=== PATIENT | male | born 1950 | race Caucasian/White ===

== ENCOUNTER → 2017-10-10 08:26 | Outpatient (CLI) | payer MEDICARE, OTHER, SELFPAY ==
--- NOTE | 2017-10-10 08:30 | US_ITS ---
STUDY: ABDOMINAL ULTRASOUND - RIGHT UPPER QUADRANT REASON FOR VISIT: Male, 66 years old. Dyspepsia TECHNIQUE: Ultrasound evaluation of the right upper quadrant was performed with real-time and static fink-scale imaging. TECHNICAL QUALITY: Adequate. COMPARISON: None. FINDINGS: Liver: The liver measures 14.4 cm. There is increased echogenicity consistent with fatty infiltration. The bile ducts are within normal limits. There is hepatic color flow. The direction of portal flow is hepatopetal. There is no demonstrated mass lesion. Gallbladder: Normal distended gallbladder. The gallbladder wall measures 2 mm. There is a negative sonographic Diana's sign. There is no pericholecystic fluid. There are no gallstones. Common Bile Duct (C.B.D.): The common bile duct measures 2 mm. Pancreas: Normal size of the head, body and tail of the pancreas. There is normal echogenicity of the pancreas. There is no demonstrated pancreatic mass or cyst. Right Kidney: Normal size of the right kidney. The right kidney measures 10.8 cm. Normal renal cortex. The right cortex measures 1.5 cm. There is no demonstrated renal mass or cyst. There is no right hydronephrosis. US/Abdomen Limited IMPRESSION: No gallstones or biliary dilatation. Fatty infiltration of the liver. Electronically Signed: Son Machado MD at 14:28 EDT , Service support ,
[2017-10-10 09:56] LABS: Absolute Lymphocyte Count 1.47 X10^3/ul (0.83-4.51); Absolute Neutrophil Count 2.9 X10^3/uL (2.0-7.7); Basophil# 0.01 X10^3/uL; Basophil% 0.2 % (0-1); Eosinophil# 0.32 X10^3/uL; Eosinophils% 5.9 % (0-5); Hematocrit 45.4 % (40-54); Hemoglobin 15.8 g/dl (13.0-16.5); Lymphocyte # 1.47 X10^3/ul (4.0); Lymphocyte % 27.1 % (19-41); Mean Corp Hgb Conc 34.8 g/gl (32-36); Mean Corpuscular Hgb 34.3 pg (27.0-32.0); Mean Corpuscular Volume 98.7 fL (80-94); Mean Platelet Vol. 9.8 fl (6.2-12.0); Monocyte# 0.67 X10^3/uL; Monocyte% 12.4 % (0-10); Neutrophil # 2.93 X10^3/uL (2.7-7.7); Platelet Count 207 K/mm3 (150-450); RBC Distribution Width CV 11.9 % (11.6-14.6); White Blood Count 5.4 K/mm3 (4.4-11.0)
[2017-10-10 09:58] LABS: POSITIVE COUNT NO; POSITIVE DIFFERENTIAL NO; POSITIVE MORPHOLOGY NO
[2017-10-10 10:12] LABS: Hemoglobin A1c 6.5 % (4.2-6.3)
[2017-10-10 10:32] LABS: Microalbumin:Creatinine Ratio 4.6 mg/g CRE (<30 mg/g CRE)
[2017-10-10 10:33] LABS: ALB/GLOB Ratio 1.3 RATIO (0.9-2.4); AST(SGOT) 22 U/L (15-37); Alanine Aminotransfer ALT/SGPT 28 U/L (16-61); Albumin, Serum 3.9 g/dL (3.2-5.0); Alkaline Phosphatase 64 U/L (45-117); Anion Gap 7 (5-15); BUN 19 mg/dL (7-18); BUN/Creat Ratio 16.7 RATIO (10-20); Calcium,Total 9.3 mg/dL (8.5-10.1); Chloride 106 mmol/L (98-107); Cholesterol 120 mg/dL (200); Creatinine, Serum 1.14 mg/dL (0.70-1.30); EST Glomerular Filtration Rate 68 mL/min (>60); Est Glom Filt Rate - Afr Amer 82 mL/min (>60); Globulin 3.1 g/dL (2.2-4.2); Glucose 116 mg/dL (74-106); High Density Lipoprotein 57 mg/dL; PSA,Total - Annual Screen 0.45 ng/mL (0.00-4.00); Potassium 4.1 mmol/L (3.5-5.1); Sodium Level 140 mmol/L (136-145); Triglycerides 118 mg/dL; Very Low Density Lipoprotein 24 mg/dL (5-40)
[2017-10-10 10:43] LABS: Vitamin D,25 Hydroxy 27.9 ng/mL (29.95-100.01)
== END ==
PROVIDERS: Family Provider Family Medicine; PCP Family Medicine; Visit Provider Family Medicine
DX: R10.13 Epigastric pain (principal); I10 Essential (primary) hypertension; E78.00 Pure hypercholesterolemia, unspecified; M51.36 Other intervertebral disc degeneration, lumbar region; Z12.5 Encounter for screening for malignant neoplasm of prostate
CPT/HCPCS: 76705; 80053; 80061; 82043; 82306; 82570; 83036; 84153; 85025; G0103

== ENCOUNTER → 2018-02-19 09:40 | Outpatient (CLI) | payer MEDICARE, OTHER, SELFPAY ==
--- NOTE | 2018-02-19 09:43 | RAD_ITS ---
STUDY: X-RAY - LEFT SHOULDER REASON FOR EXAM: Chronic pain. TECHNIQUE: 3 view(s) of the shoulder. COMPARISON: None. FINDINGS: Normal glenohumeral articulation. Normal acromioclavicular joint. Normal acromion. Normal humeral head and visualized proximal humerus. The soft tissue structures are unremarkable. Normal visualized pulmonary apex. RAD/Shoulder min 2 Views IMPRESSION: Normal x-ray examination of the left shoulder. Electronically Signed: Goyo Slainas MD at 15:41 EDT Tel , Service support ,
== END ==
PROVIDERS: Family Provider Family Medicine; PCP Family Medicine; Visit Provider Orthopaedic Surgery
DX: M25.512 Pain in left shoulder (principal)
CPT/HCPCS: 73030

== ENCOUNTER 2018-03-17 09:00 | Outpatient (RCR) | payer MEDICARE, OTHER, SELFPAY ==
--- NOTE | 2018-03-03 08:35 | HP.PTEVAL_ITS ---
Patient's Visit Information BRANT BASILIO is a 67 year old M referred to Physical Therapy by Carrol Keller DO with a diagnosis of L shoulder RC strain/SLAP. Date of Evaluation: 02/27/18 Physical Therapist: Gonzalo Garcia - Visit Plan Frequency: 1-2x /Week Duration: 4-6 Weeks Plan: strengthen L RC muscles as tolerated- progress to HEP. Pt. to trial on own for 2 weeks then follow up with PT at that point in time. - Subjective Subjective: Pt reports to physical therapy following possible L shoulder RC strain/SLAP. ~3 weeks ago pt suffered a fall on an outstretched arm and landed on shoulder. pt noticed discomfort following fall but wasnt until pt lifted a bag of garbange with an outstretched arm that the pt felt there was an actual injury. pt reports pain with over head movements and shoulder height reaches (opening/closing car door, opening mailbox, reaching for something on top shelf). pt received x-ray which ruled out fracture or AC separation. pt reports pain is enough to wake them up at night. pt is unable to lay on left side. no pain on this date, however. Pt hopes to be able to golf and return to normal activity without pain. - Pain L shoulder Pain Intensity (Out of 10): 0 Pain Intensity Range: 0, 6 - Objective POSTURE: significant forwar head posture with rounded shoulders. PALPATION: no noticable pain with palpation, no pain through subacromial space or scapular region. NEURO: normal UE reflexes and sensation. no numbness or tingling. ROM: L UE: WFL, R with in normal limits. No increase in symptoms with AROM. MMT: L UE: shoulder- flexion- 4/5, abduction- 4/5, extension- 5/5, IR- 5/5, ER- 5/5; elbow- 5/5. Increase in pain with flexion and abduction. - Special Tests L Shoulder Drop Sign - IS Test: Negative L Shoulder Empty Can - SS: Positive L Shoulder Belly Press - SupScap: Negative L Shoulder Neer - Impingement: Negative L Shoulder [place] - Impingement: Negative L Shoulder Biceps Load Test - Labrum: Negative L Shoulder [place] - SLAP: Positive L Shoulder [place] - SLAP/A-C: Positive - Goals Goal 1:: Pt reports 0/10 pain with over head movment allowing for full ability to perform household tasks. Goal Time Frame: 4-6 Weeks Goal 2:: Pt reports no pain with sleeping allowing for increased quality of life. Goal Time Frame: 4-6 Weeks Goal 3:: Pt to have increased L shoulder flexion and abduction strength by 1 grade allowing for full participation in daily and social activities. Goal Time Frame: 4-6 Weeks Goal 4:: Pt. to resume playing golf without increase in symptoms. Goal Time Frame: 4-6 Weeks Goal 5:: Pt. to resume all ADLs and house hold work without increase in symptoms Goal Time Frame: 4-6 Weeks - Rehabilitation Potential Physical Therapy Diagnosis: pt presents with symptoms assocaited with L shoulder RC strain/SLAP. symptoms include pain with over head movment limiting pt ability to perform household and recreational tasks. pt would benefit form physical therapy to promot decrease in pain and improve overhead ability. Rehabilitation Potential: Excellent - Anticipated Interventions Patient/Client Instruction: Educate patient on: Plan of Care, Risk Factors, Benefits of Fitness Program For the Purpose of:: To decrease pain, To increase ROM, To improve muscle performance and motor function, To improve ability to perform ADL's, To increase tolerance to activity/condition/position, To foster healthy habits, To improve decision making, To facilitate caregiver knowledge, To improve self management, To prevent re-injury, To improve ability to perform tasks related to life management, To improve tolerance to ADL's Therapeutic Exercise to Include: Strength training, Power training, Postural tr aining For the Purpose of:: To decrease pain, To increase oxygenation perfusion, To improve muscle performance and motor function, To improve ability to perform ADL's, To increase tolerance to activity/condition/position, To improve performance and independence with ADL's Cryotherapy (ice pack, ice massage): Yes Ultrasound (thermal/non thermal): Yes For the Purpose of:: To decrease pain, To decrease swelling/inflammation, To increase ROM, To improve health of tissue, To decrease soft tissue restriction Thank you for the opportunity to evaluate your patient. For Medicare and Medicare HMO plans, please review the plan of care and approve it. It will need to be FAXED BACK to us at [phone] for Medicare purposes. Please let me know if there are questions or concerns regarding this plan of care. Physician Signature: Date:
--- NOTE | 2018-08-19 09:16 | HP.PT.NRP ---
HP - Discharge Summary (1) - Patient Information BRANT BASILIO was seen in my office for initial evaluation on 02/27/18. The following Plan of Care was established for this patient: Initial Frequency: 1-2x /Week Initial Duration: 4-6 Weeks - Anticipated Interventions Patient/Client Instruction: Educate patient on: Plan of Care, Risk Factors, Benefits of Fitness Program For the Purpose of:: To decrease pain, To increase ROM, To improve muscle performance and motor function, To improve ability to perform ADL's, To increase tolerance to activity/condition/position, To foster healthy habits, To improve decision making, To facilitate caregiver knowledge, To improve self management, To prevent re-injury, To improve ability to perform tasks related to life management, To improve tolerance to ADL's Therapeutic Exercise to Include: Strength training, Power training, Postural training For the Purpose of:: To decrease pain, To increase oxygenation perfusion, To improve muscle performance and motor function, To improve ability to perform ADL's, To increase tolerance to activity/condition/position, To improve performance and independence with ADL's Cryotherapy (ice pack, ice massage): Yes Ultrasound (thermal/non thermal): Yes For the Purpose of:: To decrease pain, To decrease swelling/inflammation, To increase ROM, To improve health of tissue, To decrease soft tissue restriction This patient was last seen in our office 02/27/18. Pertinent comments regarding their Physical therapy will appear below: Pt. was seen for his shoulder pain. Pt. was given RTC strengthening exercises and desired to continue with his exercises on his own. Pt. has not been seen in several months and will be DC from PT at this point intime. At this point I will be discontinuing this patient from physical therapy. I would be happy to see this patient again in the future if found appropriate by the physician. Thank you! Gonzalo Garcia, YONI
== END 2018-03-17 19:00 | disposition home or self-care (01) ==
LOC: PT 09:00
PROVIDERS: Family Provider Family Medicine; PCP Family Medicine; Visit Provider Orthopaedic Surgery
DX: S46.012D Strain of muscle(s) and tendon(s) of the rotator cuff of left shoulder, subsequent encounter (principal); S43.432D Superior glenoid labrum lesion of left shoulder, subsequent encounter
CPT/HCPCS: 97110; 97161

== ENCOUNTER → 2018-03-25 07:57 | Outpatient (CLI) | payer MEDICARE, OTHER, SELFPAY ==
[2018-03-25 11:01] LABS: ALB/GLOB Ratio 1.4 RATIO (0.9-2.4); AST(SGOT) 26 U/L (15-37); Alanine Aminotransfer ALT/SGPT 32 U/L (16-61); Alkaline Phosphatase 61 U/L (45-117); Anion Gap 7 (5-15); BUN 18 mg/dL (7-18); BUN/Creat Ratio 16.8 RATIO (10-20); Chloride 103 mmol/L (98-107); Creatinine, Serum 1.07 mg/dL (0.70-1.30); EST Glomerular Filtration Rate 73 mL/min (>60); Est Glom Filt Rate - Afr Amer 89 mL/min (>60); Globulin 2.9 g/dL (2.2-4.2); Glucose 112 mg/dL (74-106); Potassium 3.9 mmol/L (3.5-5.1); Protein, Total 6.9 g/dL (6.4-8.2); Sodium Level 137 mmol/L (136-145)
[2018-03-25 14:28] LABS: Microalbumin,Random Urine 9.9 mg/L (NO RANGE EST.); Microalbumin:Creatinine Ratio 5.5 mg/g CRE (<30 mg/g CRE)
== END ==
PROVIDERS: Family Provider Family Medicine; PCP Family Medicine; Referring Provider Family Medicine; Visit Provider Family Medicine
DX: E11.9 Type 2 diabetes mellitus without complications (principal)
CPT/HCPCS: 36415; 80053; 82043; 82570

== ENCOUNTER → 2018-09-23 15:56 | Outpatient (CLI) | payer MEDICARE, OTHER, SELFPAY ==
[2018-04-24 10:12] VITALS: BMI 30.1
[2018-09-23 17:42] LABS: Absolute Lymphocyte Count 1.66 X10^3/ul (0.83-4.51); Absolute Neutrophil Count 3.6 X10^3/uL (2.0-7.7); Basophil# 0.01 X10^3/uL; Basophil% 0.2 % (0-1); Eosinophil# 0.36 X10^3/uL; Eosinophils% 5.6 % (0-5); Hematocrit 44.5 % (40-54); Hemoglobin 15.2 g/dl (13.0-16.5); Lymphocyte # 1.66 X10^3/ul (4.0); Lymphocyte % 25.9 % (19-41); Mean Corp Hgb Conc 34.2 g/gl (32-36); Mean Corpuscular Hgb 32.8 pg (27.0-32.0); Mean Corpuscular Volume 96.1 fL (80-94); Mean Platelet Vol. 9.7 fl (6.2-12.0); Monocyte# 0.75 X10^3/uL; Monocyte% 11.7 % (0-10); Platelet Count 220 K/mm3 (150-450); RBC Distribution Width SD 41.2 fl (35.1-43.9); Red Blood Count 4.63 M/mm3 (4.6-6.2); White Blood Count 6.4 K/mm3 (4.4-11.0)
[2018-09-23 18:04] LABS: POSITIVE COUNT NO; POSITIVE DIFFERENTIAL NO; POSITIVE MORPHOLOGY NO
== END ==
PROVIDERS: Family Provider Family Medicine; PCP Family Medicine; Referring Provider Family Medicine; Visit Provider Nurse Practitioner Family
DX: R35.0 Frequency of micturition (principal)
CPT/HCPCS: 36415; 85025; 87086

== ENCOUNTER → 2018-12-03 | Outpatient (CLI) | payer MEDICARE, OTHER, SELFPAY ==
[2018-04-24 10:12] VITALS: BMI 30.1
--- NOTE | 2018-12-03 12:56 | CT_ITS ---
STUDY: CT MAXILLOFACIAL SINUSES REASON FOR EXAM: Male, 68 years old. Sinusitis RADIATION DOSAGE (If Supplied By Facility): CTDIvol = ( 33.45 ) mGy, DLP = ( 637.51 ) mGycm TECHNIQUE: The patient was scanned in a multi detector CT scanner. High resolution axial imaging was performed without the administration of intravenous contrast material. Sagittal and coronal images were reconstructed. Individualized dose optimization techniques were used for this CT. COMPARISON: None. FINDINGS: FRONTAL SINUSES: Normal aeration, without mucosal inflammatory disease. ETHMOIDAL SINUSES: Normal aeration, without mucosal inflammatory disease. MAXILLARY SINUSES: Normal aeration, without mucosal inflammatory disease. SPHENOIDAL SINUSES: Normal aeration, without mucosal inflammatory disease. There is patency of the bilateral maxillary infundibuli with normal uncinate processes, ethmoid bullae, and hiatus semilunaris. Normal bilateral middle turbinates. Normal bilateral inferior turbinates. Normal midline nasal septum. There is patency of the bilateral nasal airways. The visualized osseous structures are normal. The visualized bilateral orbital contents are normal. CT/Sinus/Facial Bone IMPRESSION: Normal CT examination of the maxillofacial sinuses. Electronically Signed: Cristofer Faustin MD at 16:58 EDT Tel , Service support ,
== END | disposition home or self-care (01) ==
LOC: CT 12:54
PROVIDERS: Family Provider Family Medicine; PCP Family Medicine; Referring Provider Family Medicine; Visit Provider Family Medicine
DX: J32.9 Chronic sinusitis, unspecified (principal)
CPT/HCPCS: 70486

== ENCOUNTER → 2018-12-08 | Outpatient (CLI) | payer MEDICARE, OTHER, SELFPAY ==
[2018-04-24 10:12] VITALS: BMI 30.1
== END | disposition home or self-care (01) ==
LOC: LABSPEC 10:27
PROVIDERS: Family Provider Family Medicine; PCP Family Medicine; Referring Provider Otolaryngology Otolaryngology/Facial Plastic Surgery; Visit Provider Otolaryngology Otolaryngology/Facial Plastic Surgery
DX: J32.9 Chronic sinusitis, unspecified (principal)
CPT/HCPCS: 87070; 87077; 87205

== ENCOUNTER → 2019-04-26 08:25 | Outpatient (CLI) | payer MEDICARE, OTHER, SELFPAY ==
[2018-04-24 10:12] VITALS: BMI 30.1
[2019-04-26 10:24] LABS: Absolute Lymphocyte Count 1.69 X10^3/uL (0.83-4.51); Absolute Neutrophil Count 3.8 X10^3/uL (2.0-7.7); Basophil# 0.02 X10^3/uL; Basophil% 0.3 % (0-1); Eosinophil# 0.29 X10^3/uL; Eosinophils% 4.5 % (0-5); Hematocrit 45.2 % (40-54); Hemoglobin 15.6 g/dL (13.0-16.5); Lymphocyte # 1.69 X10^3/ul (4.0); Lymphocyte % 26.4 % (19-41); Mean Corp Hgb Conc 34.5 g/dL (32-36); Mean Corpuscular Hgb 33.5 pg (27.0-32.0); Mean Corpuscular Volume 97.2 fL (80-94); Mean Platelet Vol. 9.5 fl (6.2-12.0); Monocyte# 0.62 X10^3/uL; Monocyte% 9.7 % (0-10); NRBC Flagged by Analyzer 0 % (0-5); Neutrophil # 3.76 X10^3/uL (2.7-7.7); Neutrophil % 58.8 % (47-70); Platelet Count 212 K/mm3 (150-450); Red Blood Count 4.65 M/mm3 (4.6-6.2); White Blood Count 6.4 K/mm3 (4.4-11.0)
[2019-04-26 10:39] LABS: Hemoglobin A1c 6.1 % (4.2-6.3)
[2019-04-26 10:42] LABS: ALB/GLOB Ratio 1.2 RATIO (0.9-2.4); AST(SGOT) 20 U/L (15-37); Alanine Aminotransfer ALT/SGPT 33 U/L (16-61); Alkaline Phosphatase 60 U/L (45-117); Anion Gap 9 (5-15); BUN 18 mg/dL (7-18); BUN/Creat Ratio 15.7 RATIO (10-20); Calcium,Total 9.8 mg/dL (8.5-10.1); Chloride 103 mmol/L (98-107); Creatinine, Serum 1.15 mg/dL (0.70-1.30); EST Glomerular Filtration Rate 67 mL/min (>60); Est Glom Filt Rate - Afr Amer 81 mL/min (>60); Globulin 3.3 g/dL (2.2-4.2); Glucose 121 mg/dL (74-106); Potassium 3.9 mmol/L (3.5-5.1); Protein, Total 7.3 g/dL (6.4-8.2); Sodium Level 138 mmol/L (136-145)
[2019-04-26 14:32] LABS: Microalbumin,Random Urine 15.3 mg/L (NO RANGE EST.); Microalbumin:Creatinine Ratio 6.5 mg/g CRE (<30 mg/g CRE)
== END ==
PROVIDERS: Family Provider Family Medicine; PCP Family Medicine; Referring Provider Family Medicine; Visit Provider Family Medicine
DX: E11.9 Type 2 diabetes mellitus without complications (principal)
CPT/HCPCS: 36415; 80053; 82043; 82570; 83036; 85025

== ENCOUNTER → 2019-07-28 10:23 | Outpatient (CLI) | payer MEDICARE, OTHER, SELFPAY ==
[2019-05-19 13:04] VITALS: BMI 30.2
--- NOTE | 2019-07-28 10:30 | US_ITS ---
HISTORY: RUQ PAIN COMPARISON: 10/10/2017 TECHNIQUE: Sonographic images of the right upper quadrant of the abdomen using grayscale and color Doppler imaging. Number of images including paperwork: 82 FINDINGS: Evaluation limited by habitus and bowel gas, right upper quadrant organs predominately visible via intercostal approach. LIVER: Grossly unremarkable echogenicity. Right lobe measures 17.5 cm. GALLBLADDER: No gallstones. No significant gallbladder wall thickening. Sonographic Diana's sign not elicited per the property claims adjuster. BILE DUCTS: No significant biliary dilatation. CBD 4.5 mm. PANCREAS: Obscured by bowel gas. RIGHT KIDNEY: Unremarkable, 10.9 cm. AORTA: Unremarkable visualized portions of the aorta. INFERIOR VENA CAVA: Unremarkable visualized portions of the inferior vena cava. FREE FLUID: None detected. US/Gallbladder IMPRESSION: No acute abdominal abnormality is sonographically apparent. at 0430 Reported and signed by: Candelaria Yee MD Electronically Signed: Candelaria Yee MD at 4:30 EST Tel , Service support ,
== END ==
PROVIDERS: PCP Family Medicine; Referring Provider Family Medicine; Visit Provider Family Medicine
DX: R10.11 Right upper quadrant pain (principal)
CPT/HCPCS: 76705

== ENCOUNTER → 2019-10-28 07:13 | Outpatient (CLI) | payer MEDICARE, OTHER, SELFPAY ==
[2019-05-19 13:04] VITALS: BMI 30.2
[2019-10-28 10:16] LABS: Absolute Lymphocyte Count 1.78 X10^3/uL (0.83-4.51); Basophil# 0.03 X10^3/uL; Basophil% 0.4 % (0-1); Eosinophil# 0.33 X10^3/uL; Eosinophils% 4.8 % (0-5); Hematocrit 44.8 % (40-54); Hemoglobin 15.2 g/dL (13.0-16.5); Lymphocyte # 1.78 X10^3/ul (4.0); Lymphocyte % 25.8 % (19-41); Mean Corp Hgb Conc 33.9 g/dL (32-36); Mean Corpuscular Hgb 33.6 pg (27.0-32.0); Mean Corpuscular Volume 99.1 fL (80-94); Mean Platelet Vol. 9.7 fl (6.2-12.0); Monocyte# 0.72 X10^3/uL; Monocyte% 10.4 % (0-10); NRBC Flagged by Analyzer 0 % (0-5); Neutrophil # 4.01 X10^3/uL (2.7-7.7); Neutrophil % 58.3 % (47-70); Platelet Count 221 K/mm3 (150-450); RBC Distribution Width CV 11.6 % (11.6-14.6); RBC Distribution Width SD 42.5 fl (35.1-43.9); Red Blood Count 4.52 M/mm3 (4.6-6.2); White Blood Count 6.9 K/mm3 (4.4-11.0)
[2019-10-28 10:33] LABS: Hemoglobin A1c 6.1 % (3.8-5.6)
[2019-10-28 10:49] LABS: ALB/GLOB Ratio 1.3 RATIO (0.9-2.4); AST(SGOT) 22 U/L (15-37); Alanine Aminotransfer ALT/SGPT 35 U/L (16-61); Alkaline Phosphatase 67 U/L (45-117); Anion Gap 6 (5-15); BUN 25 mg/dL (7-18); BUN/Creat Ratio 22.9 RATIO (10-20); Calcium,Total 9.4 mg/dL (8.5-10.1); Chloride 101 mmol/L (98-107); Cholesterol 136 mg/dL (200); Creatinine, Serum 1.09 mg/dL (0.70-1.30); EST Glomerular Filtration Rate 71 mL/min (>60); Est Glom Filt Rate - Afr Amer 86 mL/min (>60); Globulin 3.1 g/dL (2.2-4.2); Glucose 126 mg/dL (74-106); High Density Lipoprotein 56 mg/dL; Potassium 3.8 mmol/L (3.5-5.1); Protein, Total 7.1 g/dL (6.4-8.2); Sodium Level 136 mmol/L (136-145); Thyroid Stim Hormone (TSH) 1.24 uIU/mL (0.358-3.74); Triglycerides 97 mg/dL; Very Low Density Lipoprotein 19 mg/dL (5-40)
== END ==
PROVIDERS: PCP Family Medicine; Referring Provider Family Medicine; Visit Provider Family Medicine
DX: M15.9 Polyosteoarthritis, unspecified (principal); E11.9 Type 2 diabetes mellitus without complications
CPT/HCPCS: 36415; 80053; 80061; 83036; 84443; 85025

== ENCOUNTER → 2020-05-02 10:52 | Outpatient (CLI) | payer MEDICARE, OTHER, SELFPAY ==
[2019-05-19 13:04] VITALS: BMI 30.2
[2020-05-02 12:09] LABS: Absolute Lymphocyte Count 1.95 X10^3/uL (0.83-4.51); Basophil# 0.02 X10^3/uL; Basophil% 0.3 % (0-1); Eosinophil# 0.25 X10^3/uL; Eosinophils% 3.5 % (0-5); Hematocrit 46.9 % (40-54); Hemoglobin 15.6 g/dL (13.0-16.5); Lymphocyte # 1.95 X10^3/ul (4.0); Lymphocyte % 27.4 % (19-41); Mean Corp Hgb Conc 33.3 g/dL (32-36); Mean Corpuscular Hgb 32.8 pg (27.0-32.0); Mean Corpuscular Volume 98.7 fL (80-94); Mean Platelet Vol. 9.5 fl (6.2-12.0); Monocyte# 0.88 X10^3/uL; Monocyte% 12.4 % (0-10); NRBC Flagged by Analyzer 0 % (0-5); Neutrophil # 3.98 X10^3/uL (2.7-7.7); Platelet Count 207 K/mm3 (150-450); RBC Distribution Width CV 11.9 % (11.6-14.6); RBC Distribution Width SD 43.6 fl (35.1-43.9); Red Blood Count 4.75 M/mm3 (4.6-6.2); White Blood Count 7.1 K/mm3 (4.4-11.0)
[2020-05-02 12:28] LABS: ALB/GLOB Ratio 1.3 RATIO (0.9-2.4); AST(SGOT) 19 U/L (15-37); Alanine Aminotransfer ALT/SGPT 34 U/L (16-61); Albumin, Serum 4.1 g/dL (3.2-5.0); Alkaline Phosphatase 70 U/L (45-117); Anion Gap 6 (5-15); BUN 24 mg/dL (7-18); Calcium,Total 9.5 mg/dL (8.5-10.1); Chloride 104 mmol/L (98-107); EST Glomerular Filtration Rate 64 mL/min (>60); Est Glom Filt Rate - Afr Amer 77 mL/min (>60); Globulin 3.1 g/dL (2.2-4.2); Glucose 108 mg/dL (74-106); Potassium 4.2 mmol/L (3.5-5.1); Protein, Total 7.2 g/dL (6.4-8.2); Sodium Level 135 mmol/L (136-145)
[2020-05-02 12:46] LABS: Microalbumin,Random Urine 6.8 mg/L (NO RANGE EST.); Microalbumin:Creatinine Ratio 5.4 mg/g CRE (<30 mg/g CRE)
== END ==
PROVIDERS: PCP Family Medicine; Referring Provider Family Medicine; Visit Provider Family Medicine
DX: I10 Essential (primary) hypertension (principal); E11.9 Type 2 diabetes mellitus without complications
CPT/HCPCS: 36415; 80053; 82043; 82570; 85025

== ENCOUNTER → 2020-10-23 07:06 | Outpatient (CLI) | payer MEDICARE, SELFPAY ==
[2020-05-22 10:02] VITALS: BMI 30.3
[2020-10-23 10:08] LABS: Hematocrit 47.6 % (40-54); Mean Corp Hgb Conc 33.6 g/dL (32-36); Mean Corpuscular Hgb 33.3 pg (27.0-32.0); Mean Corpuscular Volume 99.2 fL (80-94); Mean Platelet Vol. 9.8 fl (6.2-12.0); Platelet Count 216 K/mm3 (150-450); RBC Distribution Width CV 11.9 % (11.6-14.6); RBC Distribution Width SD 43.5 fl (35.1-43.9); White Blood Count 6.9 K/mm3 (4.4-11.0)
[2020-10-23 10:42] LABS: Hemoglobin A1c 6.1 % (3.8-5.6)
[2020-10-23 10:45] LABS: Microalbumin,Random Urine 10.2 mg/L (NO RANGE EST.); Microalbumin:Creatinine Ratio 5.2 mg/g CRE (<30 mg/g CRE)
[2020-10-23 10:53] LABS: ALB/GLOB Ratio 1.2 RATIO (0.9-2.4); AST(SGOT) 22 U/L (15-37); Alanine Aminotransfer ALT/SGPT 31 U/L (16-61); Albumin, Serum 3.9 g/dL (3.2-5.0); Alkaline Phosphatase 74 U/L (45-117); Anion Gap 5 (5-15); BUN 22 mg/dL (7-18); BUN/Creat Ratio 19.6 RATIO (10-20); Calcium,Total 9.3 mg/dL (8.5-10.1); Chloride 103 mmol/L (98-107); Cholesterol 158 mg/dL (200); Creatinine, Serum 1.12 mg/dL (0.70-1.30); EST Glomerular Filtration Rate 69 mL/min (>60); Est Glom Filt Rate - Afr Amer 83 mL/min (>60); Globulin 3.2 g/dL (2.2-4.2); Glucose 119 mg/dL (74-106); High Density Lipoprotein 56 mg/dL; Potassium 3.9 mmol/L (3.5-5.1); Protein, Total 7.1 g/dL (6.4-8.2); Sodium Level 138 mmol/L (136-145); Thyroid Stim Hormone (TSH) 1.55 uIU/mL (0.358-3.74); Triglycerides 140 mg/dL; Very Low Density Lipoprotein 28 mg/dL (5-40)
== END ==
PROVIDERS: PCP Family Medicine; Referring Provider Family Medicine; Visit Provider Family Medicine
DX: E11.9 Type 2 diabetes mellitus without complications (principal); M54.2 Cervicalgia
CPT/HCPCS: 36415; 80053; 80061; 82043; 82570; 83036; 84443; 85027

== ENCOUNTER 2020-11-01 13:00 | Outpatient (RCR) | payer MEDICARE, SELFPAY ==
[2020-05-22 10:02] VITALS: BMI 30.3
--- NOTE | 2020-10-04 14:50 | HP.PTEVAL ---
Patient's Visit Information BRANT BASILIO is a 69 year old M referred to Physical Therapy by Dr. Kerri Brower MD with a diagnosis of Cervicalgia. Date of Evaluation: 10/04/20 Physical Therapist: SKYLER Coleman - Visit Plan Frequency: 2x /Week Duration: 4 Weeks Plan: ++Ultrasound, E-stim, and MASS are NOT covered. 2X/ week for 4 weeks for MT to the R side occiput, and upper c-spine paraspinals, mid trap and levator, postural exercises, suboccip release. c-spine distraction with HEP. - Subjective Pt has a pain on the R side of his head to the back of his neck and feels like an ear ache is coming on but it never comes on. He went to see the Dr and said to do PT and gave her a topical antibiotic. The topical antibiotic has helped some. Today the pain is not as bad but he feels that he has more pressure in his ear and at time up into his head. When he rotates his head he can hear the cracking and feel the sharp pain along the neck. He is sleeping ok and sleeps with 1 pillow under his head. He has some pain in his shoulder and in his R bicep but not sure that that is related. He can lift his arm and will have some anterior shoulder pain. He has no N&T. He has had a few headaches but occ. He is retired. He does not sit at a computer a lot. He read a lot... and does look down some. He does not recall if it starts up when reading. He feels the pain the most when he gets up in the AM. He feels it periodically throughout the day. He has had B knee replaced and his shoulder and back is bothering him so he feels that he has arthritis. Pt is R handed. - Pain neck pain Pain Intensity (Out of 10): 0 Pain Intensity Range: 5 - Objective C-spine AROM: Rot B 75%, Ext 25%, Flex 100%, SB B 50%. Shoulder AROM: Full shoulder AROM... slightly decreased R shoulder flexion. UE MMT: WFL. Posture: fw head... rounded shoulders. R handed: R 85# L 63#. Palpation: tender along the R side upper paraspinals (occiput-c4), occiput on the R, mid trap, levator - Goals Goal 1:: I HEP Goal Time Frame: 4-6 Weeks Goal 2:: Increase c-spine AROM: (at time of eval: C-spine AROM: Rot B 75%, Ext 25%, Flex 100%, SB B 50%)/ Goal Time Frame: 4-6 Weeks Goal 3:: Decrease feq of neck and ear pain by 50% Goal Time Frame: 4-6 Weeks Goal 4:: Sit with upright posture during treatment sessions Goal Time Frame: 4-6 Weeks - Rehabilitation Potential Rehabilitation Potential: Good - Anticipated Interventions Patient/Client Instruction: Educate patient on: Condition, Plan of Care For the Purpose of:: To decrease pain, To increase ROM, To improve nutrient delivery to tissue, To improve muscle performance and motor function, To increase tolerance to activity/condition/position, To improve health of tissue, To decrease soft tissue restriction, To increase flexibility/ROM Therapeutic Exercise to Include: Strength training, Postural training, Flexibilty training, Neuromotor development, Passive ROM, Active ROM, Scapular Strength/Stabilization For the Purpose of:: To decrease pain, To improve nutrient delivery to tissue, To improve muscle performance and motor function, To improve ability to perform ADL's, To increase tolerance to activity/condition/position, To improve performance and independence with ADL's, To decrease level of supervision to perform tasks, To improve health of tissue, To decrease soft tissue restriction, To increase flexibility/ROM Manual Therapy Techniques to Include: Mobilization, Passive ROM, Soft tissue mobilization For the Purpose of:: To decrease pain, To increase ROM, To improve nutrient delivery to tissue, To improve muscle performance and motor function, To improve ability to perform ADL's, To increase tolerance to activity/condition/position, To improve health of tissue, To decrease soft tissue restriction, To increase flexibility/ROM Thank you for the opportunity to evaluate your patient. For Medicare and Medicare HMO plans, please review the plan of care and approve it. It will need to be FAXED BACK to us at [phone] for Medicare purposes. For Medicare only, by signing this I certify the plan of care. Please let me know if there are questions or concerns regarding this plan of care. Physician Signature: Date:
--- NOTE | 2020-11-01 13:29 | HP.PTDCSUM_ITS ---
It has been my pleasure to treat BRANT BASILIO referred by Dr. Kerri Brower MD, with the diagnosis of Cervicalgia for a total of 9 visit(s). Discharge Date: 11/01/20 Please see the following information for a summary of their discharge status. Subjective: Only has pain when turns the head to the right and then it is a 3- 4/10. neck pain Pain Intensity (Out of 10): 0 % Improvement: 60 Objective/Function: c-spine AROM: flex 100%, EXT 25%, SB B 50%, ROT B 75% Goal 1:: I HEP Goal Progress: Goal Met Goal 2:: Increase c-spine AROM: (at time of eval: C-spine AROM: Rot B 75%, Ext 25%, Flex 100%, SB B 50%)/ Goal Progress: Progressing Goal 3:: Decrease feq of neck and ear pain by 50% Goal Progress: Not Progressing Goal 4:: Sit with upright posture during treatment sessions Goal Progress: Goal Met Plan: DC PT back to physician for neck x-ray and continue with ENT Discharge Comments: DC PT to physician for x-ray If there are questions or concerns regarding this patient's physical therapy, please feel free to call me at [phone]. Thank you for the referral of this patient. Sincerely, SKYLER Coleman
== END 2020-11-01 19:00 | disposition home or self-care (01) ==
LOC: PT 13:00
PROVIDERS: PCP Family Medicine; Referring Provider Family Medicine; Visit Provider Family Medicine
DX: M54.2 Cervicalgia (principal)
CPT/HCPCS: 97140; 97161

== ENCOUNTER → 2020-11-10 07:58 | Outpatient (CLI) | payer MEDICARE, SELFPAY ==
[2020-05-22 10:02] VITALS: BMI 30.3
--- NOTE | 2020-11-10 08:01 | CT_ITS ---
STUDY: CT FACIAL BONES WITHOUT CONTRAST REASON FOR EXAM: Male, 69 years old. R HEARING LOSS,SINUSITIS RADIATION DOSAGE (If Supplied By Facility): CTDIvol = ( 28.14 ) mGy, DLP = ( 746.19 ) mGycm TECHNIQUE: The patient was scanned in a multi detector CT scanner. Sagittal and coronal images were reconstructed. Individualized dose optimization techniques were used for this CT. COMPARISON: None. FINDINGS: Normal soft tissue structures. Normal orbital manning and orbital contents. Normal nasal bones and anterior nasal spine. Normal facial bones. There is no demonstrated fracture. Minimal degree of mucosal thickening of the right maxillary sinus medially. CT/Sinus/Facial Bone IMPRESSION: Minimal degree of mucosal thickening along the medial wall of the right maxillary sinus. Electronically Signed: Jace Carrillo MD at 11:07 EDT , Service support ,
== END ==
PROVIDERS: PCP Family Medicine; Referring Provider Otolaryngology Otolaryngology/Facial Plastic Surgery; Visit Provider Otolaryngology Otolaryngology/Facial Plastic Surgery
DX: H91.91 Unspecified hearing loss, right ear (principal); H93.11 Tinnitus, right ear; J32.9 Chronic sinusitis, unspecified
CPT/HCPCS: 70486

== ENCOUNTER 2021-01-21 22:51 | Emergency (ER) | payer MEDICARE, SELFPAY ==
[2020-05-22 10:02] VITALS: BMI 30.3
[2021-01-21 22:51] VITALS: BP 186/81; PULSE 63; RESP 18; TEMP 36.3; O2SAT 96; BMI 29.8
--- NOTE | 2021-01-21 23:05 | RAD_ITS ---
STUDY: X-RAY - RIGHT FOOT CLINICAL: Male, 70 years old. Pain. TECHNIQUE: 3 view(s) of the foot. COMPARISON: None. FINDINGS: Normal talus, calcaneus, and tarsal bones. Plantar calcaneal bone spur. Normal visualized subtalar, talonavicular, calcaneocuboid, tarsal and tarsometatarsal articulations. Normal metatarsi. Normal metatarsophalangeal joint of the great toe. Normal tibial and fibular sesamoid bones. Normal interphalangeal joint of the great toe. Normal phalanges of the great toe. Normal second through fifth metatarsophalangeal joints. Normal interphalangeal joints and phalanges of the lesser toes. The soft tissue structures are unremarkable. RAD/Foot min 3 Views IMPRESSION: Normal x-ray examination of the foot. Electronically Signed: Christiano Rivera MD at 23:44 EDT , Service support ,
[2021-01-21 23:17] VITALS: BP 163/85; PULSE 93; RESP 17; O2SAT 99
--- NOTE | 2021-01-22 00:18 | ED.VIS.LOWEX ---
HPI History of Present Illness Chief Complaint: Lower Extremity Injury Narrative Narrative: Patient presenting with pain over the right foot on the dorsum. He denies any trauma. He does state that he was wearing one of his pairs of shoes that is a little bit tighter and this may have been the cause of it. Patient denies numbness or tingling. He denies history of DVT/PE. Denies chest pain, palpitation, shortness of breath. He has no calf or thigh pain. [facility] Medical History Atherosclerotic heart disease of [place] coronary artery without angina pectoris Coronary heart disease Essential hypertension Herniated lumbar intervertebral disc Hyperlipemia Hypertension Type 2 diabetes mellitus Home Medications acetaminophen 650 mg PO DAILY 02/17/17 [History Last Taken Unknown] acyclovir 400 mg PO DAILY 02/17/17 [History Last Taken Unknown] celecoxib 200 mg PO DAILY 02/17/17 [History Last Taken Unknown] hydrochlorothiazide 25 mg PO DAILY 02/17/17 [History Last Taken Unknown] lisinopril 20 mg PO DAILY 02/17/17 [History Last Taken 02/25/17 05:00] multivitamin with folic acid 1 tab PO DAILY 02/17/17 [History Last Taken Unknown] simvastatin 10 mg PO QHS 02/17/17 [History Last Taken Unknown] cholecalciferol (vitamin D3) 25 mcg (1,000 unit) capsule 1,000 unit PO DAILY 04/24/18 [History Last Taken Unknown] metformin 500 mg tablet 250 mg PO DAILY tab 04/24/18 [History Last Taken Unknown] omeprazole 40 mg capsule,delayed release 40 mg PO DAILY 05/22/20 [History Last Taken Unknown] Allergy/AdvReac Type Severity Reaction Status Date / Time Penicillins Allergy Rash Verified 01/21/21 22:54 Tetracyclines Allergy Rash Verified 01/21/21 22:54 Family History Mother Hypertension Surgical History History of left knee replacement History of right knee joint replacement History of tonsillectomy History of total left knee replacement History of total right knee replacement S/P nasal septoplasty S/P right rotator cuff repair S/P tonsillectomy Social History Smoking Status: Former smoker how long ago did patient quit smokin years ROS ROS ED Constitutional Constitutional ED: Denies chills or fever(s) Eyes Eyes: Denies blurry vision or diplopia ENT ENT ED: Denies rhinorrhea or sore throat Cardiovascular Cardiovascular: Denies chest pain or palpitations Respiratory/Chest Respiratory/Chest: Denies cough, dyspnea or sputum Gastrointestinal Gastrointestinal: Denies abdominal pain, nausea or vomiting Genitourinary Genitourinary ED: Denies dysuria or hematuria Musculoskeletal Musculoskeletal: Reports other Details: Right foot pain Integumentary Reports other Details: Mild erythema and swelling over the dorsum of the right foot Neurologic Neurologic: Denies headache(s) or paresthesias EXAM Physical Exam Const Vital Signs: 01/21/21 22:51 01/21/21 23:17 Temperature 97.4 F L Temperature Source Temporal Pulse Rate 63 93 Respiratory Rate 18 17 Blood Pressure 186/81 H 163/85 H Blood Pressure Mean 116 111 Pulse Ox 96 99 Oxygen Delivery Method Room Air Room Air Positive well nourished General Appearance ED: NAD HEENT normocephalic and atraumatic Resp normal respiratory effort Cardio regular rate and regular rhythm Extremity Extremity Narrative: Small area of erythema on the dorsum of the right foot. There is no fluctuant mass. He does not warm or indurated. Minimally tender to palpation. Right foot is neurovascular intact with prescription for all 5 toes. Neuro oriented x3 Sensorium / Orientation: alert Psych mental status grossly normal Skin Skin Narrative: As described above MDM MDM MDM Narrative Medical decision making narrative: Patient presented with nontraumatic foot pain on the dorsum of the right foot. There are some mild erythema and swelling here although there is no abscess or cellulitis noted. Patient states he may have been wearing shoes that are too tight on the right foot. I did obtain an x-ray of the right foot which on my interpretation shows no acute fracture subluxation. The patient is expressing concern for possible DVT although they think this is unlikely I will order him an outpatient DVT study for tomorrow being in his 12:30 AM. He is amenable to this plan. I do not believe he needs to be anticoagulated overnight. Impression: 1. Right foot pain Radiography Diagnostic Testing: Radiology Impression Foot X-Ray 01/21/21 23:05 IMPRESSION: Normal x-ray examination of the foot. Electronically Signed: Christiano Rivera MD at 23:44 EDT , Service support , Discharge Plan Triage Chief Complaint: Lower Extremity Injury ED Provider: Yeyo Mariee Dx/Rx/DC Orders Instructions: ED Peripheral Edema, Unilateral, ED Tendonitis Prescriptions: No Action metformin 500 mg tablet 250 mg PO DAILY RF: 0 cholecalciferol (vitamin D3) 1,000 unit capsule 1,000 unit PO DAILY RF: 0 omeprazole 40 mg capsule,delayed release(DR/EC) 40 mg PO DAILY RF: 0 celecoxib 200 MG capsule 200 mg PO DAILY RF: 0 lisinopril 20 MG tablet 20 mg PO DAILY RF: 0 simvastatin 10 MG tablet 10 mg PO QHS RF: 0 acyclovir 400 MG tablet 400 mg PO DAILY RF: 0 acetaminophen 650 MG tablet extended release 650 mg PO DAILY RF: 0 hydrochlorothiazide 25 MG tablet 25 mg PO DAILY RF: 0 multivitamin with folic acid 1 TABLET tablet 1 tab PO DAILY RF: 0 Primary Care Provider: Delfino Montgomery Referrals: Delfino Montgomery MD [Primary Care Provider] - Disposition Disposition: Home, Self Care
== END 2021-01-22 00:42 | disposition home or self-care (01) ==
PROVIDERS: Emergency Provider Student in an Organized Health Care Education/Training Program; PCP Family Medicine
DX: M79.671 Pain in right foot (principal); M79.89 Other specified soft tissue disorders; I10 Essential (primary) hypertension; E11.9 Type 2 diabetes mellitus without complications; E78.5 Hyperlipidemia, unspecified; I25.10 Atherosclerotic heart disease of native coronary artery without angina pectoris; Z79.84 Long term (current) use of oral hypoglycemic drugs; Z79.899 Other long term (current) drug therapy; Z87.891 Personal history of nicotine dependence
CPT/HCPCS: 73630; 99282

== ENCOUNTER → 2021-01-22 10:49 | Outpatient (CLI) | payer MEDICARE, SELFPAY ==
[2021-01-21 22:51] VITALS: BMI 29.8
--- NOTE | 2021-01-22 10:51 | VDLE_ITS ---
Reason For Study: Pain RIGHT LEFT GSV is normal. CFV is compressible, spontaneous, phasic, CFV is compressible, spontaneous, phasic, competent, and demonstrates normal competent and demonstrates normal augmentation. augmentation. FV is compressible, spontaneous, phasic, competent and demonstrates normal augmentation. POP V is compressible, spontaneous, phasic, competent and demonstrates normal augmentation. T/P Trunk is compressible. PTV is compressible. RT PerV is compressible. Procedure This is a venous duplex using B-mode, color flow and spectral Doppler. Exam performed in department. A preliminary report was called and/or faxed to Dr. Montgomery. VL/Venous Duplex US, Unilateral Interpretation Summary There is no evidence of right lower extremity deep vein thrombosis. Right great saphenous vein appears patent and compressible segmentally. Normal flow patterns left common f emoral vein Ordering Physician: Yeyo Mariee Referring Physician: Delfino Montgomery Performed By: Radha Patel, MAU, RVT
== END ==
PROVIDERS: PCP Family Medicine; Referring Provider Student in an Organized Health Care Education/Training Program; Visit Provider Student in an Organized Health Care Education/Training Program
DX: M79.604 Pain in right leg (principal)
CPT/HCPCS: 93971

== ENCOUNTER → 2021-05-08 07:53 | Outpatient (CLI) | payer MEDICARE, SELFPAY ==
[2021-05-08 09:53] LABS: Absolute Lymphocyte Count 2.01 X10^3/uL (0.83-4.51); Absolute Neutrophil Count 4.1 X10^3/uL (2.0-7.7); Basophil# 0.03 X10^3/uL; Basophil% 0.4 % (0-1); Eosinophil# 0.41 X10^3/uL; Eosinophils% 5.6 % (0-5); Hematocrit 46.3 % (40-54); Hemoglobin 15.6 g/dL (13.0-16.5); Lymphocyte # 2.01 X10^3/ul (0.83-4.51); Lymphocyte % 27.3 % (19-41); Mean Corp Hgb Conc 33.7 g/dL (32-36); Mean Corpuscular Hgb 32.8 pg (27.0-32.0); Mean Corpuscular Volume 97.5 fL (80-94); Mean Platelet Vol. 9.5 fl (6.2-12.0); Monocyte# 0.78 X10^3/uL; Monocyte% 10.6 % (0-10); NRBC Flagged by Analyzer 0 % (0-5); Neutrophil # 4.08 X10^3/uL (2.7-7.7); Neutrophil % 55.3 % (47-70); Platelet Count 234 K/mm3 (150-450); RBC Distribution Width CV 11.8 % (11.6-14.6); RBC Distribution Width SD 42.8 fl (35.1-43.9); Red Blood Count 4.75 M/mm3 (4.6-6.2); White Blood Count 7.4 K/mm3 (4.4-11.0)
[2021-05-08 10:08] LABS: ALB/GLOB Ratio 1.1 RATIO (0.9-2.4); AST(SGOT) 20 U/L (15-37); Alanine Aminotransfer ALT/SGPT 27 U/L (16-61); Albumin, Serum 3.7 g/dL (3.2-5.0); Alkaline Phosphatase 69 U/L (45-117); Anion Gap 9 (5-15); BUN 20 mg/dL (7-18); BUN/Creat Ratio 18.9 RATIO (10-20); Calcium,Total 9.5 mg/dL (8.5-10.1); Chloride 103 mmol/L (98-107); Cholesterol 155 mg/dL (200); Creatinine, Serum 1.06 mg/dL (0.70-1.30); EST Glomerular Filtration Rate 73 mL/min (>60); Est Glom Filt Rate - Afr Amer 89 mL/min (>60); Globulin 3.4 g/dL (2.2-4.2); Glucose 129 mg/dL (74-106); High Density Lipoprotein 56 mg/dL; Potassium 3.8 mmol/L (3.5-5.1); Protein, Total 7.1 g/dL (6.4-8.2); Sodium Level 138 mmol/L (136-145); Triglycerides 149 mg/dL; Very Low Density Lipoprotein 30 mg/dL (5-40)
[2021-05-08 10:13] LABS: Hemoglobin A1c 6.2 % (3.8-5.6)
[2021-05-08 15:25] LABS: Microalbumin,Random Urine 9.2 mg/L (NO RANGE EST.); Microalbumin:Creatinine Ratio 5.6 mg/g CRE (<30 mg/g CRE)
== END ==
PROVIDERS: PCP Family Medicine; Referring Provider Nurse Practitioner Family; Visit Provider Nurse Practitioner Family
DX: E11.9 Type 2 diabetes mellitus without complications (principal); E78.00 Pure hypercholesterolemia, unspecified; I10 Essential (primary) hypertension
CPT/HCPCS: 36415; 80053; 80061; 82043; 82570; 83036; 85025

== ENCOUNTER → 2021-10-16 | Outpatient (CLI) | payer MEDICARE, SELFPAY ==
[2021-10-16 10:11] LABS: Absolute Lymphocyte Count 1.59 X10^3/uL (0.83-4.51); Absolute Neutrophil Count 3.5 X10^3/uL (2.0-7.7); Basophil# 0.03 X10^3/uL; Basophil% 0.5 % (0-1); Eosinophil# 0.41 X10^3/uL; Eosinophils% 6.5 % (0-5); Hematocrit 44.7 % (40-54); Hemoglobin 15.7 g/dL (13.0-16.5); Lymphocyte # 1.59 X10^3/ul (0.83-4.51); Lymphocyte % 25.2 % (19-41); Mean Corp Hgb Conc 35.1 g/dL (32-36); Mean Corpuscular Hgb 34.2 pg (27.0-32.0); Mean Corpuscular Volume 97.4 fL (80-94); Mean Platelet Vol. 9.6 fl (6.2-12.0); Monocyte% 12.7 % (0-10); NRBC Flagged by Analyzer 0 % (0-5); Neutrophil # 3.46 X10^3/uL (2.7-7.7); Neutrophil % 54.6 % (47-70); Platelet Count 238 K/mm3 (150-450); RBC Distribution Width CV 11.8 % (11.6-14.6); RBC Distribution Width SD 42.5 fl (35.1-43.9); Red Blood Count 4.59 M/mm3 (4.6-6.2); White Blood Count 6.3 K/mm3 (4.4-11.0)
[2021-10-16 10:51] LABS: Vitamin B12 867 pg/mL (211-911)
[2021-10-16 11:15] LABS: ALB/GLOB Ratio 1.3 RATIO (0.9-2.4); AST(SGOT) 22 U/L (15-37); Alanine Aminotransfer ALT/SGPT 28 U/L (16-61); Alkaline Phosphatase 63 U/L (45-117); Anion Gap 10 (5-15); BUN 25 mg/dL (7-18); BUN/Creat Ratio 23.8 RATIO (10-20); Calcium,Total 9.9 mg/dL (8.5-10.1); Chloride 102 mmol/L (98-107); Creatinine, Serum 1.05 mg/dL (0.70-1.30); EST Glomerular Filtration Rate 74 mL/min (>60); Est Glom Filt Rate - Afr Amer 90 mL/min (>60); Globulin 3.1 g/dL (2.2-4.2); Glucose 130 mg/dL (74-106); Magnesium 1.9 mg/dL (1.6-2.6); Potassium 3.9 mmol/L (3.5-5.1); Protein, Total 7.1 g/dL (6.4-8.2); Sodium Level 136 mmol/L (136-145)
[2021-10-16 14:13] LABS: Microalbumin:Creatinine Ratio 7.2 mg/g CRE (<30 mg/g CRE)
== END | disposition home or self-care (01) ==
LOC: MTLAB 07:17
PROVIDERS: PCP Family Medicine; Referring Provider Family Medicine; Visit Provider Family Medicine
DX: E11.9 Type 2 diabetes mellitus without complications (principal); R53.83 Other fatigue; R25.2 Cramp and spasm; I10 Essential (primary) hypertension
CPT/HCPCS: 36415; 80053; 82043; 82570; 82607; 83735; 84443; 85025

== ENCOUNTER 2022-05-08 07:35 | Outpatient (CLI) | payer MEDICARE, SELFPAY ==
[2022-05-08 10:13] LABS: Absolute Lymphocyte Count 2.07 X10^3/uL (0.83-4.51); Absolute Neutrophil Count 4.2 X10^3/uL (2.0-7.7); Basophil# 0.02 X10^3/uL; Basophil% 0.3 % (0-1); Eosinophil# 0.43 X10^3/uL; Eosinophils% 5.7 % (0-5); Hematocrit 46.7 % (40-54); Hemoglobin 16.2 g/dL (13.0-16.5); Lymphocyte # 2.07 X10^3/ul (0.83-4.51); Lymphocyte % 27.5 % (19-41); Mean Corp Hgb Conc 34.7 g/dL (32-36); Mean Corpuscular Hgb 34.2 pg (27.0-32.0); Mean Corpuscular Volume 98.7 fL (80-94); Mean Platelet Vol. 9.9 fl (6.2-12.0); Monocyte# 0.82 X10^3/uL; Monocyte% 10.9 % (0-10); NRBC Flagged by Analyzer 0 % (0-5); Neutrophil # 4.17 X10^3/uL (2.7-7.7); Neutrophil % 55.2 % (47-70); Platelet Count 245 K/mm3 (150-450); RBC Distribution Width CV 11.9 % (11.6-14.6); RBC Distribution Width SD 43.4 fl (35.1-43.9); Red Blood Count 4.73 M/mm3 (4.6-6.2); White Blood Count 7.5 K/mm3 (4.4-11.0)
[2022-05-08 10:39] LABS: Hemoglobin A1c 6.2 % (3.8-5.6)
[2022-05-08 10:50] LABS: ALB/GLOB Ratio 1.5 RATIO (0.9-2.4); AST(SGOT) 17 U/L (15-37); Alanine Aminotransfer ALT/SGPT 28 U/L (16-61); Albumin, Serum 4.1 g/dL (3.2-5.0); Alkaline Phosphatase 67 U/L (45-117); Anion Gap 7 (5-15); BUN 19 mg/dL (7-18); BUN/Creat Ratio 16.8 RATIO (10-20); Calcium,Total 9.4 mg/dL (8.5-10.1); Chloride 104 mmol/L (98-107); Cholesterol 151 mg/dL (200); Creatinine, Serum 1.13 mg/dL (0.70-1.30); EST Glomerular Filtration Rate 68 mL/min (>60); Est Glom Filt Rate - Afr Amer 82 mL/min (>60); Globulin 2.7 g/dL (2.2-4.2); Glucose 126 mg/dL (74-106); High Density Lipoprotein 59 mg/dL; Potassium 4.2 mmol/L (3.5-5.1); Protein, Total 6.8 g/dL (6.4-8.2); Sodium Level 137 mmol/L (136-145); Thyroid Stim Hormone (TSH) 1.28 uIU/mL (0.358-3.74); Triglycerides 117 mg/dL; Very Low Density Lipoprotein 23 mg/dL (5-40)
== END 2022-05-08 23:59 | disposition home or self-care (01) ==
LOC: MTLAB 07:36
PROVIDERS: PCP Family Medicine; Referring Provider Family Medicine; Visit Provider Family Medicine
DX: I10 Essential (primary) hypertension (principal); E11.69 Type 2 diabetes mellitus with other specified complication
CPT/HCPCS: 36415; 80053; 80061; 83036; 84443; 85025

== ENCOUNTER → 2022-11-11 | Outpatient (CLI) | payer MEDICARE, SELFPAY ==
[2022-11-11 12:08] LABS: Hematocrit 46.3 % (40-54); Hemoglobin 15.4 g/dL (13.0-16.5); Mean Corp Hgb Conc 33.3 g/dL (32-36); Mean Corpuscular Hgb 33.4 pg (27.0-32.0); Mean Corpuscular Volume 100.4 fL (80-94); Mean Platelet Vol. 9.7 fl (6.2-12.0); Platelet Count 243 K/mm3 (150-450); RBC Distribution Width CV 11.6 % (11.6-14.6); RBC Distribution Width SD 42.5 fl (35.1-43.9); Red Blood Count 4.61 M/mm3 (4.6-6.2); White Blood Count 6.3 K/mm3 (4.4-11.0)
[2022-11-11 12:34] LABS: PTHIN 35.3 pg/mL (18.4-80.1)
[2022-11-11 12:43] LABS: Microalbumin,Random Urine < 5.0 mg/L (NO RANGE EST.)
[2022-11-11 12:49] LABS: ALB/GLOB Ratio 1.3 RATIO (0.9-2.4); AST(SGOT) 23 U/L (15-37); Alanine Aminotransfer ALT/SGPT 30 U/L (16-61); Albumin, Serum 3.9 g/dL (3.2-5.0); Alkaline Phosphatase 64 U/L (45-117); Anion Gap 3 (5-15); BUN 21 mg/dL (7-18); BUN/Creat Ratio 19.8 RATIO (10-20); Calcium,Total 9.5 mg/dL (8.5-10.1); Chloride 106 mmol/L (98-107); Creatinine, Serum 1.06 mg/dL (0.70-1.30); EST Glomerular Filtration Rate 73 mL/min (>60); Est Glom Filt Rate - Afr Amer 88 mL/min (>60); Globulin 3.1 g/dL (2.2-4.2); Glucose 113 mg/dL (74-106); Potassium 4.2 mmol/L (3.5-5.1); Sodium Level 135 mmol/L (136-145)
[2022-11-11 13:12] LABS: Hepatitis C Antibody Non-Reactive (Nonreactive)
[2022-11-12 16:10] LABS: ANTINUCLEAR ANTIBODIES DIRECT Negative (Negative)
[2022-11-15 11:08] LABS: PROEL- A/G Ratio 1.5 (0.7-1.7); PROEL- Albumin 3.8 g/dL (2.9-4.4); PROEL- Alpha-1 Globulin 0.2 g/dL (0.0-0.4); PROEL- Alpha-2 Globulin 0.9 g/dL (0.4-1.0); PROEL- Beta Globulin 0.8 g/dL (0.7-1.3); PROEL- Gamma Globulin 0.6 g/dL (0.4-1.8); PROEL- Globulin, Total 2.6 g/dL (2.2-3.9); PROEL- TOTAL PROTEIN 6.4 g/dL (6.0-8.5); Testosterone, % Free 1.32 % (1.50-4.20); Testosterone, Free 5.44 ng/dL (5.00-21.00); Testosterone, Total 412 ng/dL (264-916)
== END | disposition home or self-care (01) ==
LOC: MFPLAB 09:47
PROVIDERS: PCP Family Medicine; Visit Provider Family Medicine
DX: E11.22 Type 2 diabetes mellitus with diabetic chronic kidney disease (principal); N18.2 Chronic kidney disease, stage 2 (mild); Z11.59 Encounter for screening for other viral diseases; E55.9 Vitamin D deficiency, unspecified; R53.83 Other fatigue
CPT/HCPCS: 36415; 80053; 82043; 82306; 82570; 83970; 84165; 84402; 84403; 84443; 85027; 86038; 86431; 86803

== ENCOUNTER 2022-12-26 10:00 | Outpatient (RCR) | payer MEDICARE, SELFPAY ==
--- NOTE | 2022-11-21 10:59 | HP.PTEVAL_ITS ---
Patient's Visit Information BARNT BASILIO is a 71 year old M referred to Physical Therapy by Dr. Delfino Montgomery MD with a diagnosis of B shoulder and back pain. Date of Evaluation: 11/20/22 Physical Therapist: Hadier Cardona, PT, ATC - Visit Plan Frequency: 2-3x /Week Duration: 4-6 Weeks Plan: Shoulders: B rot cuff strengthening, scap stab ex's, UBE, and HEP. L/S: REIL, L/S stab ex's - Subjective Pt reports he has had B shoulder pain for greater than 6 months. Pt reports he has been treated for that with injections in the past. Pt notes he has had x- rays which revealed OA. Pt notes even though his shoulders are sore, what berny thers him the most is his LB. Pt notes he is very limited with activity secondary to pain. Pt notes he has been treated by PT in the past for this issue which made a big difference. Pt notes he is very limited with walking and standing activity at this time secondary to pain. Pt notes occasional tingling and numbness into his L LE which radiates to hid calf region. No sleep difficulty at this time secondary to pain. Pt reports he doesnt lift heavy objects at this time secondary to B shoulder and LBP. - Pain LBP Pain Intensity (Out of 10): 0 Pain Intensity Range: 5 L shoulder Pain Intensity (Out of 10): 0 Pain Intensity Range: 5 R shoulder Pain Intensity (Out of 10): 0 Pain Intensity Range: 4 - Objective Neuro: B UE and LE sensation are WNL to light touch. Shoulder ROM: L shoulder flex= 140,abd= 145, IR= WNL, ER= 45; R Shoulder flex= 170, abd= 170, IR= WNL, ER= 70. Shoulder MMT: L shoulder flex= 3,abd= 14, IR= 16, ER= 8; R Shoulder flex= 3, abd= 18, IR= 16, ER= 12. Special test: Pos empty can. L/S ROM: Pt is limited with L/S ext. all other motions are WNL. Repeated movements: GUTIERREZ centralizes sx's - Balance/Special Test Scores Oswestry Neck Score: 5 - Goals Goal 1:: Increase B shoulder strength x 3-5 #F to aid with IADL's Goal Time Frame: 4-6 Weeks Goal 2:: Decrease F and I of L LE radiculopathy x 25 % to aid with ambulation Goal Time Frame: 4-6 Weeks Goal 3:: Decrease LBP and Shoulder pain x 50% to aid with IADL's Goal Time Frame: 4-6 Weeks Goal 4:: I with HEP Goal Time Frame: 4-6 Weeks - Rehabilitation Potential Physical Therapy Diagnosis: Pt has B shoulder and neck pain secondary to degenerative changes Rehabilitation Potential: Good - Anticipated Interventions Patient/Client Instruction: Educate patient on: Condition, Plan of Care For the Purpose of:: To improve self management Therapeutic Exercise to Include: Strength training, Endurance training, Balance training, Postural training, Flexibilty training, Gait and locomotor training, Dynamic Lumbar Stabilization, Scapular Strength/Stabilization For the Purpose of:: To decrease pain, To increase ROM, To improve muscle performance and motor function Cryotherapy (ice pack, ice massage): Yes For the Purpose of:: To decrease pain Thank you for the opportunity to evaluate your patient. For Medicare and Medicare HMO plans, please review the plan of care and approve it. It will need to be FAXED BACK to us at [phone] for Medicare purposes. For Medicare only, by signing this I certify the plan of care. Please let me know if there are questions or concerns regarding this plan of care. Physician Signature: Date:
--- NOTE | 2022-12-26 10:52 | HP.PTDCSUM ---
Discharge Summary D/C summary: It has been my pleasure to treat BRANT AMBROSIO WALKERLY referred by Dr. Delfino Montgomery MD, with the diagnosis of B shoulder and back pain for a total of 8 visit(s). Discharge Date: Please see the following information for a summary of their discharge status. Subjective Subjective: No pain today. It comes and goes Pain LBP: Pain Intensity (Out of 10): 0 L shoulder: Pain Intensity (Out of 10): 0 R shoulder: Pain Intensity (Out of 10): 0 Overall Improvement % Improvement: 50 Objective Objective/Function: MMT: R shoulder flex= 7, abd= 20, ER= 18, IR= 11 #F; L shoulder flex= 8, abd= 13, ER= 8, IR= 16#F Pt has no L LE tingling or numbness Pt has no pain today. Reports he did have 4/10 LBP after last session Pt is now I with HEP and gym routine Rx goals achieved Goals Goal 1:: Increase B shoulder strength x 3-5 #F to aid with IADL's Goal Progress: Goal Met Goal 2:: Decrease F and I of L LE radiculopathy x 25 % to aid with ambulation Goal Progress: Goal Met Goal 3:: Decrease LBP and Shoulder pain x 50% to aid with IADL's Goal Progress: Goal Met Goal 4:: I with HEP Goal Progress: Goal Met Plan Plan: Discharge to HEP D/C Information d/c sentence: If there are questions or concerns regarding this patient's physical therapy, please feel free to call me at [phone]. Thank you for the referral of this patient. Sincerely, Haider Cardona, PT, ATC Balance/Gait/Functional tests Balance/Special Test Scores Oswestry Neck Score: 4
== END 2022-12-26 19:00 | disposition home or self-care (01) ==
LOC: PT 10:00
PROVIDERS: PCP Family Medicine; Referring Provider Family Medicine; Visit Provider Family Medicine
DX: M54.9 Dorsalgia, unspecified (principal); M54.2 Cervicalgia; M25.519 Pain in unspecified shoulder
CPT/HCPCS: 97110; 97161; 97164

== ENCOUNTER → 2023-05-07 | Outpatient (CLI) | payer MEDICARE, SELFPAY ==
--- NOTE | 2023-05-07 08:58 | ART_ITS ---
Reason For Study: DECREASED PULSES Procedure A bilateral lower extremity continuous wave Doppler with analog waveform analysis,segmental pressures,and ankle brachial indexes with exercise. PT exercised for 5 minutes @ 2.0 MPH @ 5% incline with NO symptomology. Left Segmental Pressures Left brachial= 153mmHg. Left posterior tibial artery = 183mmHg. Left dorsalis pedis artery = 160mmHg. Left digit = 137 mmHg. The left posterior tibial artery waveforms are triphasic. The left dorsalis pedis waveforms are triphasic. Right Segmental Pressures Right brachial= 150mmHg. Right posterior tibial artery = 186mmHg. Right dorsalis pedis artery = 187mmHg. Right digit = 136 mmHg. The right posterior tibial artery waveforms are triphasic. The right dorsalis pedis waveforms are triphasic. Indices The right resting ankle brachial index is 1.22. The right ankle brachial index by the posterior tibial artery is 1.22. The right ankle brachial index by the dorsalis pedis is 1.22. The right digital-brachial index is 0.89. The right post exercise ankle brachial index is 1.14. The left resting ankle brachial index is 1.20. The left ankle brachial index by the posterior tibial artery is 1.20. The left ankle brachial index by the dorsalis pedis is 1.05. The left digital-brachial index is 0.90. The left post exercise ankle brachial index is 1.11. VL/Lower Ext Art Exam w/ Exercise Interpretation Summary Normal right lower extremity posterior tibialis and dorsalis pedis ankle-brachi al indices of 1.22 and 1.22 respectively with normal triphasic Doppler waveforms. Normal right digital brachial index of 0.89 With exercise the right MERISSA goes from 1.2-2 immediate after exercise at 1.14 an d at 3 minutes it recovers to 1.17. Although this demonstrates a decline likely mild disease. Left lower extremity posterior tibialis and dorsalis pedis ankle-brachial indic es are normal at 1.2 and 1.05 respectively. Left digital brachial index is normal at 0.9 The left ankle-brachial index declines from 1.2 to immediately after exercise a t 1.11 with recovery to 1.12 at 3 minutes. Although this demonstrates a decline likely represents mi ld disease. Ordering Physician: Lencho Montgomery Referring Physician: LENCHO MONTGOMERY MD Performed By: Kacie Aguirre RVT, [facility]
== END | disposition home or self-care (01) ==
LOC: CVS 08:57
PROVIDERS: PCP Family Medicine; Referring Provider Family Medicine; Visit Provider Family Medicine
DX: I70.90 Unspecified atherosclerosis (principal); I73.9 Peripheral vascular disease, unspecified
CPT/HCPCS: 93924

== ENCOUNTER → 2023-05-28 | Outpatient (CLI) | payer MEDICARE, SELFPAY ==
[2023-05-28 12:32] LABS: Absolute Lymphocyte Count 1.59 X10^3/uL (0.83-4.51); Absolute Neutrophil Count 4.2 X10^3/uL (2.0-7.7); Basophil# 0.02 X10^3/uL; Basophil% 0.3 % (0-1); Eosinophil# 0.28 X10^3/uL; Eosinophils% 4.1 % (0-5); Hematocrit 44.8 % (40-54); Hemoglobin 14.9 g/dL (13.0-16.5); Lymphocyte # 1.59 X10^3/ul (0.83-4.51); Mean Corp Hgb Conc 33.3 g/dL (32-36); Mean Corpuscular Hgb 33.3 pg (27.0-32.0); Mean Corpuscular Volume 100.2 fL (80-94); Mean Platelet Vol. 9.9 fl (6.2-12.0); Monocyte# 0.79 X10^3/uL; Monocyte% 11.4 % (0-10); NRBC Flagged by Analyzer 0 % (0-5); Neutrophil # 4.19 X10^3/uL (2.7-7.7); Neutrophil % 60.6 % (47-70); Platelet Count 239 K/mm3 (150-450); RBC Distribution Width CV 12.1 % (11.6-14.6); RBC Distribution Width SD 45.1 fl (35.1-43.9); Red Blood Count 4.47 M/mm3 (4.6-6.2); White Blood Count 6.9 K/mm3 (4.4-11.0)
[2023-05-28 13:10] LABS: ALB/GLOB Ratio 1.3 RATIO (0.9-2.4); AST(SGOT) 20 U/L (15-37); Alanine Aminotransfer ALT/SGPT 27 U/L (16-61); Albumin, Serum 3.9 g/dL (3.2-5.0); Alkaline Phosphatase 58 U/L (45-117); Anion Gap 12 (5-15); BUN 24 mg/dL (7-18); BUN/Creat Ratio 20.9 RATIO (10-20); Calcium,Total 9.2 mg/dL (8.5-10.1); Chloride 106 mmol/L (98-107); Cholesterol 146 mg/dL (200); Creatinine, Serum 1.15 mg/dL (0.70-1.30); EST Glomerular Filtration Rate 66 mL/min (>60); Est Glom Filt Rate - Afr Amer 80 mL/min (>60); Glucose 139 mg/dL (74-106); High Density Lipoprotein 63 mg/dL; PSA,Total - Annual Screen 0.72 ng/mL (0.00-4.00); Potassium 4.3 mmol/L (3.5-5.1); Protein, Total 6.9 g/dL (6.4-8.2); Sodium Level 139 mmol/L (136-145); Triglycerides 140 mg/dL; Very Low Density Lipoprotein 28 mg/dL (5-40)
[2023-05-28 13:28] LABS: Hemoglobin A1c 6.2 % (3.8-5.6)
[2023-05-28 18:13] LABS: Microalbumin,Random Urine < 5.0 mg/L (NO RANGE EST.)
== END | disposition home or self-care (01) ==
LOC: MFPLAB 10:08
PROVIDERS: PCP Family Medicine; Visit Provider Family Medicine
DX: R10.31 Right lower quadrant pain (principal); E11.22 Type 2 diabetes mellitus with diabetic chronic kidney disease; R79.89 Other specified abnormal findings of blood chemistry; N18.2 Chronic kidney disease, stage 2 (mild); Z12.5 Encounter for screening for malignant neoplasm of prostate
CPT/HCPCS: 36415; 80053; 80061; 82043; 82570; 83036; 84153; 84403; 85025; G0103

== ENCOUNTER → 2023-10-11 | Outpatient (CLI) | payer MEDICARE, SELFPAY ==
[2023-10-11 08:49] LABS: ALB/GLOB Ratio 1.3 RATIO (0.9-2.4); AST(SGOT) 25 U/L (15-37); Alanine Aminotransfer ALT/SGPT 28 U/L (16-61); Albumin, Serum 3.8 g/dL (3.2-5.0); Alkaline Phosphatase 59 U/L (45-117); Anion Gap 5 (5-15); BUN 23 mg/dL (7-18); BUN/Creat Ratio 21.9 RATIO (10-20); Calcium,Total 9.4 mg/dL (8.5-10.1); Chloride 105 mmol/L (98-107); Creatinine, Serum 1.05 mg/dL (0.70-1.30); EST Glomerular Filtration Rate 74 mL/min (>60); Est Glom Filt Rate - Afr Amer 89 mL/min (>60); Glucose 139 mg/dL (74-106); Potassium 4.1 mmol/L (3.5-5.1); Protein, Total 6.8 g/dL (6.4-8.2); Sodium Level 138 mmol/L (136-145)
[2023-10-11 08:54] LABS: Hemoglobin A1c 6.1 % (3.8-5.6)
== END | disposition home or self-care (01) ==
PROVIDERS: PCP Family Medicine; Referring Provider Family Medicine; Visit Provider Family Medicine
DX: E11.22 Type 2 diabetes mellitus with diabetic chronic kidney disease (principal)
CPT/HCPCS: 36415; 80053; 83036

== ENCOUNTER → 2024-05-03 | Outpatient (CLI) | payer MEDICARE, SELFPAY ==
[2024-05-03 10:30] LABS: Hematocrit 46.3 % (40-54); Hemoglobin 15.6 g/dL (13.0-16.5); Mean Corp Hgb Conc 33.7 g/dL (32-36); Mean Corpuscular Hgb 33.5 pg (27.0-32.0); Mean Corpuscular Volume 99.6 fL (80-94); Platelet Count 241 K/mm3 (150-450); RBC Distribution Width SD 43.8 fl (35.1-43.9); Red Blood Count 4.65 M/mm3 (4.6-6.2); White Blood Count 7.5 K/mm3 (4.4-11.0)
[2024-05-03 11:02] LABS: ALB/GLOB Ratio 1.3 RATIO (0.9-2.4); AST(SGOT) 23 U/L (15-37); Alanine Aminotransfer ALT/SGPT 28 U/L (16-61); Albumin, Serum 4.1 g/dL (3.2-5.0); Alkaline Phosphatase 74 U/L (45-117); Anion Gap 7 (5-15); BUN 22 mg/dL (7-18); BUN/Creat Ratio 18.8 RATIO (10-20); CRP < 2.90 mg/L (0.0-3.0); Calcium,Total 9.4 mg/dL (8.5-10.1); Chloride 104 mmol/L (98-107); Creatinine, Serum 1.17 mg/dL (0.70-1.30); EST Glomerular Filtration Rate 65 mL/min (>60); Est Glom Filt Rate - Afr Amer 79 mL/min (>60); Globulin 3.1 g/dL (2.2-4.2); Glucose 139 mg/dL (74-106); Lipase 43 U/L (13-75); Protein, Total 7.2 g/dL (6.4-8.2); Sodium Level 137 mmol/L (136-145)
[2024-05-04 04:07] LABS: GGTP 33 IU/L (0-65)
== END | disposition home or self-care (01) ==
PROVIDERS: PCP Family Medicine; Referring Provider Family Medicine; Visit Provider Family Medicine
DX: R10.11 Right upper quadrant pain (principal)
CPT/HCPCS: 36415; 80053; 82977; 83690; 85027; 86140

== ENCOUNTER → 2024-05-12 | Outpatient (CLI) | payer MEDICARE, SELFPAY | END | disposition home or self-care (01) | PROVIDERS: PCP Family Medicine; Referring Provider Family Medicine; Visit Provider Family Medicine | DX: R10.11 Right upper quadrant pain (principal) ==

== ENCOUNTER → 2024-06-01 | Outpatient (CLI) | payer MEDICARE, SELFPAY ==
--- NOTE | 2024-06-01 07:25 | CT_ITS ---
STUDY: CT ABDOMEN WITH CONTRAST REASON FOR EXAM: Male, 73 years old. R/O gallbaldder inflammation RADIATION DOSAGE (If Supplied By Facility): CTDIvol = ( 16.44 ) mGy, DLP = ( 722.32 ) mGycm TECHNIQUE: Transaxial images were obtained post I.V. administration of IV 100mL Isovue-370, and without oral contrast. Sagittal and coronal images were reconstructed. Individualized dose optimization techniques were used for this CT. COMPARISON: None. FINDINGS: The visualized lung bases are unremarkable. The visualized portions of the heart are within normal limits. Elevated right hemidiaphragm. Normal liver. Normal gallbladder and extrahepatic biliary system. Normal spleen. Normal pancreas. Normal bilateral adrenal glands. Normal right kidney. Normal left kidney. There is a large hiatal hernia composed mostly of the fundus of the stomach. Normal small intestine. Normal colon. There are surgical clips in the region of the appendix consistent with a prior appendectomy. There is diffuse atherosclerotic calcification of the abdominal aorta, without a demonstrated aneurysm. Normal inferior vena cava. Normal retroperitoneum. Normal abdominal wall. Mild dextroscoliosis of lumbar spine with degenerative disc disease. CT/Abdomen WITH IV Contrast IMPRESSION: Large hiatal hernia. Electronically Signed: Cristofer Faustin MD at 13:32 EST ,
== END | disposition home or self-care (01) ==
LOC: CT 07:24
PROVIDERS: PCP Family Medicine; Referring Provider Family Medicine; Visit Provider Family Medicine
DX: K80.00 Calculus of gallbladder with acute cholecystitis without obstruction (principal)
CPT/HCPCS: 74160; Q9967

== ENCOUNTER → 2024-10-20 | Outpatient (CLI) | payer MEDICARE, SELFPAY ==
[2024-10-20 10:22] LABS: Absolute Lymphocyte Count 1.74 X10^3/uL (0.83-4.51); Absolute Neutrophil Count 2.7 X10^3/uL (2.0-7.7); Basophil# 0.02 X10^3/uL; Basophil% 0.4 % (0-1); Eosinophil# 0.36 X10^3/uL; Eosinophils% 6.6 % (0-5); Hematocrit 46.2 % (40-54); Hemoglobin 15.8 g/dL (13.0-16.5); Lymphocyte # 1.74 X10^3/ul (0.83-4.51); Lymphocyte % 31.8 % (19-41); Mean Corp Hgb Conc 34.2 g/dL (32-36); Mean Corpuscular Hgb 34.4 pg (27.0-32.0); Mean Corpuscular Volume 100.7 fL (80-94); Mean Platelet Vol. 9.8 fl (6.2-12.0); Monocyte# 0.68 X10^3/uL; Monocyte% 12.4 % (0-10); NRBC Flagged by Analyzer 0 % (0-5); Neutrophil # 2.66 X10^3/uL (2.7-7.7); Neutrophil % 48.4 % (47-70); Platelet Count 215 K/mm3 (150-450); RBC Distribution Width CV 11.9 % (11.6-14.6); Red Blood Count 4.59 M/mm3 (4.6-6.2); White Blood Count 5.5 K/mm3 (4.4-11.0)
[2024-10-20 11:02] LABS: Hemoglobin A1c 6.3 % (<=5.6)
[2024-10-20 11:05] LABS: Microalbumin,Random Urine < 12.0 mg/L (NO RANGE EST.); Microalbumin:Creatinine Ratio UNABLE TO CALCULATE mg/g CRE
[2024-10-20 11:07] LABS: ALB/GLOB Ratio 1.8 RATIO (0.9-2.4); AST(SGOT) 25 U/L (<=37); Alanine Aminotransfer ALT/SGPT 20 U/L (<=46); Albumin, Serum 4.3 g/dL (3.4-4.8); Alkaline Phosphatase 81 U/L (40-129); Anion Gap 10 (5-15); BUN 16 mg/dL (4-19); BUN/Creat Ratio 16.4 RATIO (10-20); Calcium,Total 9.8 mg/dL (7.6-11.0); Carbon Dioxide 24.5 mmol/L (21.0-32.0); Chloride 102 mmol/L (98-108); Creatinine, Serum 0.95 mg/dL (0.70-1.20); EST Glomerular Filtration Rate 84 (>60); Globulin 2.4 g/dL (2.2-4.2); Glucose 136 mg/dL (70-99); Potassium 3.7 mmol/L (3.3-5.1); Protein, Total 6.7 g/dL (5.9-8.4); Sodium Level 137 mmol/L (133-145); Total Bilirubin 0.49 mg/dL (0.00-1.30)
== END | disposition home or self-care (01) ==
LOC: MTLAB 07:15
PROVIDERS: PCP Family Medicine; Referring Provider Family Medicine; Visit Provider Family Medicine
DX: E11.22 Type 2 diabetes mellitus with diabetic chronic kidney disease (principal); N18.9 Chronic kidney disease, unspecified
CPT/HCPCS: 36415; 80053; 82043; 82570; 83036; 85025

== ENCOUNTER → 2025-04-26 | Outpatient (CLI) | payer MEDICARE, SELFPAY ==
--- OUTSIDE RECORDS SUMMARY | 2025-04-26 07:30 | XMS RPT_ITS | CCD ---
Author Organization [facility] Care Team Providers Care Nuclear Medicine Physician Name Role Phone Dr. Delfino Montgomery Primary Care Provider [phone] Dr. Delfino Montgomery Referring Provider Dr. Valentino Hernández Attending Provider Dr. Delfino Montgomery Primary Care Provider Dr. Delfino Montgomery Referring Provider [phone] Guilherme Pablo Attending Provider Dr. Say Carranza Attending Provider Dr. Delfino Montgomery MD Primary Care Provider Dr. Delfino Montgomery MD Attending Provider Dr. Delfino Montgomery MD Referring Provider Dr. Lane Fregoso MD Attending Provider Ulises, Delfino Primary Care Unavailable Ulises, Delfino Referring Unavailable Eugenio Padilla Attending Unavailable Ulises, Delfino Primary Care Unavailable Delfino Montgomery Referring Unavailable Lane Fregoso Attending Unavailable Ulises, Delfino Primary Care Unavailable Montgomery, Delfino Referring Unavailable Montgomery, Delfino Attending Unavailable Montgomery, Delfino Primary Care Unavailable Montgomery, Delfino Referring Unavailable Montgomery, Delfino Attending Unavailable Montgomery, Delfino Primary Care Unavailable Montgomery, Delfino Referring Unavailable Montgomery, Delfino Attending Unavailable Montgomery, Delfino Referring Unavailable Ulises, Delfino Attending Unavailable Ulises, Delfino Primary Care Unavailable Ulises PIEDRA, Dr. Saleh Primary Care Physician Dr. Delfino Montgomery MD Referring Provider Dr. Lane Fregoso MD Attending Physician [phone] Eugenio Padilla MD Attending Physician Allergies Allergy Classification Reported Allergen(s) Allergy Type Date of Onset Reaction(s) Facility (10 sources) Penicillins; Translations: [Penicillins] Allergy to substance 05-16-2021 [facility] (10 sources) Tetracyclines; Translations: [Tetracyclines] Allergy to substance 05-16-2021 [facility] Medications Current Medications Medication Drug Class(es) Dates Sig (Normalized) Sig (Original) 8 hr acetaminophen 650 mg extended release oral tablet (9 sources) Start: 7 take 1 tablet by mouth once daily Acetaminophen 650 MG tablet extended release Active 650 mg PO DAILY February 17, 2017 12:00am Complies with drug therapy acyclovir 400 mg oral tablet (9 sources) Herpesvirus Nucleoside Analog DNA Polymerase Inhibitor, Herpes Simplex Virus Nucleoside Analog DNA Polymerase Inhibitor, Herpes Zoster Virus Nucleoside Analog DNA Polymerase Inhibitor Start: 7 take 1 tablet by mouth once daily Acyclovir 400 MG tablet Active 400 mg PO DAILY February 17, 2017 12:00am Complies with drug therapy cholecalciferol 0.025 mg oral capsule (9 sources) Vitamin D Start: 8 take 1 capsule by mouth once daily Cholecalciferol (Vitamin D3) 1,000 unit capsule Active 1000 U PO DAILY April 24, 2018 1:00am Complies with drug therapy hydroCHLOROthiazide 25 mg oral tablet (17 sources) Thiazide Diuretic Start: Hydrochlorothiazide 25 mg tablet Active 12.5 mg PO DAILY April 22, 2022 2:52pm Complies with drug therapy Start: 04-22-2022 take 12.5 mg by mout h once daily Hydrochlorothiazide Active 12.5 MG PO DAILY April 22, 2022 2:52pm Start: 02-17-2017 End: 04-22-2022 take 1 tablet by mouth once daily Hydrochlorothiazide 25 MG tablet Discontinued 25 mg PO DAILY February 17, 2017 12:00am April 22, 2022 2:52pm lisinopril 20 mg oral tablet (17 sources) Angiotensin Converting Enzyme Inhibitor Start: 04-22-2022 take 2 tablets by mouth once daily Lisinopril 20 mg tablet Active 40 mg PO DAILY April 22, 2022 2:52pm Complies with drug therapy Start: 04-22-2022 take 40 mg by mouth once daily Lisinopril Active 40 MG PO DAILY April 22, 2022 2:52pm Start: 02-17-2017 End: 04-22-2022 take 1 tablet by mouth once daily Lisinopril 20 MG tablet Discontinued 20 mg PO DAILY February 17, 2017 12:00am April 22, 2022 2:52pm metFORMIN hydrochloride 500 mg oral tablet (12 sources) Biguanide Start: 10-30-2023 take 1 tablet by mouth once daily Metformin 500 mg tablet Active 500 mg PO DAILY October 30, 2023 9:59am Complies with drug therapy Start: 04-24-2018 End: 10-30-2023 Metformin 500 mg tablet Disc ontinued 250 mg PO DAILY April 24, 2018 1:00am October 30, 2023 10:00am Start: 04-24-2018 take 250 mg by mouth once daily Metformin Active 250 MG PO DAILY April 24, 2018 1:00am pantoprazole 40 mg delayed release oral tablet (2 sources) Proton Pump Inhibitor Start: 12-15-2024 take 1 tablet by mouth once daily Pantoprazole 40 mg tablet,delayed release (DR/EC) Active 40 mg PO daily December 15, 2024 12:00am Complies with drug therapy simvastatin 10 mg oral tablet (9 sources) HMG-CoA Reductase Inhibitor Start: 02-17-2017 take 1 tablet by mouth at bedtime Simvastatin 10 MG tablet Active 10 mg PO AT BEDTIME February 17, 2017 12:00am Complies with drug therapy vitamin b12 1 mg oral tablet (9 sources) Vitamin B12 Start: 05-16-2021 take 1 tablet by mouth once daily Cyanocobalamin (Vitamin B-12) 1,000 mcg tablet Active 1000 ug PO DAILY May 16, 2021 1:00am Complies with drug therapy Completed/Discontinued Medications Medication Drug Class(es) Dates Sig (Normalized) Sig (Original) acetaminophen 325 mg / oxyCODONE hydrochloride 5 mg oral tablet (9 sources) Opioid Agonist Start: 02-25-2017 End: 05-19-2017 Oxycodone-Acetamino phen 1 TABLET tablet Discontinued 1 - 2 {tbl} PO EVERY 4 HOURS NEEDED as needed for Pain 60 February 25, 2017 12:00am May 19, 2017 9:47am Start: 02-25-2017 End: 05-19-2017 take 1 tablet by mouth every four hours as needed Oxycodone-Acetaminophen Discontinued 1 - 2 TABLET PO EVERY 4 HOURS NEEDED 60 February 25, 2017 12:00am May 19, 2017 9:47am celecoxib 200 mg oral capsule (9 sources) Nonsteroidal Anti-inflammatory Drug Start: 02-17-2017 End: 12-15-2024 take 1 capsule by mouth once daily Celecoxib 200 MG capsule Discontinued 200 mg PO DAILY February 17, 2017 12:00am December 15, 2024 9:01am docusate sodium 100 mg oral capsule (9 sources) Start: 02-25-2017 End: 05-19-2017 take 1 capsule by mouth twice daily as needed for constipation Docusate Sodium 100 MG capsule Discontinued 100 mg PO TWICE DAILY NEEDED as needed for Constipation 20 0 February 25, 2017 12:00am May 19, 2017 9:47am famotidine 20 mg oral tablet (9 sources) Histamine-2 Receptor Antagonist Start: 05-19-2019 End: 05-22-2020 take 1 tablet by mouth once daily as needed Famotidine 20 mg tablet Discontinued 20 mg PO DAILY as needed May 19, 2019 1:00am May 22, 2020 11:03am Multivitamin With Folic Acid (6 sources) Start: 02-17-2017 End: 05-16-2021 take 1 tablet by mouth once daily Multivitamin With Folic Acid Discontinued 1 TABLET PO DAILY February 17, 2017 10:14am May 16, 2021 2:31pm Start: 02-17-2017 End: 05-16-2021 take 1 tablet by mouth once daily Multivitamin With Folic Acid Discontinued 1 TABLET PO DAILY February 17, 2017 12:00am May 16, 2021 2:31pm Start: 02-17-2017 End: 05-16-2021 take 1 tablet by mouth once daily Multivitamin With Folic Acid Discontinued 1 TABLET PO DAILY February 16, 2017 11:00pm May 16, 2021 1:31pm Multivitamin With Folic Acid 1 TABLET tablet (3 sources) Start: 02-17-2017 End: 05-16-2021 take 1 tablet by mouth once daily Multivitamin With Folic Acid 1 TABLET tablet Discontinued 1 {tbl} PO DAILY February 17, 2017 12:00am May 16, 2021 2:31pm omeprazole 40 mg delayed release oral capsule (9 sources) Proton Pump Inhibitor Start: 05-22-2020 End: 12-15-2024 take 1 capsule by mouth once daily Omeprazole 40 mg capsule,delayed release(DR/EC) Discontinued 40 mg PO DAILY May 22, 2020 1:00am December 15, 2024 9:01am promethazine hydrochloride 25 mg oral tablet (9 sources) Phenothiazine Start: 02-25-2017 End: 05-19-2017 take 1 tablet by mouth every four hours as needed for nausea Promethazine 25 MG tablet Discontinued 25 mg PO EVERY 4 HOURS NEEDED as needed for Nausea 20 0 February 25, 2017 12:00am May 19, 2017 9:47am raNITIdine 150 mg oral tablet (9 sources) Histamine-2 Receptor Antagonist Start: 02-17-2017 End: 05-19-2019 take 1 tablet by mouth once daily Ranitidine Hcl 150 MG tablet Discontinued 150 mg PO DAILY February 17, 2017 12:00am May 19, 2019 2:05pm Problems Active Problems Problem Classification Problem Date Documented Da te Episodic/Chronic Abdominal hernia (8 sources) Umbilical hernia; Translations: [Umbilical hernia without obstruction or gangrene] 02-26-2023 Episodic Coronary atherosclerosis and other heart disease (11 sources) Coronary atherosclerosis; Translations: [Atherosclerotic heart disease of [place] coronary artery without angina pectoris] Chronic Comment on above: Minimal, non obstruc tive per [facility] 07/27/00 Diabetes mellitus with complications (1 source) Type 2 diabetes mellitus with diabetic chronic kidney disease; Translations: [Type 2 diabetes mellitus with diabetic chronic kidney disease] Onset: 10-23-2024 Chronic Diabetes mellitus without complication (10 sources) Type 2 diabetes mellitus; Translations: [Type 2 diabetes mellitus without complications] 05-19-2019 Chronic Disorders of lipid metabolism (11 sources) Hyperlipidemia; Translations: [Hyperlipidemia, unspecified] Chronic Essential hypertension (11 sources) Essential hypertension; Translations: [Essential (primary) hypertension] Chronic Other connective tissue disease (1 source) Unspecified rotator cuff tear or rupture of right shoulder, not specified as traumatic; Translations: [Tear of right rotator cuff] 05-23-2022 Episodic Other connective tissue disease (6 sources) Tear of right rotator cuff; Translations: [Unspecified rotator cuff tear or rupture of right shoulder, not specified as traumatic] 05-23-2022 Episodic Other non-traumatic joint disorders (8 sources) Pain in left shoulder; Translations: [Left shoulder pain] 05-23-2022 Episodic Other non-traumatic joint disorders (7 sources) Pain in right shoulder; Translations: [Right shoulder pain] 05-23-2022 Episodic Past or Other Problems Problem Classification Problem Date Documented Date Episodic/Chronic Abdominal pain (1 source) Right upper quadrant pain; Translations: [Right upper quadrant pain] Onset: 06-15-2024 Episodic Biliary tract disease (1 source) Calculus of gallbladder with acute cholecystitis without obstruction; Translations: [Calculus of gallbladder with acute cholecystitis without obstruction] Onset: 06-30-2024 Episodic Results Test Name Value Interpretation Reference Range Facility Orthopedic Visit Reporton Orthopedic Visit Report [facility] [address] [place] [address] [address] [place] [address] OFFICE VISIT Date of Service: 03/18/25 MR#: [id number] Acct: [id number] Name: BRANT BASILIO Rep #: [id number] : 1950 Provider: Dr. Eugenio galvez MD Age/Sex: 74/M [place] [facility] [place] Status: Signed with Addenda ADDENDUM by Alma Rios on 03/18/25 at 0955 Office Procedure Documentation entered by Alma Rios 03/18/25 09:55: Ortho Injections Injections Yes Subacromial Injection Left Is this a patient provided medication?: No Details: Obtained consent for injection. Under sterile conditions, injected the patients left subacromial with 2cc kenalog 4cc bupivacaine. The patient tolerated the injection well without any noted complication. Patient should call our office if redness develops, pain worsens or if they have any concerns. Office Meds Kenalog 40 mg/mL suspension for injection Performing Provider: Eugenio Padilla MD Performing Location: [facility] Administered by: Eugenio Padilla MD on 03/18/25 09:54 Dose Route Admin Location Dispensed Lot Number Expiration Date Package NDC NDC Superintendent Measurement 80 mg intra-articular left subacromial 2 mL [id number] 06/09/26 14603-042-56 [id number] [facility] Date cc: * Signed Intake Vital Signs 12/15/24 08:59 03/18/25 09:26 Height 5 ft 9 in 5 ft 9 in Weight: 181 lb 180 lb BMI 26.7 26.6 BP 146/82 H Blood Pressure Location Lt brachial Position Sitting Respiration 18 Pulse 62 Pulse Source Monitor Pulse Oximetry (%) 93 Oxygen Delivery Method room air Intake Visit Reasons: LEFT SHOULDER Chief Complaint: Left shoulder pain Accompanied by: Self Is patient in pain?: Yes Pain scale (1-10): 3 Allergies Penicillins Allergy (Verified 03/18/25 09:28) Rash Tetracyclines Allergy (Verified 03/18/25 09:28) Rash Medications ???Medication ???Instructions ???Recorded ???Confirmed ???Type acetaminophen 650 mg 650 mg PO DAILY 02/17/17 03/18/25 History tablet,extended release acyclovir 400 mg tablet 400 mg PO DAILY 02/17/17 03/18/25 History simvastatin 10 mg tablet 10 mg PO QHS 02/17/17 03/18/25 His tory cholecalciferol (vitamin D3) 25 1,000 unit PO DAILY 04/24/1803/18 History mcg (1,000 unit) capsule cyanocobalamin (vitamin B-12) 1,000 mcg PO DAILY 05/16/21 History 1,000 mcg tablet hydrochlorothiazide 25 mg tablet 12.5 mg PO DAILY 04/22/22 03/18/25 History lisinopril 20 mg tablet 40 mg PO DAILY 04/22/22 03/18/25 H istory metformin 500 mg tablet 500 mg PO DAILY 10/30/23 03/18/25 History pantoprazole 40 mg tablet,delayed 40 mg PO QDAY 12/15/24 03/18/25 H istory release Have you fallen in the past year?: No PFSH Medical History Right rotator cuff tear Left shoulder pain Right shoulder pain Type 2 diabetes mellitus Atherosclerotic heart disease of [place] coronary artery without angina pectoris Essential hypertension Coronary heart disease Herniated lumbar intervertebral disc Hyperlipemia Hypertension Surgical History History of cholecystectomy History of squamous cell carcinoma excision History of left knee replacement History of right knee joint replacement History of tonsillectomy S/P right rotator cuff repair History of total left knee replacement History of total right knee replacement S/P tonsillectomy S/P nasal septoplasty Family History Mother Hypertension Social History Smoking Status: Former smoker how long ago did patient quit smokin years alcohol intake: never substance use type: does not use HPI LEFT SHOULDER Details: This documentation accurately reflects the service provided and the decisions made by me, Dr. Eugenio Padilla MD 03/18/25 0813. Part of today???s visit was documented by [ ], acting as scribe. BRANT BASILIO is a 74 year old M here today for follow-up bilateral shoulder pain. Last visit he had a cortisone injection. The injections have been still effective. He is wanting another 1 for his left shoulder. He has laterally based shoulder pain going down the arm that is worse at night and with lifting. Had a prior right-sided rotator cuff repair. Overall the shoulder is still working well with good range of motion and strength. Coding Level of Care Code Attention Senior Project Manager Engineering Diagnoses Left shoulder pain M25.512 Comment [id number] and CPT inject major joint Assessment and Plan Assessment and Plan ( (more content not included)... Normal [facility] Cardiology Visit Reporton Cardiology Visit Report [facility] [address] [place] [address]. [address] [place] [address] OFFICE VISIT Date of Service: 12/15/24 MR#: [id number] Acct: [id number] Name: BRANT BASILIO Rep #: [id number] : 1950 Provider: Dr. Lane salazar MD Age/Sex: 74/M Location: [facility] Status: Signed HPI HPI History of Present Illness Details: Patient is a very pleasant 74-year-old white male that comes in today for monitoring of his minimal coronary artery disease. Patient was Back in 2000 and had minor irregularities in the distal right coronary artery and circumflex vessels. Since that point in time he has been aggressively treated with secondary risk factor modifications. Last lipids that I have are from May 2023 total cholesterol was 146 HDL 63 LDL 55 and triglycerides 140. These have been monitored and treated by Dr. Montgomery. The patient feels that these have been checked since then and were very similar. The patient is on simvastatin 10 mg daily. The patient is also diabetic on metformin and his last hemoglobin A1c was 6.2 in October 2024. The patient also carries a history of hypertension blood pressure is mildly elevated in office today at 146/82. Heart rate is 62 and regular. The patient is on hydrochlorothiazide which had to be decreased to 12.5 mg due to dehydration and cramping when he was playing golf. He is also on lisinopril 40 mg daily. The patient is active he plays golf he has no change in his exercise tolerance he denies any chest symptoms. Patient denies any palpitations reports he is been doing very well in his home environment. Intake Vital Signs 10/30/23 09:57 12/15/24 08:59 Height 5 ft 9 in 5 ft 9 in Weight: 181 lb BMI 26.7 BP 146/82 H Blood Pressure Location Lt brachial Position Sitting Respiration 18 Pulse 62 Pulse Source Monitor Pulse Oximetry (%) 93 Oxygen Delivery Method room air Intake Visit Reasons: 1 Y FU Field Sales Engineer Required: No Accompanied by: Self Is patient in pain?: No Allergies Penicillins Allergy (Verified 12/15/24 09:00) Rash Tetracyclines Allergy (Verified 12/15/24 09:00) Rash Medications ???Medication ???Instructions ???Recorded ???Confirmed ???Type acetaminophen 650 mg 650 mg PO DAILY 02/17/17 12/15/24 History tablet,extended release acyclovir 400 mg tablet 400 mg PO DAILY 02/17/17 12/15/24 History simvastatin 10 mg tablet 10 mg PO QHS 02/17/17 12/15/24 His tory cholecalciferol (vitamin D3) 25 1,000 unit PO DAILY 04/24/1812/15 History mcg (1,000 unit) capsule cyanocobalamin (vitamin B-12) 1,000 mcg PO DAILY 05/16/21 History 1,000 mcg tablet hydrochlorothiazide 25 mg tablet 12.5 mg PO DAILY 04/22/22 12/15/24 History lisinopril 20 mg tablet 40 mg PO DAILY 04/22/22 12/15/24 H istory metformin 500 mg tablet 500 mg PO DAILY 10/30/23 12/15/24 History pantoprazole 40 mg tablet,delayed 40 mg PO QDAY 12/15/24 12/15/24 H istory release Ejection fraction %: 65 Have you fallen in the past year?: No PFSH Medical History Right rotator cuff tear Left shoulder pain Right shoulder pain Type 2 diabetes mellitus Atherosclerotic heart disease of [place] coronary artery without angina pectoris Essential hypertension Coronary heart disease Herniated lumbar intervertebral disc Hyperlipemia Hypertension Surgical History History of cholecystectomy History of squamous cell carcinoma excision History of left knee replacement History of right knee joint replacement History of tonsillectomy S/P right rotator cuff repair History of total left knee replacement History of total right knee replacement S/P tonsillectomy S/P nasal septoplasty Family History Mother Hypertension Social History Smoking Status: Former smoker how long ago did patient quit smokin years alcohol intake: never substance use type: does not use ROS Const Const: Negative for fatigue or weakness ENT ENT: Negative for dizziness or balance problems Cardio Chest Pain: No Palpitations: No Edema: None Muscle aches with walking: None Resp Respiratory: Negative for SOB with activity, SOB at rest or SOB orthopnea SOB lying down GI GI: Negative nausea, vomiting or heartburn Musc Musc: Negative for muscle weakness or balance problems Neuro Neuro: Negative for dizziness, lightheadedness, near syncope, syncope or weakness Endo Endo: Negative for fatigue Cardiology Exam Const Appearance: cooperative, healthy appearing, comfortable, no acute distress, well developed and well groomed (more content not included)... Normal [facility] Absolute lymphocyte countOrd ered By: Delfino Montgomery on 10-20-2024 Lymphocytes Auto (Unsp spec) [#/Vol] 1.74 10*3/uL 0.83-4.51 [facility] Absolute neutrophil countOrd ered By: Delfino Montgomery on 10-20-2024 Neutrophils (Bld) [#/Vol] 2.7 10*3/uL 2.0-7.7 [facility] Anion gap in Serum or Plasma Ordered By: Delfino Montgomery on 10-20-2024 Anion gap [Moles/Vol] 10 mmol/L - [facility] Automated lymphocyte count a s percentage of total leukocytesOrdered By: Delfino Montgomery on 10-20-2024 Lymphocytes/100 WBC Auto (Unsp spec) 31.8 % - [facility] BUN/creatinine ratioOrdered By: Delfino Montgomery on 10-20-2024 Urea nitrogen/Creatinine [Mass ratio] 16.4 mg/mg 10- [facility] Basophil percentageOrdered B y: Delfino Montgomery on 10-20-2024 Basophils/100 WBC (Bld) 0.4 % 0-1 [facility] Bilirubin, totalOrdered By: Delfino Montgomery on 10-20-2024 Bilirubin [Mass/Vol] 0.49 mg/dL 0.00-1.30 [facility] CBC W/Diff, Automatedon 10-07 Absolute Lymph 1.74 X10 3/uL Normal 0.83-4.51 [facility] Comment on above: Order Comment: Order Date: 09/27/24 Order Info: 0184-1 - CBCD Performed By: #### L 500.4050, [id number], L100.0100 #### [facility] [address] [place], [address] Absolute Neut 2.7 X10 3/uL Normal 2.0-7.7 [facility] Comment on above: Order Comment: Order Date: 09/27/24 Order Info: 0184-1 - CBCD Performed By: #### L 500.4050, L501.9985, L100.0100 #### [facility] [address] [place], [address] Basophils/100 WBC (Bld) 0.4 % Normal 0-1 [facility] Comment on above: Order Comment: Order Date: 09/27/24 Order Info: 0184-1 - CBCD Performed By: #### L 500.4050, L501.9985, L100.0100 #### [facility] [address] [place], [address] Eosinophils/100 WBC (Bld) 6.6 % High 0-5 [facility] Comment on above: Order Comment: Order Date: 09/27/24 Order Info: 0184-1 - CBCD Performed By: #### L 500.4050, L501.9985, L100.0100 #### [facility] [address] [place], [address] Erythrocyte distribution width (RBC) [Ratio] 11.9 % Normal 11.6-14.6 [facility] Comment on above: Order Comment: Order Date: 09/27/24 Order Info: 018- - CBCD Performed By: #### L 500.4050, L501.9985, L100.0100 #### [facility] [address] [place], [address] Hematocrit (Bld) [Volume fraction] 46.2 % Normal 40-54 [facility] Comment on above: Order Comment: Order Date: 09/27/24 Order Info: 0184- - CBCD Performed By: #### L 500.4050, L501.9985, L100.0100 #### [facility] [address] [place], [address] Hemoglobin (Bld) [Mass/Vol] 15.8 g/dL Normal 13.0-16.5 [facility] Comment on above: Order Comment: Order Date: 09/27/24 Order Info: 0184-1 - CBCD Performed By: #### L 500.4050, L501.9985, L100.0100 #### [facility] [address] [place], [address] IG% 0.400 Normal 0.0-0.9 [facility] Comment on above: Order Comment: Order Date: 09/27/24 Order Info: 0184- - CBCD Result Comment: IG% - Immature Granulocytes (promyelocytes, myelocytes and metamyelocytes) > 1% indicates that a LEFT SHIFT is Present. Performed By: #### L 500.4050, [id number], L100.0100 #### [facility] [address] [place], [address] Lymphocytes/100 WBC (Bld) 31.8 % Normal 19-41 [facility] Comment on above: Order Comment: Order Date: 09/27/24 Order Info: 018- - CBCD Performed By: #### L 500.4050, [id number], L100.0100 #### [facility] [address] [place], [address] MCH (RBC) [Entitic mass] 34.4 pg High 27.0-32.0 [facility] Comment on above: Order Comment: Order Date: 09/27/24 Order Info: 018- - CBCD Performed By: #### L 500.4050, [id number], L100.0100 #### [facility] [address] [place], [address] MCHC (RBC) [Mass/Vol] 34.2 g/dL Normal 32-36 [facility] Comment on above: Order Comment: Order Date: 09/27/24 Order Info: 0184- - CBCD Performed By: #### L 500.4050, [id number], L100.0100 #### [facility] [address] [place], [address] MCV (RBC) [Entitic vol] 100.7 fL High 80-94 [facility] Comment on above: Order Comment: Order Date: 09/27/24 Order Info: 018- - CBCD Performed By: #### L 500.4050, [id number], L100.0100 #### [facility] [address] [place], [address] Monocytes/100 WBC (Bld) 12.4 % High 0-10 [facility] Comment on above: Order Comment: Order Date: 09/27/24 Order Info: 0184-1 - CBCD Performed By: #### L 500.4050, L501.9985, L100.0100 #### [facility] [address] [place], [address] Neutrophils/100 WBC (Bld) 48.4 % Normal 47-70 [facility] Comment on above: Order Comment: Order Date: 09/27/24 Order Info: 0184-1 - CBCD Performed By: #### L 500.4050, L501.9985, L100.0100 #### [facility] [address] [place], [address] Nucleated RBC (Bld) [#/Vol] 0 10*3/uL Normal 0-5 [facility] Comment on above: Order Comment: Order Date: 09/27/24 Order Info: 0184-1 - CBCD Performed By: #### L 500.4050, L501.9985, L100.0100 #### [facility] [address] [place], [address] Platelet mean volume (Bld) [Entitic vol] 9.8 fL Normal 6.2-12.0 [facility] Comment on above: Order Comment: Order Date: 09/27/24 Order Info: 0184-1 - CBCD Performed By: #### L 500.4050, L501.9985, L100.0100 #### [facility] [address] [place], [address] Platelets (Bld) [#/Vol] 215 10*3/uL Normal 150-450 [facility] Comment on above: Order Comment: Order Date: 09/27/24 Order Info: 0184-1 - CBCD Performed By: #### L 500.4050, L501.9985, L100.0100 #### [facility] [address] [place], [address] RBC (Bld) [#/Vol] 4.59 10*6/uL Low 4.6-6.2 [facility] Comment on above: Order Comment: Order Date: 09/27/24 Order Info: 0184-1 - CBCD Performed By: #### L 500.4050, L501.9985, L100.0100 #### [facility] [address] [place], [address] RDW SD 45.0 fl High 35.1-43.9 [facility] Comment on above: Order Comment: Order Date: 09/27/24 Order Info: 0184-1 - CBCD Performed By: #### L 500.4050, L501.9985, L100.0100 #### [facility] [address] [place], [address] WBC (Bld) [#/Vol] 5.5 10*3/uL Normal 4.4-11.0 [facility] Comment on above: Order Comment: Order Date: 09/27/24 Order Info: 0184-1 - CBCD Performed By: #### L 500.4050, L501.9985, L100.0100 #### [facility] [address] [place], [address] Carbon dioxide, total [Moles /volume] in Central venous bloodOrdered By: Delfino Montgomery on 10-20-2024 CO2 [Moles/Vol] 24.5 mmol/L 21.0-32.0 [facility] Chloride assayOrdered By: Marshall Montgomery on 10-20-2024 Chloride [Moles/Vol] 102 mmol/L 98-108 [facility] Comprehensive Metabolic Prof ilon 10-20-2024 Albumin [Mass/Vol] 4.3 g/dL Normal 3.4-4.8 [facility] Comment on above: Order Comment: Order Date: 03/21/24 Order Info: 0786-1 - CMP Order Info: 3040-3 - LIPASE Order Info: [id number] - CRP Performed By: #### L 501.5101, L501.6710, L500.4050, L501.2450, L100.0500 #### [facility] [address] [place], [address] Albumin/Globulin [Mass ratio] 1.8 {ratio} Normal 0.9-2.4 [facility] Comment on above: Order Comment: Order Date: 03/21/24 Order Info: 0786-1 - CMP Order Info: 3040-3 - LIPASE Order Info: [id number] - CRP Performed By: #### L 501.5101, L501.6710, L500.4050, L501.2450, L100.0500 #### [facility] [address] [place], [address] ALK PHOS 81 U/L Normal 40-129 [facility] Comment on above: Order Comment: Order Date: 03/21/24 Order Info: 0786-1 - CMP Order Info: 3040-3 - LIPASE Order Info: [id number] - CRP Performed By: #### L 501.5101, L501.6710, L500.4050, L501.2450, L100.0500 #### [facility] [address] [place], [address] ALT [Catalytic activity/Vol] 20 U/L Normal <=46 [facility] Comment on above: Order Comment: Order Date: 03/21/24 Order Info: 0786-1 - CMP Order Info: 3040-3 - LIPASE Order Info: [id number] - CRP Performed By: #### L 501.5101, L501.6710, L500.4050, L501.2450, L100.0500 #### [facility] [address] [place], [address] AST [Catalytic activity/Vol] 25 U/L Normal <=37 [facility] Comment on above: Order Comment: Order Date: 03/21/24 Order Info: 0786-1 - CMP Order Info: 3040-3 - LIPASE Order Info: [id number] - CRP Performed By: #### L 501.5101, L501.6710, L500.4050, L501.2450, L100.0500 #### [facility] [address] [place], [address] Bilirubin [Mass/Vol] 0.49 mg/dL Normal 0.00-1.30 [facility] Comment on above: Order Comment: Order Date: 03/21/24 Order Info: 0786-1 - CMP Order Info: 304-3 - LIPASE Order Info: [id number] - CRP Performed By: #### L 501.5101, L501.6710, L500.4050, L501.2450, L100.0500 #### [facility] [address] [place], [address] BUN/CRE 16.4 RATIO Normal 10-20 [facility] Comment on above: Order Comment: Order Date: 03/21/24 Order Info: 0786-1 - CMP Order Info: 3040-3 - LIPASE Order Info: [id number] - CRP Performed By: #### L 501.5101, L501.6710, L500.4050, L501.2450, L100.0500 #### [facility] [address] [place], [address] Calcium [Mass/Vol] 9.8 mg/dL Normal 7.6-11.0 [facility] Comment on above: Order Comment: Order Date: 03/21/24 Order Info: 0786-1 - CMP Order Info: 3040-3 - LIPASE Order Info: [id number] - CRP Performed By: #### L 501.5101, L501.6710, L500.4050, L501.2450, L100.0500 #### [facility] [address] [place], [address] Chloride [Moles/Vol] 102 mmol/L Normal 98-108 [facility] Comment on above: Order Comment: Order Date: 03/21/24 Order Info: 07-1 - CMP Order Info: 3040-3 - LIPASE Order Info: [id number] - CRP Performed By: #### L 501.5101, L501.6710, L500.4050, L501.2450, L100.0500 #### [facility] [address] [place], [address] CO2 [Moles/Vol] 24.5 mmol/L Normal 21.0-32.0 [facility] Comment on above: Order Comment: Order Date: 03/21/24 Order Info: 785-1 - CMP Order Info: 3040-3 - LIPASE Order Info: [id number] - CRP Performed By: #### L 501.5101, L501.6710, L500.4050, L501.2450, L100.0500 #### [facility] [address] [place], [address] Creatinine [Mass/Vol] 0.95 mg/dL Normal 0.70-1.20 [facility] Comment on above: Order Comment: Order Date: 03/21/24 Order Info: 071 - CMP Order Info: 3040-3 - LIPASE Order Info: [id number] - CRP Performed By: #### L 501.5101, L501.6710, L500.4050, L501.2450, L100.0500 #### [facility] [address] [place], [address] GAP 10 Normal 5-15 [facility] Comment on above: Order Comment: Order Date: 03/21/24 Order Info: 0786-1 - CMP Order Info: 3040-3 - LIPASE Order Info: [id number] - CRP Performed By: #### L 501.5101, L501.6710, L500.4050, L501.2450, L100.0500 #### [facility] [address] [place], [address] GFR/1.73 sq M.predicted among non-blacks MDRD (S/P/Bld) [Vol rate/Area] 84 mL/min/{1.73_m2} Normal >60 [facility] Comment on above: Order Comment: Order Date: 03/21/24 Order Info: 0786-1 - CMP Order Info: 3040-3 - LIPASE Order Info: [id number] - CRP Result Comment: mL/m in/1.73m2 CKD-EPI Creatinine Equation (2020) Performed By: #### L 501.5101, L501.6710, L500.4050, L501.2450, L100.0500 #### [facility] [address] [place], [address] Globulin (S) [Mass/Vol] 2.4 g/dL Normal 2.2-4.2 [facility] Comment on above: Order Comment: Order Date: 03/21/24 Order Info: 07-1 - CMP Order Info: 3040-3 - LIPASE Order Info: [id number] - CRP Performed By: #### L 501.5101, L501.6710, L500.4050, L501.2450, L100.0500 #### [facility] [address] [place], [address] Glucose [Mass/Vol] 136 mg/dL High 70-99 [facility] Comment on above: Order Comment: Order Date: 03/21/24 Order Info: 0786-1 - CMP Order Info: 3040-3 - LIPASE Order Info: [id number] - CRP Performed By: #### L 501.5101, L501.6710, L500.4050, L501.2450, L100.0500 #### [facility] [address] [place], [address] Potassium [Moles/Vol] 3.7 mmol/L Normal 3.3-5.1 [facility] Comment on above: Order Comment: Order Date: 03/21/24 Order Info: 0786-1 - CMP Order Info: 3040-3 - LIPASE Order Info: [id number] - CRP Performed By: #### L 501.5101, L501.6710, L500.4050, L501.2450, L100.0500 #### [facility] [address] [place], [address] Sodium [Moles/Vol] 137 mmol/L Normal 133-145 [facility] Comment on above: Order Comment: Order Date: 03/21/24 Order Info: 0786-1 - CMP Order Info: 3040-3 - LIPASE Order Info: [id number] - CRP Performed By: #### L 501.5101, L501.6710, L500.4050, L501.2450, L100.0500 #### [facility] [address] [place], [address] T PROT 6.7 g/dL Normal 5.9-8.4 [facility] Comment on above: Order Comment: Order Date: 03/21/24 Order Info: 0786-1 - CMP Order Info: 3040-3 - LIPASE Order Info: [id number] - CRP Performed By: #### L 501.5101, L501.6710, L500.4050, L501.2450, L100.0500 #### [facility] [address] [place], [address] Urea nitrogen [Mass/Vol] 16 mg/dL Normal 4-19 [facility] Comment on above: Order Comment: Order Date: 03/21/24 Order Info: 0786-1 - CMP Order Info: 3040-3 - LIPASE Order Info: [id number] - CRP Performed By: #### L 501.5101, L501.6710, L500.4050, L501.2450, L100.0500 #### [facility] [address] [place], [address] Eosinophil percentageOrdered By: Delfino Montgomery on 10-20-2024 Eosinophils/100 WBC (Bld) 6.6 % High 0-5 [facility] Erythrocyte distribution wid th ratioOrdered By: Delfino Montgomery on 10-20-2024 Erythrocyte distribution width (RBC) [Ratio] 11.9 % 11.6-14.6 [facility] Erythrocyte distribution wid th standard deviationOrdered By: Delfino Montgomery on 10-20-2024 Erythrocyte distribution width (RBC) [Ratio] 45.0 fl High 35.1-43.9 [facility] Glomerular filtration rate ( GFR) estimation/1.73 sq m using serum, plasma, or whole bOrdered By: Delfino Montgomery on 10-20-2024 GFR/1.73 sq M.predicted among non-blacks MDRD (S/P/Bld) [Vol rate/Area] 84 mL/min/{1.73_m2} >60 [facility] Comment on above: mL/min/1.73m2 CKD-EP I Creatinine Equation (2020) Hematocrit Auto (Bld) [Volum e fraction]Ordered By: Delfino Montgomery on 10-20-2024 Hematocrit (Bld) [Volume fraction] 46.2 % 40-54 [facility] Hemoglobin A1con 10-20-2024 HbA1c (Bld) [Mass fraction] 6.3 % High <=5.6 [facility] Comment on above: Order Comment: Order Date: 09/27/24 Order Info: [id number] - A1C Result Comment: Norm al < 5.7 % Prediabetic 5.7 - 6.4 % Diabetic >or= 6.5 % Please note range changes. Performed By: #### L 500.4050, L501.9985, L100.0100 #### [facility] [address] [place] [address]. [place], [address] Hemoglobin A1c percentageOrd ered By: Delfino Montgomery on 10-20-2024 HbA1c (Bld) [Mass fraction] 6.3 % High <5.7 [facility] Comment on above: Normal < 5.7 % Predi abetic 5.7 - 6.4 % Diabetic >or= 6.5 % Please note range changes. Hemoglobin measurementOrdere d By: Delfino Montgomery on 10-20-2024 Hemoglobin (Bld) [Mass/Vol] 15.8 g/dL 13.0-16.5 [facility] Immature granulocytes/100 WB C Auto (Bld)Ordered By: Delfino Montgmoery on 10-20-2024 Immature granulocytes/100 WBC (Bld) 0.400 % 0.0-0.9 [facility] Comment on above: IG% - Immature Granu locytes (promyelocytes, myelocytes and metamyelocytes) > 1% indicates that a LEFT SHIFT is Present. Laboratory - Chemistry and C hemistry - challengeOrdered By: Delfino Montgomery on 10-20-2024 AST [Catalytic activity/Vol] 25 U/L <38 [facility] MCV (mean corpuscular volume ) determinationOrdered By: Delfino Montgomery on 10-20-2024 MCV (RBC) [Entitic vol] 100.7 fL High 80-94 [facility] Mean corpuscular hemoglobin (MCH) determinationOrdered By: Delfino Montgomery on 10-20-2024 MCH (RBC) [Entitic mass] 34.4 pg High 27.0-32.0 [facility] Mean corpuscular hemoglobin concentration (MCHC) determinationOrdered By: Delfino Montgomery on 10-20-2024 MCHC (RBC) [Mass/Vol] 34.2 g/dL 32-36 [facility] Mean platelet volume determi nationOrdered By: Delfino Montgomery on 10-20-2024 Platelet mean volume (Bld) [Entitic vol] 9.8 fL 6.2-12.0 [facility] Microalb:Creat Ratio,Random URon 10-20-2024 Creatinine [Mass/Vol] 130.00 mg/dL Normal 39.00-259.00 [facility] Comment on above: Order Comment: Order Date: 03/21/24 Order Info: 0786-1 - CMP Order Info: 3040-3 - LIPASE Order Info: [id number] - CRP Performed By: #### L 501.5101, L501.6710, L500.4050, L501.2450, L100.0500 #### [facility] [address] [place], [place], [address] MALB:CREAT UNABLE TO CALCULATE Normal [facility] Comment on above: Order Comment: Order Date: 03/21/24 Order Info: 0786-1 - CMP Order Info: 3040-3 - LIPASE Order Info: [id number] - CRP Performed By: #### L 501.5101, L501.6710, L500.4050, L501.2450, L100.0500 #### [facility] [address] [place], [address] MICROALBUMIN,UR < 12.0 Normal NO RANGE EST. [facility] Comment on above: Order Comment: Order Date: 03/21/24 Order Info: 0786-1 - CMP Order Info: 3040-3 - LIPASE Order Info: [id number] - CRP Performed By: #### L 501.5101, L501.6710, L500.4050, L501.2450, L100.0500 #### [facility] [address] [place], [address] Microalbumin/creat ratio urO rdered By: Delfino Montgomery on 10-20-2024 Urine microalbumin/creatinine ratio measurement UNABLE TO CALCULATE mg/g CRE [facility] Monocyte percentageOrdered B y: Delfino Montgomery on 10-20-2024 Monocytes/100 WBC (Bld) 12.4 % High 0-10 [facility] Neutrophil percentageOrdered By: Delfino Montgomery on 10-20-2024 Neutrophils/100 WBC (Bld) 48.4 % 47-70 [facility] Nucleated red blood cell per centageOrdered By: Delfino Montgomery on 10-20-2024 Nucleated RBC/100 WBC (Bld) [Ratio] 0 % 0-5 [facility] Platelet countOrdered By: Marshall Montgomery on 10-20-2024 Platelets (Bld) [#/Vol] 215 10*3/uL 150-450 [facility] Potassium measurement (mass/ volume)Ordered By: Delfino Montgomery on 10-20-2024 Potassium (Unsp spec) [Mass/Vol] 3.7 mmol/L 3.3-5.1 [facility] RBC Auto (Bld) [#/Vol]Ordere d By: Delfino Montgomery on 10-20-2024 RBC (Bld) [#/Vol] 4.59 10*6/uL Low 4.6-6.2 [facility] Random urine creatinine kenneth urement (mass/volume)Ordered By: Delfino Montgomery on 10-20-2024 Creatinine Unsp time (U) [Mass/Vol] 130.00 mg/dL 39.00-259.00 [facility] Serum creatinine measurement (mass/volume)Ordered By: Delfino Montgomery on 10-20-2024 Creatinine [Mass/Vol] 0.95 mg/dL 0.70-1.20 [facility] Serum globulin measurementOr dered By: Delfino Montgomery on 10-20-2024 Globulin (S) [Mass/Vol] 2.4 g/dL 2.2-4.2 [facility] Serum glucose measurement (m ass/volume)Ordered By: Delfino Montgomery on 10-20-2024 Glucose [Mass/Vol] 136 mg/dL High 70-99 [facility] Serum or plasma alanine albert otransferase (ALT) measurementOrdered By: Delfino Montgomery on 10-20-2024 ALT [Catalytic activity/Vol] 20 U/L <47 [facility] Serum or plasma albumin kenneth urement (mass/volume)Ordered By: Delfino Montgomery on 10-20-2024 Albumin [Mass/Vol] 4.3 g/dL 3.4-4.8 [facility] Serum or plasma albumin/glob ulin mass ratioOrdered By: Delfino Montgomery on 10-20-2024 Albumin/Globulin [Mass ratio] 1.8 {ratio} 0.9-2.4 [facility] Serum or plasma alkaline kennedy sphatase measurementOrdered By: Delfino Montgomery on 10-20-2024 ALP [Catalytic activity/Vol] 81 U/L 40-129 [facility] Serum or plasma calcium kenneth urement (mass/volume)Ordered By: Delfino Montgomery on 10-20-2024 Calcium [Mass/Vol] 9.8 mg/dL 7.6-11.0 [facility] Serum or plasma urea nitroge n measurement (mass/volume)Ordered By: Delfino Montgomery on 10-20-2024 Urea nitrogen [Mass/Vol] 16 mg/dL 4-19 [facility] Sodium levelOrdered By: Delfino Montgomery on 10-20-2024 Sodium [Moles/Vol] 137 mmol/L 133-145 [facility] Total proteinOrdered By: Debra Montgomery on 10-20-2024 Protein [Mass/Vol] 6.7 g/dL 5.9-8.4 [facility] Urine albumin measurement wi detection limit of 20 mg/L or less (mass/volume)Ordered By: Delfino Montgomery on 10-20-2024 Albumin DL <= 20 mg/L (U) [Mass/Vol] < 12.0 mg/L NO RANGE EST. [facility] White blood cell (WBC) count Ordered By: Delfino Montgomery on 10-20-2024 WBC (Bld) [#/Vol] 5.5 10*3/uL 4.4-11.0 [facility] Abdomen WITH IV Contraston 1 08-02-2023 Abdomen WITH IV Contrast [facility] [address] [place] [address] Abdomen WITH IV Contrast MR#: [id number] Acct: [id number] Name: BRANT BASILIO Rep #: [id number] : 1950 M 73 From: Cristofer Faustin MD PCP: Dr. eDlfino Montgomery MD Status: [facility] Study: Abdomen WITH IV Contrast Date of Exam: 4 Exam# [id number] Ordering Dr: Delfino Montgomery MD [id number] STUDY: CT ABDOMEN WITH CONTRAST REASON FOR EXAM: Male, 73 years old. R/O gallbaldder inflammation RADIATION DOSAGE (If Supplied By Facility): CTDIvol = ( 16.44 ) mGy, DLP = ( 722.32 ) mGycm TECHNIQUE: Transaxial images were obtained post I.V. administration of IV 100mL Isovue-370, and without oral contrast. Sagittal and coronal images were reconstructed. Individualized dose optimization techniques were used for this CT. COMPARISON: None. FINDINGS: The visualized lung bases are unremarkable. The visualized portions of the heart are within normal limits. Elevated right hemidiaphragm. Normal liver. Normal gallbladder and extrahepatic biliary system. Normal spleen. Normal pancreas. Normal bilateral adrenal glands. Normal right kidney. Normal left kidney. There is a large hiatal hernia composed mostly of the fundus of the stomach. Normal small intestine. Normal colon. There are surgical clips in the region of the appendix consistent with a prior appendectomy. There is diffuse atherosclerotic calcification of the abdominal aorta, without a demonstrated aneurysm. Normal inferior vena cava. Normal retroperitoneum. Normal abdominal wall. Mild dextroscoliosis of lumbar spine with degenerative disc disease. CT/Abdomen WITH IV Contrast IMPRESSION: Large hiatal hernia. Electronically Signed: Cristofer Faustin MD at 13:32 EST , CC: Dr. Delfino Montgomery MD Check Processing Clerk: Signed Normal [facility] L501.5101on 05-04-2024 GGTP 33 IU/L Normal 0-65 [facility] Comment on above: Order Comment: Order Date: 03/21/24 Order Info: [id number] - GGTP Result Comment: Perf ormed at: CB - [facility] [address] [id number] Radon Inspector: Sathya Rubin PhD, Phone: [phone] Performed By: #### L 501.5101, L501.6710, L500.4050, L501.2450, L100.0500 #### [facility] [address] [place], [address] CBC-Complete Blood Cnt No Di ffon 05-03-2024 Erythrocyte distribution width (RBC) [Ratio] 12.0 % Normal 11.6-14.6 [facility] Comment on above: Order Comment: Order Date: 03/21/24 Order Info: [id number] - CBC Performed By: #### L 501.5101, L501.6710, L500.4050, L501.2450, L100.0500 #### [facility] [address] [place], [address] Hematocrit (Bld) [Volume fraction] 46.3 % Normal 40-54 [facility] Comment on above: Order Comment: Order Date: 03/21/24 Order Info: [id number] - CBC Performed By: #### L 501.5101, L501.6710, L500.4050, L501.2450, L100.0500 #### [facility] [address] [place], [address] Hemoglobin (Bld) [Mass/Vol] 15.6 g/dL Normal 13.0-16.5 [facility] Comment on above: Order Comment: Order Date: 03/21/24 Order Info: [id number] - CBC Performed By: #### L 501.5101, L501.6710, L500.4050, L501.2450, L100.0500 #### [facility] [address] [place], [address] MCH (RBC) [Entitic mass] 33.5 pg High 27.0-32.0 [facility] Comment on above: Order Comment: Order Date: 03/21/24 Order Info: [id number] - CBC Performed By: #### L 501.5101, L501.6710, L500.4050, L501.2450, L100.0500 #### [facility] [address] [place], [address] MCHC (RBC) [Mass/Vol] 33.7 g/dL Normal 32-36 [facility] Comment on above: Order Comment: Order Date: 03/21/24 Order Info: [id number] - CBC Performed By: #### L 501.5101, L501.6710, L500.4050, L501.2450, L100.0500 #### [facility] [address] [place], [address] MCV (RBC) [Entitic vol] 99.6 fL High 80-94 [facility] Comment on above: Order Comment: Order Date: 03/21/24 Order Info: [id number] - CBC Performed By: #### L 501.5101, L501.6710, L500.4050, L501.2450, L100.0500 #### [facility] [address] [place], [address] Platelet mean volume (Bld) [Entitic vol] 10.0 fL Normal 6.2-12.0 [facility] Comment on above: Order Comment: Order Date: 03/21/24 Order Info: [id number] - CBC Performed By: #### L 501.5101, L501.6710, L500.4050, L501.2450, L100.0500 #### [facility] [address] [place], [address] Platelets (Bld) [#/Vol] 241 10*3/uL Normal 150-450 [facility] Comment on above: Order Comment: Order Date: 03/21/24 Order Info: [id number] - CBC Performed By: #### L 501.5101, L501.6710, L500.4050, L501.2450, L100.0500 #### [facility] [address] [place], [address] RBC (Bld) [#/Vol] 4.65 10*6/uL Normal 4.6-6.2 [facility] Comment on above: Order Comment: Order Date: 03/21/24 Order Info: [id number] - CBC Performed By: #### L 501.5101, L501.6710, L500.4050, L501.2450, L100.0500 #### [facility] [address] [place], [address] RDW SD 43.8 fl Normal 35.1-43.9 [facility] Comment on above: Order Comment: Order Date: 03/21/24 Order Info: [id number] - CBC Performed By: #### L 501.5101, L501.6710, L500.4050, L501.2450, L100.0500 #### [facility] [address] [place], [address] WBC (Bld) [#/Vol] 7.5 10*3/uL Normal 4.4-11.0 [facility] Comment on above: Order Comment: Order Date: 03/21/24 Order Info: [id number] - CBC Performed By: #### L 501.5101, L501.6710, L500.4050, L501.2450, L100.0500 #### [facility] [address] [place], [address] CRPon 05-03-2024 C-REACTIVE PROT < 2.90 Normal 0.0-3.0 [facility] Comment on above: Order Comment: Order Date: 03/21/24 Order Info: [id number] - CMP Order Info: 3040-3 - LIPASE Order Info: [id number] - CRP Result Comment: C-Re active Protein (CRP) provides useful information for the diagnosis, therapy and monitoring of inflammatory processes and associated diseases. For the evaluation of Relative Risk for Cardiovascular Disease, a High Sensitivity CRP (HSCRP) should be ordered. Performed By: #### L 501.5101, L501.6710, L500.4050, L501.2450, L100.0500 #### [facility] [address] [place], [address] Comprehensive Metabolic Prof ilon 05-03-2024 Albumin [Mass/Vol] 4.1 g/dL Normal 3.2-5.0 [facility] [facility] Comment on above: Order Comment: Order Date: 03/21/24 Order Info: [id number] - CMP Order Info: 3040-3 - LIPASE Order Info: [id number] - CRP Performed By: #### L 501.5101, L501.6710, L500.4050, L501.2450, L100.0500 #### [facility] [address] [place], [address] Albumin/Globulin [Mass ratio] 1.3 {ratio} Normal 0.9-2.4 [facility] Comment on above: Order Comment: Order Date: 03/21/24 Order Info: [id number] - CMP Order Info: 3040-3 - LIPASE Order Info: [id number] - CRP Performed By: #### L 501.5101, L501.6710, L500.4050, L501.2450, L100.0500 #### [facility] [address] [place], [address] ALK P 74 U/L Normal 45-117 [facility] Comment on above: Order Comment: Order Date: 03/21/24 Order Info: 07-1 - CMP Order Info: 3040-3 - LIPASE Order Info: [id number] - CRP Performed By: #### L 501.5101, L501.6710, L500.4050, L501.2450, L100.0500 #### [facility] [address] [place], [address] ALT [Catalytic activity/Vol] 28 U/L Normal 16-61 [facility] Comment on above: Order Comment: Order Date: 03/21/24 Order Info: [id number] - CMP Order Info: 3040-3 - LIPASE Order Info: [id number] - CRP Performed By: #### L 501.5101, L501.6710, L500.4050, L501.2450, L100.0500 #### [facility] [address] [place], [address] AST [Catalytic activity/Vol] 23 U/L Normal 15-37 [facility] Comment on above: Order Comment: Order Date: 03/21/24 Order Info: [id number] - CMP Order Info: 3040-3 - LIPASE Order Info: [id number] - CRP Performed By: #### L 501.5101, L501.6710, L500.4050, L501.2450, L100.0500 #### [facility] [address] [place], [address] Bilirubin [Mass/Vol] 0.80 mg/dL Normal 0.20-1.00 [facility] Comment on above: Order Comment: Order Date: 03/21/24 Order Info: [id number] - CMP Order Info: 3040-3 - LIPASE Order Info: [id number] - CRP Result Comment: For patients on eltrombopag therapy, use of Dimension Heaters TBIL is not recommended. Performed By: #### L 501.5101, L501.6710, L500.4050, L501.2450, L100.0500 #### [facility] [address] [place], [address] BUN/CRE 18.8 RATIO Normal 10-20 [facility] Comment on above: Order Comment: Order Date: 03/21/24 Order Info: [id number] - CMP Order Info: 3040-3 - LIPASE Order Info: [id number] - CRP Performed By: #### L 501.5101, L501.6710, L500.4050, L501.2450, L100.0500 #### [facility] [address] [place], [address] CA,Total 9.4 mg/dL Normal 8.5-10.1 [facility] Comment on above: Order Comment: Order Date: 03/21/24 Order Info: [id number] - CMP Order Info: 3040-3 - LIPASE Order Info: [id number] - CRP Performed By: #### L 501.5101, L501.6710, L500.4050, L501.2450, L100.0500 #### [facility] [address] [place], [address] Chloride [Moles/Vol] 104 mmol/L Normal 98-107 [facility] Comment on above: Order Comment: Order Date: 03/21/24 Order Info: [id number] - CMP Order Info: 3040-3 - LIPASE Order Info: [id number] - CRP Performed By: #### L 501.5101, L501.6710, L500.4050, L501.2450, L100.0500 #### [facility] [address] [place], [address] CO2 [Moles/Vol] 26.0 mmol/L Normal 21.0-32.0 [facility] Comment on above: Order Comment: Order Date: 03/21/24 Order Info: 1 - CMP Order Info: 3 - LIPASE Order Info: - CRP Performed By: #### L 501.5101, L501.6710, L500.4050, L501.2450, L100.0500 #### [facility] [address] [place], [address] Creatinine [Mass/Vol] 1.17 mg/dL Normal 0.70-1.30 [facility] Comment on above: Order Comment: Order Date: 03/21/24 Order Info: [id number] - CMP Order Info: 3 - LIPASE Order Info: - CRP Result Comment: The validity of the calculated GFR GFRAA in patients over 70 years has not been determined. Clinical correlation is essential. Performed By: #### L 501.5101, L501.6710, L500.4050, L501.2450, L100.0500 #### [facility] [address] [place], [address] EST GFR - AA 79 mL/min Normal >60 [facility] Comment on above: Order Comment: Order Date: 03/21/24 Order Info: [id number] - CMP Order Info: 3040-3 - LIPASE Order Info: [id number] - CRP Result Comment: Afri can Turkmen GFR Calc Performed By: #### L 501.5101, L501.6710, L500.4050, L501.2450, L100.0500 #### [facility] [address] [place], [address] GAP 7 Normal 5-15 [facility] Comment on above: Order Comment: Order Date: 03/21/24 Order Info: [id number] - CMP Order Info: 3040-3 - LIPASE Order Info: [id number] - CRP Performed By: #### L 501.5101, L501.6710, L500.4050, L501.2450, L100.0500 #### [facility] [address] [place], [address] GFR/1.73 sq M.predicted among non-blacks MDRD (S/P/Bld) [Vol rate/Area] 65 mL/min/{1.73_m2} Normal >60 [facility] Comment on above: Order Comment: Order Date: 03/21/24 Order Info: [id number] - CMP Order Info: 3040-3 - LIPASE Order Info: [id number] - CRP Result Comment: Non- GFR Calc Performed By: #### L 501.5101, L501.6710, L500.4050, L501.2450, L100.0500 #### [facility] [address] [place], [address] Globulin (S) [Mass/Vol] 3.1 g/dL Normal 2.2-4.2 [facility] Comment on above: Order Comment: Order Date: 03/21/24 Order Info: [id number] - CMP Order Info: 3040-3 - LIPASE Order Info: [id number] - CRP Performed By: #### L 501.5101, L501.6710, L500.4050, L501.2450, L100.0500 #### [facility] [address] [place], [address] Glucose [Mass/Vol] 139 mg/dL High 74-106 [facility] Comment on above: Order Comment: Order Date: 03/21/24 Order Info: [id number] - CMP Order Info: 3040-3 - LIPASE Order Info: [id number] - CRP Result Comment: Fast ing Glucose result greater than or equal to 126 mg/dL suggests DIABETES MELLITUS per A.D.A. criteria. Performed By: #### L 501.5101, L501.6710, L500.4050, L501.2450, L100.0500 #### [facility] [address] [place], [address] Potassium [Moles/Vol] 4.0 mmol/L Normal 3.5-5.1 [facility] Comment on above: Order Comment: Order Date: 03/21/24 Order Info: [id number] - CMP Order Info: 3040-3 - LIPASE Order Info: [id number] - CRP Performed By: #### L 501.5101, L501.6710, L500.4050, L501.2450, L100.0500 #### [facility] [address] [place], [address] Sodium [Moles/Vol] 137 mmol/L Normal 136-145 [facility] Comment on above: Order Comment: Order Date: 03/21/24 Order Info: [id number] - CMP Order Info: 3040-3 - LIPASE Order Info: [id number] - CRP Performed By: #### L 501.5101, L501.6710, L500.4050, L501.2450, L100.0500 #### [facility] [address] [place], [address] T PROT 7.2 g/dL Normal 6.4-8.2 [facility] Comment on above: Order Comment: Order Date: 03/21/24 Order Info: [id number] - CMP Order Info: 3040-3 - LIPASE Order Info: [id number] - CRP Performed By: #### L 501.5101, L501.6710, L500.4050, L501.2450, L100.0500 #### [facility] [address] [place], [address] Urea nitrogen [Mass/Vol] 22 mg/dL High 7-18 [facility] Comment on above: Order Comment: Order Date: 03/21/24 Order Info: [id number] - CMP Order Info: 3040-3 - LIPASE Order Info: [id number] - CRP Performed By: #### L 501.5101, L501.6710, L500.4050, L501.2450, L100.0500 #### [facility] [address] [place], [address] Lipaseon 05-03-2024 Lipase [Catalytic activity/Vol] 43 U/L Normal 13-75 [facility] Comment on above: Order Comment: Order Date: 03/21/24 Order Info: [id number] - CMP Order Info: 3040-3 - LIPASE Order Info: [id number] - CRP Result Comment: Vitaliy dick note: LIPASE revised reference range effective 22. New Lipase methodology. Expected to produce lower values than the previous assay method. NEW Reference Range: 13 - 75 U/L Performed By: #### L 501.5101, L501.6710, L500.4050, L501.2450, L100.0500 #### [facility] [address] [place], [address] Basophil percentageOrdered B y: Delfino Montgomery on 10-11-2023 Bilirubin [Mass/Vol] 0.60 mg/dL 0.20-1.00 [facility] Comment on above: For patients on eltr ombopag therapy, use of Dimension Heaters TBIL is not recommended. Chloride [Moles/Vol] 105 mmol/L 98-107 [facility] Glucose [Mass/Vol] 139 mg/dL 74-106 [facility] Comment on above: Fasting Glucose resu lt greater than or equal to 126 mg/dL suggests DIABETES MELLITUS per A.D.A. criteria. Potassium [Moles/Vol] 4.1 mmol/L 3.5-5.1 [facility] Protein [Mass/Vol] 6.8 g/dL 6.4-8.2 [facility] Sodium [Moles/Vol] 138 mmol/L 136-145 [facility] - Chemistry and C hemistry - challengeOrdered By: Delfino Montgomery on 10-11-2023 Albumin/Globulin [Mass ratio] 1.3 {ratio} 0.9-2.4 [facility] ALP [Catalytic activity/Vol] 59 U/L 45-117 [facility] ALT [Catalytic activity/Vol] 28 U/L 16-61 [facility] CO2 [Moles/Vol] 28.0 mmol/L 21.0-32.0 [facility] Globulin (S) [Mass/Vol] 3.0 g/dL 2.2-4.2 [facility] Urea nitrogen/Creatinine [Mass ratio] 21.9 mg/mg 10-20 [facility] No Panel InformationOrdered By: Delfino Montgomery on 10-11-2023 Estimated GFR (MDRD) Amer 89 mL/min >60 [facility] Comment on above: GFR Calc Estimated GFR (MDRD) Non-Af Amer 74 mL/min >60 [facility] Comment on above: Non- GFR Calc Serum or plasma calcium kenneth urement (mass/volume)Ordered By: Delfino Montgomery on 10-11-2023 Calcium [Mass/Vol] 9.4 mg/dL 8.5-10.1 [facility] Serum or plasma creatinine m easurement (mass/volume)Ordered By: Delfino Montgomery on 10-11-2023 Creatinine [Mass/Vol] 1.05 mg/dL 0.70-1.30 [facility] Comment on above: The validity of the calculated GFR & GFRAA in patients over 70 years has not been determined. Clinical correlation is essential. Serum or plasma urea nitroge n measurement (mass/volume)Ordered By: Delfino Montgomery on 10-11-2023 Urea nitrogen [Mass/Vol] 23 mg/dL 7-18 [facility] Thin prep Papanicolaou smear with manual screeningOrdered By: Delfino Montgomery on 10-11-2023 Thin prep Papanicolaou smear with manual screening 3.8 g/dL 3.2-5.0 [facility] Thin prep Papanicolaou smear with manual screening 25 U/L 15-37 [facility] Thin prep Papanicolaou smear with manual screening 5 5-15 [facility] Whole blood hemoglobin A1c/t otal hemoglobin ratio (mass fraction)Ordered By: Delfino Montgomery on 10-11-2023 HbA1c (Bld) [Mass fraction] 6.1 % 3.8-5.6 [facility] Comment on above: Normal < 5.7 % Predi abetic 5.7 - 6.4 % Diabetic >or= 6.5 % Please note range changes. Absolute lymphocyte countOrd ered By: Delfino Montgomery on 05-28-2023 Lymphocytes Auto (Unsp spec) [#/Vol] 1.59 10*3/uL 0.83-4.51 [facility] Basophil percentageOrdered B y: Delfino Montgomery on 05-28-2023 Basophils/100 WBC (Bld) 0.3 % 0-1 [facility] Bilirubin [Mass/Vol] 0.50 mg/dL 0.20-1.00 [facility] Comment on above: For patients on eltr ombopag therapy, use of Dimension Heaters TBIL is not recommended. Chloride [Moles/Vol] 106 mmol/L 98-107 [facility] Cholesterol [Mass/Vol] 146 mg/dL <200 [facility] Comment on above: <200 mg/dL Desirable 200-240 mg/dL Borderline >240 mg/dL High Risk Eosinophils/100 WBC (Bld) 4.1 % 0-5 [facility] Glucose [Mass/Vol] 139 mg/dL 74-106 [facility] Comment on above: Fasting Glucose resu lt greater than or equal to 126 mg/dL suggests DIABETES MELLITUS per A.D.A. criteria. Neutrophils (Bld) [#/Vol] 4.2 10*3/uL 2.0-7.7 [facility] Neutrophils/100 WBC (Bld) 60.6 % 47-70 [facility] Potassium [Moles/Vol] 4.3 mmol/L 3.5-5.1 [facility] Protein [Mass/Vol] 6.9 g/dL 6.4-8.2 [facility] Sodium [Moles/Vol] 139 mmol/L 136-145 [facility] Testosterone [Mass/Vol] 453.02 ng/dL [facility] Comment on above: CENTRAL 90% REFERENC E RANGES MALE AGE <50 197.44 - 669.58 ng/dL MALE AGE > or = 50 187.72 - 684.19 ng/dL FEMALE AGE <50 8.38 - 35.01 ng/dL FEMALE AGE > or = 50 <7.00 - 35.92 ng/dL Effective as of 01/02/21 Triglyceride [Mass/Vol] 140 mg/dL <199 [facility] Comment on above: The drugs N-Acetylcy steine and Metamizole may falsely depress this assay.Serum Triglycerides Reference Interval Normal <150 mg/dL Borderline high 150 - 199 mg/dL High 200 - 499 mg/dL Very High > or = 500 mg/dL WBC (Bld) [#/Vol] 6.9 10*3/uL 4.4-11.0 [facility] Blood erythrocytes count (nu mber/volume)Ordered By: Delfino Montgomery on 05-28-2023 RBC (Bld) [#/Vol] 4.47 10*6/uL 4.6-6.2 [facility] Blood hemoglobin measurement (mass/volume)Ordered By: Dlefino Montgomery on 05-28-2023 Hemoglobin (Bld) [Mass/Vol] 14.9 g/dL 13.0-16.5 [facility] Blood lymphocytes/100 leukoc ytesOrdered By: Delfino Montgomery on 05-28-2023 Lymphocytes/100 WBC (Bld) 23.0 % 19-41 [facility] Blood monocytes/100 leukocyt esOrdered By: Delfino Montgomery on 05-28-2023 Monocytes/100 WBC (Bld) 11.4 % 0-10 [facility] Blood platelet mean volumeOr dered By: Delfino Montgomery on 05-28-2023 Platelet mean volume (Bld) [Entitic vol] 9.9 fL 6.2-12.0 [facility] Determination of erythrocyte mean corpuscular volume (MCV)Ordered By: Delfino Montgomery on 05-28-2023 MCV (RBC) [Entitic vol] 100.2 fL 80-94 [facility] Hematocrit Auto (Bld) [Volum e fraction]Ordered By: Delfino Montgomery on 05-28-2023 Hematocrit (Bld) [Volume fraction] 44.8 % 40-54 [facility] - Chemistry and C hemistry - challengeOrdered By: Delfino Montgomery on 05-28-2023 ALP [Catalytic activity/Vol] 58 U/L 45-117 [facility] ALT [Catalytic activity/Vol] 27 U/L 16-61 [facility] CO2 [Moles/Vol] 21.0 mmol/L 21.0-32.0 [facility] Globulin (S) [Mass/Vol] 3.0 g/dL 2.2-4.2 [facility] Urea nitrogen/Creatinine [Mass ratio] 20.9 mg/mg 10-20 [facility] - Hematology and Cell countsOrdered By: Delfino Montgomery on 05-28-2023 Erythrocyte distribution width (RBC) [Entitic vol] 45.1 fL 35.1-43.9 [facility] Erythrocyte distribution width (RBC) [Ratio] 12.1 % 11.6-14.6 [facility] Immature granulocytes/100 WBC (Bld) 0.600 % 0.0-0.9 [facility] Comment on above: IG% - Immature Granu locytes (promyelocytes, myelocytes and metamyelocytes) > 1% indicates that a LEFT SHIFT is Present. MCH (RBC) [Entitic mass] 33.3 pg 27.0-32.0 [facility] Nucleated RBC/100 WBC (Bld) [Ratio] 0 % 0-5 [facility] MCHC Auto (RBC) [Mass/Vol]Or dered By: Delfino Montgomery on 05-28-2023 MCHC (RBC) [Mass/Vol] 33.3 g/dL 32-36 [facility] No Panel InformationOrdered By: Delfino Montgomery on 05-28-2023 Urine Microalbumin/Creatinine Ratio TNP [facility] Comment on above: Test not performed Estimated GFR (MDRD) Amer 80 mL/min >60 [facility] Comment on above: GFR Calc Estimated GFR (MDRD) Non-Af Amer 66 mL/min >60 [facility] Comment on above: Non- GFR Calc Prostate Specific Antigen Screen 0.72 ng/mL 0.00-4.00 [facility] Comment on above: This test was perfor med using the TPSA assay method for the[facility] chemistry system. Values obtained with differentassay methods cannot be used interchangably.When changing PSA assays in the course of monitoring apatient, additional sequential testing should be carriedout to confirm baseline values. Platelets bldOrdered By: Debra Montgomery on 05-28-2023 Platelets (Bld) [#/Vol] 239 10*3/uL 150-450 [facility] Serum or plasma albumin kenneth urement (mass/volume)Ordered By: Delfino Montgomery on 05-28-2023 Albumin [Mass/Vol] 3.9 g/dL 3.2-5.0 [facility] Serum or plasma albumin/glob ulin mass ratioOrdered By: Delfino Montgomery on 05-28-2023 Albumin/Globulin [Mass ratio] 1.3 {ratio} 0.9-2.4 [facility] Serum or plasma calcium kenneth urement (mass/volume)Ordered By: Delfino Montgomery on 05-28-2023 Calcium [Mass/Vol] 9.2 mg/dL 8.5-10.1 [facility] Serum or plasma cholesterol in HDL measurement (mass/volume)Ordered By: Delfino Montgomery on 05-28-2023 Cholesterol in HDL [Mass/Vol] 63 mg/dL >40 [facility] Comment on above: The drugs N-Acetylcy steine and Metamizole may falsely depress this assay. Reference Range HDL <40 mg/dL Low HDL Cholesterol HDL >or= 60 mg/dL High HDL Cholesterol Serum or plasma cholesterol in VLDL measurement (mass/volume)Ordered By: Delfino Montgomery on 05-28-2023 Cholesterol in VLDL [Mass/Vol] 28 mg/dL 5-40 [facility] Serum or plasma creatinine m easurement (mass/volume)Ordered By: Delfino Montgomery on 05-28-2023 Creatinine [Mass/Vol] 1.15 mg/dL 0.70-1.30 [facility] Comment on above: The validity of the calculated GFR & GFRAA in patients over 70 years has not been determined. Clinical correlation is essential. Serum or plasma low density lipoprotein (LDL) cholesterol measurement (mass/volume)Ordered By: Delfino Montgomery on 05-28-2023 Cholesterol in LDL [Mass/Vol] 55 mg/dL 0-130 [facility] Serum or plasma urea nitroge n measurement (mass/volume)Ordered By: Delfino Montgomery on 05-28-2023 Urea nitrogen [Mass/Vol] 24 mg/dL 7-18 [facility] Thin prep Papanicolaou smear with manual screeningOrdered By: Delfino Montgomery on 05-28-2023 Thin prep Papanicolaou smear with manual screening < 5.0 mg/L NO RANGE EST. [facility] Thin prep Papanicolaou smear with manual screening 20 U/L 15-37 [facility] Thin prep Papanicolaou smear with manual screening 12 5-15 [facility] Urine creatinine measurement (mass/volume)Ordered By: Delfino Montgomery on 05-28-2023 Creatinine (U) [Mass/Vol] 72.40 mg/dL NO RANGE EST. [facility] Whole blood hemoglobin A1c/t otal hemoglobin ratio (mass fraction)Ordered By: Delfino Montgomery on 05-28-2023 HbA1c (Bld) [Mass fraction] 6.2 % 3.8-5.6 [facility] Comment on above: Normal < 5.7 % Predi abetic 5.7 - 6.4 % Diabetic >or= 6.5 % Please note range changes. Basophil percentageOrdered B y: Delfino Montgomery on 11-11-2022 Bilirubin [Mass/Vol] 0.40 mg/dL 0.20-1.00 [facility] Comment on above: For patients on eltr ombopag therapy, use of Dimension Heaters TBIL is not recommended. Chloride [Moles/Vol] 106 mmol/L 98-107 [facility] Glucose [Mass/Vol] 113 mg/dL 74-106 [facility] Comment on above: Fasting Glucose resu lt from 100 to 125 mg/dL suggests IMPAIRED HOMEOSTASIS per A.D.A. criteria. Potassium [Moles/Vol] 4.2 mmol/L 3.5-5.1 [facility] Protein [Mass/Vol] 7.0 g/dL 6.4-8.2 [facility] Sodium [Moles/Vol] 135 mmol/L 136-145 [facility] Testosterone [Mass/Vol] 412 ng/dL 264-916 [facility] Comment on above: Adult male reference interval is based on a population ofhealthy nonobese males (BMI <30) between 19 and 39 yearsold. dennis Mcqueen.al. JCEM 2017,102;[id number]. PMID:[id number]. WBC (Bld) [#/Vol] 6.3 10*3/uL 4.4-11.0 [facility] Blood erythrocytes count (nu mber/volume)Ordered By: Delfino Montgomery on 11-11-2022 RBC (Bld) [#/Vol] 4.61 10*6/uL 4.6-6.2 [facility] Blood hemoglobin measurement (mass/volume)Ordered By: Delfino Montgomery on 11-11-2022 Hemoglobin (Bld) [Mass/Vol] 15.4 g/dL 13.0-16.5 [facility] Blood platelet mean volumeOr dered By: Delfino Montgomery on 11-11-2022 Platelet mean volume (Bld) [Entitic vol] 9.7 fL 6.2-12.0 [facility] Determination of erythrocyte mean corpuscular volume (MCV)Ordered By: Delfino Montgomery on 11-11-2022 MCV (RBC) [Entitic vol] 100.4 fL 80-94 [facility] Free testosterone percentage Ordered By: Delfino Montgomery on 11-11-2022 Testosterone Free/Testosterone.total [Mass fraction] 1.32 % 1.50-4.20 [facility] Comment on above: Performed at: [address] [id number] Director: Sathya Rubin PhD, Phone: [phone] at: [facility] [id number] Director: Joanna Cole MD, Phone: [phone] Hematocrit Auto (Bld) [Volum e fraction]Ordered By: Delfino Montgomery on 11-11-2022 Hematocrit (Bld) [Volume fraction] 46.3 % 40-54 [facility] - Chemistry and C hemistry - challengeOrdered By: Delfino Montgomery on 11-11-2022 Albumin [Mass/Vol] 3.8 g/dL 2.9-4.4 [facility] ALP [Catalytic activity/Vol] 64 U/L 45-117 [facility] ALT [Catalytic activity/Vol] 30 U/L 16-61 [facility] CO2 [Moles/Vol] 26.0 mmol/L 21.0-32.0 [facility] Globulin (S) [Mass/Vol] 3.1 g/dL 2.2-4.2 [facility] Urea nitrogen/Creatinine [Mass ratio] 19.8 mg/mg 10-20 [facility] - Hematology and Cell countsOrdered By: Delfino Motngomery on 11-11-2022 Erythrocyte distribution width (RBC) [Entitic vol] 42.5 fL 35.1-43.9 [facility] Erythrocyte distribution width (RBC) [Ratio] 11.6 % 11.6-14.6 [facility] MCH (RBC) [Entitic mass] 33.4 pg 27.0-32.0 [facility] MCHC Auto (RBC) [Mass/Vol]Or dered By: Delfino Montgomery on 11-11-2022 MCHC (RBC) [Mass/Vol] 33.3 g/dL 32-36 [facility] No Panel InformationOrdered By: Delfino Montgomery on 11-11-2022 Urine Microalbumin/Creatinine Ratio TNP [facility] Comment on above: Test not performed Addendum Document Comment . [facility] Comment on above: The SPE pattern appe ars unremarkable. Evidence ofmonoclonal protein is not apparent. Axwsz-9-Zkjgcbndu 0.2 g/dL 0.0-0.4 [facility] Ghqdx-9-Nioantvch 0.9 g/dL 0.4-1.0 [facility] Anti-Nuclear Antibody Screen Negative Negative [facility] Comment on above: Performed at: [employer] [address] [id number] Director: Sathya Rubin PhD, Phone: [phone] Estimated GFR (MDRD) Amer 88 mL/min >60 [facility] Comment on above: GFR Calc Estimated GFR (MDRD) Non-Af Amer 73 mL/min >60 [facility] Comment on above: Non- GFR Calc Gamma Globulins 0.6 g/dL 0.4-1.8 [facility] Hepatitis C Antibody Non-Reactive Nonreactive [facility] Comment on above: Non Reactive: < 0.8 Equivocal: >/= 0.8 to < 1.0 Reactive: >/= 1.0The CDC recommends that a reactive/equivocal HCV antibody result be followed up by the HCV Nucleic Acid Amplificationtest ([id number]) Parathyroid Hormone (Intact) 35.3 pg/mL 18.4-80.1 [facility] Thyroid Stimulating Hormone (TSH) 1.00 uIU/mL 0.358-3.74 [facility] Vitamin D 25-Hydroxy 66.0 ng/mL [facility] [facility] [place] Comment on above: Vitamin D 25(OH) Sta tus Range Deficiency <20 ng/mL (50nmol/L) Insufficiency 20 - 30 ng/mL (50 - 75 nmol/L) Sufficiency 30 - 100 ng/mL (75 - 250 nmol/L) Toxicity >100 ng/mL (>250 nmol/L) Platelets bldOrdered By: Debra Montgomery on 11-11-2022 Platelets (Bld) [#/Vol] 243 10*3/uL 150-450 [facility] Protein Fractions Elph [Inte rp]Ordered By: Delfino Montgomery on 11-11-2022 Protein Fractions [Interp] Comment . [facility] Comment on above: Protein electrophore sis scan will follow via computer,mail, or physician practice coordinator delivery. Serum albumin to globulin ra roger by protein electrophoresisOrdered By: Delfino Montgomery on 11-11-2022 Albumin/Globulin Elph [Mass ratio] 1.5 0.7-1.7 [facility] Serum globulin measurement ( mass/volume)Ordered By: Delfino Montgomery on 11-11-2022 Globulin (S) [Mass/Vol] 2.6 g/dL 2.2-3.9 [facility] Serum or plasma albumin kenneth urement (mass/volume)Ordered By: Delfino Montgomery on 11-11-2022 Albumin [Mass/Vol] 3.9 g/dL 3.2-5.0 [facility] Serum or plasma albumin/glob ulin mass ratioOrdered By: Delfino Montgomery on 11-11-2022 Albumin/Globulin [Mass ratio] 1.3 {ratio} 0.9-2.4 [facility] Serum or plasma beta globuli n measurement by electrophoresis (mass/volume)Ordered By: Delfino Montgomery on 11-11-2022 Beta globulin Elph [Mass/Vol] 0.8 g/dL 0.7-1.3 [facility] Serum or plasma calcium kenneth urement (mass/volume)Ordered By: Delfino Montgomery on 11-11-2022 Calcium [Mass/Vol] 9.5 mg/dL 8.5-10.1 [facility] Serum or plasma creatinine m easurement (mass/volume)Ordered By: Delfino Montgomery on 11-11-2022 Creatinine [Mass/Vol] 1.06 mg/dL 0.70-1.30 [facility] Comment on above: The validity of the calculated GFR & GFRAA in patients over 70 years has not been determined. Clinical correlation is essential. Serum or plasma testosterone free measurement (mass/volume)Ordered By: Delfino Montgomery on 11-11-2022 Testosterone Free [Mass/Vol] 5.44 ng/dL 5.00-21.00 [facility] Serum or plasma urea nitroge n measurement (mass/volume)Ordered By: Delfino Montgomery on 11-11-2022 Urea nitrogen [Mass/Vol] 21 mg/dL 7-18 [facility] Serum rheumatoid factor dete ctionOrdered By: Delfino Montgomery on 11-11-2022 Rheumatoid factor Ql (S) 10.0 IU/mL <15 [facility] Thin prep Papanicolaou smear with manual screeningOrdered By: Delfino Montgomery on 11-11-2022 Thin prep Papanicolaou smear with manual screening < 5.0 mg/L NO RANGE EST. [facility] Thin prep Papanicolaou smear with manual screening 23 U/L 15-37 [facility] Thin prep Papanicolaou smear with manual screening 3 5-15 [facility] Thin prep Papanicolaou smear with manual screening See comment [facility] Comment on above: Result: Not Observed Total protein bloodOrdered B y: Delfino Montgomery on 11-11-2022 Protein [Mass/Vol] 6.4 g/dL 6.0-8.5 [facility] Urine creatinine measurement (mass/volume)Ordered By: Delfino Montgomery on 11-11-2022 Creatinine (U) [Mass/Vol] 82.60 mg/dL NO RANGE EST. [facility] Absolute lymphocyte counton 05-08-2022 Lymphocytes Auto (Unsp spec) [#/Vol] 2.07 10*3/uL 0.83-4.51 [facility] Work Phone: Basophil percentageon 2021 Basophils/100 WBC (Bld) 0.3 % 0-1 [facility] Work Phone: Bilirubin [Mass/Vol] 0.60 mg/dL 0.20-1.00 [facility] Work Phone: Comment on above: For patients on eltr ombopag therapy, use of Dimension Heaters TBIL is not recommended. Chloride [Moles/Vol] 104 mmol/L 98-107 [facility] Work Phone: Cholesterol [Mass/Vol] 151 mg/dL <200 [facility] Work Phone: Comment on above: <200 mg/dL Desirable 200-240 mg/dL Borderline >240 mg/dL High Risk Eosinophils/100 WBC (Bld) 5.7 % 0-5 [facility] Work Phone: Glucose [Mass/Vol] 126 mg/dL 74-106 [facility] Work Phone: Comment on above: Fasting Glucose resu lt greater than or equal to 126 mg/dL suggests DIABETES MELLITUS per A.D.A. criteria. Neutrophils (Bld) [#/Vol] 4.2 10*3/uL 2.0-7.7 [facility] Work Phone: Neutrophils/100 WBC (Bld) 55.2 % 47-70 [facility] Work Phone: Potassium [Moles/Vol] 4.2 mmol/L 3.5-5.1 [facility] Work Phone: Protein [Mass/Vol] 6.8 g/dL 6.4-8.2 [facility] Work Phone: Sodium [Moles/Vol] 137 mmol/L 136-145 [facility] Work Phone: Triglyceride [Mass/Vol] 117 mg/dL <199 [facility] Work Phone: Comment on above: The drugs N-Acetylcy steine and Metamizole may falsely depress this assay.Serum Triglycerides Reference Interval Normal <150 mg/dL Borderline high 150 - 199 mg/dL High 200 - 499 mg/dL Very High > or = 500 mg/dL WBC (Bld) [#/Vol] 7.5 10*3/uL 4.4-11.0 [facility] Work Phone: Blood erythrocytes count (nu mber/volume)on 05-08-2022 RBC (Bld) [#/Vol] 4.73 10*6/uL 4.6-6.2 [facility] Work Phone: Blood hemoglobin measurement (mass/volume)on 05-08-2022 Hemoglobin (Bld) [Mass/Vol] 16.2 g/dL 13.0-16.5 [facility] Work Phone: Blood lymphocytes/100 leukoc yteson 05-08-2022 Lymphocytes/100 WBC (Bld) 27.5 % 19-41 [facility] Work Phone: Blood monocytes/100 leukocyt eson 05-08-2022 Monocytes/100 WBC (Bld) 10.9 % 0-10 [facility] Work Phone: Blood platelet mean volumeon 05-08-2022 Platelet mean volume (Bld) [Entitic vol] 9.9 fL 6.2-12.0 [facility] Work Phone: Determination of erythrocyte mean corpuscular volume (MCV)on 05-08-2022 MCV (RBC) [Entitic vol] 98.7 fL 80-94 [facility] Work Phone: Hematocrit Auto (Bld) [Volum e fraction]on 05-08-2022 Hematocrit (Bld) [Volume fraction] 46.7 % 40-54 [facility] Work Phone: Laboratory - Chemistry and C hemistry - challengeon 05-08-2022 ALP [Catalytic activity/Vol] 67 U/L 45-117 [facility] Work Phone: ALT [Catalytic activity/Vol] 28 U/L 16-61 [facility] Work Phone: CO2 [Moles/Vol] 26.0 mmol/L 21.0-32.0 [facility] Work Phone: Globulin (S) [Mass/Vol] 2.7 g/dL 2.2-4.2 [facility] Work Phone: Urea nitrogen/Creatinine [Mass ratio] 16.8 mg/mg 10-20 [facility] Work Phone: Laboratory - Hematology and Cell countson 05-08-2022 Erythrocyte distribution width (RBC) [Entitic vol] 43.4 fL 35.1-43.9 [facility] Work Phone: Erythrocyte distribution width (RBC) [Ratio] 11.9 % 11.6-14.6 [facility] Work Phone: Immature granulocytes/100 WBC (Bld) 0.400 % 0.0-0.9 [facility] Work Phone: Comment on above: IG% - Immature Granu locytes (promyelocytes, myelocytes and metamyelocytes) > 1% indicates that a LEFT SHIFT is Present. MCH (RBC) [Entitic mass] 34.2 pg 27.0-32.0 [facility] Work Phone: Nucleated RBC/100 WBC (Bld) [Ratio] 0 % 0-5 [facility] Work Phone: MCHC Auto (RBC) [Mass/Vol]on 05-08-2022 MCHC (RBC) [Mass/Vol] 34.7 g/dL 32-36 [facility] Work Phone: No Panel Informationon 05-08 Estimated GFR (MDRD) Amer 82 mL/min >60 [facility] Work Phone: Comment on above: GFR Calc Estimated GFR (MDRD) Non-Af Amer 68 mL/min >60 [facility] Work Phone: Comment on above: Non- GFR Calc Thyroid Stimulating Hormone (TSH) 1.28 uIU/mL 0.358-3.74 [facility] Work Phone: Platelets bldon 05-08-2022 Platelets (Bld) [#/Vol] 245 10*3/uL 150-450 [facility] Work Phone: Serum or plasma albumin kenneth urement (mass/volume)on 05-08-2022 Albumin [Mass/Vol] 4.1 g/dL 3.2-5.0 [facility] Work Phone: Serum or plasma albumin/glob ulin mass ratioon 05-08-2022 Albumin/Globulin [Mass ratio] 1.5 {ratio} 0.9-2.4 [facility] Work Phone: Serum or plasma calcium kenneth urement (mass/volume)on 05-08-2022 Calcium [Mass/Vol] 9.4 mg/dL 8.5-10.1 [facility] Work Phone: Serum or plasma cholesterol in HDL measurement (mass/volume)on 05-08-2022 Cholesterol in HDL [Mass/Vol] 59 mg/dL >40 [facility] Work Phone: Comment on above: The drugs N-Acetylcy steine and Metamizole may falsely depress this assay. Reference Range HDL <40 mg/dL Low HDL Cholesterol HDL >or= 60 mg/dL High HDL Cholesterol Serum or plasma cholesterol in VLDL measurement (mass/volume)on 05-08-2022 Cholesterol in VLDL [Mass/Vol] 23 mg/dL 5-40 [facility] Work Phone: Serum or plasma creatinine m easurement (mass/volume)on 05-08-2022 Creatinine [Mass/Vol] 1.13 mg/dL 0.70-1.30 [facility] Work Phone: Comment on above: The validity of the calculated GFR & GFRAA in patients over 70 years has not been determined. Clinical correlation is essential. Serum or plasma low density lipoprotein (LDL) cholesterol measurement (mass/volume)on 05-08-2022 Cholesterol in LDL [Mass/Vol] 69 mg/dL 0-130 [facility] Work Phone: Serum or plasma urea nitroge n measurement (mass/volume)on 05-08-2022 Urea nitrogen [Mass/Vol] 19 mg/dL 7-18 [facility] Work Phone: Thin prep Papanicolaou smear with manual screeningon 05-08-2022 Thin prep Papanicolaou smear with manual screening 17 U/L 15-37 [facility] Work Phone: Thin prep Papanicolaou smear with manual screening 7 5-15 [facility] Work Phone: Whole blood hemoglobin A1c/t otal hemoglobin ratio (mass fraction)on 05-08-2022 HbA1c (Bld) [Mass fraction] 6.2 % 3.8-5.6 [facility] Work Phone: Comment on above: Normal < 5.7 % Predi abetic 5.7 - 6.4 % Diabetic >or= 6.5 % Please note range changes. Absolute lymphocyte counton 10-16-2021 Lymphocytes Auto (Unsp spec) [#/Vol] 1.59 10*3/uL 0.83-4.51 [facility] Work Phone: Basophil percentageon 2021 Basophils/100 WBC (Bld) 0.5 % 0-1 [facility] Work Phone: Bilirubin [Mass/Vol] 0.60 mg/dL 0.20-1.00 [facility] Work Phone: Comment on above: For patients on eltr ombopag therapy, use of Dimension Heaters TBIL is not recommended. Chloride [Moles/Vol] 102 mmol/L 98-107 [facility] [place] Work Phone: Eosinophils/100 WBC (Bld) 6.5 % 0-5 [facility] Work Phone: Glucose [Mass/Vol] 130 mg/dL 74-106 [facility] Work Phone: Comment on above: Fasting Glucose resu lt greater than or equal to 126 mg/dL suggests DIABETES MELLITUS per A.D.A. criteria. Neutrophils (Bld) [#/Vol] 3.5 10*3/uL 2.0-7.7 [facility] Work Phone: Neutrophils/100 WBC (Bld) 54.6 % 47-70 [facility] Work Phone: [phone] Potassium [Moles/Vol] 3.9 mmol/L 3.5-5.1 [facility] Work [facility]: Protein [Mass/Vol] 7.1 g/dL 6.4-8.2 [facility] Work Phone: [phone] Sodium [Moles/Vol] 136 mmol/L 136-145 [facility] Work Phone: WBC (Bld) [#/Vol] 6.3 10*3/uL 4.4-11.0 [facility] Work Phone: Blood erythrocytes count (nu mber/volume)on 10-16-2021 RBC (Bld) [#/Vol] 4.59 10*6/uL 4.6-6.2 [facility] Work Phone: Blood hemoglobin measurement (mass/volume)on 10-16-2021 Hemoglobin (Bld) [Mass/Vol] 15.7 g/dL 13.0-16.5 [facility] Work Phone: Blood lymphocytes/100 leukoc yteson 10-16-2021 Lymphocytes/100 WBC (Bld) 25.2 % 19-41 [facility] Work Phone: Blood monocytes/100 leukocyt eson 10-16-2021 Monocytes/100 WBC (Bld) 12.7 % 0-10 [facility] Work Phone: Blood platelet mean volumeon 10-16-2021 Platelet mean volume (Bld) [Entitic vol] 9.6 fL 6.2-12.0 [facility] Work Phone: Determination of erythrocyte mean corpuscular volume (MCV)on 10-16-2021 MCV (RBC) [Entitic vol] 97.4 fL 80-94 [facility] Work Phone: Hematocrit Auto (Bld) [Volum e fraction]on 10-16-2021 Hematocrit (Bld) [Volume fraction] 44.7 % 40-54 [facility] Work Phone: Laboratory - Chemistry and C hemistry - challengeon 10-16-2021 ALP [Catalytic activity/Vol] 63 U/L 45-117 [facility] Work Phone: ALT [Catalytic activity/Vol] 28 U/L 16-61 [facility] Work Phone: CO2 [Moles/Vol] 24.0 mmol/L 21.0-32.0 [facility] Work Phone: Cobalamin (Vitamin B12) [Mass/Vol] 867 pg/mL 211-911 [facility] Work Phone: Globulin (S) [Mass/Vol] 3.1 g/dL 2.2-4.2 [facility] Work Phone: [phone] Magnesium [Mass/Vol] 1.9 mg/dL 1.6-2.6 [facility] Work Phone: Urea nitrogen/Creatinine [Mass ratio] 23.8 mg/mg 10-20 [facility] Work Phone: Laboratory - Hematology and Cell countson 10-16-2021 Erythrocyte distribution width (RBC) [Entitic vol] 42.5 fL 35.1-43.9 [facility] Work Phone: Erythrocyte distribution width (RBC) [Ratio] 11.8 % 11.6-14.6 [facility] Work Phone: Immature granulocytes/100 WBC (Bld) 0.500 % 0.0-0.9 [facility] Work Phone: Comment on above: IG% - Immature Granu locytes (promyelocytes, myelocytes and metamyelocytes) > 1% indicates that a LEFT SHIFT is Present. MCH (RBC) [Entitic mass] 34.2 pg 27.0-32.0 [facility] Work Phone: Nucleated RBC/100 WBC (Bld) [Ratio] 0 % 0-5 [facility] Work Phone: MCHC Auto (RBC) [Mass/Vol]on 10-16-2021 MCHC (RBC) [Mass/Vol] 35.1 g/dL 32-36 [facility] Work Phone: No Panel Informationon 10-16 Urine Microalbumin/Creatinine Ratio 7.2 mg/g CRE <30 [facility] Work Phone: Estimated GFR (MDRD) Amer 90 mL/min >60 [facility] Work Phone: Comment on above: GFR Calc Estimated GFR (MDRD) Non-Af Amer 74 mL/min >60 [facility] Work Phone: Comment on above: Non- GFR Calc Thyroid Stimulating Hormone (TSH) 1.20 uIU/mL 0.358-3.74 [facility] Work Phone: Platelets bldon 10-16-2021 Platelets (Bld) [#/Vol] 238 10*3/uL 150-450 [facility] Work Phone: Serum or plasma albumin kenneth urement (mass/volume)on 10-16-2021 Albumin [Mass/Vol] 4.0 g/dL 3.2-5.0 [facility] Work Phone: Serum or plasma albumin/glob ulin mass ratioon 10-16-2021 Albumin/Globulin [Mass ratio] 1.3 {ratio} 0.9-2.4 [facility] Work Phone: Serum or plasma calcium kenneth urement (mass/volume)on 10-16-2021 Calcium [Mass/Vol] 9.9 mg/dL 8.5-10.1 [facility] Work Phone: Serum or plasma creatinine m easurement (mass/volume)on 10-16-2021 Creatinine [Mass/Vol] 1.05 mg/dL 0.70-1.30 [facility] Work Phone: Comment on above: The validity of the calculated GFR & GFRAA in patients over 70 years has not been determined. Clinical correlation is essential. Serum or plasma urea nitroge n measurement (mass/volume)on 10-16-2021 Urea nitrogen [Mass/Vol] 25 mg/dL 7-18 [facility] Work Phone: Thin prep Papanicolaou smear with manual screeningon 10-16-2021 Thin prep Papanicolaou smear with manual screening 21.0 mg/L NO RANGE EST. [facility] Work Phone: Thin prep Papanicolaou smear with manual screening 22 U/L 15-37 [facility] Work Phone: Thin prep Papanicolaou smear with manual screening 10 5-15 [facility] Work Phone: Urine creatinine measurement (mass/volume)on 10-16-2021 Creatinine (U) [Mass/Vol] 291.00 mg/dL NO RANGE EST. [facility] Work Phone: Vital Signs Date Time Vital Sign Value Performing Clinician Faci lity 03-18-2025 09:26-0400 Body height 175.[address] Delfino Montgomery MD Work Phone: [facility] 03-18-2025 09:26-0400 Body mass index (BMI) [Ratio] 26.6 kg/m2 Dr. Delfino Montgomery MD Work Phone: [facility] 03-18-2025 09:26-0400 Body weight 81.[address] Delfino Montgomery MD Work Phone: [facility] 12-15-2024 08:59-0400 Body height 175.[address] Delfino Montgomery MD Work Phone: [facility] 12-15-2024 08:59-0400 Body mass index (BMI) [Ratio] 26.7 kg/m2 Dr. Delfino Montgomery MD Work Phone: [facility] 12-15-2024 08:59-0400 Body weight 82.[address] Delfino Montgomery MD Work Phone: [facility] 12-15-2024 08:59-0400 Diastolic blood pressure 82 mm[Hg] Dr. Delfino Montgomery MD Work Phone: [facility] 12-15-2024 08:59-0400 Heart rate 62 /min Dr. Delfino Montgomery MD Work Phone: [facility] 12-15-2024 08:59-0400 Respiratory rate 18 /min Dr. Delfino Montgomery MD Work Phone: [facility] 12-15-2024 08:59-0400 SaO2% (BldA) [Mass fraction] 93 % Dr. Delfino Montgomery MD Work Phone: [phone])[phone] [place] [address] 12-15-2024 08:59-0400 Systolic blood pressure 146 mm[Hg] Dr. Delfino Montgomery MD Work Phone: 0(105)451-278244 [place] [address] 02-26-2023 08:34-0400 Body height 175.[address] Delfino Montgomery Work Phone: 0(020)677-175544 [place] [address] 02-26-2023 08:34-0400 Body mass index (BMI) [Ratio] 28.6 kg/m2 Dr. Delfino Montgomery Work Phone: [phone](770)[phone] [address] 02-26-2023 08:34-0400 Body temperature 97.4 [degF] Dr. Delfino Montgomery Work Phone: 2(891)008-146844 [place] [address] 02-26-2023 08:34-0400 Body weight 87.[address] Delfino Montgomery Work Phone: 7(640)832-501644 [place] [address] 02-26-2023 08:34-0400 Diastolic blood pressure 80 mm[Hg] Dr. Delfino Montgomery Work Phone: [facility] 02-26-2023 08:34-0400 Heart rate 77 /min Dr. Delfino Montgomery Work Phone: 5(776)670-240855 [place] [address] 02-26-2023 08:34-0400 Respiratory rate 17 /min Dr. Delfino Montgomery Work Phone: [facility] 02-26-2023 08:34-0400 SaO2% (BldA) [Mass fraction] 94 % Dr. Delfino Montgomery Work Phone: 7(813)[phone] [place] [address] 02-26-2023 08:34-0400 Systolic blood pressure 145 mm[Hg] Dr. Delfino Montgomery Work Phone: [facility] 04-22-2022 13:51-0500 Body height 175.[address] Delfino Montgomery Work Phone: [facility] Work Phone: 04-22-2022 13:51-0500 Body mass index (BMI) [Ratio] 29.1 kg/m2 Dr. Delfino Montgomery Work Phone: [facility] Work Phone: 04-22-2022 13:51-0500 Body weight 89.[address] Delfino Montgomery Work Phone: [facility] Work Phone: 04-22-2022 13:51-0500 Diastolic blood pressure 62 mm[Hg] Dr. Delfino Montgomery Work Phone: [facility] Work Phone: 04-22-2022 13:51-0500 Heart rate 76 /min Dr. Delfino Montgomery Work Phone: [facility] Work Phone: 04-22-2022 13:51-0500 Respiratory rate 18 /min Dr. Delfino Montgomery Work Phone: [facility] Work Phone: 04-22-2022 13:51-0500 Systolic blood pressure 150 mm[Hg] Dr. Delfino Montgomery Work Phone: [facility] Work Phone: Encounters Encounter Date Encounter Type Care Provider Facility Start: 03-18-2025 End: 03-18-[address] Eugenio Padilla MD -[facility] Work Phone: Start: 03-18-2025 End: 03-18-2025 [facility] Delfino Montgomery [place] [place] Start: 12-15-2024 End: 12-15-[address] Fregoso MD -[facility] Work Phone: Start: 12-15-2024 End: 12-15-[address] Delfino Montgomery MD Work Phone: -[facility] Start: 10-20-2024 End: 10-20-[address] Delfino Montgomery MD Work Phone: [facility] Work Phone: Start: 10-20-2024 End: 10-20-[address] Delfino Montgomery MD -[facility] [place] Work Phone: Start: 10-20-2024 End: 10-20-2024 ambulatory Delfino Montgomery Facility:[facility] Start: 06-01-2024 End: 06-01-2024 ambulatory Delfino Montgomery Facility:[facility] Start: 05-12-2024 End: 05-12-2024 ambulatory Delfino Montgomery Facility:[facility] Start: 05-03-2024 End: 05-03-2024 ambulatory Delfino Montgomery Facility:[facility] Start: 10-11-2023 End: 10-11-2023 ambulatory [facility] Work Phone: Start: 10-11-2023 End: 10-11-2023 Patient encounter procedure [facility] Work Phone: Start: 05-28-2023 End: 05-28-[address] Delfino Montgomery Work Phone: [facility] Work Phone: Start: 05-28-2023 End: 05-28-[address] [facility]elfino Montgomery [facility] Start: 05-07-2023 Non-patient / Non-visit Dr. Marshall Montgomery Work Phone: [facility] Start: 05-07-2023 End: 05-07-[address] Delfino Montgomery Work Phone: [facility] Work Phone: Start: 05-07-2023 End: 05-07-[address] Delfino Montgomery Work Phone: [facility] Work Phone: Start: 02-26-2023 End: 02-26-[address] Delfino Montgomery Work Phone: [facility] Work Phone: Start: 12-26-2022 End: 12-26-2022 ambulatory [facility] Work Phone: Start: 12-26-2022 End: 12-26-2022 Discharged Recurring [facility] Work Phone: Start: 11-11-2022 End: 11-11-2022 Patient encounter procedure [facility] Start: 05-08-2022 End: 05-08-[address] Delfino Montgomery Work Phone: [facility] Work Phone: Start: 05-08-2022 End: 05-08-[address] Delfino Montgomery Work Phone: [facility] Start: 04-22-2022 End: 04-22-[address] Delfino Montgomery Work Phone: [facility] Start: 10-16-2021 End: 10-16-2021 Patient encounter procedure [facility] Payers Date Payer Category Payer Self-pay [id number] 2024 Private Health Insurance [id number] 2016 Private Health Insurance [id number] Medicare [id number] Unknown [id number] Unknown [id number] 2.16.8 [id number] Unknown [id number] 2.16.8 [id number] Unknown [id number] 2.16.8 [id number] Unknown [id number] 2.16.8 [id number] Unknown [id number] 2.16.8 [id number] Unknown [id number] 2.16.8 [id number] Social History Date Type Detail Facility Start: 05-16-2021 End: 02-26-2023 Tobacco smoking status FLIS Unknown if ever smoked [facility] Start: 1950 Sex Assigned At Male [facility] Start: 02-26-2023 Tobacco smoking stat us FLIS Ex-smoker (finding) [facility] Sex Male [facility] Progress note 03-18-2025 Note Date & Type Note Facility 03-18-2025 Progress note [facility] Evaluation note 12-15-2024 Note Date & Type Note Facility 12-15-2024 Evaluation note Diagnosis Onset Date Resolution Atherosclerotic heart disease of [place] coronary artery without angina pectoris chronic December 15, 2024 8:56am Essential hypertension chronic Ju 2024 8:56am Hyperlipemia chronic December 15 8:56am Type 2 diabetes mellitus chronic December 15, 2024 8:56am Left shoulder pain acute Octobe r 2024 9:26am [facility] Work Phone: Discharge summary 12-26-2022 Note Date & Type Note Facility 12-26-2022 Discharge summary Note Date/Time December 26, 2022 10:53am [facility] [address] [place] [address] / REHABILITATION SERVICES DISCHARGE SUMMARY MR#: [id number] Acct: [id number] Name: BRANT BASILIO Rep #: [id number] : 1950 72 From: Haider Cardona PT, ATC Referring Dr.: Dr. Delfino Montgomery MD Status: REG RCR Insurance: [facility] SEL[employer] PAY INSURANCE Discharge Summary D/C summary: It has been my pleasure to treat BRANT BASILIO referred by Dr. Delfino Montgomery MD, with the diagnosis of B shoulder and back pain for a total of 8 visit(s). Discharge Date: Please see the following information for a summary of their discharge status. Subjective Subjective: No pain today. It comes and goes Pain LBP: Pain Intensity (Out of 10): 0 L shoulder: Pain Intensity (Out of 10): 0 R shoulder: Pain Intensity (Out of 10): 0 Overall Improvement % Improvement: 50 Objective Objective/Function: MMT: R shoulder flex= 7, abd= 20, ER= 18, IR= 11 #F; L shoulder flex= 8, abd= 13, ER= 8, IR= 16#F Pt has no L LE tingling or numbness Pt has no pain today. Reports he did have 4/10 LBP after last session Pt is now I with HEP and gym routine Rx goals achieved Goals Goal 1:: Increase B shoulder strength x 3-5 #F to aid with IADL's Goal Progress: Goal Met Goal 2:: Decrease F and I of L LE radiculopathy x 25 % to aid with ambulation Goal Progress: Goal Met Goal 3:: Decrease LBP and Shoulder pain x 50% to aid with IADL's Goal Progress: Goal Met Goal 4:: I with HEP Goal Progress: Goal Met Plan Plan: Discharge to HEP D/C Information d/c sentence: If there are questions or concerns regarding this patient's physical therapy, please feel free to call me at [phone]. Thank you for the referral of thispatient. Sincerely, Haider Cardona, PT, ATC Balance/Gait/Functional tests Balance/Special Test Scores Oswestry Neck Score: 4 <Electronically signed by Haider Cardona PT, ATC> 12/26/22 1053 CC: Dr. Delfino Montgomery MD ~ [facility] Signed [facility] Work Phone: Evaluation note Note Date & Type Note Facility Evaluation note No assessment information availa ble [facility] Work Phone: Evaluation note Note Date & Type Note Facility Evaluation note Diagnosis Onset Date Atherosclerotic heart diseas e of [place] coronary artery without angina pectoris chronic Essential hypertension chron ic Hyperlipemia chronic [facility] Work Phone: Evaluation note Note Date & Type Note Facility Evaluation note Diagnosis Onset Date Umbilical hernia acute [facility] Work Phone: Progress note Note Date & Type Note Facility Progress note Note Date/Time March 18, 2025 9:42am [facility] [address] [place] [id number] OFFICE VISIT Date of Service: 03/18/25 MR#: [id number] Acct: [id number] Name: BRANT BASILIO Rep #: [id number] : 1950 Provider: Dr. Samir Padilla MD Age/Sex: 74/M [place] [facility] [place] Status: Signed with Addenda ADDENDUM by Alma Rios on 03/18/25 at 0955 Office Procedure Documentation entered by Alma Rios 03/18/25 09:55: Ortho Injections Injections Yes Subacromial Injection Left Is this a patient provided medication?: No Details: Obtained consent for injection. Under sterile conditions, injected the patientsleft subacromial with 2cc kenalog 4cc bupivacaine. The patient tolerated the injection well without any noted complication. Patient should call our office if redness develops, pain worsens or if they have any concerns. Office Meds Kenalog 40 mg/mL suspension for injection Performing Provider: Eugenio Padilla MD Performing Location: [facility] Administered by: Eugenio Padilla MD on 03/18/25 09:54 Dose Route Admin Location Dispensed Lot Number Expiration Date Pack age NDC NDC Superintendent Measurement 80 mg intra-articular left subacromial 2 mL [id number] 06/09/26 75928- 623-10 [id number] [facility] Date _ cc: ~* Signed Intake Vital Signs 12/15/24 08:59 03/18/25 09:26 Height 5 ft 9 in 5 ft 9 in Weight: 181 lb 180 lb BMI 26.7 26.6 BP 146/82 H Blood Pressure Location Lt brachial Position Sitting Respiration 18 Pulse 62 Pulse Source Monitor Pulse Oximetry (%) 93 Oxygen Delivery Method room air Intake Visit Reasons: LEFT SHOULDER Chief Complaint: Left shoulder pain Accompanied by: Self Is patient in pain?: Yes Pain scale (1-10): 3 Allergies Penicillins Allergy (Verified 03/18/25 09:28) Rash Tetracyclines Allergy (Verified 03/18/25:) Rash Medications ?Medication ?Instructions ?Recorded ?Confirmed ?Type acetaminophen 650 mg 650 mg PO DAILY 02/17/1704/02 History tablet,extended release acyclovir 400 mg tablet 400 mg PO DAILY 02/17/1704/02 History simvastatin 10 mg tablet 10 mg PO QHS 02/17/17 History cholecalciferol (vitamin D3) 25 1,000 unit PO DAILY 03/18/25 History mcg (1,000 unit) capsule cyanocobalamin (vitamin B-12) 1,000 mcg PO DAILY 05/1603/18/25 History 1,000 mcg tablet hydrochlorothiazide 25 mg tablet 12.5 mg PO DAILY 04/0903/18/25 History lisinopril 20 mg tablet 40 mg PO DAILY 04/22/2203/09 History metformin 500 mg tablet 500 mg PO DAILY 10/30/2304/02 History pantoprazole 40 mg tablet,delayed 40 mg PO QDAY 03/18/25 History release Have you fallen in the past year?: No [facility] Medical History Right rotator cuff tear Left shoulder pain Right shoulder pain Type 2 diabetes mellitus Atherosclerotic heart disease of [place] coronary artery without angina pectoris Essential hypertension Coronary heart disease Herniated lumbar intervertebral disc Hyperlipemia Hypertension Surgical History History of cholecystectomy History of squamous cell carcinoma excision History of left knee replacement History of right knee joint replacement History of tonsillectomy S/P right rotator cuff repair History of total left knee replacement History of total right knee replacement S/P tonsillectomy S/P nasal septoplasty Family History Mother Hypertension Social History Smoking Status: Former smoker how long ago did patient quit smokin years alcohol intake: never substance use type: does not use HPI LEFT SHOULDER Details: This documentation accurately reflects the service provided and the decisions made by me, Dr. Eugenio Padilla MD 03/18/25 0853. Part of today?s visit was documented by [ ], acting as scribe. BRANT BASILIO is a 74 year old M here today for follow-up bilateral shoulder pain. Last visit he had a cortisone injection. The injections have been still effective. He is wanting another 1 for his left shoulder. He has laterally based shoulder pain going down the arm that is worse at night and with lifting. Had a prior right-sided rotator cuff repair. Overall the shoulder is still working well with good range of motion and strength. Coding Level of Care Code Attention Senior Project [employer] Engineering Diagnoses Left shoulder pain M25.512 Comment [id number] and CPT inject major joint Assessment and Plan Assessment and Plan (1) Left shoulder pain: Status: Acute Plan: 74-year-old man with ongoing left shoulder pain could have rotator cuff tear he has some atrophy in the supraspinatus fossa but overall the shoulder is working quite well good strength and range of motion he is likely compensating well. Hewould like to go ahead with repeat cortisone injection which we did today and hewill follow-up as needed. Pros and cons risks and benefits of left shoulder subacromial steroid injection were discussed. Patient wished to proceed. Risks include but not limited to infection, pain, stiffness, damage to other structures, neurovascular injury, wear further tear of the tendon and other structures such as the skin, bleeding,allergic reaction, acute flare reaction and other risks. Obtained informed consent for injection. Posterior lateral aspect of the shoulder was prepped with chlorhexidine solutionallowed to thoroughly dry over 3 minutes. Used Gebauer spray per bottle instructions. Using sterile technique, injected the left subacromial joint with a 4cc 0.25% bupivacaine and 2cc 40 mg/mL kenalog. Bandage placed. The patient tolerated the injection well without any noted complication. Red flag symptoms were discussed such as redness, swelling, discharge, drainage, pain worsens or if they have any concerns to present to the ED or to call the clinic immediately. Patient counselled on non-operative and operative means of treating shoulder pain. Conservative options include but not limited to: 1. Rest and Activity Modification: Giving your shoulder time to heal by avoidingmovements that cause pain can help. This may involve limiting overhead activities or heavy lifting. 2. Physical Therapy: A physical therapist can guide you through exercises that strengthen the muscles around the shoulder, improve flexibility, and reduce strain on the rotator cuff tendon. 3. Ice and Heat Therapy: Applying ice to the shoulder can help reduce swelling and pain, especially after activity. Heat can be helpful to relax tense muscles and improve blood flow before exercises. 4. Anti-Inflammatory Medications: [id number] medications like ibuprofen ornaproxen can help reduce pain and inflammation in the tendon. 5. Corticosteroid Injections: If the pain is more severe, a steroid injection can reduce inflammation in the shoulder and provide relief for a longer period. 6. Platelet-Rich Plasma (PRP) Injection: This treatment involves using your own blood to promote healing in the tendon. The plasma is rich in growth factors that can encourage tissue repair. 7. TENS (Transcutaneous Electrical Nerve Stimulation): This therapy uses a smallelectrical current to help manage pain and promote healing by stimulating nerves. Clinical Quality Measures Falls Risk Screening/Assistive Devices Have you fallen in the past year?: No Ortho Exam General General: Yes no acute distress Neurologic: Yes alert and Yes oriented x3 Psychologic: Yes reasonable and appropriate Left Shoulder Skin/Wound: Yes CDI, No ecchymosis, No erythema and No swelling Testing: Yes Hawkin's, Yes Neer's, No Speed's, No TTP Biceps, No TTP AC Joint, No Drop Arm, Yes AROM-Forward Elevation 0-180, Yes AROM-External Rotation at side 0-60, No Apprehension Test, No Sulcus Sign and Yes empty can Internal Rotation: L5 SHOULDER: no crepitus FE strength 5/5, ER strength 5/5 10/10/25 0943 <Electronically signed by Eugenio nuñez MD> Date _ Eugenio Padilla MD Cosigner Signature: Date (if applicable) CC: ~ [facility] Work Phone: Reason for referral (narrative) Note Date & Type Note Facility Reason for referral (narrative) No reason for referral information available [facility] Work Phone: Advance Directives Advance Directive Response Recorded Date/ Time Living Will Yes January 21 10:54pm Power of Stretcher And Drier Yes January 21, 021 10:54pm Advance Directive Response Recorded Date/ Time Living Will Yes January 21 9:54pm Power of Stretcher And Drier Yes January 21, 021 9:54pm Chief Complaint and Reason for Visit Chief Complaint 1 Y FU EORDER Reason for Visit Atherosclerotic hear t disease of [place] coronary artery without angina pectoris Essential hypertension Hyperlipemia Chief Complaint NECK,SHLD,BACK PN/RX HERE Chief Complaint UMBILICAL HERNIA Unspecified atherosclerosis Reason for Visit Umbilical hernia Chief Complaint Admit Date EORDERS October 20, 2024 7:14a m Chief Complaint Admit Date EORDERS October 20, 2024 7:14a m 1 Y FU December 15, 2024 8:56a m Chief Complaint Admit Date 1 Y FU December 15, 2024 8:56a m LEFT SHOULDER March 18, 2025 9 :26am Reason for Visit Admit Date Atherosclerotic heart diseas e of [place] coronary artery without angina pectoris December 15, 2024 8:56am Essential hypertension December 15, 2024 8: 56am Hyperlipemia December 15, 2024 8:56a m Type 2 diabetes mellitus December 15, 2024 8:56am Left shoulder pain March 18, 2025 9 :26am Summary Purpose Family History No Family History Records Found Additional Source Comments Goals (unrecognized section and content) Goals may be documented in a n alternate sectionGoals may be documented in an alternate sectionGoals may be documented in an alternate sectionGoals may be documented in an alternate sectionGoals may be documented in an alternate sectionGoals may be documented in an alternate sectionGoals may be documented in an alternate sectionGoals may be documented in an alternate sectionGoals may be documented in an alternate section Care Teams (unrecognized sec tion and content) Team Status: Active Member Role Status Dates Dr. Delfino Montgomery MD Family Provider Active Dr. Delfino Montgomery MD Primary Care Provider Active Team Status: Inactive Member Role Status Dates Dr. Delfino Montgomery MD Primary Care Provider, Attending P rovider Active Team Status: Inactive Member Role Status Dates Dr. Delfino Montgomery MD Primary Care Provide r, Attending Provider, Referring Provider Active Team Status: Inactive Member Role Status Dates Dr. Delfino Montgomery MD Primary Care Provider, Referring P rovider Active Dr. Guilherme Pablo MD Attending Provider Active Team Status: Active Member Role Status Dates Dr. Delfino Montgomery MD Primary Care Provider Active Dr. Say Carranza MD Attending Provider Active Team Status: Active Member Role Status Dates Dr. Delfino Montgomery MD Primary Care Provider, Referring P rovider Active Dr. Say Carranza MD Attending Provider Active Team Status: Inactive Member Role Status Dates Dr. Delfino Montgomery MD Primary Care Provider Active Start: October 20, 2024 End: October 20, 2024 Dr. Delfino Montgomery MD Attending Provider Active St art: October 20, 2024 End: October 20, 2024 Dr. Delfino Montgomery MD Referring Provider Active St art: October 20, 2024 End: October 20, 2024 Team Status: Active Member Role/Relationship Status Dates Dr. Delfino Montgomery MD Family Provider Active Dr. Delfino Montgomery MD Primary Care Provider Active Team Status: Inactive Member Role/Relationship Status Dates Dr. Delfino Montgomery MD Primary Care Provider Active Start: October 20, 2024 End: October 20, 2024 Dr. Delfino Montgomery MD Attending Provider Active St art: October 20, 2024 End: October 20, 2024 Dr. Delfino Montgomery MD Referring Provider Active St art: October 20, 2024 End: October 20, 2024 Team Status: Inactive Member Role/Relationship Status Dates Dr. Delfino Montgomery MD Primary Care Provider Active Start: December 15, 2024 End: December 15, 2024 Dr. Delfino Montgomery MD Referring Provider Active St art: December 15, 2024 End: December 15, 20[address] Dr[address] Fregoso MD Attending Provider Active Start: December 15, 2024 End: December 15, 2024 Team Status: Active Member Role/Relationship Status Dates Dr. Delfino Montgomery MD Primary care physician Active Team Status: Inactive Member Role/Relationship Status Dates Dr. Delfino Montgomery MD Primary care physician Active Start: December 15, 2024 End: December 15, 2024 Dr. Delfino Montgomery MD Referring Provider Active St art: December 15, 2024 End: December 15, [address] Fregoso MD Attending physician Active Start: December 15, 2024 End: December 15, 2024 Team Status: Inactive Member Role/Relationship Status Dates Dr. Delfino Montgomery MD Primary care physician Active Start: March 18, 2025 End: March 18, 2025 Dr. Delfino Montgomery MD Referring Provider Active St art: March 18, 2025 End: March 18, 2025 Eugenio Padilla MD Attending physician Active S tart: March 18, 2025 End: March 18, 2025 (unrecognized sect ion and content) No Status Records Found INFORMATION SOURCE (unrecogn ized section and content) DATE CREATED AUTHOR 03/19/2025 [facility] FOR RECORDS PERTAINING TO PATIENTS WHO ARE OR HAVE BEEN ENROLLED IN A CHEMICAL DEPENDENCY/SUBSTANCEABUSE PROGRAM, SOME INFORMATION MAY BE OMITTED. This clinical summary was aggregated from multiple sources. Caution should be exercised in using it in the provision of clinical care. This summary normalizes information from multiple sources, and as a consequence, information in this document may materially change the coding, format and clinical context of patient data. In addition, data may be omitted in some cases. CLINICAL DECISIONS SHOULD BE BASED ON THE PRIMARY CLINICAL RECORDS. [employer] provides no warranty or guarantee of the accuracy or completeness of information in this document.
[2025-04-26 10:10] LABS: Hematocrit 42.0 % (40-54); Hemoglobin 14.2 g/dL (13.0-16.5); Immature Granulocytes Count 0.080 X10^3/uL (0.0-0.0); Mean Corp Hgb Conc 33.8 g/dL (32-36); Mean Corpuscular Volume 101.2 fL (80-94); Mean Platelet Vol. 8.8 fl (6.2-12.0); NRBC Flagged by Analyzer 0 % (0-5); Platelet Count 303 K/mm3 (150-450); RBC Distribution Width CV 12.4 % (11.6-14.6); RBC Distribution Width SD 46.7 fl (35.1-43.9); Red Blood Count 4.15 M/mm3 (4.6-6.2); White Blood Count 8.5 K/mm3 (4.4-11.0)
[2025-04-26 10:33] LABS: Creatinine, Urine (random) 175.00 mg/dL (39.00-259.00); Microalbumin,Random Urine 15.6 mg/L (<20 mg/L)
[2025-04-26 10:36] LABS: AST(SGOT) 19 U/L (<=37); Alanine Aminotransfer ALT/SGPT 19 U/L (<=46); Albumin, Serum 4.0 g/dL (3.4-4.8); Alkaline Phosphatase 91 U/L (40-129); Anion Gap 12 (5-15); BUN 16 mg/dL (4-19); BUN/Creat Ratio 16.5 RATIO (10-20); Calcium,Total 9.4 mg/dL (7.6-11.0); Carbon Dioxide 26.0 mmol/L (21.0-32.0); Chloride 99 mmol/L (98-108); Globulin 2.7 g/dL (2.2-4.2); Glucose 146 mg/dL (70-99); PSA,Total - Annual Screen 0.76 ng/mL (0.02-4.00); Potassium 4.2 mmol/L (3.3-5.1)
== END | disposition home or self-care (01) ==
LOC: MTLAB 07:09
PROVIDERS: PCP Family Medicine; Referring Provider Family Medicine; Visit Provider Family Medicine
DX: E11.22 Type 2 diabetes mellitus with diabetic chronic kidney disease (principal); N18.2 Chronic kidney disease, stage 2 (mild); Z12.5 Encounter for screening for malignant neoplasm of prostate
CPT/HCPCS: 36415; 80053; 82043; 82570; 83036; 84153; 85025; G0103

== ENCOUNTER → 2025-04-28 | Outpatient (CLI) | payer MEDICARE, SELFPAY ==
--- OUTSIDE RECORDS SUMMARY | 2025-04-28 08:35 | XMS RPT_ITS | CCD ---
Author Organization [facility] Care Team Providers Care Toxics Program Officer Name Role Phone Dr. Delfino Montgomery Primary Care Provider Dr. Delfino Montgomery Referring Provider Dr. Valentino Hernández Attending Provider Dr. Delfino Montgomery Primary Care Provider [phone] Dr. Delfino Montgomery Referring Provider Dr. Guilherme Pablo Attending Provider Dr. Say [...] Physician Dr. Delfino Montgomery MD Referring Provider 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 Eugenio Padilla MD 03/18/25 0888. Part of today???s visit was documented by [...] strength. 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 Normal [facility] Cardiology Visit Reporton Cardiology Visit Report [facility] [address] [place] [address]. [address] [place] [address] OFFICE VISIT Date of Service: 12/15/24 MR#: [id number] Acct: [id number] Name: BRANT BASILIO Rep #: [id number] Provider: Dr. 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 Normal [facility] Absolute lymphocyte countOrd ered By: Delfino Montgomery on 10-20-2024 Lymphocytes Auto (Unsp spec) [#/Vol] 1.74 10*3/uL 0.83-4.51 [facility] Absolute neutrophil countOrd ered By: Delfino Montgomery on 10-20-2024 Neutrophils (Bld) [#/Vol] 2.7 10*3/uL 2.0-7.7 [facility] Anion gap in Serum or Plasma Ordered By: Delfino Montgomery on 10-20-2024 Anion gap [Moles/Vol] 10 mmol/L - [facility] Automated lymphocyte count a s percentage of total leukocytesOrdered By: Delfino Montgomery on 10-20-2024 Lymphocytes/100 WBC Auto (Unsp spec) 31.8 % - [facility] BUN/creatinine ratioOrdered By: Delfino Montgomery on 10-20-2024 Urea nitrogen/Creatinine [Mass ratio] 16.4 mg/mg 10- [facility] Basophil percentageOrdered B y: Delfino Montgomery on 10-20-2024 Basophils/100 WBC (Bld) 0.4 % 0-1 [facility] Bilirubin, totalOrdered By: Delfino Montgomery on 10-20-2024 Bilirubin [Mass/Vol] 0.49 mg/dL 0.00-1.30 [facility] CBC W/Diff, Automatedon 10-07 Absolute Lymph 1.74 X10 3/uL Normal 0.83-4.51 [facility] Comment on above: Order Comment: Order Date: 09/27/24 Order Info: 0184-1 - CBCD Performed By: #### L 500.4050, [id number], L100.0100 #### [facility] [address] [place], [address] Absolute Neut 2.7 X10 3/uL Normal 2.0-7.7 [facility] Comment on above: Order Comment: Order Date: 09/27/24 Order Info: 0184-1 - CBCD Performed By: #### L 500.4050, L501.9985, L100.0100 #### [facility] [address] [place], [address] Basophils/100 WBC (Bld) 0.4 % Normal 0-1 [facility] Comment on above: Order Comment: Order Date: 09/27/24 Order Info: 0184-1 - CBCD Performed By: #### L 500.4050, L501.9985, L100.0100 #### [facility] [address] [place], [address] Eosinophils/100 WBC (Bld) 6.6 % High 0-5 [facility] Comment on above: Order Comment: Order Date: 09/27/24 Order Info: 0184-1 - CBCD Performed By: #### L 500.4050, L501.9985, L100.0100 #### [facility] [address] [place], [address] Erythrocyte distribution width (RBC) [Ratio] 11.9 % Normal 11.6-14.6 [facility] Comment on above: Order Comment: Order Date: 09/27/24 Order Info: 018- - CBCD Performed By: #### L 500.4050, L501.9985, L100.0100 #### [facility] [address] [place], [address] Hematocrit (Bld) [Volume fraction] 46.2 % Normal 40-54 [facility] Comment on above: Order Comment: Order Date: 09/27/24 Order Info: 0184- - CBCD Performed By: #### L 500.4050, L501.9985, L100.0100 #### [facility] [address] [place], [address] Hemoglobin (Bld) [Mass/Vol] 15.8 g/dL Normal 13.0-16.5 [facility] Comment on above: Order Comment: Order Date: 09/27/24 Order Info: 0184-1 - CBCD Performed By: #### L 500.4050, L501.9985, L100.0100 #### [facility] [address] [place], [address] IG% 0.400 Normal 0.0-0.9 [facility] Comment on above: Order Comment: Order Date: 09/27/24 Order Info: 0184- - CBCD Result Comment: IG% - Immature Granulocytes (promyelocytes, myelocytes and metamyelocytes) > 1% indicates that a LEFT SHIFT is Present. Performed By: #### L 500.4050, L501.9985, L100.0100 #### [facility] [address] [place], [address] Lymphocytes/100 WBC (Bld) 31.8 % Normal 19-41 [facility] Comment on above: Order Comment: Order Date: 09/27/24 Order Info: 018- - CBCD Performed By: #### L 500.4050, L501.9985, L100.0100 #### [facility] [address] [place], [address] MCH (RBC) [Entitic mass] 34.4 pg High 27.0-32.0 [facility] Comment on above: Order Comment: Order Date: 09/27/24 Order Info: 018- - CBCD Performed By: #### L 500.4050, L501.9985, L100.0100 #### [facility] [address] [place], [address] MCHC (RBC) [Mass/Vol] 34.2 g/dL Normal 32-36 [facility] Comment on above: Order Comment: Order Date: 09/27/24 Order Info: 0184- - CBCD Performed By: #### L 500.4050, L501.9985, L100.0100 #### [facility] [address] [place], [address] MCV (RBC) [Entitic vol] 100.7 fL High 80-94 [facility] Comment on above: Order Comment: Order Date: 09/27/24 Order Info: 018- - CBCD Performed By: #### L 500.4050, L501.9985, L100.0100 #### [facility] [address] [place], [address] Monocytes/100 WBC (Bld) 12.4 % High 0-10 [facility] Comment on above: Order Comment: Order Date: 09/27/24 Order Info: 0184-1 - CBCD Performed By: #### L 500.4050, L501.9985, L100.0100 #### [facility] [address] [place], [address] Neutrophils/100 WBC (Bld) 48.4 % Normal 47-70 [facility] Comment on above: Order Comment: Order Date: 09/27/24 Order Info: 0184-1 - CBCD Performed By: #### L 500.4050, L501.9985, L100.0100 #### [facility] [address] [place], [address] Nucleated RBC (Bld) [#/Vol] 0 10*3/uL Normal 0-5 [facility] Comment on above: Order Comment: Order Date: 09/27/24 Order Info: 0184-1 - CBCD Performed By: #### L 500.4050, L501.9985, L100.0100 #### [facility] [address] [place], [address] Platelet mean volume (Bld) [Entitic vol] 9.8 fL Normal 6.2-12.0 [facility] Comment on above: Order Comment: Order Date: 09/27/24 Order Info: 0184-1 - CBCD Performed By: #### L 500.4050, L501.9985, L100.0100 #### [facility] [address] [place], [address] Platelets (Bld) [#/Vol] 215 10*3/uL Normal 150-450 [facility] Comment on above: Order Comment: Order Date: 09/27/24 Order Info: 0184-1 - CBCD Performed By: #### L 500.4050, L501.9985, L100.0100 #### [facility] [address] [place], [address] RBC (Bld) [#/Vol] 4.59 10*6/uL Low 4.6-6.2 [facility] Comment on above: Order Comment: Order Date: 09/27/24 Order Info: 0184-1 - CBCD Performed By: #### L 500.4050, L501.9985, L100.0100 #### [facility] [address] [place], [address] RDW SD 45.0 fl High 35.1-43.9 [facility] Comment on above: Order Comment: Order Date: 09/27/24 Order Info: 0184-1 - CBCD Performed By: #### L 500.4050, L501.9985, L100.0100 #### [facility] [address] [place], [address] WBC (Bld) [#/Vol] 5.5 10*3/uL Normal 4.4-11.0 [facility] Comment on above: Order Comment: Order Date: 09/27/24 Order Info: 0184-1 - CBCD Performed By: #### L 500.4050, L501.9985, L100.0100 #### [facility] [address] [place], [address] Carbon dioxide, total [Moles /volume] in Central venous bloodOrdered By: Delfino Montgomery on 10-20-2024 CO2 [Moles/Vol] 24.5 mmol/L 21.0-32.0 [facility] Chloride assayOrdered By: Marshall Montgomery on 10-20-2024 Chloride [Moles/Vol] 102 mmol/L 98-108 [facility] Comprehensive Metabolic Prof ilon 10-20-2024 Albumin [Mass/Vol] 4.3 g/dL Normal 3.4-4.8 [facility] Comment on above: Order Comment: Order Date: 03/21/24 Order Info: 0786-1 - CMP Order Info: 3040-3 - LIPASE Order Info: [id number] - CRP Performed By: #### L 501.5101, L501.6710, L500.4050, L501.2450, L100.0500 #### [facility] [address] [place], [address] Albumin/Globulin [Mass ratio] 1.8 {ratio} Normal 0.9-2.4 [facility] Comment on above: Order Comment: Order Date: 03/21/24 Order Info: 0786-1 - CMP Order Info: 3040-3 - LIPASE Order Info: [id number] - CRP Performed By: #### L 501.5101, L501.6710, L500.4050, L501.2450, L100.0500 #### [facility] [address] [place], [address] ALK PHOS 81 U/L Normal 40-129 [facility] Comment on above: Order Comment: Order Date: 03/21/24 Order Info: 0786-1 - CMP Order Info: 3040-3 - LIPASE Order Info: [id number] - CRP Performed By: #### L 501.5101, L501.6710, L500.4050, L501.2450, L100.0500 #### [facility] [address] [place], [address] ALT [Catalytic activity/Vol] 20 U/L Normal <=46 [facility] Comment on above: Order Comment: Order Date: 03/21/24 Order Info: 0786-1 - CMP Order Info: 3040-3 - LIPASE Order Info: [id number] - CRP Performed By: #### L 501.5101, L501.6710, L500.4050, L501.2450, L100.0500 #### [facility] [address] [place], [address] AST [Catalytic activity/Vol] 25 U/L Normal <=37 [facility] Comment on above: Order Comment: Order Date: 03/21/24 Order Info: 0786-1 - CMP Order Info: 3040-3 - LIPASE Order Info: [id number] - CRP Performed By: #### L 501.5101, L501.6710, L500.4050, L501.2450, L100.0500 #### [facility] [address] [place], [address] Bilirubin [Mass/Vol] 0.49 mg/dL Normal 0.00-1.30 [facility] Comment on above: Order Comment: Order Date: 03/21/24 Order Info: 0786-1 - CMP Order Info: 304-3 - LIPASE Order Info: [id number] - CRP Performed By: #### L 501.5101, L501.6710, L500.4050, L501.2450, L100.0500 #### [facility] [address] [place], [address] BUN/CRE 16.4 RATIO Normal 10-20 [facility] Comment on above: Order Comment: Order Date: 03/21/24 Order Info: 0786-1 - CMP Order Info: 3040-3 - LIPASE Order Info: [id number] - CRP Performed By: #### L 501.5101, L501.6710, L500.4050, L501.2450, L100.0500 #### [facility] [address] [place], [address] Calcium [Mass/Vol] 9.8 mg/dL Normal 7.6-11.0 [facility] Comment on above: Order Comment: Order Date: 03/21/24 Order Info: 0786-1 - CMP Order Info: 3040-3 - LIPASE Order Info: [id number] - CRP Performed By: #### L 501.5101, L501.6710, L500.4050, L501.2450, L100.0500 #### [facility] [address] [place], [address] Chloride [Moles/Vol] 102 mmol/L Normal 98-108 [facility] Comment on above: Order Comment: Order Date: 03/21/24 Order Info: 07-1 - CMP Order Info: 3040-3 - LIPASE Order Info: [id number] - CRP Performed By: #### L 501.5101, L501.6710, L500.4050, L501.2450, L100.0500 #### [facility] [address] [place], [address] CO2 [Moles/Vol] 24.5 mmol/L Normal 21.0-32.0 [facility] Comment on above: Order Comment: Order Date: 03/21/24 Order Info: 785-1 - CMP Order Info: 3040-3 - LIPASE Order Info: [id number] - CRP Performed By: #### L 501.5101, L501.6710, L500.4050, L501.2450, L100.0500 #### [facility] [address] [place], [address] Creatinine [Mass/Vol] 0.95 mg/dL Normal 0.70-1.20 [facility] Comment on above: Order Comment: Order Date: 03/21/24 Order Info: 071 - CMP Order Info: 3040-3 - LIPASE Order Info: [id number] - CRP Performed By: #### L 501.5101, L501.6710, L500.4050, L501.2450, L100.0500 #### [facility] [address] [place], [address] GAP 10 Normal 5-15 [facility] Comment on above: Order Comment: Order Date: 03/21/24 Order Info: 0786-1 - CMP Order Info: 3040-3 - LIPASE Order Info: [id number] - CRP Performed By: #### L 501.5101, L501.6710, L500.4050, L501.2450, L100.0500 #### [facility] [address] [place], [address] GFR/1.73 sq M.predicted among non-blacks MDRD (S/P/Bld) [Vol rate/Area] 84 mL/min/{1.73_m2} Normal >60 [facility] Comment on above: Order Comment: Order Date: 03/21/24 Order Info: 0786-1 - CMP Order Info: 3040-3 - LIPASE Order Info: [id number] - CRP Result Comment: mL/m in/1.73m2 CKD-EPI Creatinine Equation (2020) Performed By: #### L 501.5101, L501.6710, L500.4050, L501.2450, L100.0500 #### [facility] [address] [place], [address] Globulin (S) [Mass/Vol] 2.4 g/dL Normal 2.2-4.2 [facility] Comment on above: Order Comment: Order Date: 03/21/24 Order Info: 07-1 - CMP Order Info: 3040-3 - LIPASE Order Info: [id number] - CRP Performed By: #### L 501.5101, L501.6710, L500.4050, L501.2450, L100.0500 #### [facility] [address] [place], [address] Glucose [Mass/Vol] 136 mg/dL High 70-99 [facility] Comment on above: Order Comment: Order Date: 03/21/24 Order Info: 0786-1 - CMP Order Info: 3040-3 - LIPASE Order Info: [id number] - CRP Performed By: #### L 501.5101, L501.6710, L500.4050, L501.2450, L100.0500 #### [facility] [address] [place], [address] Potassium [Moles/Vol] 3.7 mmol/L Normal 3.3-5.1 [facility] Comment on above: Order Comment: Order Date: 03/21/24 Order Info: 0786-1 - CMP Order Info: 3040-3 - LIPASE Order Info: [id number] - CRP Performed By: #### L 501.5101, L501.6710, L500.4050, L501.2450, L100.0500 #### [facility] [address] [place], [address] Sodium [Moles/Vol] 137 mmol/L Normal 133-145 [facility] Comment on above: Order Comment: Order Date: 03/21/24 Order Info: 0786-1 - CMP Order Info: 3040-3 - LIPASE Order Info: [id number] - CRP Performed By: #### L 501.5101, L501.6710, L500.4050, L501.2450, L100.0500 #### [facility] [address] [place], [address] T PROT 6.7 g/dL Normal 5.9-8.4 [facility] Comment on above: Order Comment: Order Date: 03/21/24 Order Info: 0786-1 - CMP Order Info: 3040-3 - LIPASE Order Info: [id number] - CRP Performed By: #### L 501.5101, L501.6710, L500.4050, L501.2450, L100.0500 #### [facility] [address] [place], [address] Urea nitrogen [Mass/Vol] 16 mg/dL Normal 4-19 [facility] Comment on above: Order Comment: Order Date: 03/21/24 Order Info: 0786-1 - CMP Order Info: 3040-3 - LIPASE Order Info: [id number] - CRP Performed By: #### L 501.5101, L501.6710, L500.4050, L501.2450, L100.0500 #### [facility] [address] [place], [address] Eosinophil percentageOrdered By: Delfino Montgomery on 10-20-2024 Eosinophils/100 WBC (Bld) 6.6 % High 0-5 [facility] Erythrocyte distribution wid th ratioOrdered By: Delfino Montgomery on 10-20-2024 Erythrocyte distribution width (RBC) [Ratio] 11.9 % 11.6-14.6 [facility] Erythrocyte distribution wid th standard deviationOrdered By: Delfino Montgomery on 10-20-2024 Erythrocyte distribution width (RBC) [Ratio] 45.0 fl High 35.1-43.9 [facility] Glomerular filtration rate ( GFR) estimation/1.73 sq m using serum, plasma, or whole bOrdered By: Delfino Montgomery on 10-20-2024 GFR/1.73 sq M.predicted among non-blacks MDRD (S/P/Bld) [Vol rate/Area] 84 mL/min/{1.73_m2} >60 [facility] Comment on above: mL/min/1.73m2 CKD-EP I Creatinine Equation (2020) Hematocrit Auto (Bld) [Volum e fraction]Ordered By: Delfino Montgomery on 10-20-2024 Hematocrit (Bld) [Volume fraction] 46.2 % 40-54 [facility] Hemoglobin A1con 10-20-2024 HbA1c (Bld) [Mass fraction] 6.3 % High <=5.6 [facility] Comment on above: Order Comment: Order Date: 09/27/24 Order Info: [id number] - A1C Result Comment: Norm al < 5.7 % Prediabetic 5.7 - 6.4 % Diabetic >or= 6.5 % Please note range changes. Performed By: #### L 500.4050, L501.9985, L100.0100 #### [facility] [address] [place] [address]. [place], [address] Hemoglobin A1c percentageOrd ered By: Delfino Montgomery on 10-20-2024 HbA1c (Bld) [Mass fraction] 6.3 % High <5.7 [facility] Comment on above: Normal < 5.7 % Predi abetic 5.7 - 6.4 % Diabetic >or= 6.5 % Please note range changes. Hemoglobin measurementOrdere d By: Delfino Montgomery on 10-20-2024 Hemoglobin (Bld) [Mass/Vol] 15.8 g/dL 13.0-16.5 [facility] Immature granulocytes/100 WB C Auto (Bld)Ordered By: Delfino Montgomery on 10-20-2024 Immature granulocytes/100 WBC (Bld) 0.400 % 0.0-0.9 [facility] Comment on above: IG% - Immature Granu locytes (promyelocytes, myelocytes and metamyelocytes) > 1% indicates that a LEFT SHIFT is Present. Laboratory - Chemistry and C hemistry - challengeOrdered By: Delfino Montgomery on 10-20-2024 AST [Catalytic activity/Vol] 25 U/L <38 [facility] MCV (mean corpuscular volume ) determinationOrdered By: Delfino Montgomery on 10-20-2024 MCV (RBC) [Entitic vol] 100.7 fL High 80-94 [facility] Mean corpuscular hemoglobin (MCH) determinationOrdered By: Delfino Montgomery on 10-20-2024 MCH (RBC) [Entitic mass] 34.4 pg High 27.0-32.0 [facility] Mean corpuscular hemoglobin concentration (MCHC) determinationOrdered By: Delfino Montgomery on 10-20-2024 MCHC (RBC) [Mass/Vol] 34.2 g/dL 32-36 [facility] Mean platelet volume determi nationOrdered By: Delfino Montgomery on 10-20-2024 Platelet mean volume (Bld) [Entitic vol] 9.8 fL 6.2-12.0 [facility] Microalb:Creat Ratio,Random URon 10-20-2024 Creatinine [Mass/Vol] 130.00 mg/dL Normal 39.00-259.00 [facility] Comment on above: Order Comment: Order Date: 03/21/24 Order Info: 0786-1 - CMP Order Info: 3040-3 - LIPASE Order Info: [id number] - CRP Performed By: #### L 501.5101, L501.6710, L500.4050, L501.2450, L100.0500 #### [facility] [address] [place], [place], [address] MALB:CREAT UNABLE TO CALCULATE Normal [facility] Comment on above: Order Comment: Order Date: 03/21/24 Order Info: 0786-1 - CMP Order Info: 3040-3 - LIPASE Order Info: [id number] - CRP Performed By: #### L 501.5101, L501.6710, L500.4050, L501.2450, L100.0500 #### [facility] [address] [place], [address] MICROALBUMIN,UR < 12.0 Normal NO RANGE EST. [facility] Comment on above: Order Comment: Order Date: 03/21/24 Order Info: 0786-1 - CMP Order Info: 3040-3 - LIPASE Order Info: [id number] - CRP Performed By: #### L 501.5101, L501.6710, L500.4050, L501.2450, L100.0500 #### [facility] [address] [place], [address] Microalbumin/creat ratio urO rdered By: Delfino Montgomery on 10-20-2024 Urine microalbumin/creatinine ratio measurement UNABLE TO CALCULATE mg/g CRE [facility] Monocyte percentageOrdered B y: Delfino Montgomery on 10-20-2024 Monocytes/100 WBC (Bld) 12.4 % High 0-10 [facility] Neutrophil percentageOrdered By: Delfino Montgomery on 10-20-2024 Neutrophils/100 WBC (Bld) 48.4 % 47-70 [facility] Nucleated red blood cell per centageOrdered By: Delfino Montgomery on 10-20-2024 Nucleated RBC/100 WBC (Bld) [Ratio] 0 % 0-5 [facility] Platelet countOrdered By: Marshall Montgomery on 10-20-2024 Platelets (Bld) [#/Vol] 215 10*3/uL 150-450 [facility] Potassium measurement (mass/ volume)Ordered By: Delfino Montgomery on 10-20-2024 Potassium (Unsp spec) [Mass/Vol] 3.7 mmol/L 3.3-5.1 [facility] RBC Auto (Bld) [#/Vol]Ordere d By: Delfino Montgomery on 10-20-2024 RBC (Bld) [#/Vol] 4.59 10*6/uL Low 4.6-6.2 [facility] Random urine creatinine kenneth urement (mass/volume)Ordered By: Delfino Montgomery on 10-20-2024 Creatinine Unsp time (U) [Mass/Vol] 130.00 mg/dL 39.00-259.00 [facility] Serum creatinine measurement (mass/volume)Ordered By: Delfino Montgomery on 10-20-2024 Creatinine [Mass/Vol] 0.95 mg/dL 0.70-1.20 [facility] Serum globulin measurementOr dered By: Delfino Montgomery on 10-20-2024 Globulin (S) [Mass/Vol] 2.4 g/dL 2.2-4.2 [facility] Serum glucose measurement (m ass/volume)Ordered By: Delfino Montgomery on 10-20-2024 Glucose [Mass/Vol] 136 mg/dL High 70-99 [facility] Serum or plasma alanine albert otransferase (ALT) measurementOrdered By: Delfino Montgomery on 10-20-2024 ALT [Catalytic activity/Vol] 20 U/L <47 [facility] Serum or plasma albumin kenneth urement (mass/volume)Ordered By: Delfino Montgomery on 10-20-2024 Albumin [Mass/Vol] 4.3 g/dL 3.4-4.8 [facility] Serum or plasma albumin/glob ulin mass ratioOrdered By: Delfino Montgomery on 10-20-2024 Albumin/Globulin [Mass ratio] 1.8 {ratio} 0.9-2.4 [facility] Serum or plasma alkaline kennedy sphatase measurementOrdered By: Delfino Montgomery on 10-20-2024 ALP [Catalytic activity/Vol] 81 U/L 40-129 [facility] Serum or plasma calcium kenneth urement (mass/volume)Ordered By: Delfino Montgomery on 10-20-2024 Calcium [Mass/Vol] 9.8 mg/dL 7.6-11.0 [facility] Serum or plasma urea nitroge n measurement (mass/volume)Ordered By: Delfino Montgomery on 10-20-2024 Urea nitrogen [Mass/Vol] 16 mg/dL 4-19 [facility] Sodium levelOrdered By: Delfino Montgomery on 10-20-2024 Sodium [Moles/Vol] 137 mmol/L 133-145 [facility] Total proteinOrdered By: Debra Montgomery on 10-20-2024 Protein [Mass/Vol] 6.7 g/dL 5.9-8.4 [facility] Urine albumin measurement wi detection limit of 20 mg/L or less (mass/volume)Ordered By: Delfino Montgomery on 10-20-2024 Albumin DL <= 20 mg/L (U) [Mass/Vol] < 12.0 mg/L NO RANGE EST. [facility] White blood cell (WBC) count Ordered By: Delfino Montgomery on 10-20-2024 WBC (Bld) [#/Vol] 5.5 10*3/uL 4.4-11.0 [facility] Abdomen WITH IV Contraston 1 08-02-2023 Abdomen WITH IV Contrast [facility] [address] [place] [address] Abdomen WITH IV Contrast MR#: [id number] Acct: [id number] Name: BRANT BASILIO Rep #: [id number] : 1950 M 73 From: Cristofer Faustin MD PCP: Dr. Delfino Montgomery MD Status: [facility] Study: Abdomen WITH IV Contrast Date of Exam: 4 Exam# [id number] Ordering Dr: Delfino Montgomery MD [id number] STUDY: CT ABDOMEN WITH CONTRAST REASON FOR [...] EST , CC: Dr. Delfino Montgomery MD Authorizer: Signed Normal [facility] L501.5101on 05-04-2024 GGTP 33 IU/L Normal 0-65 [facility] Comment on above: Order Comment: Order Date: 03/21/24 Order Info: [id number] - GGTP Result Comment: Perf ormed at: CB - [facility] [address] [id number] Detective Lieutenant: Sathya Rubin PhD, Phone: [phone] Performed By: #### L 501.5101, L501.6710, L500.4050, L501.2450, L100.0500 #### [facility] [address] [place], [address] CBC-Complete Blood Cnt No Di ffon 05-03-2024 Erythrocyte distribution width (RBC) [Ratio] 12.0 % Normal 11.6-14.6 [facility] Comment on above: Order Comment: Order Date: 03/21/24 Order Info: [id number] - CBC Performed By: #### L 501.5101, L501.6710, L500.4050, L501.2450, L100.0500 #### [facility] [address] [place], [address] Hematocrit (Bld) [Volume fraction] 46.3 % Normal 40-54 [facility] Comment on above: Order Comment: Order Date: 03/21/24 Order Info: [id number] - CBC Performed By: #### L 501.5101, L501.6710, L500.4050, L501.2450, L100.0500 #### [facility] [address] [place], [address] Hemoglobin (Bld) [Mass/Vol] 15.6 g/dL Normal 13.0-16.5 [facility] Comment on above: Order Comment: Order Date: 03/21/24 Order Info: [id number] - CBC Performed By: #### L 501.5101, L501.6710, L500.4050, L501.2450, L100.0500 #### [facility] [address] [place], [address] MCH (RBC) [Entitic mass] 33.5 pg High 27.0-32.0 [facility] Comment on above: Order Comment: Order Date: 03/21/24 Order Info: [id number] - CBC Performed By: #### L 501.5101, L501.6710, L500.4050, L501.2450, L100.0500 #### [facility] [address] [place], [address] MCHC (RBC) [Mass/Vol] 33.7 g/dL Normal 32-36 [facility] Comment on above: Order Comment: Order Date: 03/21/24 Order Info: [id number] - CBC Performed By: #### L 501.5101, L501.6710, L500.4050, L501.2450, L100.0500 #### [facility] [address] [place], [address] MCV (RBC) [Entitic vol] 99.6 fL High 80-94 [facility] Comment on above: Order Comment: Order Date: 03/21/24 Order Info: [id number] - CBC Performed By: #### L 501.5101, L501.6710, L500.4050, L501.2450, L100.0500 #### [facility] [address] [place], [address] Platelet mean volume (Bld) [Entitic vol] 10.0 fL Normal 6.2-12.0 [facility] Comment on above: Order Comment: Order Date: 03/21/24 Order Info: [id number] - CBC Performed By: #### L 501.5101, L501.6710, L500.4050, L501.2450, L100.0500 #### [facility] [address] [place], [address] Platelets (Bld) [#/Vol] 241 10*3/uL Normal 150-450 [facility] Comment on above: Order Comment: Order Date: 03/21/24 Order Info: [id number] - CBC Performed By: #### L 501.5101, L501.6710, L500.4050, L501.2450, L100.0500 #### [facility] [address] [place], [address] RBC (Bld) [#/Vol] 4.65 10*6/uL Normal 4.6-6.2 [facility] Comment on above: Order Comment: Order Date: 03/21/24 Order Info: [id number] - CBC Performed By: #### L 501.5101, L501.6710, L500.4050, L501.2450, L100.0500 #### [facility] [address] [place], [address] RDW SD 43.8 fl Normal 35.1-43.9 [facility] Comment on above: Order Comment: Order Date: 03/21/24 Order Info: [id number] - CBC Performed By: #### L 501.5101, L501.6710, L500.4050, L501.2450, L100.0500 #### [facility] [address] [place], [address] WBC (Bld) [#/Vol] 7.5 10*3/uL Normal 4.4-11.0 [facility] Comment on above: Order Comment: Order Date: 03/21/24 Order Info: [id number] - CBC Performed By: #### L 501.5101, L501.6710, L500.4050, L501.2450, L100.0500 #### [facility] [address] [place], [address] CRPon 05-03-2024 C-REACTIVE PROT < 2.90 Normal 0.0-3.0 [facility] Comment on above: Order Comment: Order Date: 03/21/24 Order Info: [id number] - CMP Order Info: 3040-3 - LIPASE Order Info: [id number] - CRP Result Comment: C-Re active Protein (CRP) provides useful information for the diagnosis, therapy and monitoring of inflammatory processes and associated diseases. For the evaluation of Relative Risk for Cardiovascular Disease, a High Sensitivity CRP (HSCRP) should be ordered. Performed By: #### L 501.5101, L501.6710, L500.4050, L501.2450, L100.0500 #### [facility] [address] [place], [address] Comprehensive Metabolic Prof ilon 05-03-2024 Albumin [Mass/Vol] 4.1 g/dL Normal 3.2-5.0 [facility] Comment on above: Order Comment: Order Date: 03/21/24 Order Info: [id number] - CMP Order Info: 3040-3 - LIPASE Order Info: [id number] - CRP Performed By: #### L 501.5101, L501.6710, L500.4050, L501.2450, L100.0500 #### [facility] [address] [place], [address] Albumin/Globulin [Mass ratio] 1.3 {ratio} Normal 0.9-2.4 [facility] Comment on above: Order Comment: Order Date: 03/21/24 Order Info: [id number] - CMP Order Info: 3040-3 - LIPASE Order Info: [id number] - CRP Performed By: #### L 501.5101, L501.6710, L500.4050, L501.2450, L100.0500 #### [facility] [address] [place], [address] ALK P 74 U/L Normal 45-117 [facility] Comment on above: Order Comment: Order Date: 03/21/24 Order Info: 07-1 - CMP Order Info: 3040-3 - LIPASE Order Info: [id number] - CRP Performed By: #### L 501.5101, L501.6710, L500.4050, L501.2450, L100.0500 #### [facility] [address] [place], [address] ALT [Catalytic activity/Vol] 28 U/L Normal 16-61 [facility] Comment on above: Order Comment: Order Date: 03/21/24 Order Info: [id number] - CMP Order Info: 3040-3 - LIPASE Order Info: [id number] - CRP Performed By: #### L 501.5101, L501.6710, L500.4050, L501.2450, L100.0500 #### [facility] [address] [place], [address] AST [Catalytic activity/Vol] 23 U/L Normal 15-37 [facility] Comment on above: Order Comment: Order Date: 03/21/24 Order Info: [id number] - CMP Order Info: 3040-3 - LIPASE Order Info: [id number] - CRP Performed By: #### L 501.5101, L501.6710, L500.4050, L501.2450, L100.0500 #### [facility] [address] [place], [address] Bilirubin [Mass/Vol] 0.80 mg/dL Normal 0.20-1.00 [facility] Comment on above: Order Comment: Order Date: 03/21/24 Order Info: [id number] - CMP Order Info: 3040-3 - LIPASE Order Info: [id number] - CRP Result Comment: For patients on eltrombopag therapy, use of Dimension [place] TBIL is not recommended. Performed By: #### L 501.5101, L501.6710, L500.4050, L501.2450, L100.0500 #### [facility] [address] [place], [address] BUN/CRE 18.8 RATIO Normal 10-20 [facility] Comment on above: Order Comment: Order Date: 03/21/24 Order Info: [id number] - CMP Order Info: 3040-3 - LIPASE Order Info: [id number] - CRP Performed By: #### L 501.5101, L501.6710, L500.4050, L501.2450, L100.0500 #### [facility] [address] [place], [address] CA,Total 9.4 mg/dL Normal 8.5-10.1 [facility] Comment on above: Order Comment: Order Date: 03/21/24 Order Info: [id number] - CMP Order Info: 3040-3 - LIPASE Order Info: [id number] - CRP Performed By: #### L 501.5101, L501.6710, L500.4050, L501.2450, L100.0500 #### [facility] [address] [place], [address] Chloride [Moles/Vol] 104 mmol/L Normal 98-107 [facility] Comment on above: Order Comment: Order Date: 03/21/24 Order Info: [id number] - CMP Order Info: 3040-3 - LIPASE Order Info: [id number] - CRP Performed By: #### L 501.5101, L501.6710, L500.4050, L501.2450, L100.0500 #### [facility] [address] [place], [address] CO2 [Moles/Vol] 26.0 mmol/L Normal 21.0-32.0 [facility] Comment on above: Order Comment: Order Date: 03/21/24 Order Info: 1 - CMP Order Info: 3 - LIPASE Order Info: - CRP Performed By: #### L 501.5101, L501.6710, L500.4050, L501.2450, L100.0500 #### [facility] [address] [place], [address] Creatinine [Mass/Vol] 1.17 mg/dL Normal 0.70-1.30 [facility] Comment on above: Order Comment: Order Date: 03/21/24 Order Info: [id number] - CMP Order Info: 3 - LIPASE Order Info: - CRP Result Comment: The validity of the calculated GFR GFRAA in patients over 70 years has not been determined. Clinical correlation is essential. Performed By: #### L 501.5101, L501.6710, L500.4050, L501.2450, L100.0500 #### [facility] [address] [place], [address] EST GFR - AA 79 mL/min Normal >60 [facility] Comment on above: Order Comment: Order Date: 03/21/24 Order Info: [id number] - CMP Order Info: 3040-3 - LIPASE Order Info: [id number] - CRP Result Comment: Afri can Indian GFR Calc Performed By: #### L 501.5101, L501.6710, L500.4050, L501.2450, L100.0500 #### [facility] [address] [place], [address] GAP 7 Normal 5-15 [facility] Comment on above: Order Comment: Order Date: 03/21/24 Order Info: 86-1 - CMP Order Info: 3040-3 - LIPASE Order Info: [id number] - CRP Performed By: #### L 501.5101, L501.6710, L500.4050, L501.2450, L100.0500 #### [facility] [address] [place], [address] GFR/1.73 sq M.predicted among non-blacks MDRD (S/P/Bld) [Vol rate/Area] 65 mL/min/{1.73_m2} Normal >60 [facility] Comment on above: Order Comment: Order Date: 03/21/24 Order Info: 785-1 - CMP Order Info: 3040-3 - LIPASE Order Info: [id number] - CRP Result Comment: Non- GFR Calc Performed By: #### L 501.5101, L501.6710, L500.4050, L501.2450, L100.0500 #### [facility] [address] [place], [address] Globulin (S) [Mass/Vol] 3.1 g/dL Normal 2.2-4.2 [facility] Comment on above: Order Comment: Order Date: 03/21/24 Order Info: [id number] - CMP Order Info: 3040-3 - LIPASE Order Info: [id number] - CRP Performed By: #### L 501.5101, L501.6710, L500.4050, L501.2450, L100.0500 #### [facility] [address] [place], [address] Glucose [Mass/Vol] 139 mg/dL High 74-106 [facility] Comment on above: Order Comment: Order Date: 03/21/24 Order Info: [id number] - CMP Order Info: 3040-3 - LIPASE Order Info: [id number] - CRP Result Comment: Fast ing Glucose result greater than or equal to 126 mg/dL suggests DIABETES MELLITUS per A.D.A. criteria. Performed By: #### L 501.5101, L501.6710, L500.4050, L501.2450, L100.0500 #### [facility] [address] [place], [address] Potassium [Moles/Vol] 4.0 mmol/L Normal 3.5-5.1 [facility] Comment on above: Order Comment: Order Date: 03/21/24 Order Info: [id number] - CMP Order Info: 3040-3 - LIPASE Order Info: [id number] - CRP Performed By: #### L 501.5101, L501.6710, L500.4050, L501.2450, L100.0500 #### [facility] [address] [place], [address] Sodium [Moles/Vol] 137 mmol/L Normal 136-145 [facility] Comment on above: Order Comment: Order Date: 03/21/24 Order Info: [id number] - CMP Order Info: 3040-3 - LIPASE Order Info: [id number] - CRP Performed By: #### L 501.5101, L501.6710, L500.4050, L501.2450, L100.0500 #### [facility] [address] [place], [address] T PROT 7.2 g/dL Normal 6.4-8.2 [facility] Comment on above: Order Comment: Order Date: 03/21/24 Order Info: [id number] - CMP Order Info: 3040-3 - LIPASE Order Info: [id number] - CRP Performed By: #### L 501.5101, L501.6710, L500.4050, L501.2450, L100.0500 #### [facility] [address] [place], [address] Urea nitrogen [Mass/Vol] 22 mg/dL High 7-18 [facility] Comment on above: Order Comment: Order Date: 03/21/24 Order Info: [id number] - CMP Order Info: 3040-3 - LIPASE Order Info: [id number] - CRP Performed By: #### L 501.5101, L501.6710, L500.4050, L501.2450, L100.0500 #### [facility] [address] [place], [address] Lipaseon 05-03-2024 Lipase [Catalytic activity/Vol] 43 U/L Normal 13-75 [facility] Comment on above: Order Comment: Order Date: 03/21/24 Order Info: [id number] - CMP Order Info: 3040-3 - LIPASE Order Info: [id number] - CRP Result Comment: Vitaliy dick note: LIPASE revised reference range effective 22. New Lipase methodology. Expected to produce lower values than the previous assay method. NEW Reference Range: 13 - 75 U/L Performed By: #### L 501.5101, L501.6710, L500.4050, L501.2450, L100.0500 #### [facility] [address] [place], [address] Basophil percentageOrdered B y: Delfino Montgomery on 10-11-2023 Bilirubin [Mass/Vol] 0.60 mg/dL 0.20-1.00 [facility] Comment on above: For patients on eltr ombopag therapy, use of Dimension [place] TBIL is not recommended. Chloride [Moles/Vol] 105 mmol/L 98-107 [facility] Glucose [Mass/Vol] 139 mg/dL 74-106 [facility] Comment on above: Fasting Glucose resu lt greater than or equal to 126 mg/dL suggests DIABETES MELLITUS per A.D.A. criteria. Potassium [Moles/Vol] 4.1 mmol/L 3.5-5.1 [facility] Protein [Mass/Vol] 6.8 g/dL 6.4-8.2 [facility] Sodium [Moles/Vol] 138 mmol/L 136-145 [facility] - Chemistry and C hemistry - challengeOrdered By: Delfino Montgomery on 10-11-2023 Albumin/Globulin [Mass ratio] 1.3 {ratio} 0.9-2.4 [facility] ALP [Catalytic activity/Vol] 59 U/L 45-117 [facility] ALT [Catalytic activity/Vol] 28 U/L 16-61 [facility] CO2 [Moles/Vol] 28.0 mmol/L 21.0-32.0 [facility] Globulin (S) [Mass/Vol] 3.0 g/dL 2.2-4.2 [facility] Urea nitrogen/Creatinine [Mass ratio] 21.9 mg/mg 10-20 [facility] No Panel InformationOrdered By: Delfino Montgomery on 10-11-2023 Estimated GFR (MDRD) Amer 89 mL/min >60 [facility] Comment on above: GFR Calc Estimated GFR (MDRD) Non-Af Amer 74 mL/min >60 [facility] Comment on above: Non- GFR Calc Serum or plasma calcium kenneth urement (mass/volume)Ordered By: Delfino Montgomery on 10-11-2023 Calcium [Mass/Vol] 9.4 mg/dL 8.5-10.1 [facility] Serum or plasma creatinine m easurement (mass/volume)Ordered By: Delfino Montgomery on 10-11-2023 Creatinine [Mass/Vol] 1.05 mg/dL 0.70-1.30 [facility] Comment on above: The validity of the calculated GFR & GFRAA in patients over 70 years has not been determined. Clinical correlation is essential. Serum or plasma urea nitroge n measurement (mass/volume)Ordered By: Delfino Montgomery on 10-11-2023 Urea nitrogen [Mass/Vol] 23 mg/dL 7-18 [facility] Thin prep Papanicolaou smear with manual screeningOrdered By: Delfino Montgomery on 10-11-2023 Thin prep Papanicolaou smear with manual screening 3.8 g/dL 3.2-5.0 [facility] Thin prep Papanicolaou smear with manual screening 25 U/L 15-37 [facility] Thin prep Papanicolaou smear with manual screening 5 5-15 [facility] Whole blood hemoglobin A1c/t otal hemoglobin ratio (mass fraction)Ordered By: Delfino Montgomery on 10-11-2023 HbA1c (Bld) [Mass fraction] 6.1 % 3.8-5.6 [facility] Comment on above: Normal < 5.7 % Predi abetic 5.7 - 6.4 % Diabetic >or= 6.5 % Please note range changes. Absolute lymphocyte countOrd ered By: Delfino Montgomery on 05-28-2023 Lymphocytes Auto (Unsp spec) [#/Vol] 1.59 10*3/uL 0.83-4.51 [facility] Basophil percentageOrdered B y: Delfino Montgomery on 05-28-2023 Basophils/100 WBC (Bld) 0.3 % 0-1 [facility] Bilirubin [Mass/Vol] 0.50 mg/dL 0.20-1.00 [facility] Comment on above: For patients on eltr ombopag therapy, use of Dim[place] TBIL is not recommended. Chloride [Moles/Vol] 106 mmol/L 98-107 [facility] Cholesterol [Mass/Vol] 146 mg/dL <200 [facility] Comment on above: <200 mg/dL Desirable 200-240 mg/dL Borderline >240 mg/dL High Risk Eosinophils/100 WBC (Bld) 4.1 % 0-5 [facility] Glucose [Mass/Vol] 139 mg/dL 74-106 [facility] Comment on above: Fasting Glucose resu lt greater than or equal to 126 mg/dL suggests DIABETES MELLITUS per A.D.A. criteria. Neutrophils (Bld) [#/Vol] 4.2 10*3/uL 2.0-7.7 [facility] Neutrophils/100 WBC (Bld) 60.6 % 47-70 [facility] Potassium [Moles/Vol] 4.3 mmol/L 3.5-5.1 [facility] Protein [Mass/Vol] 6.9 g/dL 6.4-8.2 [facility] Sodium [Moles/Vol] 139 mmol/L 136-145 [facility] Testosterone [Mass/Vol] 453.02 ng/dL [facility] Comment on above: CENTRAL 90% REFERENC E RANGES MALE AGE <50 197.44 - 669.58 ng/dL MALE AGE > or = 50 187.72 - 684.19 ng/dL FEMALE AGE <50 8.38 - 35.01 ng/dL FEMALE AGE > or = 50 <7.00 - 35.92 ng/dL Effective as of 01/02/21 Triglyceride [Mass/Vol] 140 mg/dL <199 [facility] Comment on above: The drugs N-Acetylcy steine and Metamizole may falsely depress this assay.Serum Triglycerides Reference Interval Normal <150 mg/dL Borderline high 150 - 199 mg/dL High 200 - 499 mg/dL Very High > or = 500 mg/dL WBC (Bld) [#/Vol] 6.9 10*3/uL 4.4-11.0 [facility] Blood erythrocytes count (nu mber/volume)Ordered By: Delfino Montgomery on 05-28-2023 RBC (Bld) [#/Vol] 4.47 10*6/uL 4.6-6.2 [facility] Blood hemoglobin measurement (mass/volume)Ordered By: Delfino Montgomery on 05-28-2023 Hemoglobin (Bld) [Mass/Vol] 14.9 g/dL 13.0-16.5 [facility] Blood lymphocytes/100 leukoc ytesOrdered By: Delfino Montgomery on 05-28-2023 Lymphocytes/100 WBC (Bld) 23.0 % 19-41 [facility] Blood monocytes/100 leukocyt esOrdered By: Delfino Montgomery on 05-28-2023 Monocytes/100 WBC (Bld) 11.4 % 0-10 [facility] Blood platelet mean volumeOr dered By: Delfino Montgomery on 05-28-2023 Platelet mean volume (Bld) [Entitic vol] 9.9 fL 6.2-12.0 [facility] Determination of erythrocyte mean corpuscular volume (MCV)Ordered By: Delfino Montgomery on 05-28-2023 MCV (RBC) [Entitic vol] 100.2 fL 80-94 [facility] Hematocrit Auto (Bld) [Volum e fraction]Ordered By: Delfino Montgomery on 05-28-2023 Hematocrit (Bld) [Volume fraction] 44.8 % 40-54 [facility] - Chemistry and C hemistry - challengeOrdered By: Delfino Montgomery on 05-28-2023 ALP [Catalytic activity/Vol] 58 U/L 45-117 [facility] ALT [Catalytic activity/Vol] 27 U/L 16-61 [facility] CO2 [Moles/Vol] 21.0 mmol/L 21.0-32.0 [facility] Globulin (S) [Mass/Vol] 3.0 g/dL 2.2-4.2 [facility] Urea nitrogen/Creatinine [Mass ratio] 20.9 mg/mg 10-20 [facility] - Hematology and Cell countsOrdered By: Delfino Montgomery on 05-28-2023 Erythrocyte distribution width (RBC) [Entitic vol] 45.1 fL 35.1-43.9 [facility] Erythrocyte distribution width (RBC) [Ratio] 12.1 % 11.6-14.6 [facility] Immature granulocytes/100 WBC (Bld) 0.600 % 0.0-0.9 [facility] Comment on above: IG% - Immature Granu locytes (promyelocytes, myelocytes and metamyelocytes) > 1% indicates that a LEFT SHIFT is Present. MCH (RBC) [Entitic mass] 33.3 pg 27.0-32.0 [facility] Nucleated RBC/100 WBC (Bld) [Ratio] 0 % 0-5 [facility] MCHC Auto (RBC) [Mass/Vol]Or dered By: Delfino Montgomery on 05-28-2023 MCHC (RBC) [Mass/Vol] 33.3 g/dL 32-36 [facility] No Panel InformationOrdered By: Delfino Montgomery on 05-28-2023 Urine Microalbumin/Creatinine Ratio TNP [facility] Comment on above: Test not performed Estimated GFR (MDRD) Amer 80 mL/min >60 [facility] Comment on above: GFR Calc Estimated GFR (MDRD) Non-Af Amer 66 mL/min >60 [facility] Comment on above: Non- GFR Calc Prostate Specific Antigen Screen 0.72 ng/mL 0.00-4.00 [facility] Comment on above: This test was perfor med using the TPSA assay method for the[facility] chemistry system. Values obtained with differentassay methods cannot be used interchangably.When changing PSA assays in the course of monitoring apatient, additional sequential testing should be carriedout to confirm baseline values. Platelets bldOrdered By: Debra Montgomery on 05-28-2023 Platelets (Bld) [#/Vol] 239 10*3/uL 150-450 [facility] Serum or plasma albumin kenneth urement (mass/volume)Ordered By: Delfino Montgomery on 05-28-2023 Albumin [Mass/Vol] 3.9 g/dL 3.2-5.0 [facility] Serum or plasma albumin/glob ulin mass ratioOrdered By: Delfino Montgomery on 05-28-2023 Albumin/Globulin [Mass ratio] 1.3 {ratio} 0.9-2.4 [facility] Serum or plasma calcium kenneth urement (mass/volume)Ordered By: Delfino Montgomery on 05-28-2023 Calcium [Mass/Vol] 9.2 mg/dL 8.5-10.1 [facility] Serum or plasma cholesterol in HDL measurement (mass/volume)Ordered By: Delfino Montgomery on 05-28-2023 Cholesterol in HDL [Mass/Vol] 63 mg/dL >40 [facility] Comment on above: The drugs N-Acetylcy steine and Metamizole may falsely depress this assay. Reference Range HDL <40 mg/dL Low HDL Cholesterol HDL >or= 60 mg/dL High HDL Cholesterol Serum or plasma cholesterol in VLDL measurement (mass/volume)Ordered By: Delfino Montgomery on 05-28-2023 Cholesterol in VLDL [Mass/Vol] 28 mg/dL 5-40 [facility] Serum or plasma creatinine m easurement (mass/volume)Ordered By: Delfino Montgomery on 05-28-2023 Creatinine [Mass/Vol] 1.15 mg/dL 0.70-1.30 [facility] Comment on above: The validity of the calculated GFR & GFRAA in patients over 70 years has not been determined. Clinical correlation is essential. Serum or plasma low density lipoprotein (LDL) cholesterol measurement (mass/volume)Ordered By: Delfino Montgomery on 05-28-2023 Cholesterol in LDL [Mass/Vol] 55 mg/dL 0-130 [facility] Serum or plasma urea nitroge n measurement (mass/volume)Ordered By: Delfino Montgomery on 05-28-2023 Urea nitrogen [Mass/Vol] 24 mg/dL 7-18 [facility] [facility] Thin prep Papanicolaou smear with manual screeningOrdered By: Delfino Montgomery on 05-28-2023 Thin prep Papanicolaou smear with manual screening < 5.0 mg/L NO RANGE EST. [facility] Thin prep Papanicolaou smear with manual screening 20 U/L 15-37 [facility] Thin prep Papanicolaou smear with manual screening 12 5-15 [facility] Urine creatinine measurement (mass/volume)Ordered By: Delfino Montgomery on 05-28-2023 Creatinine (U) [Mass/Vol] 72.40 mg/dL NO RANGE EST. [facility] Whole blood hemoglobin A1c/t otal hemoglobin ratio (mass fraction)Ordered By: Delfino Montgomery on 05-28-2023 HbA1c (Bld) [Mass fraction] 6.2 % 3.8-5.6 [facility] Comment on above: Normal < 5.7 % Predi abetic 5.7 - 6.4 % Diabetic >or= 6.5 % Please note range changes. Basophil percentageOrdered B y: Delfino Montgomery on 11-11-2022 Bilirubin [Mass/Vol] 0.40 mg/dL 0.20-1.00 [facility] Comment on above: For patients on eltr ombopag therapy, use of [place] TBIL is not recommended. Chloride [Moles/Vol] 106 mmol/L 98-107 [facility] Glucose [Mass/Vol] 113 mg/dL 74-106 [facility] Comment on above: Fasting Glucose resu lt from 100 to 125 mg/dL suggests IMPAIRED HOMEOSTASIS per A.D.A. criteria. Potassium [Moles/Vol] 4.2 mmol/L 3.5-5.1 [facility] Protein [Mass/Vol] 7.0 g/dL 6.4-8.2 [facility] Sodium [Moles/Vol] 135 mmol/L 136-145 [facility] Testosterone [Mass/Vol] 412 ng/dL 264-916 [facility] Comment on above: Adult male reference interval is based on a population ofhealthy nonobese males (BMI <30) between 19 and 39 yearsold. dennis Mcqueen.al. JCEM 2017,102;5089-5130. PMID:[id number]. WBC (Bld) [#/Vol] 6.3 10*3/uL 4.4-11.0 [facility] Blood erythrocytes count (nu mber/volume)Ordered By: Delfino Montgomery on 11-11-2022 RBC (Bld) [#/Vol] 4.61 10*6/uL 4.6-6.2 [facility] Blood hemoglobin measurement (mass/volume)Ordered By: Delfino Montgomery on 11-11-2022 Hemoglobin (Bld) [Mass/Vol] 15.4 g/dL 13.0-16.5 [facility] Blood platelet mean volumeOr dered By: Delfino Montgomery on 11-11-2022 Platelet mean volume (Bld) [Entitic vol] 9.7 fL 6.2-12.0 [facility] Determination of erythrocyte mean corpuscular volume (MCV)Ordered By: Delfino Montgomery on 11-11-2022 MCV (RBC) [Entitic vol] 100.4 fL 80-94 [facility] Free testosterone percentage Ordered By: Delfino Montgomery on 11-11-2022 Testosterone Free/Testosterone.total [Mass fraction] 1.32 % 1.50-4.20 [facility] Comment on above: Performed at: [address] [id number] Director: Sathya Rubin PhD, Phone: [phone] at: [facility] [address] [id number] Director: Joanna Cole MD, Phone: [phone] Hematocrit Auto (Bld) [Volum e fraction]Ordered By: Delfino Montgomery on 11-11-2022 Hematocrit (Bld) [Volume fraction] 46.3 % 40-54 [facility] Laboratory - Chemistry and C hemistry - challengeOrdered By: Delfino Montgomery on 11-11-2022 Albumin [Mass/Vol] 3.8 g/dL 2.9-4.4 [facility] ALP [Catalytic activity/Vol] 64 U/L 45-117 [facility] ALT [Catalytic activity/Vol] 30 U/L 16-61 [facility] CO2 [Moles/Vol] 26.0 mmol/L 21.0-32.0 [facility] Globulin (S) [Mass/Vol] 3.1 g/dL 2.2-4.2 [facility] Urea nitrogen/Creatinine [Mass ratio] 19.8 mg/mg 10-20 [facility] Laboratory - Hematology and Cell countsOrdered By: Delfino Montgomery on 11-11-2022 Erythrocyte distribution width (RBC) [Entitic vol] 42.5 fL 35.1-43.9 [facility] Erythrocyte distribution width (RBC) [Ratio] 11.6 % 11.6-14.6 [facility] MCH (RBC) [Entitic mass] 33.4 pg 27.0-32.0 [facility] MCHC Auto (RBC) [Mass/Vol]Or dered By: Delfino Montgomery on 11-11-2022 MCHC (RBC) [Mass/Vol] 33.3 g/dL 32-36 [facility] No Panel InformationOrdered By: Delfino Montgomery on 11-11-2022 Urine Microalbumin/Creatinine Ratio TNP [facility] Comment on above: Test not performed Addendum Document Comment . [facility] Comment on above: The SPE pattern appe ars unremarkable. Evidence ofmonoclonal protein is not apparent. Uqeql-4-Utkrvujru 0.2 g/dL 0.0-0.4 [facility] Eytwh-8-Zjvzdidoo 0.9 g/dL 0.4-1.0 [facility] Anti-Nuclear Antibody Screen Negative Negative [facility] Comment on above: Performed at: [email or web address] [address] [id number] Director: Sathya Rubin PhD, Phone: [phone] Estimated GFR (MDRD) Amer 88 mL/min >60 [facility] Comment on above: GFR Calc Estimated GFR (MDRD) Non-Af Amer 73 mL/min >60 [facility] Comment on above: Non- GFR Calc Gamma Globulins 0.6 g/dL 0.4-1.8 [facility] Hepatitis C Antibody Non-Reactive Nonreactive [facility] Comment on above: Non Reactive: < 0.8 Equivocal: >/= 0.8 to < 1.0 Reactive: >/= 1.0The CDC recommends that a reactive/equivocal HCV antibody result be followed up by the HCV Nucleic Acid Amplificationtest ([id number]) Parathyroid Hormone (Intact) 35.3 pg/mL 18.4-80.1 [facility] Thyroid Stimulating Hormone (TSH) 1.00 uIU/mL 0.358-3.74 [facility] Vitamin D 25-Hydroxy 66.0 ng/mL [facility] Comment on above: Vitamin D 25(OH) Sta tus Range Deficiency <20 ng/mL (50nmol/L) Insufficiency 20 - 30 ng/mL (50 - 75 nmol/L) Sufficiency 30 - 100 ng/mL (75 - 250 nmol/L) Toxicity >100 ng/mL (>250 nmol/L) Platelets bldOrdered By: Debra Montgomery on 11-11-2022 Platelets (Bld) [#/Vol] 243 10*3/uL 150-450 [facility] Protein Fractions Elph [Inte rp]Ordered By: Delfino Montgomery on 11-11-2022 Protein Fractions [Interp] Comment . [facility] Comment on above: Protein electrophore sis scan will follow via computer,mail, or vulnerability assessment analyst delivery. Serum albumin to globulin ra roger by protein electrophoresisOrdered By: Delfino Montgomery on 11-11-2022 Albumin/Globulin Elph [Mass ratio] 1.5 0.7-1.7 [facility] Serum globulin measurement ( mass/volume)Ordered By: Delfino Montgomery on 11-11-2022 Globulin (S) [Mass/Vol] 2.6 g/dL 2.2-3.9 [facility] Serum or plasma albumin kenneth urement (mass/volume)Ordered By: Delfino Montgomery on 11-11-2022 Albumin [Mass/Vol] 3.9 g/dL 3.2-5.0 [facility] Serum or plasma albumin/glob ulin mass ratioOrdered By: Delfino Montgomery on 11-11-2022 Albumin/Globulin [Mass ratio] 1.3 {ratio} 0.9-2.4 [facility] Serum or plasma beta globuli n measurement by electrophoresis (mass/volume)Ordered By: Delfino Montgomery on 11-11-2022 Beta globulin Elph [Mass/Vol] 0.8 g/dL 0.7-1.3 [facility] Serum or plasma calcium kenneth urement (mass/volume)Ordered By: Delfino Montgomery on 11-11-2022 Calcium [Mass/Vol] 9.5 mg/dL 8.5-10.1 [facility] Serum or plasma creatinine m easurement (mass/volume)Ordered By: Delfino Montgomery on 11-11-2022 Creatinine [Mass/Vol] 1.06 mg/dL 0.70-1.30 [facility] Comment on above: The validity of the calculated GFR & GFRAA in patients over 70 years has not been determined. Clinical correlation is essential. Serum or plasma testosterone free measurement (mass/volume)Ordered By: Delfino Montgomery on 11-11-2022 Testosterone Free [Mass/Vol] 5.44 ng/dL 5.00-21.00 [facility] Serum or plasma urea nitroge n measurement (mass/volume)Ordered By: Delfino Montgomery on 11-11-2022 Urea nitrogen [Mass/Vol] 21 mg/dL 7-18 [facility] Serum rheumatoid factor dete ctionOrdered By: Delfino Montgomery on 11-11-2022 Rheumatoid factor Ql (S) 10.0 IU/mL <15 [facility] Thin prep Papanicolaou smear with manual screeningOrdered By: Delfino Montgomery on 11-11-2022 Thin prep Papanicolaou smear with manual screening < 5.0 mg/L NO RANGE EST. [facility] Thin prep Papanicolaou smear with manual screening 23 U/L 15-37 [facility] Thin prep Papanicolaou smear with manual screening 3 5-15 [facility] Thin prep Papanicolaou smear with manual screening See comment [facility] Comment on above: Result: Not Observed Total protein bloodOrdered B y: Delfino Montgomery on 11-11-2022 Protein [Mass/Vol] 6.4 g/dL 6.0-8.5 [facility] Urine creatinine measurement (mass/volume)Ordered By: Delfino Montgomery on 11-11-2022 Creatinine (U) [Mass/Vol] 82.60 mg/dL NO RANGE EST. [facility] Absolute lymphocyte counton 05-08-2022 Lymphocytes Auto (Unsp spec) [#/Vol] 2.07 10*3/uL 0.83-4.51 [facility] Work Phone: Basophil percentageon 2021 Basophils/100 WBC (Bld) 0.3 % 0-1 [facility] Work Phone: Bilirubin [Mass/Vol] 0.60 mg/dL 0.20-1.00 [facility] Work Phone: Comment on above: For patients on eltr ombopag therapy, use of [place] TBIL is not recommended. Chloride [Moles/Vol] 104 mmol/L 98-107 [facility] Work Phone: Cholesterol [Mass/Vol] 151 mg/dL <200 [facility] Work Phone: Comment on above: <200 mg/dL Desirable 200-240 mg/dL Borderline >240 mg/dL High Risk Eosinophils/100 WBC (Bld) 5.7 % 0-5 [facility] Work Phone: Glucose [Mass/Vol] 126 mg/dL 74-106 [facility] Work Phone: Comment on above: Fasting Glucose resu lt greater than or equal to 126 mg/dL suggests DIABETES MELLITUS per A.D.A. criteria. Neutrophils (Bld) [#/Vol] 4.2 10*3/uL 2.0-7.7 [facility] Work Phone: Neutrophils/100 WBC (Bld) 55.2 % 47-70 [facility] Work Phone: Potassium [Moles/Vol] 4.2 mmol/L 3.5-5.1 [facility] Work Phone: [phone] Protein [Mass/Vol] 6.8 g/dL 6.4-8.2 [facility] Work Phone: Sodium [Moles/Vol] 137 mmol/L 136-145 [facility] Work Phone: Triglyceride [Mass/Vol] 117 mg/dL <199 [facility] Work Phone: Comment on above: The drugs N-Acetylcy steine and Metamizole may falsely depress this assay.Serum Triglycerides Reference Interval Normal <150 mg/dL Borderline high 150 - 199 mg/dL High 200 - 499 mg/dL Very High > or = 500 mg/dL WBC (Bld) [#/Vol] 7.5 10*3/uL 4.4-11.0 [facility] Work Phone: Blood erythrocytes count (nu mber/volume)on 05-08-2022 RBC (Bld) [#/Vol] 4.73 10*6/uL 4.6-6.2 [facility] Work Phone: Blood hemoglobin measurement (mass/volume)on 05-08-2022 Hemoglobin (Bld) [Mass/Vol] 16.2 g/dL 13.0-16.5 [facility] Work Phone: Blood lymphocytes/100 leukoc yteson 05-08-2022 Lymphocytes/100 WBC (Bld) 27.5 % 19-41 [facility] Work Phone: Blood monocytes/100 leukocyt eson 05-08-2022 Monocytes/100 WBC (Bld) 10.9 % 0-10 [facility] Work Phone: Blood platelet mean volumeon 05-08-2022 Platelet mean volume (Bld) [Entitic vol] 9.9 fL 6.2-12.0 [facility] Work Phone: Determination of erythrocyte mean corpuscular volume (MCV)on 05-08-2022 MCV (RBC) [Entitic vol] 98.7 fL 80-94 [facility] Work Phone: Hematocrit Auto (Bld) [Volum e fraction]on 05-08-2022 Hematocrit (Bld) [Volume fraction] 46.7 % 40-54 [facility] Work Phone: [phone] Laboratory - Chemistry and C hemistry - challengeon 05-08-2022 ALP [Catalytic activity/Vol] 67 U/L 45-117 [facility] Work Phone: ALT [Catalytic activity/Vol] 28 U/L 16-61 [facility] Work Phone: CO2 [Moles/Vol] 26.0 mmol/L 21.0-32.0 [facility] Work Phone: Globulin (S) [Mass/Vol] 2.7 g/dL 2.2-4.2 [facility] Work Phone: Urea nitrogen/Creatinine [Mass ratio] 16.8 mg/mg 10-20 [facility] Work Phone: Laboratory - Hematology and Cell countson 05-08-2022 Erythrocyte distribution width (RBC) [Entitic vol] 43.4 fL 35.1-43.9 [facility] Work Phone: Erythrocyte distribution width (RBC) [Ratio] 11.9 % 11.6-14.6 [facility] Work Phone: Immature granulocytes/100 WBC (Bld) 0.400 % 0.0-0.9 [facility] Work Phone: Comment on above: IG% - Immature Granu locytes (promyelocytes, myelocytes and metamyelocytes) > 1% indicates that a LEFT SHIFT is Present. MCH (RBC) [Entitic mass] 34.2 pg 27.0-32.0 [facility] Work Phone: Nucleated RBC/100 WBC (Bld) [Ratio] 0 % 0-5 [facility] Work Phone: MCHC Auto (RBC) [Mass/Vol]on 05-08-2022 MCHC (RBC) [Mass/Vol] 34.7 g/dL 32-36 [facility] Work Phone: No Panel Informationon 05-08 Estimated GFR (MDRD) Amer 82 mL/min >60 [facility] Work Phone: Comment on above: GFR Calc Estimated GFR (MDRD) Non-Af Amer 68 mL/min >60 [facility] Work Phone: Comment on above: Non- GFR Calc Thyroid Stimulating Hormone (TSH) 1.28 uIU/mL 0.358-3.74 [facility] Work Phone: Platelets bldon 05-08-2022 Platelets (Bld) [#/Vol] 245 10*3/uL 150-450 [facility] Work Phone: Serum or plasma albumin kenneth urement (mass/volume)on 05-08-2022 Albumin [Mass/Vol] 4.1 g/dL 3.2-5.0 [facility] Work Phone: Serum or plasma albumin/glob ulin mass ratioon 05-08-2022 Albumin/Globulin [Mass ratio] 1.5 {ratio} 0.9-2.4 [facility] Work Phone: Serum or plasma calcium kenneth urement (mass/volume)on 05-08-2022 Calcium [Mass/Vol] 9.4 mg/dL 8.5-10.1 [facility] Work Phone: Serum or plasma cholesterol in HDL measurement (mass/volume)on 05-08-2022 Cholesterol in HDL [Mass/Vol] 59 mg/dL >40 [facility] Work Phone: Comment on above: The drugs N-Acetylcy steine and Metamizole may falsely depress this assay. Reference Range HDL <40 mg/dL Low HDL Cholesterol HDL >or= 60 mg/dL High HDL Cholesterol Serum or plasma cholesterol in VLDL measurement (mass/volume)on 05-08-2022 Cholesterol in VLDL [Mass/Vol] 23 mg/dL 5-40 [facility] Work Phone: Serum or plasma creatinine m easurement (mass/volume)on 05-08-2022 Creatinine [Mass/Vol] 1.13 mg/dL 0.70-1.30 [facility] Work Phone: Comment on above: The validity of the calculated GFR & GFRAA in patients over 70 years has not been determined. Clinical correlation is essential. Serum or plasma low density lipoprotein (LDL) cholesterol measurement (mass/volume)on 05-08-2022 Cholesterol in LDL [Mass/Vol] 69 mg/dL 0-130 [facility] Work Phone: Serum or plasma urea nitroge n measurement (mass/volume)on 05-08-2022 Urea nitrogen [Mass/Vol] 19 mg/dL 7-18 [facility] Work Phone: Thin prep Papanicolaou smear with manual screeningon 05-08-2022 Thin prep Papanicolaou smear with manual screening 17 U/L 15-37 [facility] Work Phone: Thin prep Papanicolaou smear with manual screening 7 5-15 [facility] Work Phone: Whole blood hemoglobin A1c/t otal hemoglobin ratio (mass fraction)on 05-08-2022 HbA1c (Bld) [Mass fraction] 6.2 % 3.8-5.6 [facility] Work Phone: Comment on above: Normal < 5.7 % Predi abetic 5.7 - 6.4 % Diabetic >or= 6.5 % Please note range changes. Absolute lymphocyte counton 10-16-2021 Lymphocytes Auto (Unsp spec) [#/Vol] 1.59 10*3/uL 0.83-4.51 [facility] Work Phone: Basophil percentageon 2021 Basophils/100 WBC (Bld) 0.5 % 0-1 [facility] Work Phone: Bilirubin [Mass/Vol] 0.60 mg/dL 0.20-1.00 [facility] Work Phone: Comment on above: For patients on eltr ombopag therapy, use of [place] TBIL is not recommended. Chloride [Moles/Vol] 102 mmol/L 98-107 [facility] Work Phone: Eosinophils/100 WBC (Bld) 6.5 % 0-5 [facility] Work Phone: Glucose [Mass/Vol] 130 mg/dL 74-106 [facility] Work Phone: Comment on above: Fasting Glucose resu lt greater than or equal to 126 mg/dL suggests DIABETES MELLITUS per A.D.A. criteria. Neutrophils (Bld) [#/Vol] 3.5 10*3/uL 2.0-7.7 [facility] Work Phone: Neutrophils/100 WBC (Bld) 54.6 % 47-70 [facility] Work Phone: [phone] Potassium [Moles/Vol] 3.9 mmol/L 3.5-5.1 [facility] Work Phone: Protein [Mass/Vol] 7.1 g/dL 6.4-8.2 [facility] Work Phone: Sodium [Moles/Vol] 136 mmol/L 136-145 [facility] Work Phone: WBC (Bld) [#/Vol] 6.3 10*3/uL 4.4-11.0 [facility] Work Phone: [phone] Blood erythrocytes count (nu mber/volume)on 10-16-2021 RBC (Bld) [#/Vol] 4.59 10*6/uL 4.6-6.2 [facility] Work Phone: Blood hemoglobin measurement (mass/volume)on 10-16-2021 Hemoglobin (Bld) [Mass/Vol] 15.7 g/dL 13.0-16.5 [facility] Work Phone: Blood lymphocytes/100 leukoc yteson 10-16-2021 Lymphocytes/100 WBC (Bld) 25.2 % 19-41 [facility] Work Phone: Blood monocytes/100 leukocyt eson 10-16-2021 Monocytes/100 WBC (Bld) 12.7 % 0-10 [facility] Work Phone: Blood platelet mean volumeon 10-16-2021 Platelet mean volume (Bld) [Entitic vol] 9.6 fL 6.2-12.0 [facility] Work Phone: Determination of erythrocyte mean corpuscular volume (MCV)on 10-16-2021 MCV (RBC) [Entitic vol] 97.4 fL 80-94 [facility] Work Phone: Hematocrit Auto (Bld) [Volum e fraction]on 10-16-2021 Hematocrit (Bld) [Volume fraction] 44.7 % 40-54 [facility] Work Phone: Laboratory - Chemistry and C hemistry - challengeon 10-16-2021 ALP [Catalytic activity/Vol] 63 U/L 45-117 [facility] Work Phone: ALT [Catalytic activity/Vol] 28 U/L 16-61 [facility] Work Phone: CO2 [Moles/Vol] 24.0 mmol/L 21.0-32.0 [facility] Work Phone: Cobalamin (Vitamin B12) [Mass/Vol] 867 pg/mL 211-911 [facility] Work Phone: Globulin (S) [Mass/Vol] 3.1 g/dL 2.2-4.2 [facility] Work Phone: Magnesium [Mass/Vol] 1.9 mg/dL 1.6-2.6 [facility] Work Phone: Urea nitrogen/Creatinine [Mass ratio] 23.8 mg/mg 10-20 [facility] Work Phone: Laboratory - Hematology and Cell countson 10-16-2021 Erythrocyte distribution width (RBC) [Entitic vol] 42.5 fL 35.1-43.9 [facility] Work Phone: Erythrocyte distribution width (RBC) [Ratio] 11.8 % 11.6-14.6 [facility] Work Phone: Immature granulocytes/100 WBC (Bld) 0.500 % 0.0-0.9 [facility] Work Phone: Comment on above: IG% - Immature Granu locytes (promyelocytes, myelocytes and metamyelocytes) > 1% indicates that a LEFT SHIFT is Present. MCH (RBC) [Entitic mass] 34.2 pg 27.0-32.0 [facility] Work Phone: Nucleated RBC/100 WBC (Bld) [Ratio] 0 % 0-5 [facility] Work Phone: MCHC Auto (RBC) [Mass/Vol]on 10-16-2021 MCHC (RBC) [Mass/Vol] 35.1 g/dL 32-36 [facility] Work Phone: No Panel Informationon 10-16 Urine Microalbumin/Creatinine Ratio 7.2 mg/g CRE <30 [facility] Work Phone: Estimated GFR (MDRD) Amer 90 mL/min >60 [facility] Work Phone: Comment on above: GFR Calc Estimated GFR (MDRD) Non-Af Amer 74 mL/min >60 [facility] Work Phone: Comment on above: Non- GFR Calc Thyroid Stimulating Hormone (TSH) 1.20 uIU/mL 0.358-3.74 [facility] Work Phone: Platelets bldon 10-16-2021 Platelets (Bld) [#/Vol] 238 10*3/uL 150-450 [facility] Work Phone: Serum or plasma albumin kenneth urement (mass/volume)on 10-16-2021 Albumin [Mass/Vol] 4.0 g/dL 3.2-5.0 [facility] Work Phone: Serum or plasma albumin/glob ulin mass ratioon 10-16-2021 Albumin/Globulin [Mass ratio] 1.3 {ratio} 0.9-2.4 [facility] Work Phone: Serum or plasma calcium kenneth urement (mass/volume)on 10-16-2021 Calcium [Mass/Vol] 9.9 mg/dL 8.5-10.1 [facility] Work Phone: Serum or plasma creatinine m easurement (mass/volume)on 10-16-2021 Creatinine [Mass/Vol] 1.05 mg/dL 0.70-1.30 [facility] Work Phone: Comment on above: The validity of the calculated GFR & GFRAA in patients over 70 years has not been determined. Clinical correlation is essential. Serum or plasma urea nitroge n measurement (mass/volume)on 10-16-2021 Urea nitrogen [Mass/Vol] 25 mg/dL 7-18 [facility] Work Phone: Thin prep Papanicolaou smear with manual screeningon 10-16-2021 Thin prep Papanicolaou smear with manual screening 21.0 mg/L NO RANGE EST. [facility] Work Phone: Thin prep Papanicolaou smear with manual screening 22 U/L 15-37 [facility] Work Phone: Thin prep Papanicolaou smear with manual screening 10 5-15 [facility] Work Phone: Urine creatinine measurement (mass/volume)on 10-16-2021 Creatinine (U) [Mass/Vol] 291.00 mg/dL NO RANGE EST. [facility] Work Phone: Vital Signs Date Time Vital Sign Value Performing Clinician Faci lity 03-18-2025 09:26-0400 Body height 175.[address] Delfino Montgomery MD Work Phone: [facility] 03-18-2025 09:26-0400 Body mass index (BMI) [Ratio] 26.6 kg/m2 Dr. Delfino Montgomery MD Work Phone: [facility] 03-18-2025 09:26-0400 Body weight 81.[address] Delfino Montgomery MD Work Phone: [facility] 12-15-2024 08:59-0400 Body height 175.[address] Delfino Montgomery MD Work Phone: [facility] 12-15-2024 08:59-0400 Body mass index (BMI) [Ratio] 26.7 kg/m2 Dr. Delfino Montgomery MD Work Phone: [facility] 12-15-2024 08:59-0400 Body weight 82.[address] Delfino Montgomery MD Work Phone: [facility] 12-15-2024 08:59-0400 Diastolic blood pressure 82 mm[Hg] Dr. Delfino Montgomery MD Work Phone: [facility] 12-15-2024 08:59-0400 Heart rate 62 /min Dr. Delfino Montgomery MD Work Phone: [facility] 12-15-2024 08:59-0400 Respiratory rate 18 /min Dr. Delfino Montgomery MD Work Phone: [facility] 12-15-2024 08:59-0400 SaO2% (BldA) [Mass fraction] 93 % Dr. Delfino Montgomery MD Work Phone: [phone] [place] [address] 12-15-2024 08:59-0400 Systolic blood pressure 146 mm[Hg] Dr. Delfino Montgomery MD Work Phone: [phone])453-692262 [place] [address] 02-26-2023 08:34-0400 Body height 175.[address] Delfino Montgomery Work Phone: [phone])412-072162 [place] [address] 02-26-2023 08:34-0400 Body mass index (BMI) [Ratio] 28.6 kg/m2 Dr. Delfino Montgomery Work Phone: 0(519)088-251261 [address] 02-26-2023 08:34-0400 Body temperature 97.4 [degF] Dr. Delfino Montgomery Work Phone: [phone](361)889-742962 [place] [address] 02-26-2023 08:34-0400 Body weight 87.[address] Delfino Montgomery Work Phone: 6(745)291-893562 [place] [address] 02-26-2023 08:34-0400 Diastolic blood pressure 80 mm[Hg] Dr. Delfino Montgomery Work Phone: [facility] 02-26-2023 08:34-0400 Heart rate 77 /min Dr. Delfino Montgomery Work Phone: [phone])940-642594 [place] [address] 02-26-2023 08:34-0400 Respiratory rate 17 /min Dr. Delfino Montgomery Work Phone: [facility] 02-26-2023 08:34-0400 SaO2% (BldA) [Mass fraction] 94 % Dr. Delfino Montgomery Work Phone: 1(223)722-492294 [place] [address] 02-26-2023 08:34-0400 Systolic blood pressure 145 mm[Hg] Dr. Delfino Montgomery Work Phone: [facility] 04-22-2022 13:51-0500 Body height 175.[address] Delfino Montgomery Work Phone: [facility] Work Phone: 04-22-2022 13:51-0500 Body mass index (BMI) [Ratio] 29.1 kg/m2 Dr. Delfino Montgomery Work Phone: [facility] Work Phone: 04-22-2022 13:51-0500 Body weight 89.[address] Delfino Montgomery Work Phone: [facility] Work Phone: 04-22-2022 13:51-0500 Diastolic blood pressure 62 mm[Hg] Dr. Delfino Montgomery Work Phone: [facility] Work Phone: 04-22-2022 13:51-0500 Heart rate 76 /min Dr. Delfino Montgomery Work Phone: [facility] Work Phone: 04-22-2022 13:51-0500 Respiratory rate 18 /min Dr. Delfino Montgomery Work Phone: [facility] [facility] Work Phone: 04-22-2022 13:51-0500 Systolic blood pressure 150 mm[Hg] Dr. Delfino Montgomery Work Phone: [facility] Work Phone: Encounters Encounter Date Encounter Type Care Provider Facility Start: 03-18-2025 End: 03-18-[address] Eugenio Padilla MD -[facility] Work Phone: Start: 03-18-2025 End: 03-18-2025 [facility] Delfino Montgomery [place] Start: 12-15-2024 End: 12-15-[address] Fregoso MD -[facility] Work Phone: Start: 12-15-2024 End: 12-15-[address] Delfino Montgomery MD Work Phone: -[facility] Start: 10-20-2024 End: 10-20-[address] Delfino Montgomery MD Work Phone: [facility] Work Phone: Start: 10-20-2024 End: 10-20-[address] Delfino Montgomery MD -[facility] Work Phone: Start: 10-20-2024 End: 10-20-2024 ambulatory Delfino Montgomery Facility:[facility] Start: 06-01-2024 End: 06-01-2024 ambulatory Delfino Montgomery Facility:[facility] Start: 05-12-2024 End: 05-12-2024 ambulatory Delfino Montgomery Facility:[facility] Start: 05-03-2024 End: 05-03-2024 ambulatory Delfino Montgomery Facility:[facility] Start: 10-11-2023 End: 10-11-2023 ambulatory [facility] Work Phone: Start: 10-11-2023 End: 10-11-2023 Patient encounter procedure [facility] Work Phone: Start: 05-28-2023 End: 05-28-[address] Delfino Montgomery Work Phone: [facility] Work Phone: Start: 05-28-2023 End: 05-28-[address] Delfino Montgomery [facility] Start: 05-07-2023 Non-patient / Non-visit Dr. Marshall Montgomery Work Phone: [facility] Start: 05-07-2023 End: 05-07-[address] Delfino Montgomery Work Phone: [facility] Work Phone: Start: 05-07-2023 End: 05-07-[address] Delfino Montgomery Work Phone: [facility] Work Phone: Start: 02-26-2023 End: 02-26-[address] Delfino Montgomery Work Phone: [facility] Work Phone: Start: 12-26-2022 End: 12-26-2022 ambulatory [facility] Work Phone: Start: 12-26-2022 End: 12-26-2022 Discharged Recurring [facility]Physical Therapy Work Phone: Start: 11-11-2022 End: 11-11-2022 Patient encounter procedure [facility] Start: 05-08-2022 End: 05-08-[address] Delfino Montgomery Work Phone: [facility] Work Phone: Start: 05-08-2022 End: 05-08-[address] Delfino Montgomery Work Phone: [facility] Start: 04-22-2022 End: 04-22-[address] Delfino Montgomery Work Phone: [facility] Start: 10-16-2021 End: 10-16-2021 Patient encounter procedure [facility] Payers Date Payer Category Payer Self-pay [id number] 2024 Private Health Insurance [id number] 2016 Private Health Insurance [id number] Medicare [id number] Unknown [id number] Unknown [id number] [id number] [id number] Unknown [id number] 2.16.8 [id number] Unknown [id number] 2.16.8 [id number] Unknown [id number] 2.16.8 [id number] Unknown [id number] 2.16.8 [id number] Unknown [id number] 2.16.8 [id number] Social History Date Type Detail Facility Start: 05-16-2021 End: 02-26-2023 Tobacco smoking status DCIS Unknown if ever smoked [facility] Start: 1950 Sex Assigned At Male [facility] Start: 02-26-2023 Tobacco smoking stat us DCIS Ex-smoker (finding) [facility] Sex Male [facility] Progress note 03-18-2025 Note Date & Type Note Facility 03-18-2025 Progress note [facility] Evaluation note 12-15-2024 Note Date & Type Note Facility 12-15-2024 Evaluation note Diagnosis Onset Date Resolution Atherosclerotic heart disease of [place] coronary artery without angina pectoris chronic December 15, 2024 8:56am Essential hypertension chronic Ju 2024 8:56am Hyperlipemia chronic December 15 8:56am Type 2 diabetes mellitus chronic December 15, 2024 8:56am Left shoulder pain acute Octobe r 2024 9:26am [facility] Work Phone: Discharge summary 12-26-2022 Note Date & Type Note Facility 12-26-2022 Discharge summary Note Date/Time December 26, 2022 10:53am [facility] Physical Therapy [facility] [place] [address] / REHABILITATION SERVICES DISCHARGE SUMMARY MR#: [id number] Acct: [id number] Name: BRANT BASILIO Rep #: [id number] : 1950 72 From: Haider Cardona PT, ATC Referring Dr.: Dr. Delfino Montgomery MD Status: REG RCR Insurance: [facility] SELF PAY INSURANCE Discharge Summary D/C summary: [...] please feel free to call me at [phone]. Thank you for the referral of thispatient. Sincerely, Haider Cardona, PT, ATC Balance/Gait/Functional tests Balance/Special Test Scores Oswestry Neck Score: 4 <Electronically signed by Haider Cardona PT, ATC> 12/26/22 1053 CC: Dr. Delfino Montgomery MD ~ [facility] Signed [facility] Work Phone: Evaluation note Note Date & Type Note Facility Evaluation note No assessment information availa ble [facility] Work Phone: Evaluation note Note Date & Type Note Facility Evaluation note Diagnosis Onset Date Atherosclerotic heart diseas e of [place] coronary artery without angina pectoris chronic Essential hypertension chron ic Hyperlipemia chronic [facility] Work Phone: Evaluation note Note Date & Type Note Facility Evaluation note Diagnosis Onset Date Umbilical hernia acute [facility] Work Phone: Progress note Note Date & Type Note Facility Progress note Note Date/Time March 18, 2025 9:42am [facility] [address] [place] [id number] OFFICE VISIT Date of Service: 03/18/25 MR#: [id number] Acct: [id number] Name: BRANT BASILIO Rep #: [id number] : 1950 Provider: Dr. 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 Eugenio Padilla MD 03/18/25 0867. Part of today?s visit was documented by [...] strength. 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 4. Anti-Inflammatory Medications: Hwby-pul-zuvflgc medications like ibuprofen ornaproxen can help reduce [...] Cosigner Signature: Date (if applicable) CC: ~ [facility] Work Phone: Reason for referral (narrative) Note Date & Type Note Facility Reason for referral (narrative) No reason for referral information available [facility] Work Phone: Advance Directives Advance Directive Response Recorded Date/ Time Living Will Yes January 21 10:54pm Power of Chief Diversity Officer Yes January 21, 021 10:54pm Advance Directive Response Recorded Date/ Time Living Will Yes January 21 9:54pm Power of Chief Diversity Officer Yes January 21, 021 9:54pm Chief Complaint and Reason for Visit Chief Complaint 1 Y FU EORDER Reason for Visit Atherosclerotic hear t disease of [place] coronary artery without angina pectoris Essential hypertension [...] Admit Date Atherosclerotic heart diseas e of [place] coronary artery without angina pectoris December 15, [...] 15, 2024 End: December 15, 2024 Dr. Lnae Fregoso MD Attending Provider Active Start: December [...] section and content) DATE CREATED AUTHOR 03/19/2025 [facility] FOR RECORDS PERTAINING TO PATIENTS WHO ARE [...] BE BASED ON THE PRIMARY CLINICAL RECORDS. [employer] provides no warranty or guarantee of the accuracy or completeness of information in this document.
[2025-04-28 10:55] LABS: FOLATES,SERUM (FOLIC ACID) 11.70 ng/mL (4.60-34.80)
[2025-04-28 11:01] LABS: Ferritin 364 ng/mL (37-417); Iron 94 ug/dL (65-175); Iron Binding Capacity,Unsat 145 ug/dL (228-428); Vitamin B12 1108 pg/mL (180-914)
[2025-04-28 11:05] LABS: Iron Binding Capacity,Total 239 ug/dL (250-450)
[2025-04-29 15:08] LABS: ANTINUCLEAR ANTIBODIES DIRECT Negative (Negative)
== END | disposition home or self-care (01) ==
LOC: MTLAB 08:04
PROVIDERS: PCP Family Medicine; Referring Provider Family Medicine; Visit Provider Family Medicine
DX: L50.8 Other urticaria (principal); R20.2 Paresthesia of skin
CPT/HCPCS: 36415; 82607; 82728; 82746; 82785; 83540; 83550; 84443; 86038

== ENCOUNTER → 2025-06-06 | Outpatient (CLI) | payer MEDICARE, SELFPAY ==
--- NOTE | 2025-06-06 07:21 | US_ITS ---
PROCEDURE: ABDOMEN LIMITED 06/06/2025 REASON FOR EXAM: TEST MEGHAN US LIVER AND BILIARY TREE FOR RUQ PAIN TECHNIQUE: Procedure Code: USABDL Modality: US Procedure: ABDOMEN LIMITED COMPARISON: None FINDINGS: Exam limited by overlying bowel gas Liver: Grossly normal size and echotexture. Liver measures 15.3 cm with hepatopetal flow noted in the portal vein Gallbladder: Surgically absent. Common bile duct: Not seen due to overlying bowel gas Pancreas: Obscured by bowel gas. Kidneys: The right kidney measures 10.6 x 4.9 x 6 cm. Cortical thickness measures 1.2 cm. No hydronephrosis, calculi or mass.. US/Abdomen Limited IMPRESSION: No suspicious sonographic findings, limited study due to overlying bowel gas Reading Location: [id number]
--- OUTSIDE RECORDS SUMMARY | 2025-06-06 07:21 | XMS RPT_ITS | CCD ---
Author Organization [facility] Care Team Providers Care Eyeglass Lens Grinder Name Role Phone Dr. Delfino Montgomery Primary Care Provider Dr. Delfino Montgomery Referring Provider Dr. Valentino Hernández Attending Provider [phone] Dr. Delfino Montgomery Primary Care Provider Dr. Delfino Montgomery Referring Provider Dr. Guilherme Pablo Attending Provider [phone] Dr. Say Carranza Attending Provider Dr. Delfino Montgomery MD Primary Care Provider Dr. Delfino Montgomery MD Attending Provider [phone] Dr. Delfino Montgomery MD Referring Provider Dr. [...] Dr. 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 Eugenio galvez MD Age/Sex: 74/M Location: [facility] Status: Signed with Addenda ADDENDUM by Alma [...] Performing Provider: Eugenio Padilla MD Performing Location: [facility] Administered by: Eugenio Padilla MD on 03/18/25 09:54 Dose Route Admin Location Dispensed Lot Number Expiration Date Package NDC NDC Fire Manager 80 mg intra-articular left subacromial 2 mL [id number] 06/09/26 60390-461-59 [id number] [facility] Date cc: * Signed Intake Vital [...] 2 diabetes mellitus Atherosclerotic heart disease of [place] coronary artery without angina pectoris Essential hypertension [...] by me, Dr. Eugenio Padilla MD 03/18/25 0831. Part of today???s visit was documented by [...] strength. Coding Level of Care Code Attention Finance Business Manager Diagnoses Left shoulder pain M25.512 Comment 61893 and CPT inject major joint Assessment and Plan Assessment and Plan ( (more content not included)... Normal [facility] Cardiology Visit Reporton Cardiology Visit Report [facility] [address] [place] [address]. [address] [place] [address] OFFICE VISIT Date of Service: 12/15/24 MR#: [id number] Acct: [id number] Name: BRANT BASILIO Rep #: [id number] : 1950 Provider: Dr. Lane salazar MD Age/Sex: 74/M Location[place] [facility] Status: Signed HPI HPI History of Present [...] air Intake Visit Reasons: 1 Y FU Experience Specialist Required: No Accompanied by: Self Is patient [...] 2 diabetes mellitus Atherosclerotic heart disease of [place] coronary artery without angina pectoris Essential hypertension [...] well groomed (more content not included)... Normal [facility] Absolute lymphocyte countOrd ered By: Delfino Montgomery on 10-20-2024 Lymphocytes Auto (Unsp spec) [#/Vol] 1.74 10*3/uL 0.83-4.51 [facility] Absolute neutrophil countOrd ered By: Delfino Montgomery on 10-20-2024 Neutrophils (Bld) [#/Vol] 2.7 10*3/uL 2.0-7.7 [facility] Anion gap in Serum or Plasma Ordered By: Delfino Montgomery on 10-20-2024 Anion gap [Moles/Vol] 10 mmol/L - [facility] Automated lymphocyte count a s percentage of total leukocytesOrdered By: Delfino Montgomery on 10-20-2024 Lymphocytes/100 WBC Auto (Unsp spec) 31.8 % - [facility] BUN/creatinine ratioOrdered By: Delfino Montgomery on 10-20-2024 Urea nitrogen/Creatinine [Mass ratio] 16.4 mg/mg 10- [facility] Basophil percentageOrdered B y: Delfino Montgomery on 10-20-2024 Basophils/100 WBC (Bld) 0.4 % 0-1 [facility] Bilirubin, totalOrdered By: Delfino Montgomery on 10-20-2024 Bilirubin [Mass/Vol] 0.49 mg/dL 0.00-1.30 [facility] CBC W/Diff, Automatedon 10-07 Absolute Lymph 1.74 X10 3/uL Normal 0.83-4.51 [facility] Comment on above: Order Comment: Order Date: 09/27/24 Order Info: 0184-1 - CBCD Performed By: #### L 500.4050, [id number], L100.0100 #### [facility] [address] [place], [address] Absolute Neut 2.7 X10 3/uL Normal 2.0-7.7 [facility] Comment on above: Order Comment: Order Date: 09/27/24 Order Info: 0184-1 - CBCD Performed By: #### L 500.4050, L501.9985, L100.0100 #### [facility] [address] [place], [address] Basophils/100 WBC (Bld) 0.4 % Normal 0-1 [facility] Comment on above: Order Comment: Order Date: 09/27/24 Order Info: 0184-1 - CBCD Performed By: #### L 500.4050, L501.9985, L100.0100 #### [facility] [address] [place], [address] Eosinophils/100 WBC (Bld) 6.6 % High 0-5 [facility] Comment on above: Order Comment: Order Date: 09/27/24 Order Info: 0184-1 - CBCD Performed By: #### L 500.4050, L501.9985, L100.0100 #### [facility] [address] [place], [address] Erythrocyte distribution width (RBC) [Ratio] 11.9 % Normal 11.6-14.6 [facility] Comment on above: Order Comment: Order Date: 09/27/24 Order Info: 018- - CBCD Performed By: #### L 500.4050, L501.9985, L100.0100 #### [facility] [address] [place], [address] Hematocrit (Bld) [Volume fraction] 46.2 % Normal 40-54 [facility] Comment on above: Order Comment: Order Date: 09/27/24 Order Info: 0184- - CBCD Performed By: #### L 500.4050, L501.9985, L100.0100 #### [facility] [address] [place], [address] Hemoglobin (Bld) [Mass/Vol] 15.8 g/dL Normal 13.0-16.5 [facility] Comment on above: Order Comment: Order Date: 09/27/24 Order Info: 0184-1 - CBCD Performed By: #### L 500.4050, L501.9985, L100.0100 #### [facility] [address] [place], [address] IG% 0.400 Normal 0.0-0.9 [facility] Comment on above: Order Comment: Order Date: 09/27/24 Order Info: 0184- - CBCD Result Comment: IG% - Immature Granulocytes (promyelocytes, myelocytes and metamyelocytes) > 1% indicates that a LEFT SHIFT is Present. Performed By: #### L 500.4050, L501.9985, L100.0100 #### [facility] [address] [place], [address] Lymphocytes/100 WBC (Bld) 31.8 % Normal 19-41 [facility] Comment on above: Order Comment: Order Date: 09/27/24 Order Info: 018- - CBCD Performed By: #### L 500.4050, L501.9985, L100.0100 #### [facility] [address] [place], [address] MCH (RBC) [Entitic mass] 34.4 pg High 27.0-32.0 [facility] Comment on above: Order Comment: Order Date: 09/27/24 Order Info: 018- - CBCD Performed By: #### L 500.4050, L501.9985, L100.0100 #### [facility] [address] [place], [address] MCHC (RBC) [Mass/Vol] 34.2 g/dL Normal 32-36 [facility] Comment on above: Order Comment: Order Date: 09/27/24 Order Info: 0184- - CBCD Performed By: #### L 500.4050, L501.9985, L100.0100 #### [facility] [address] [place], [address] MCV (RBC) [Entitic vol] 100.7 fL High 80-94 [facility] Comment on above: Order Comment: Order Date: 09/27/24 Order Info: 018- - CBCD Performed By: #### L 500.4050, L501.9985, L100.0100 #### [facility] [address] [place], [address] Monocytes/100 WBC (Bld) 12.4 % High 0-10 [facility] Comment on above: Order Comment: Order Date: 09/27/24 Order Info: 0184-1 - CBCD Performed By: #### L 500.4050, L501.9985, L100.0100 #### [facility] [address] [place], [address] Neutrophils/100 WBC (Bld) 48.4 % Normal 47-70 [facility] Comment on above: Order Comment: Order Date: 09/27/24 Order Info: 0184-1 - CBCD Performed By: #### L 500.4050, L501.9985, L100.0100 #### [facility] [address] [place], [address] Nucleated RBC (Bld) [#/Vol] 0 10*3/uL Normal 0-5 [facility] Comment on above: Order Comment: Order Date: 09/27/24 Order Info: 0184-1 - CBCD Performed By: #### L 500.4050, L501.9985, L100.0100 #### [facility] [address] [place], [address] Platelet mean volume (Bld) [Entitic vol] 9.8 fL Normal 6.2-12.0 [facility] Comment on above: Order Comment: Order Date: 09/27/24 Order Info: 0184-1 - CBCD Performed By: #### L 500.4050, L501.9985, L100.0100 #### [facility] [address] [place], [address] Platelets (Bld) [#/Vol] 215 10*3/uL Normal 150-450 [facility] Comment on above: Order Comment: Order Date: 09/27/24 Order Info: 0184-1 - CBCD Performed By: #### L 500.4050, L501.9985, L100.0100 #### [facility] [address] [place], [address] RBC (Bld) [#/Vol] 4.59 10*6/uL Low 4.6-6.2 [facility] Comment on above: Order Comment: Order Date: 09/27/24 Order Info: 0184-1 - CBCD Performed By: #### L 500.4050, L501.9985, L100.0100 #### [facility] [address] [place], [address] RDW SD 45.0 fl High 35.1-43.9 [facility] Comment on above: Order Comment: Order Date: 09/27/24 Order Info: 0184-1 - CBCD Performed By: #### L 500.4050, L501.9985, L100.0100 #### [facility] [address] [place], [address] WBC (Bld) [#/Vol] 5.5 10*3/uL Normal 4.4-11.0 [facility] Comment on above: Order Comment: Order Date: 09/27/24 Order Info: 0184-1 - CBCD Performed By: #### L 500.4050, L501.9985, L100.0100 #### [facility] [address] [place], [address] Carbon dioxide, total [Moles /volume] in Central venous bloodOrdered By: Delfino Montgomery on 10-20-2024 CO2 [Moles/Vol] 24.5 mmol/L 21.0-32.0 [facility] Chloride assayOrdered By: Marshall Montgomery on 10-20-2024 Chloride [Moles/Vol] 102 mmol/L 98-108 [facility] Comprehensive Metabolic Prof ilon 10-20-2024 Albumin [Mass/Vol] 4.3 g/dL Normal 3.4-4.8 [facility] Comment on above: Order Comment: Order Date: 03/21/24 Order Info: 0786-1 - CMP Order Info: 3040-3 - LIPASE Order Info: [id number] - CRP Performed By: #### L 501.5101, L501.6710, L500.4050, L501.2450, L100.0500 #### [facility] [address] [place], [address] Albumin/Globulin [Mass ratio] 1.8 {ratio} Normal 0.9-2.4 [facility] Comment on above: Order Comment: Order Date: 03/21/24 Order Info: 0786-1 - CMP Order Info: 3040-3 - LIPASE Order Info: [id number] - CRP Performed By: #### L 501.5101, L501.6710, L500.4050, L501.2450, L100.0500 #### [facility] [address] [place], [address] ALK PHOS 81 U/L Normal 40-129 [facility] Comment on above: Order Comment: Order Date: 03/21/24 Order Info: 0786-1 - CMP Order Info: 3040-3 - LIPASE Order Info: [id number] - CRP Performed By: #### L 501.5101, L501.6710, L500.4050, L501.2450, L100.0500 #### [facility] [address] [place], [address] ALT [Catalytic activity/Vol] 20 U/L Normal <=46 [facility] Comment on above: Order Comment: Order Date: 03/21/24 Order Info: 0786-1 - CMP Order Info: 3040-3 - LIPASE Order Info: [id number] - CRP Performed By: #### L 501.5101, L501.6710, L500.4050, L501.2450, L100.0500 #### [facility] [address] [place], [address] AST [Catalytic activity/Vol] 25 U/L Normal <=37 [facility] Comment on above: Order Comment: Order Date: 03/21/24 Order Info: 0786-1 - CMP Order Info: 3040-3 - LIPASE Order Info: [id number] - CRP Performed By: #### L 501.5101, L501.6710, L500.4050, L501.2450, L100.0500 #### [facility] [address] [place], [address] Bilirubin [Mass/Vol] 0.49 mg/dL Normal 0.00-1.30 [facility] Comment on above: Order Comment: Order Date: 03/21/24 Order Info: 0786-1 - CMP Order Info: 304-3 - LIPASE Order Info: [id number] - CRP Performed By: #### L 501.5101, L501.6710, L500.4050, L501.2450, L100.0500 #### [facility] [address] [place], [address] BUN/CRE 16.4 RATIO Normal 10-20 [facility] Comment on above: Order Comment: Order Date: 03/21/24 Order Info: 0786-1 - CMP Order Info: 3040-3 - LIPASE Order Info: [id number] - CRP Performed By: #### L 501.5101, L501.6710, L500.4050, L501.2450, L100.0500 #### [facility] [address] [place], [address] Calcium [Mass/Vol] 9.8 mg/dL Normal 7.6-11.0 [facility] Comment on above: Order Comment: Order Date: 03/21/24 Order Info: 0786-1 - CMP Order Info: 3040-3 - LIPASE Order Info: [id number] - CRP Performed By: #### L 501.5101, L501.6710, L500.4050, L501.2450, L100.0500 #### [facility] [address] [place], [address] Chloride [Moles/Vol] 102 mmol/L Normal 98-108 [facility] Comment on above: Order Comment: Order Date: 03/21/24 Order Info: 07-1 - CMP Order Info: 3040-3 - LIPASE Order Info: [id number] - CRP Performed By: #### L 501.5101, L501.6710, L500.4050, L501.2450, L100.0500 #### [facility] [address] [place], [address] CO2 [Moles/Vol] 24.5 mmol/L Normal 21.0-32.0 [facility] Comment on above: Order Comment: Order Date: 03/21/24 Order Info: 785-1 - CMP Order Info: 3040-3 - LIPASE Order Info: [id number] - CRP Performed By: #### L 501.5101, L501.6710, L500.4050, L501.2450, L100.0500 #### [facility] [address] [place], [address] Creatinine [Mass/Vol] 0.95 mg/dL Normal 0.70-1.20 [facility] Comment on above: Order Comment: Order Date: 03/21/24 Order Info: 071 - CMP Order Info: 3040-3 - LIPASE Order Info: [id number] - CRP Performed By: #### L 501.5101, L501.6710, L500.4050, L501.2450, L100.0500 #### [facility] [address] [place], [address] GAP 10 Normal 5-15 [facility] Comment on above: Order Comment: Order Date: 03/21/24 Order Info: 0786-1 - CMP Order Info: 3040-3 - LIPASE Order Info: [id number] - CRP Performed By: #### L 501.5101, L501.6710, L500.4050, L501.2450, L100.0500 #### [facility] [address] [place], [address] GFR/1.73 sq M.predicted among non-blacks MDRD (S/P/Bld) [Vol rate/Area] 84 mL/min/{1.73_m2} Normal >60 [facility] Comment on above: Order Comment: Order Date: 03/21/24 Order Info: 0786-1 - CMP Order Info: 3040-3 - LIPASE Order Info: [id number] - CRP Result Comment: mL/m in/1.73m2 CKD-EPI Creatinine Equation (2020) Performed By: #### L 501.5101, L501.6710, L500.4050, L501.2450, L100.0500 #### [facility] [address] [place], [address] Globulin (S) [Mass/Vol] 2.4 g/dL Normal 2.2-4.2 [facility] Comment on above: Order Comment: Order Date: 03/21/24 Order Info: 07-1 - CMP Order Info: 3040-3 - LIPASE Order Info: [id number] - CRP Performed By: #### L 501.5101, L501.6710, L500.4050, L501.2450, L100.0500 #### [facility] [address] [place], [address] Glucose [Mass/Vol] 136 mg/dL High 70-99 [facility] Comment on above: Order Comment: Order Date: 03/21/24 Order Info: 0786-1 - CMP Order Info: 3040-3 - LIPASE Order Info: [id number] - CRP Performed By: #### L 501.5101, L501.6710, L500.4050, L501.2450, L100.0500 #### [facility] [address] [place], [address] Potassium [Moles/Vol] 3.7 mmol/L Normal 3.3-5.1 [facility] Comment on above: Order Comment: Order Date: 03/21/24 Order Info: 0786-1 - CMP Order Info: 3040-3 - LIPASE Order Info: [id number] - CRP Performed By: #### L 501.5101, L501.6710, L500.4050, L501.2450, L100.0500 #### [facility] [address] [place], [address] Sodium [Moles/Vol] 137 mmol/L Normal 133-145 [facility] Comment on above: Order Comment: Order Date: 03/21/24 Order Info: 0786-1 - CMP Order Info: 3040-3 - LIPASE Order Info: [id number] - CRP Performed By: #### L 501.5101, L501.6710, L500.4050, L501.2450, L100.0500 #### [facility] [address] [place], [address] T PROT 6.7 g/dL Normal 5.9-8.4 [facility] Comment on above: Order Comment: Order Date: 03/21/24 Order Info: 0786-1 - CMP Order Info: 3040-3 - LIPASE Order Info: [id number] - CRP Performed By: #### L 501.5101, L501.6710, L500.4050, L501.2450, L100.0500 #### [facility] [address] [place], [address] Urea nitrogen [Mass/Vol] 16 mg/dL Normal 4-19 [facility] Comment on above: Order Comment: Order Date: 03/21/24 Order Info: 0786-1 - CMP Order Info: 3040-3 - LIPASE Order Info: [id number] - CRP Performed By: #### L 501.5101, L501.6710, L500.4050, L501.2450, L100.0500 #### [facility] [address] [place], [address] Eosinophil percentageOrdered By: Delfino Montgomery on 10-20-2024 Eosinophils/100 WBC (Bld) 6.6 % High 0-5 [facility] Erythrocyte distribution wid th ratioOrdered By: Delfino Montgomery on 10-20-2024 Erythrocyte distribution width (RBC) [Ratio] 11.9 % 11.6-14.6 [facility] Erythrocyte distribution wid th standard deviationOrdered By: Delfino Montgomery on 10-20-2024 Erythrocyte distribution width (RBC) [Ratio] 45.0 fl High 35.1-43.9 [facility] Glomerular filtration rate ( GFR) estimation/1.73 sq m using serum, plasma, or whole bOrdered By: Delfino Montgomery on 10-20-2024 GFR/1.73 sq M.predicted among non-blacks MDRD (S/P/Bld) [Vol rate/Area] 84 mL/min/{1.73_m2} >60 [facility] Comment on above: mL/min/1.73m2 CKD-EP I Creatinine Equation (2020) Hematocrit Auto (Bld) [Volum e fraction]Ordered By: Delfino Montgomery on 10-20-2024 Hematocrit (Bld) [Volume fraction] 46.2 % 40-54 [facility] Hemoglobin A1con 10-20-2024 HbA1c (Bld) [Mass fraction] 6.3 % High <=5.6 [facility] Comment on above: Order Comment: Order Date: 09/27/24 Order Info: [id number] - A1C Result Comment: Norm al < 5.7 % Prediabetic 5.7 - 6.4 % Diabetic >or= 6.5 % Please note range changes. Performed By: #### L 500.4050, L501.9985, L100.0100 #### [facility] [address] [place] [address]. [place], [address] Hemoglobin A1c percentageOrd ered By: Delfino Montgomery on 10-20-2024 HbA1c (Bld) [Mass fraction] 6.3 % High <5.7 [facility] Comment on above: Normal < 5.7 % Predi abetic 5.7 - 6.4 % Diabetic >or= 6.5 % Please note range changes. Hemoglobin measurementOrdere d By: Delfino Montgomery on 10-20-2024 Hemoglobin (Bld) [Mass/Vol] 15.8 g/dL 13.0-16.5 [facility] Immature granulocytes/100 WB C Auto (Bld)Ordered By: Delfino Montgomery on 10-20-2024 Immature granulocytes/100 WBC (Bld) 0.400 % 0.0-0.9 [facility] Comment on above: IG% - Immature Granu locytes (promyelocytes, myelocytes and metamyelocytes) > 1% indicates that a LEFT SHIFT is Present. Laboratory - Chemistry and C hemistry - challengeOrdered By: Delfino Montgomery on 10-20-2024 AST [Catalytic activity/Vol] 25 U/L <38 [facility] MCV (mean corpuscular volume ) determinationOrdered By: Delfino Montgomery on 10-20-2024 MCV (RBC) [Entitic vol] 100.7 fL High 80-94 [facility] Mean corpuscular hemoglobin (MCH) determinationOrdered By: Delfino Montgomery on 10-20-2024 MCH (RBC) [Entitic mass] 34.4 pg High 27.0-32.0 [facility] Mean corpuscular hemoglobin concentration (MCHC) determinationOrdered By: Delfino Montgomery on 10-20-2024 MCHC (RBC) [Mass/Vol] 34.2 g/dL 32-36 [facility] Mean platelet volume determi nationOrdered By: Delfino Montgomery on 10-20-2024 Platelet mean volume (Bld) [Entitic vol] 9.8 fL 6.2-12.0 [facility] Microalb:Creat Ratio,Random URon 10-20-2024 Creatinine [Mass/Vol] 130.00 mg/dL Normal 39.00-259.00 [facility] Comment on above: Order Comment: Order Date: 03/21/24 Order Info: 0786-1 - CMP Order Info: 3040-3 - LIPASE Order Info: [id number] - CRP Performed By: #### L 501.5101, L501.6710, L500.4050, L501.2450, L100.0500 #### [facility] [address] [place], [place], [address] MALB:CREAT UNABLE TO CALCULATE Normal [facility] Comment on above: Order Comment: Order Date: 03/21/24 Order Info: 0786-1 - CMP Order Info: 3040-3 - LIPASE Order Info: [id number] - CRP Performed By: #### L 501.5101, L501.6710, L500.4050, L501.2450, L100.0500 #### [facility] [address] [place], [address] MICROALBUMIN,UR < 12.0 Normal NO RANGE EST. [facility] Comment on above: Order Comment: Order Date: 03/21/24 Order Info: 0786-1 - CMP Order Info: 3040-3 - LIPASE Order Info: [id number] - CRP Performed By: #### L 501.5101, L501.6710, L500.4050, L501.2450, L100.0500 #### [facility] [address] [place], [address] Microalbumin/creat ratio urO rdered By: Delfino Montgomery on 10-20-2024 Urine microalbumin/creatinine ratio measurement UNABLE TO CALCULATE mg/g CRE [facility] Monocyte percentageOrdered B y: Delfino Montgomery on 10-20-2024 Monocytes/100 WBC (Bld) 12.4 % High 0-10 [facility] Neutrophil percentageOrdered By: Delfino Montgomery on 10-20-2024 Neutrophils/100 WBC (Bld) 48.4 % 47-70 [facility] Nucleated red blood cell per centageOrdered By: Delfino Montgomery on 10-20-2024 Nucleated RBC/100 WBC (Bld) [Ratio] 0 % 0-5 [facility] Platelet countOrdered By: Marshall Montgomery on 10-20-2024 Platelets (Bld) [#/Vol] 215 10*3/uL 150-450 [facility] Potassium measurement (mass/ volume)Ordered By: Delfino Montgomery on 10-20-2024 Potassium (Unsp spec) [Mass/Vol] 3.7 mmol/L 3.3-5.1 [facility] RBC Auto (Bld) [#/Vol]Ordere d By: Delfino Montgomery on 10-20-2024 RBC (Bld) [#/Vol] 4.59 10*6/uL Low 4.6-6.2 [facility] Random urine creatinine kenneth urement (mass/volume)Ordered By: Delfino Montgomery on 10-20-2024 Creatinine Unsp time (U) [Mass/Vol] 130.00 mg/dL 39.00-259.00 [facility] Serum creatinine measurement (mass/volume)Ordered By: Delfino Montgomery on 10-20-2024 Creatinine [Mass/Vol] 0.95 mg/dL 0.70-1.20 [facility] Serum globulin measurementOr dered By: Delfino Montgomery on 10-20-2024 Globulin (S) [Mass/Vol] 2.4 g/dL 2.2-4.2 [facility] Serum glucose measurement (m ass/volume)Ordered By: Delfino Montgomery on 10-20-2024 Glucose [Mass/Vol] 136 mg/dL High 70-99 [facility] Serum or plasma alanine albert otransferase (ALT) measurementOrdered By: Delfino Montgomery on 10-20-2024 ALT [Catalytic activity/Vol] 20 U/L <47 [facility] Serum or plasma albumin kenneth urement (mass/volume)Ordered By: Delfino Montgomery on 10-20-2024 Albumin [Mass/Vol] 4.3 g/dL 3.4-4.8 [facility] Serum or plasma albumin/glob ulin mass ratioOrdered By: Delfino Montgomery on 10-20-2024 Albumin/Globulin [Mass ratio] 1.8 {ratio} 0.9-2.4 [facility] Serum or plasma alkaline kennedy sphatase measurementOrdered By: Delfino Montgomery on 10-20-2024 ALP [Catalytic activity/Vol] 81 U/L 40-129 [facility] Serum or plasma calcium kenneth urement (mass/volume)Ordered By: Delfino Montgomery on 10-20-2024 Calcium [Mass/Vol] 9.8 mg/dL 7.6-11.0 [facility] Serum or plasma urea nitroge n measurement (mass/volume)Ordered By: Delfino Montgomery on 10-20-2024 Urea nitrogen [Mass/Vol] 16 mg/dL 4-19 [facility] Sodium levelOrdered By: Delfino Montgomery on 10-20-2024 Sodium [Moles/Vol] 137 mmol/L 133-145 [facility] Total proteinOrdered By: Debra Montgomery on 10-20-2024 Protein [Mass/Vol] 6.7 g/dL 5.9-8.4 [facility] Urine albumin measurement wi detection limit of 20 mg/L or less (mass/volume)Ordered By: Delfino Montgomery on 10-20-2024 Albumin DL <= 20 mg/L (U) [Mass/Vol] < 12.0 mg/L NO RANGE EST. [facility] White blood cell (WBC) count Ordered By: Delfino Montgomery on 10-20-2024 WBC (Bld) [#/Vol] 5.5 10*3/uL 4.4-11.0 [facility] Abdomen WITH IV Contraston 1 08-02-2023 Abdomen WITH IV Contrast [facility] Imaging Services [address] [place] [address] Abdomen WITH IV Contrast MR#: [id number] Acct: [id number] Name: BRANT BASILIO Rep #: [id number] : 1950 M 73 From: Cristofer Faustin MD PCP: Dr. Delfino Montgomery MD Status: [facility] Study: Abdomen WITH IV Contrast Date of Exam: 4 Exam# [id number] Ordering Dr: Delfino Montgomery MD [id number] STUDY: CT ABDOMEN WITH CONTRAST REASON FOR [...] EST , CC: Dr. Delfino Montgomery MD Buckle And Button Maker: Signed Normal [facility] L501.5101on 05-04-2024 GGTP 33 IU/L Normal 0-65 [facility] Comment on above: Order Comment: Order Date: 03/21/24 Order Info: [id number] - GGTP Result Comment: Perf ormed at: CB - [facility] [address] [id number] [employer] Trimming Machine Operator: Sathya Rubin PhD, Phone: [phone] Performed By: #### L 501.5101, L501.6710, L500.4050, L501.2450, L100.0500 #### [facility] [address] [place], [address] CBC-Complete Blood Cnt No Di ffon 05-03-2024 Erythrocyte distribution width (RBC) [Ratio] 12.0 % Normal 11.6-14.6 [facility] Comment on above: Order Comment: Order Date: 03/21/24 Order Info: [id number] - CBC Performed By: #### L 501.5101, L501.6710, L500.4050, L501.2450, L100.0500 #### [facility] [address] [place], [address] Hematocrit (Bld) [Volume fraction] 46.3 % Normal 40-54 [facility] Comment on above: Order Comment: Order Date: 03/21/24 Order Info: [id number] - CBC Performed By: #### L 501.5101, L501.6710, L500.4050, L501.2450, L100.0500 #### [facility] [address] [place], [address] Hemoglobin (Bld) [Mass/Vol] 15.6 g/dL Normal 13.0-16.5 [facility] Comment on above: Order Comment: Order Date: 03/21/24 Order Info: [id number] - CBC Performed By: #### L 501.5101, L501.6710, L500.4050, L501.2450, L100.0500 #### [facility] [address] [place], [address] MCH (RBC) [Entitic mass] 33.5 pg High 27.0-32.0 [facility] Comment on above: Order Comment: Order Date: 03/21/24 Order Info: [id number] - CBC Performed By: #### L 501.5101, L501.6710, L500.4050, L501.2450, L100.0500 #### [facility] [address] [place], [address] MCHC (RBC) [Mass/Vol] 33.7 g/dL Normal 32-36 [facility] Comment on above: Order Comment: Order Date: 03/21/24 Order Info: [id number] - CBC Performed By: #### L 501.5101, L501.6710, L500.4050, L501.2450, L100.0500 #### [facility] [address] [place], [address] MCV (RBC) [Entitic vol] 99.6 fL High 80-94 [facility] Comment on above: Order Comment: Order Date: 03/21/24 Order Info: [id number] - CBC Performed By: #### L 501.5101, L501.6710, L500.4050, L501.2450, L100.0500 #### [facility] [address] [place], [address] Platelet mean volume (Bld) [Entitic vol] 10.0 fL Normal 6.2-12.0 [facility] Comment on above: Order Comment: Order Date: 03/21/24 Order Info: [id number] - CBC Performed By: #### L 501.5101, L501.6710, L500.4050, L501.2450, L100.0500 #### [facility] [address] [place], [address] Platelets (Bld) [#/Vol] 241 10*3/uL Normal 150-450 [facility] Comment on above: Order Comment: Order Date: 03/21/24 Order Info: [id number] - CBC Performed By: #### L 501.5101, L501.6710, L500.4050, L501.2450, L100.0500 #### [facility] [address] [place], [address] RBC (Bld) [#/Vol] 4.65 10*6/uL Normal 4.6-6.2 [facility] Comment on above: Order Comment: Order Date: 03/21/24 Order Info: [id number] - CBC Performed By: #### L 501.5101, L501.6710, L500.4050, L501.2450, L100.0500 #### [facility] [address] [place], [address] RDW SD 43.8 fl Normal 35.1-43.9 [facility] Comment on above: Order Comment: Order Date: 03/21/24 Order Info: [id number] - CBC Performed By: #### L 501.5101, L501.6710, L500.4050, L501.2450, L100.0500 #### [facility] [address] [place], [address] WBC (Bld) [#/Vol] 7.5 10*3/uL Normal 4.4-11.0 [facility] Comment on above: Order Comment: Order Date: 03/21/24 Order Info: [id number] - CBC Performed By: #### L 501.5101, L501.6710, L500.4050, L501.2450, L100.0500 #### [facility] [address] [place], [address] CRPon 05-03-2024 C-REACTIVE PROT < 2.90 Normal 0.0-3.0 [facility] Comment on above: Order Comment: Order Date: 03/21/24 Order Info: [id number] - CMP Order Info: 3040-3 - LIPASE Order Info: [id number] - CRP Result Comment: C-Re active Protein (CRP) provides useful information for the diagnosis, therapy and monitoring of inflammatory processes and associated diseases. For the evaluation of Relative Risk for Cardiovascular Disease, a High Sensitivity CRP (HSCRP) should be ordered. Performed By: #### L 501.5101, L501.6710, L500.4050, L501.2450, L100.0500 #### [facility] [address] [place], [address] Comprehensive Metabolic Prof ilon 05-03-2024 Albumin [Mass/Vol] 4.1 g/dL Normal 3.2-5.0 [facility] Comment on above: Order Comment: Order Date: 03/21/24 Order Info: [id number] - CMP Order Info: 3040-3 - LIPASE Order Info: [id number] - CRP Performed By: #### L 501.5101, L501.6710, L500.4050, L501.2450, L100.0500 #### [facility] [address] [place], [address] Albumin/Globulin [Mass ratio] 1.3 {ratio} Normal 0.9-2.4 [facility] Comment on above: Order Comment: Order Date: 03/21/24 Order Info: [id number] - CMP Order Info: 3040-3 - LIPASE Order Info: [id number] - CRP Performed By: #### L 501.5101, L501.6710, L500.4050, L501.2450, L100.0500 #### [facility] [address] [place], [address] ALK P 74 U/L Normal 45-117 [facility] Comment on above: Order Comment: Order Date: 03/21/24 Order Info: 07-1 - CMP Order Info: 3040-3 - LIPASE Order Info: [id number] - CRP Performed By: #### L 501.5101, L501.6710, L500.4050, L501.2450, L100.0500 #### [facility] [address] [place], [address] ALT [Catalytic activity/Vol] 28 U/L Normal 16-61 [facility] Comment on above: Order Comment: Order Date: 03/21/24 Order Info: [id number] - CMP Order Info: 3040-3 - LIPASE Order Info: [id number] - CRP Performed By: #### L 501.5101, L501.6710, L500.4050, L501.2450, L100.0500 #### [facility] [address] [place], [address] AST [Catalytic activity/Vol] 23 U/L Normal 15-37 [facility] Comment on above: Order Comment: Order Date: 03/21/24 Order Info: [id number] - CMP Order Info: 3040-3 - LIPASE Order Info: [id number] - CRP Performed By: #### L 501.5101, L501.6710, L500.4050, L501.2450, L100.0500 #### [facility] [address] [place], [address] Bilirubin [Mass/Vol] 0.80 mg/dL Normal 0.20-1.00 [facility] Comment on above: Order Comment: Order Date: 03/21/24 Order Info: [id number] - CMP Order Info: 3040-3 - LIPASE Order Info: [id number] - CRP Result Comment: For patients on eltrombopag therapy, use of Dimension Aurora TBIL is not recommended. Performed By: #### L 501.5101, L501.6710, L500.4050, L501.2450, L100.0500 #### [facility] [address] [place], [address] BUN/CRE 18.8 RATIO Normal 10-20 [facility] Comment on above: Order Comment: Order Date: 03/21/24 Order Info: [id number] - CMP Order Info: 3040-3 - LIPASE Order Info: [id number] - CRP Performed By: #### L 501.5101, L501.6710, L500.4050, L501.2450, L100.0500 #### [facility] [address] [place], [address] CA,Total 9.4 mg/dL Normal 8.5-10.1 [facility] Comment on above: Order Comment: Order Date: 03/21/24 Order Info: [id number] - CMP Order Info: 3040-3 - LIPASE Order Info: [id number] - CRP Performed By: #### L 501.5101, L501.6710, L500.4050, L501.2450, L100.0500 #### [facility] [address] [place], [address] Chloride [Moles/Vol] 104 mmol/L Normal 98-107 [facility] Comment on above: Order Comment: Order Date: 03/21/24 Order Info: [id number] - CMP Order Info: 3040-3 - LIPASE Order Info: [id number] - CRP Performed By: #### L 501.5101, L501.6710, L500.4050, L501.2450, L100.0500 #### [facility] [address] [place], [address] CO2 [Moles/Vol] 26.0 mmol/L Normal 21.0-32.0 [facility] Comment on above: Order Comment: Order Date: 03/21/24 Order Info: 1 - CMP Order Info: 3 - LIPASE Order Info: - CRP Performed By: #### L 501.5101, L501.6710, L500.4050, L501.2450, L100.0500 #### [facility] [address] [place], [address] Creatinine [Mass/Vol] 1.17 mg/dL Normal 0.70-1.30 [facility] Comment on above: Order Comment: Order Date: 03/21/24 Order Info: [id number] - CMP Order Info: 3 - LIPASE Order Info: - CRP Result Comment: The validity of the calculated GFR GFRAA in patients over 70 years has not been determined. Clinical correlation is essential. Performed By: #### L 501.5101, L501.6710, L500.4050, L501.2450, L100.0500 #### [facility] [address] [place], [address] EST GFR - AA 79 mL/min Normal >60 [facility] Comment on above: Order Comment: Order Date: 03/21/24 Order Info: [id number] - CMP Order Info: 3040-3 - LIPASE Order Info: [id number] - CRP Result Comment: Afri can Tristanian GFR Calc Performed By: #### L 501.5101, L501.6710, L500.4050, L501.2450, L100.0500 #### [facility] [address] [place], [address] GAP 7 Normal 5-15 [facility] Comment on above: Order Comment: Order Date: 03/21/24 Order Info: 86-1 - CMP Order Info: 3040-3 - LIPASE Order Info: [id number] - CRP Performed By: #### L 501.5101, L501.6710, L500.4050, L501.2450, L100.0500 #### [facility] [address] [place], [address] GFR/1.73 sq M.predicted among non-blacks MDRD (S/P/Bld) [Vol rate/Area] 65 mL/min/{1.73_m2} Normal >60 [facility] Comment on above: Order Comment: Order Date: 03/21/24 Order Info: 785-1 - CMP Order Info: 3040-3 - LIPASE Order Info: [id number] - CRP Result Comment: Non- GFR Calc Performed By: #### L 501.5101, L501.6710, L500.4050, L501.2450, L100.0500 #### [facility] [address] [place], [address] Globulin (S) [Mass/Vol] 3.1 g/dL Normal 2.2-4.2 [facility] Comment on above: Order Comment: Order Date: 03/21/24 Order Info: 785-1 - CMP Order Info: 3040-3 - LIPASE Order Info: [id number] - CRP Performed By: #### L 501.5101, L501.6710, L500.4050, L501.2450, L100.0500 #### [facility] [address] [place], [address] Glucose [Mass/Vol] 139 mg/dL High 74-106 [facility] Comment on above: Order Comment: Order Date: 03/21/24 Order Info: [id number] - CMP Order Info: 3040-3 - LIPASE Order Info: [id number] - CRP Result Comment: Fast ing Glucose result greater than or equal to 126 mg/dL suggests DIABETES MELLITUS per A.D.A. criteria. Performed By: #### L 501.5101, L501.6710, L500.4050, L501.2450, L100.0500 #### [facility] [address] [place], [address] Potassium [Moles/Vol] 4.0 mmol/L Normal 3.5-5.1 [facility] Comment on above: Order Comment: Order Date: 03/21/24 Order Info: [id number] - CMP Order Info: 3040-3 - LIPASE Order Info: [id number] - CRP Performed By: #### L 501.5101, L501.6710, L500.4050, L501.2450, L100.0500 #### [facility] [address] [place], [address] Sodium [Moles/Vol] 137 mmol/L Normal 136-145 [facility] Comment on above: Order Comment: Order Date: 03/21/24 Order Info: [id number] - CMP Order Info: 3040-3 - LIPASE Order Info: [id number] - CRP Performed By: #### L 501.5101, L501.6710, L500.4050, L501.2450, L100.0500 #### [facility] [address] [place], [address] T PROT 7.2 g/dL Normal 6.4-8.2 [facility] Comment on above: Order Comment: Order Date: 03/21/24 Order Info: 0786-1 - CMP Order Info: 3040-3 - LIPASE Order Info: [id number] - CRP Performed By: #### L 501.5101, L501.6710, L500.4050, L501.2450, L100.0500 #### [facility] [address] [place], [address] Urea nitrogen [Mass/Vol] 22 mg/dL High 7-18 [facility] Comment on above: Order Comment: Order Date: 03/21/24 Order Info: [id number] - CMP Order Info: 3040-3 - LIPASE Order Info: [id number] - CRP Performed By: #### L 501.5101, L501.6710, L500.4050, L501.2450, L100.0500 #### [facility] [address] [place], [address] Lipaseon 05-03-2024 Lipase [Catalytic activity/Vol] 43 U/L Normal 13-75 [facility] Comment on above: Order Comment: Order Date: 03/21/24 Order Info: [id number] - CMP Order Info: 3040-3 - LIPASE Order Info: [id number] - CRP Result Comment: Vitaliy dick note: LIPASE revised reference range effective 22. New Lipase methodology. Expected to produce lower values than the previous assay method. NEW Reference Range: 13 - 75 U/L Performed By: #### L 501.5101, L501.6710, L500.4050, L501.2450, L100.0500 #### [facility] [address] [place], [address] Basophil percentageOrdered B y: Delfino Montgomery on 10-11-2023 Bilirubin [Mass/Vol] 0.60 mg/dL 0.20-1.00 [facility] Comment on above: For patients on eltr ombopag therapy, use of Dimension Aurora TBIL is not recommended. Chloride [Moles/Vol] 105 mmol/L 98-107 [facility] Glucose [Mass/Vol] 139 mg/dL 74-106 [facility] Comment on above: Fasting Glucose resu lt greater than or equal to 126 mg/dL suggests DIABETES MELLITUS per A.D.A. criteria. Potassium [Moles/Vol] 4.1 mmol/L 3.5-5.1 [facility] Protein [Mass/Vol] 6.8 g/dL 6.4-8.2 [facility] Sodium [Moles/Vol] 138 mmol/L 136-145 [facility] Laboratory - Chemistry and C hemistry - challengeOrdered By: Delfino Montgomery on 10-11-2023 Albumin/Globulin [Mass ratio] 1.3 {ratio} 0.9-2.4 [facility] ALP [Catalytic activity/Vol] 59 U/L 45-117 [facility] ALT [Catalytic activity/Vol] 28 U/L 16-61 [facility] CO2 [Moles/Vol] 28.0 mmol/L 21.0-32.0 [facility] Globulin (S) [Mass/Vol] 3.0 g/dL 2.2-4.2 [facility] Urea nitrogen/Creatinine [Mass ratio] 21.9 mg/mg 10-20 [facility] No Panel InformationOrdered By: Delfino Montgomery on 10-11-2023 Estimated GFR (MDRD) Amer 89 mL/min >60 [facility] Comment on above: GFR Calc Estimated GFR (MDRD) Non-Af Amer 74 mL/min >60 [facility] Comment on above: Non- GFR Calc Serum or plasma calcium kenneth urement (mass/volume)Ordered By: Delfino Montgomery on 10-11-2023 Calcium [Mass/Vol] 9.4 mg/dL 8.5-10.1 [facility] Serum or plasma creatinine m easurement (mass/volume)Ordered By: Delfino Montgomery on 10-11-2023 Creatinine [Mass/Vol] 1.05 mg/dL 0.70-1.30 [facility] Comment on above: The validity of the calculated GFR & GFRAA in patients over 70 years has not been determined. Clinical correlation is essential. Serum or plasma urea nitroge n measurement (mass/volume)Ordered By: Delfino Montgomery on 10-11-2023 Urea nitrogen [Mass/Vol] 23 mg/dL 7-18 [facility] Thin prep Papanicolaou smear with manual screeningOrdered By: Delfino Montgomery on 10-11-2023 Thin prep Papanicolaou smear with manual screening 3.8 g/dL 3.2-5.0 [facility] Thin prep Papanicolaou smear with manual screening 25 U/L 15-37 [facility] Thin prep Papanicolaou smear with manual screening 5 5-15 [facility] Whole blood hemoglobin A1c/t otal hemoglobin ratio (mass fraction)Ordered By: Delfino Montgomery on 10-11-2023 HbA1c (Bld) [Mass fraction] 6.1 % 3.8-5.6 [facility] Comment on above: Normal < 5.7 % Predi abetic 5.7 - 6.4 % Diabetic >or= 6.5 % Please note range changes. Absolute lymphocyte countOrd ered By: Delfino Montgomery on 05-28-2023 Lymphocytes Auto (Unsp spec) [#/Vol] 1.59 10*3/uL 0.83-4.51 [facility] Basophil percentageOrdered B y: Delfino Montgomery on 05-28-2023 Basophils/100 WBC (Bld) 0.3 % 0-1 [facility] Bilirubin [Mass/Vol] 0.50 mg/dL 0.20-1.00 [facility] Comment on above: For patients on eltr ombopag therapy, use of Dimension Aurora TBIL is not recommended. Chloride [Moles/Vol] 106 mmol/L 98-107 [facility] Cholesterol [Mass/Vol] 146 mg/dL <200 [facility] Comment on above: <200 mg/dL Desirable 200-240 mg/dL Borderline >240 mg/dL High Risk Eosinophils/100 WBC (Bld) 4.1 % 0-5 [facility] Glucose [Mass/Vol] 139 mg/dL 74-106 [facility] Comment on above: Fasting Glucose resu lt greater than or equal to 126 mg/dL suggests DIABETES MELLITUS per A.D.A. criteria. Neutrophils (Bld) [#/Vol] 4.2 10*3/uL 2.0-7.7 [facility] Neutrophils/100 WBC (Bld) 60.6 % 47-70 [facility] Potassium [Moles/Vol] 4.3 mmol/L 3.5-5.1 [facility] Protein [Mass/Vol] 6.9 g/dL 6.4-8.2 [facility] Sodium [Moles/Vol] 139 mmol/L 136-145 [facility] Testosterone [Mass/Vol] 453.02 ng/dL [facility] Comment on above: CENTRAL 90% REFERENC E RANGES MALE AGE <50 197.44 - 669.58 ng/dL MALE AGE > or = 50 187.72 - 684.19 ng/dL FEMALE AGE <50 8.38 - 35.01 ng/dL FEMALE AGE > or = 50 <7.00 - 35.92 ng/dL Effective as of 01/02/21 Triglyceride [Mass/Vol] 140 mg/dL <199 [facility] Comment on above: The drugs N-Acetylcy steine and Metamizole may falsely depress this assay.Serum Triglycerides Reference Interval Normal <150 mg/dL Borderline high 150 - 199 mg/dL High 200 - 499 mg/dL Very High > or = 500 mg/dL WBC (Bld) [#/Vol] 6.9 10*3/uL 4.4-11.0 [facility] Blood erythrocytes count (nu mber/volume)Ordered By: Delfino Montgomery on 05-28-2023 RBC (Bld) [#/Vol] 4.47 10*6/uL 4.6-6.2 [facility] Blood hemoglobin measurement (mass/volume)Ordered By: Delfino Montgomery on 05-28-2023 Hemoglobin (Bld) [Mass/Vol] 14.9 g/dL 13.0-16.5 [facility] Blood lymphocytes/100 leukoc ytesOrdered By: Delfino Montgomery on 05-28-2023 Lymphocytes/100 WBC (Bld) 23.0 % 19-41 [facility] Blood monocytes/100 leukocyt esOrdered By: Delfino Montgomery on 05-28-2023 Monocytes/100 WBC (Bld) 11.4 % 0-10 [facility] Blood platelet mean volumeOr dered By: Delfino Montgomery on 05-28-2023 Platelet mean volume (Bld) [Entitic vol] 9.9 fL 6.2-12.0 [facility] Determination of erythrocyte mean corpuscular volume (MCV)Ordered By: Delfino Montgomery on 05-28-2023 MCV (RBC) [Entitic vol] 100.2 fL 80-94 [facility] Hematocrit Auto (Bld) [Volum e fraction]Ordered By: Delfino Montgomery on 05-28-2023 Hematocrit (Bld) [Volume fraction] 44.8 % 40-54 [facility] - Chemistry and C hemistry - challengeOrdered By: Delfino Montgomery on 05-28-2023 ALP [Catalytic activity/Vol] 58 U/L 45-117 [facility] ALT [Catalytic activity/Vol] 27 U/L 16-61 [facility] CO2 [Moles/Vol] 21.0 mmol/L 21.0-32.0 [facility] Globulin (S) [Mass/Vol] 3.0 g/dL 2.2-4.2 [facility] Urea nitrogen/Creatinine [Mass ratio] 20.9 mg/mg 10-20 [facility] - Hematology and Cell countsOrdered By: Delfino Montgomery on 05-28-2023 Erythrocyte distribution width (RBC) [Entitic vol] 45.1 fL 35.1-43.9 [facility] Erythrocyte distribution width (RBC) [Ratio] 12.1 % 11.6-14.6 [facility] Immature granulocytes/100 WBC (Bld) 0.600 % 0.0-0.9 [facility] Comment on above: IG% - Immature Granu locytes (promyelocytes, myelocytes and metamyelocytes) > 1% indicates that a LEFT SHIFT is Present. MCH (RBC) [Entitic mass] 33.3 pg 27.0-32.0 [facility] Nucleated RBC/100 WBC (Bld) [Ratio] 0 % 0-5 [facility] MCHC Auto (RBC) [Mass/Vol]Or dered By: Delfino Montgomery on 05-28-2023 MCHC (RBC) [Mass/Vol] 33.3 g/dL 32-36 [facility] No Panel InformationOrdered By: Delfino Montgomery on 05-28-2023 Urine Microalbumin/Creatinine Ratio TNP [facility] Comment on above: Test not performed Estimated GFR (MDRD) Amer 80 mL/min >60 [facility] Comment on above: GFR Calc Estimated GFR (MDRD) Non-Af Amer 66 mL/min >60 [facility] Comment on above: Non- GFR Calc Prostate Specific Antigen Screen 0.72 ng/mL 0.00-4.00 [facility] Comment on above: This test was perfor med using the TPSA assay method for the[facility] [employer] chemistry system. Values obtained with differentassay methods cannot be used interchangably.When changing PSA assays in the course of monitoring apatient, additional sequential testing should be carriedout to confirm baseline values. Platelets bldOrdered By: Debra Montgomery on 05-28-2023 Platelets (Bld) [#/Vol] 239 10*3/uL 150-450 [facility] Serum or plasma albumin kenneth urement (mass/volume)Ordered By: Delfino Montgomery on 05-28-2023 Albumin [Mass/Vol] 3.9 g/dL 3.2-5.0 [facility] Serum or plasma albumin/glob ulin mass ratioOrdered By: Delfino Montgomery on 05-28-2023 Albumin/Globulin [Mass ratio] 1.3 {ratio} 0.9-2.4 [facility] Serum or plasma calcium kenneth urement (mass/volume)Ordered By: Delfino Montgomery on 05-28-2023 Calcium [Mass/Vol] 9.2 mg/dL 8.5-10.1 [facility] Serum or plasma cholesterol in HDL measurement (mass/volume)Ordered By: Delfino Montgomery on 05-28-2023 Cholesterol in HDL [Mass/Vol] 63 mg/dL >40 [facility] Comment on above: The drugs N-Acetylcy steine and Metamizole may falsely depress this assay. Reference Range HDL <40 mg/dL Low HDL Cholesterol HDL >or= 60 mg/dL High HDL Cholesterol Serum or plasma cholesterol in VLDL measurement (mass/volume)Ordered By: Delfino Montgomery on 05-28-2023 Cholesterol in VLDL [Mass/Vol] 28 mg/dL 5-40 [facility] Serum or plasma creatinine m easurement (mass/volume)Ordered By: Delfino Montgomery on 05-28-2023 Creatinine [Mass/Vol] 1.15 mg/dL 0.70-1.30 [facility] Comment on above: The validity of the calculated GFR & GFRAA in patients over 70 years has not been determined. Clinical correlation is essential. Serum or plasma low density lipoprotein (LDL) cholesterol measurement (mass/volume)Ordered By: Delfino Montgomery on 05-28-2023 Cholesterol in LDL [Mass/Vol] 55 mg/dL 0-130 [facility] Serum or plasma urea nitroge n measurement (mass/volume)Ordered By: Delfino Montgomery on 05-28-2023 Urea nitrogen [Mass/Vol] 24 mg/dL 7-18 [facility] Thin prep Papanicolaou smear with manual screeningOrdered By: Delfino Montgomery on 05-28-2023 Thin prep Papanicolaou smear with manual screening < 5.0 mg/L NO RANGE EST. [facility] Thin prep Papanicolaou smear with manual screening 20 U/L 15-37 [facility] Thin prep Papanicolaou smear with manual screening 12 5-15 [facility] Urine creatinine measurement (mass/volume)Ordered By: Delfino Montgomery on 05-28-2023 Creatinine (U) [Mass/Vol] 72.40 mg/dL NO RANGE EST. [facility] Whole blood hemoglobin A1c/t otal hemoglobin ratio (mass fraction)Ordered By: Delfino Montgomery on 05-28-2023 HbA1c (Bld) [Mass fraction] 6.2 % 3.8-5.6 [facility] Comment on above: Normal < 5.7 % Predi abetic 5.7 - 6.4 % Diabetic >or= 6.5 % Please note range changes. Basophil percentageOrdered B y: Delfino Montgomery on 11-11-2022 Bilirubin [Mass/Vol] 0.40 mg/dL 0.20-1.00 [facility] Comment on above: For patients on eltr ombopag therapy, use of Dimension [place] TBIL is not recommended. Chloride [Moles/Vol] 106 mmol/L 98-107 [facility] Glucose [Mass/Vol] 113 mg/dL 74-106 [facility] Comment on above: Fasting Glucose resu lt from 100 to 125 mg/dL suggests IMPAIRED HOMEOSTASIS per A.D.A. criteria. Potassium [Moles/Vol] 4.2 mmol/L 3.5-5.1 [facility] Protein [Mass/Vol] 7.0 g/dL 6.4-8.2 [facility] Sodium [Moles/Vol] 135 mmol/L 136-145 [facility] Testosterone [Mass/Vol] 412 ng/dL 264-916 [facility] Comment on above: Adult male reference interval is based on a population ofhealthy nonobese males (BMI <30) between 19 and 39 yearsold. dennis Mcqueen.al. JCEM 2017,102;[id number]. PMID:[id number]. WBC (Bld) [#/Vol] 6.3 10*3/uL 4.4-11.0 [facility] Blood erythrocytes count (nu mber/volume)Ordered By: Delfino Montgomery on 11-11-2022 RBC (Bld) [#/Vol] 4.61 10*6/uL 4.6-6.2 [facility] Blood hemoglobin measurement (mass/volume)Ordered By: Delfino Montgomery on 11-11-2022 Hemoglobin (Bld) [Mass/Vol] 15.4 g/dL 13.0-16.5 [facility] Blood platelet mean volumeOr dered By: Delfino Montgomery on 11-11-2022 Platelet mean volume (Bld) [Entitic vol] 9.7 fL 6.2-12.0 [facility] Determination of erythrocyte mean corpuscular volume (MCV)Ordered By: Delfino Montgomery on 11-11-2022 MCV (RBC) [Entitic vol] 100.4 fL 80-94 [facility] Free testosterone percentage Ordered By: Delfino Montgomery on 11-11-2022 Testosterone Free/Testosterone.total [Mass fraction] 1.32 % 1.50-4.20 [facility] Comment on above: Performed at: [address] [id number] Director: Sathya Rubin PhD, Phone: [phone] at: [facility] [id number] Director: Joanna Cole MD, Phone: [phone] Hematocrit Auto (Bld) [Volum e fraction]Ordered By: Delfino Montgomery on 11-11-2022 Hematocrit (Bld) [Volume fraction] 46.3 % 40-54 [facility] Laboratory - Chemistry and C hemistry - challengeOrdered By: Delfino Montgomery on 11-11-2022 Albumin [Mass/Vol] 3.8 g/dL 2.9-4.4 [facility] ALP [Catalytic activity/Vol] 64 U/L 45-117 [facility] ALT [Catalytic activity/Vol] 30 U/L 16-61 [facility] CO2 [Moles/Vol] 26.0 mmol/L 21.0-32.0 [facility] Globulin (S) [Mass/Vol] 3.1 g/dL 2.2-4.2 [facility] Urea nitrogen/Creatinine [Mass ratio] 19.8 mg/mg 10-20 [facility] Laboratory - Hematology and Cell countsOrdered By: Delfino Montgomery on 11-11-2022 Erythrocyte distribution width (RBC) [Entitic vol] 42.5 fL 35.1-43.9 [facility] Erythrocyte distribution width (RBC) [Ratio] 11.6 % 11.6-14.6 [facility] MCH (RBC) [Entitic mass] 33.4 pg 27.0-32.0 [facility] MCHC Auto (RBC) [Mass/Vol]Or dered By: Delfino Montgomery on 11-11-2022 MCHC (RBC) [Mass/Vol] 33.3 g/dL 32-36 [facility] No Panel InformationOrdered By: Delfino Montgomery on 11-11-2022 Urine Microalbumin/Creatinine Ratio TNP [facility] Comment on above: Test not performed Addendum Document Comment . [facility] Comment on above: The SPE pattern appe ars unremarkable. Evidence ofmonoclonal protein is not apparent. Qqudc-0-Ddmtbbjnq 0.2 g/dL 0.0-0.4 [facility] Ynoqb-0-Rmyudzmal 0.9 g/dL 0.4-1.0 [facility] Anti-Nuclear Antibody Screen Negative Negative [facility] Comment on above: Performed at: [facility] [address] [id number] Director: Sathya Rubin PhD, Phone: [phone] Estimated GFR (MDRD) Amer 88 mL/min >60 [facility] Comment on above: GFR Calc Estimated GFR (MDRD) Non-Af Amer 73 mL/min >60 [facility] Comment on above: Non- GFR Calc Gamma Globulins 0.6 g/dL 0.4-1.8 [facility] Hepatitis C Antibody Non-Reactive Nonreactive [facility] Comment on above: Non Reactive: < 0.8 Equivocal: >/= 0.8 to < 1.0 Reactive: >/= 1.0The CDC recommends that a reactive/equivocal HCV antibody result be followed up by the HCV Nucleic Acid Amplificationtest ([id number]) Parathyroid Hormone (Intact) 35.3 pg/mL 18.4-80.1 [facility] Thyroid Stimulating Hormone (TSH) 1.00 uIU/mL 0.358-3.74 [facility] Vitamin D 25-Hydroxy 66.0 ng/mL [facility] Comment on above: Vitamin D 25(OH) Sta tus Range Deficiency <20 ng/mL (50nmol/L) Insufficiency 20 - 30 ng/mL (50 - 75 nmol/L) Sufficiency 30 - 100 ng/mL (75 - 250 nmol/L) Toxicity >100 ng/mL (>250 nmol/L) Platelets bldOrdered By: Debra Montgomery on 11-11-2022 Platelets (Bld) [#/Vol] 243 10*3/uL 150-450 [facility] Protein Fractions Elph [Inte rp]Ordered By: Delfino Montgomery on 11-11-2022 Protein Fractions [Interp] Comment . [facility] Comment on above: Protein electrophore sis scan will follow via computer,mail, or blood bank manager delivery. Serum albumin to globulin ra roger by protein electrophoresisOrdered By: Delfino Montgomery on 11-11-2022 Albumin/Globulin Elph [Mass ratio] 1.5 0.7-1.7 [facility] Serum globulin measurement ( mass/volume)Ordered By: Delfino Montgomery on 11-11-2022 Globulin (S) [Mass/Vol] 2.6 g/dL 2.2-3.9 [facility] Serum or plasma albumin kenneth urement (mass/volume)Ordered By: Delfino Montgomery on 11-11-2022 Albumin [Mass/Vol] 3.9 g/dL 3.2-5.0 [facility] Serum or plasma albumin/glob ulin mass ratioOrdered By: Delfino Montgomery on 11-11-2022 Albumin/Globulin [Mass ratio] 1.3 {ratio} 0.9-2.4 [facility] Serum or plasma beta globuli n measurement by electrophoresis (mass/volume)Ordered By: Delfino Montgomery on 11-11-2022 Beta globulin Elph [Mass/Vol] 0.8 g/dL 0.7-1.3 [facility] Serum or plasma calcium kenneth urement (mass/volume)Ordered By: Delfino Montgomery on 11-11-2022 Calcium [Mass/Vol] 9.5 mg/dL 8.5-10.1 [facility] Serum or plasma creatinine m easurement (mass/volume)Ordered By: Delfino Montgomery on 11-11-2022 Creatinine [Mass/Vol] 1.06 mg/dL 0.70-1.30 [facility] Comment on above: The validity of the calculated GFR & GFRAA in patients over 70 years has not been determined. Clinical correlation is essential. Serum or plasma testosterone free measurement (mass/volume)Ordered By: Delfino Montgomery on 11-11-2022 Testosterone Free [Mass/Vol] 5.44 ng/dL 5.00-21.00 [facility] Serum or plasma urea nitroge n measurement (mass/volume)Ordered By: Delfino Montgomery on 11-11-2022 Urea nitrogen [Mass/Vol] 21 mg/dL 7-18 [facility] Serum rheumatoid factor dete ctionOrdered By: Delfino Montgomery on 11-11-2022 Rheumatoid factor Ql (S) 10.0 IU/mL <15 [facility] Thin prep Papanicolaou smear with manual screeningOrdered By: Delfino Montgomery on 11-11-2022 Thin prep Papanicolaou smear with manual screening < 5.0 mg/L NO RANGE EST. [facility] Thin prep Papanicolaou smear with manual screening 23 U/L 15-37 [facility] Thin prep Papanicolaou smear with manual screening 3 5-15 [facility] Thin prep Papanicolaou smear with manual screening See comment [facility] Comment on above: Result: Not Observed Total protein bloodOrdered B y: Delfino Montgomery on 11-11-2022 Protein [Mass/Vol] 6.4 g/dL 6.0-8.5 [facility] Urine creatinine measurement (mass/volume)Ordered By: Delfino Montgomery on 11-11-2022 Creatinine (U) [Mass/Vol] 82.60 mg/dL NO RANGE EST. [facility] Absolute lymphocyte counton 05-08-2022 Lymphocytes Auto (Unsp spec) [#/Vol] 2.07 10*3/uL 0.83-4.51 [facility] Work Phone: Basophil percentageon 2021 Basophils/100 WBC (Bld) 0.3 % 0-1 [facility] Work Phone: Bilirubin [Mass/Vol] 0.60 mg/dL 0.20-1.00 [facility] Work Phone: Comment on above: For patients on eltr ombopag therapy, use of Dimension [place] TBIL is not recommended. Chloride [Moles/Vol] 104 mmol/L 98-107 [facility] Work Phone: Cholesterol [Mass/Vol] 151 mg/dL <200 [facility] Work Phone: Comment on above: <200 mg/dL Desirable 200-240 mg/dL Borderline >240 mg/dL High Risk Eosinophils/100 WBC (Bld) 5.7 % 0-5 [facility] Work Phone: Glucose [Mass/Vol] 126 mg/dL 74-106 [facility] Work Phone: Comment on above: Fasting Glucose resu lt greater than or equal to 126 mg/dL suggests DIABETES MELLITUS per A.D.A. criteria. Neutrophils (Bld) [#/Vol] 4.2 10*3/uL 2.0-7.7 [facility] Work Phone: Neutrophils/100 WBC (Bld) 55.2 % 47-70 [facility] Work Phone: Potassium [Moles/Vol] 4.2 mmol/L 3.5-5.1 [facility] Work Phone: Protein [Mass/Vol] 6.8 g/dL 6.4-8.2 [facility] Work Phone: [phone] Sodium [Moles/Vol] 137 mmol/L 136-145 [facility] Work Phone: Triglyceride [Mass/Vol] 117 mg/dL <199 [facility] Work Phone: Comment on above: The drugs N-Acetylcy steine and Metamizole may falsely depress this assay.Serum Triglycerides Reference Interval Normal <150 mg/dL Borderline high 150 - 199 mg/dL High 200 - 499 mg/dL Very High > or = 500 mg/dL WBC (Bld) [#/Vol] 7.5 10*3/uL 4.4-11.0 [facility] Work Phone: Blood erythrocytes count (nu mber/volume)on 05-08-2022 RBC (Bld) [#/Vol] 4.73 10*6/uL 4.6-6.2 [facility]: Blood hemoglobin measurement (mass/volume)on 05-08-2022 Hemoglobin (Bld) [Mass/Vol] 16.2 g/dL 13.0-16.5 [facility] Work Phone: Blood lymphocytes/100 leukoc yteson 05-08-2022 Lymphocytes/100 WBC (Bld) 27.5 % 19-41 [facility] Work Phone: Blood monocytes/100 leukocyt eson 05-08-2022 Monocytes/100 WBC (Bld) 10.9 % 0-10 [facility] Work Phone: Blood platelet mean volumeon 05-08-2022 Platelet mean volume (Bld) [Entitic vol] 9.9 fL 6.2-12.0 [facility] Work Phone: Determination of erythrocyte mean corpuscular volume (MCV)on 05-08-2022 MCV (RBC) [Entitic vol] 98.7 fL 80-94 [facility] Work Phone: Hematocrit Auto (Bld) [Volum e fraction]on 05-08-2022 Hematocrit (Bld) [Volume fraction] 46.7 % 40-54 [facility] Work Phone: Laboratory - Chemistry and C hemistry - challengeon 05-08-2022 ALP [Catalytic activity/Vol] 67 U/L 45-117 [facility] Work Phone: ALT [Catalytic activity/Vol] 28 U/L 16-61 [facility] Work Phone: CO2 [Moles/Vol] 26.0 mmol/L 21.0-32.0 [facility] Work Phone: Globulin (S) [Mass/Vol] 2.7 g/dL 2.2-4.2 [facility] Work Phone: Urea nitrogen/Creatinine [Mass ratio] 16.8 mg/mg 10-20 [facility] Work Phone: Laboratory - Hematology and Cell countson 05-08-2022 Erythrocyte distribution width (RBC) [Entitic vol] 43.4 fL 35.1-43.9 [facility] Work Phone: Erythrocyte distribution width (RBC) [Ratio] 11.9 % 11.6-14.6 [facility] Work Phone: Immature granulocytes/100 WBC (Bld) 0.400 % 0.0-0.9 [facility] Work Phone: Comment on above: IG% - Immature Granu locytes (promyelocytes, myelocytes and metamyelocytes) > 1% indicates that a LEFT SHIFT is Present. MCH (RBC) [Entitic mass] 34.2 pg 27.0-32.0 [facility] Work Phone: Nucleated RBC/100 WBC (Bld) [Ratio] 0 % 0-5 [facility] Work Phone: MCHC Auto (RBC) [Mass/Vol]on 05-08-2022 MCHC (RBC) [Mass/Vol] 34.7 g/dL 32-36 [facility] Work Phone: No Panel Informationon 05-08 Estimated GFR (MDRD) Amer 82 mL/min >60 [facility] Work Phone: Comment on above: GFR Calc Estimated GFR (MDRD) Non-Af Amer 68 mL/min >60 [facility] Work Phone: Comment on above: Non- GFR Calc Thyroid Stimulating Hormone (TSH) 1.28 uIU/mL 0.358-3.74 [facility] Work Phone: Platelets bldon 05-08-2022 Platelets (Bld) [#/Vol] 245 10*3/uL 150-450 [facility] Work Phone: Serum or plasma albumin kenneth urement (mass/volume)on 05-08-2022 Albumin [Mass/Vol] 4.1 g/dL 3.2-5.0 [facility] Work Phone: Serum or plasma albumin/glob ulin mass ratioon 05-08-2022 Albumin/Globulin [Mass ratio] 1.5 {ratio} 0.9-2.4 [facility] Work Phone: Serum or plasma calcium kenneth urement (mass/volume)on 05-08-2022 Calcium [Mass/Vol] 9.4 mg/dL 8.5-10.1 [facility] Work Phone: Serum or plasma cholesterol in HDL measurement (mass/volume)on 05-08-2022 Cholesterol in HDL [Mass/Vol] 59 mg/dL >40 [facility] Work Phone: Comment on above: The drugs N-Acetylcy steine and Metamizole may falsely depress this assay. Reference Range HDL <40 mg/dL Low HDL Cholesterol HDL >or= 60 mg/dL High HDL Cholesterol Serum or plasma cholesterol in VLDL measurement (mass/volume)on 05-08-2022 Cholesterol in VLDL [Mass/Vol] 23 mg/dL 5-40 [facility] Work Phone: Serum or plasma creatinine m easurement (mass/volume)on 05-08-2022 Creatinine [Mass/Vol] 1.13 mg/dL 0.70-1.30 [facility] Work Phone: Comment on above: The validity of the calculated GFR & GFRAA in patients over 70 years has not been determined. Clinical correlation is essential. Serum or plasma low density lipoprotein (LDL) cholesterol measurement (mass/volume)on 05-08-2022 Cholesterol in LDL [Mass/Vol] 69 mg/dL 0-130 [facility] Work Phone: Serum or plasma urea nitroge n measurement (mass/volume)on 05-08-2022 Urea nitrogen [Mass/Vol] 19 mg/dL 7-18 [facility] Work Phone: Thin prep Papanicolaou smear with manual screeningon 05-08-2022 Thin prep Papanicolaou smear with manual screening 17 U/L 15-37 [facility] Work Phone: Thin prep Papanicolaou smear with manual screening 7 5-15 [facility] Work Phone: Whole blood hemoglobin A1c/t otal hemoglobin ratio (mass fraction)on 05-08-2022 HbA1c (Bld) [Mass fraction] 6.2 % 3.8-5.6 [facility] Work Phone: Comment on above: Normal < 5.7 % Predi abetic 5.7 - 6.4 % Diabetic >or= 6.5 % Please note range changes. Absolute lymphocyte counton 10-16-2021 Lymphocytes Auto (Unsp spec) [#/Vol] 1.59 10*3/uL 0.83-4.51 [facility] Work Phone: Basophil percentageon 2021 Basophils/100 WBC (Bld) 0.5 % 0-1 [facility] Work Phone: Bilirubin [Mass/Vol] 0.60 mg/dL 0.20-1.00 [facility] Work Phone: Comment on above: For patients on eltr ombopag therapy, use of Dimension [place] TBIL is not recommended. Chloride [Moles/Vol] 102 mmol/L 98-107 [facility] Work Phone: Eosinophils/100 WBC (Bld) 6.5 % 0-5 [facility] Work Phone: Glucose [Mass/Vol] 130 mg/dL 74-106 [facility] Work Phone: Comment on above: Fasting Glucose resu lt greater than or equal to 126 mg/dL suggests DIABETES MELLITUS per A.D.A. criteria. Neutrophils (Bld) [#/Vol] 3.5 10*3/uL 2.0-7.7 [facility] Work Phone: Neutrophils/100 WBC (Bld) 54.6 % 47-70 [facility] Work Phone: [phone] Potassium [Moles/Vol] 3.9 mmol/L 3.5-5.1 [facility] Work Phone: [phone] Protein [Mass/Vol] 7.1 g/dL 6.4-8.2 [facility]: Sodium [Moles/Vol] 136 mmol/L 136-145 [facility] Work Phone: WBC (Bld) [#/Vol] 6.3 10*3/uL 4.4-11.0 [facility] Work Phone: Blood erythrocytes count (nu mber/volume)on 10-16-2021 RBC (Bld) [#/Vol] 4.59 10*6/uL 4.6-6.2 [facility] Work Phone: Blood hemoglobin measurement (mass/volume)on 10-16-2021 Hemoglobin (Bld) [Mass/Vol] 15.7 g/dL 13.0-16.5 [facility] Work Phone: Blood lymphocytes/100 leukoc yteson 10-16-2021 Lymphocytes/100 WBC (Bld) 25.2 % 19-41 [facility] Work Phone: Blood monocytes/100 leukocyt eson 10-16-2021 Monocytes/100 WBC (Bld) 12.7 % 0-10 [facility] Work Phone: Blood platelet mean volumeon 10-16-2021 Platelet mean volume (Bld) [Entitic vol] 9.6 fL 6.2-12.0 [facility] Work Phone: Determination of erythrocyte mean corpuscular volume (MCV)on 10-16-2021 MCV (RBC) [Entitic vol] 97.4 fL 80-94 [facility] Work Phone: Hematocrit Auto (Bld) [Volum e fraction]on 10-16-2021 Hematocrit (Bld) [Volume fraction] 44.7 % 40-54 [facility] Work Phone: Laboratory - Chemistry and C hemistry - challengeon 10-16-2021 ALP [Catalytic activity/Vol] 63 U/L 45-117 [facility] Work Phone: ALT [Catalytic activity/Vol] 28 U/L 16-61 [facility] Work Phone: CO2 [Moles/Vol] 24.0 mmol/L 21.0-32.0 [facility] Work Phone: Cobalamin (Vitamin B12) [Mass/Vol] 867 pg/mL 211-911 [facility] Work Phone: Globulin (S) [Mass/Vol] 3.1 g/dL 2.2-4.2 [facility] Work Phone: [phone] Magnesium [Mass/Vol] 1.9 mg/dL 1.6-2.6 [facility] Work Phone: Urea nitrogen/Creatinine [Mass ratio] 23.8 mg/mg 10-20 [facility] Work Phone: Laboratory - Hematology and Cell countson 10-16-2021 Erythrocyte distribution width (RBC) [Entitic vol] 42.5 fL 35.1-43.9 [facility] Work Phone: Erythrocyte distribution width (RBC) [Ratio] 11.8 % 11.6-14.6 [facility] Work Phone: Immature granulocytes/100 WBC (Bld) 0.500 % 0.0-0.9 [facility] Work Phone: [phone] Comment on above: IG% - Immature Granu locytes (promyelocytes, myelocytes and metamyelocytes) > 1% indicates that a LEFT SHIFT is Present. MCH (RBC) [Entitic mass] 34.2 pg 27.0-32.0 [facility] Work Phone: Nucleated RBC/100 WBC (Bld) [Ratio] 0 % 0-5 [facility] Work Phone: MCHC Auto (RBC) [Mass/Vol]on 10-16-2021 MCHC (RBC) [Mass/Vol] 35.1 g/dL 32-36 [facility] Work Phone: No Panel Informationon 10-16 Urine Microalbumin/Creatinine Ratio 7.2 mg/g CRE <30 [facility] Work Phone: Estimated GFR (MDRD) Amer 90 mL/min >60 [facility] Work Phone: Comment on above: GFR Calc Estimated GFR (MDRD) Non-Af Amer 74 mL/min >60 [facility] Work Phone: Comment on above: Non- GFR Calc Thyroid Stimulating Hormone (TSH) 1.20 uIU/mL 0.358-3.74 [facility] Work Phone: Platelets bldon 10-16-2021 Platelets (Bld) [#/Vol] 238 10*3/uL 150-450 [facility] Work Phone: Serum or plasma albumin kenneth urement (mass/volume)on 10-16-2021 Albumin [Mass/Vol] 4.0 g/dL 3.2-5.0 [facility] Work Phone: Serum or plasma albumin/glob ulin mass ratioon 10-16-2021 Albumin/Globulin [Mass ratio] 1.3 {ratio} 0.9-2.4 [facility] Work Phone: Serum or plasma calcium kenneth urement (mass/volume)on 10-16-2021 Calcium [Mass/Vol] 9.9 mg/dL 8.5-10.1 [facility] Work Phone: Serum or plasma creatinine m easurement (mass/volume)on 10-16-2021 Creatinine [Mass/Vol] 1.05 mg/dL 0.70-1.30 [facility] Work Phone: Comment on above: The validity of the calculated GFR & GFRAA in patients over 70 years has not been determined. Clinical correlation is essential. Serum or plasma urea nitroge n measurement (mass/volume)on 10-16-2021 Urea nitrogen [Mass/Vol] 25 mg/dL 7-18 [facility] Work Phone: Thin prep Papanicolaou smear with manual screeningon 10-16-2021 Thin prep Papanicolaou smear with manual screening 21.0 mg/L NO RANGE EST. [facility] Work Phone: Thin prep Papanicolaou smear with manual screening 22 U/L 15-37 [facility] Work Phone: Thin prep Papanicolaou smear with manual screening 10 5-15 [facility] Work Phone: Urine creatinine measurement (mass/volume)on 10-16-2021 Creatinine (U) [Mass/Vol] 291.00 mg/dL NO RANGE EST. [facility] Work Phone: Vital Signs Date Time Vital Sign Value Performing Clinician Faci lity 03-18-2025 09:26-0400 Body height 175.[address] Delfino Montgomery MD Work Phone: [facility] 03-18-2025 09:26-0400 Body mass index (BMI) [Ratio] 26.6 kg/m2 Dr. Delfino Montgomery MD Work Phone: [facility] 03-18-2025 09:26-0400 Body weight 81.[address] Delfino Montgomery MD Work Phone: [facility] 12-15-2024 08:59-0400 Body height 175.[address] Delfino Montgomery MD Work Phone: [facility] 12-15-2024 08:59-0400 Body mass index (BMI) [Ratio] 26.7 kg/m2 Dr. Delfino Montgomery MD Work Phone: [facility] 12-15-2024 08:59-0400 Body weight 82.[address] Delfino Montgomery MD Work Phone: [facility] 12-15-2024 08:59-0400 Diastolic blood pressure 82 mm[Hg] Dr. Delfino Montgomery MD Work Phone: [facility] 12-15-2024 08:59-0400 Heart rate 62 /min Dr. Delifno Montgomery MD Work Phone: [facility] 12-15-2024 08:59-0400 Respiratory rate 18 /min Dr. Delfino Montgomery MD Work Phone: [facility] 12-15-2024 08:59-0400 SaO2% (BldA) [Mass fraction] 93 % Dr. Delfino Montgomery MD Work Phone: [phone] [place] [address] 12-15-2024 08:59-0400 Systolic blood pressure 146 mm[Hg] Dr. Delfino Montgomery MD Work Phone: [phone] [place] [address] 02-26-2023 08:34-0400 Body height 175.[address] Delfino Montgomery Work Phone: [phone] [place] [address] 02-26-2023 08:34-0400 Body mass index (BMI) [Ratio] 28.6 kg/m2 Dr. Delfino Montgomery Work Phone: [phone] [address] 02-26-2023 08:34-0400 Body temperature 97.4 [degF] Dr. Delfino Montgomery Work Phone: [phone] [place] [address] 02-26-2023 08:34-0400 Body weight 87.[address] Delfino Montgomery Work Phone: [phone] [place] [address] 02-26-2023 08:34-0400 Diastolic blood pressure 80 mm[Hg] Dr. Delfino Montgomery Work Phone: [facility] 02-26-2023 08:34-0400 Heart rate 77 /min Dr. Delfino Montgomery Work Phone: [phone] [place] [address] 02-26-2023 08:34-0400 Respiratory rate 17 /min Dr. Delfino Montgomery Work Phone: [facility] 02-26-2023 08:34-0400 SaO2% (BldA) [Mass fraction] 94 % Dr. Delfino Montgomery Work Phone: [phone] [place] [address] 02-26-2023 08:34-0400 Systolic blood pressure 145 mm[Hg] Dr. Delfino Montgomery Work Phone: [facility] 04-22-2022 13:51-0500 Body height 175.[address] Delfino Montgomery Work Phone: [facility] Work Phone: 04-22-2022 13:51-0500 Body mass index (BMI) [Ratio] 29.1 kg/m2 Dr. Delfino Montgomery Work Phone: [facility] Work Phone: 04-22-2022 13:51-0500 Body weight 89.[address] Delfino Montgomery Work Phone: [facility] Work Phone: 04-22-2022 13:51-0500 Diastolic blood pressure 62 mm[Hg] Dr. Delfino Montgomery Work Phone: [facility] Work Phone: 04-22-2022 13:51-0500 Heart rate 76 /min Dr. Delfino Montgomery Work Phone: [facility] Work Phone: 04-22-2022 13:51-0500 Respiratory rate 18 /min Dr. Delfino Montgomery Work Phone: [facility] Work Phone: 04-22-2022 13:51-0500 Systolic blood pressure 150 mm[Hg] Dr. Delfino Montgomery Work Phone: [facility] Work Phone: Encounters Encounter Date Encounter Type Care Provider Facility Start: 03-18-2025 End: 03-18-[address] Eugenio Padilla MD -[facility] Work Phone: Start: 03-18-2025 End: 03-18-2025 [facility] Delfino Montgomery Facility:[facility] Start: 12-15-2024 End: 12-15-[address] Fregoso MD -[facility] Work Phone: Start: 12-15-2024 End: 12-15-[address] Delfino Montgomery MD Work Phone: -[facility] Start: 10-20-2024 End: 10-20-[address] Delfino Montgomery MD Work Phone: [facility] Work Phone: Start: 10-20-2024 End: 10-20-[address] Delfino Montgomery MD -[facility] [place] Work Phone: Start: 10-20-2024 End: 10-20-2024 ambulatory Delfino Montgomery Facility:[facility] Start: 06-01-2024 End: 06-01-2024 ambulatory Delfino Montgomery Facility:[facility] Start: 05-12-2024 End: 05-12-2024 ambulatory Delfino Montgomery Facility:[facility] Start: 05-03-2024 End: 05-03-2024 ambulatory Delfino Montgomery Facility:[facility] Start: 10-11-2023 End: 10-11-2023 ambulatory [facility] Work Phone: Start: 10-11-2023 End: 10-11-2023 Patient encounter procedure [facility] Work Phone: Start: 05-28-2023 End: 05-28-[address] Delfino Montgomery Work Phone: [facility] Work Phone: Start: 05-28-2023 End: 05-28-[address] [facility]elfino Montgomery [facility] Start: 05-07-2023 Non-patient / Non-visit Dr. Marshall Montgomery Work Phone: [facility] Start: 05-07-2023 End: 05-07-[address] Delfino Montgomery Work Phone: [facility] Work Phone: Start: 05-07-2023 End: 05-07-[address] Delfino Montgomery Work Phone: [facility] Work Phone: Start: 02-26-2023 End: 02-26-[address] Delfino Montgomery Work Phone: [facility] Work Phone: Start: 12-26-2022 End: 12-26-2022 ambulatory [facility] Work Phone: Start: 12-26-2022 End: 12-26-2022 Discharged Recurring [facility]Physical Therapy Work Phone: Start: 11-11-2022 End: 11-11-2022 Patient encounter procedure [facility] Start: 05-08-2022 End: 05-08-[address] Delfino Montgomery Work Phone: [facility] Work Phone: Start: 05-08-2022 End: 05-08-[address] Delfino Montgomery Work Phone: [facility] Start: 04-22-2022 End: 04-22-[address] Delfino Montgomery Work Phone: [facility] Start: 10-16-2021 End: 10-16-2021 Patient encounter procedure [facility] Payers Date Payer Category Payer Self-pay [id number] 2024 Private Health Insurance [id number] 2016 Private Health Insurance [id number] Medicare [id number] Unknown [id number] Unknown [id number] [id number] [id number] Unknown [id number] [id number] [id number] Unknown [id number] 2.16.8 [id number] Unknown [id number] 2.16.8 [id number] Unknown [id number] 2.16.8 [id number] Unknown [id number] 2.16.8 [id number] Social History Date Type Detail Facility Start: 05-16-2021 End: 02-26-2023 Tobacco smoking status INIS Unknown if ever smoked [facility] Start: 1950 Sex Assigned At Male [facility] Start: 02-26-2023 Tobacco smoking stat us INIS Ex-smoker (finding) [facility] Sex Male [facility] Progress note 03-18-2025 Note Date & Type Note Facility 03-18-2025 Progress note [facility] Evaluation note 12-15-2024 Note Date & Type Note Facility 12-15-2024 Evaluation note Diagnosis Onset Date Resolution Atherosclerotic heart disease of [place] coronary artery without angina pectoris chronic December 15, 2024 8:56am Essential hypertension chronic Ju 2024 8:56am Hyperlipemia chronic December 15 8:56am Type 2 diabetes mellitus chronic December 15, 2024 8:56am Left shoulder pain acute Octobe r 2024 9:26am [facility] Work Phone: Discharge summary 12-26-2022 Note Date & Type Note Facility 12-26-2022 Discharge summary Note Date/Time December 26, 2022 10:53am [facility] Physical Therapy [address] [place] [address] / REHABILITATION SERVICES DISCHARGE SUMMARY MR#: [id number] Acct: [id number] Name: BRANT BASILIO Rep #: [id number] : 1950 72 From: Haider Cardona PT, ATC Referring Dr.: Dr. Delfino Montgomery MD Status: REG RCR Insurance: [facility] SELF PAY INSURANCE Discharge Summary D/C [...] please feel free to call me at [phone]. Thank you for the referral of thispatient. Sincerely, Haider Cardona, PT, ATC Balance/Gait/Functional tests Balance/Special Test Scores Oswestry Neck Score: 4 <Electronically signed by Haider Cardona PT, ATC> 12/26/22 1053 CC: Dr. Delfino Montgomery MD ~ [facility] Signed [facility] Work Phone: Evaluation note Note Date & Type Note Facility Evaluation note No assessment information availa ble [facility] Work Phone: Evaluation note Note Date & Type Note Facility Evaluation note Diagnosis Onset Date Atherosclerotic heart diseas e of [place] coronary artery without angina pectoris chronic Essential hypertension chron ic Hyperlipemia chronic [facility] Work Phone: Evaluation note Note Date & Type Note Facility Evaluation note Diagnosis Onset Date Umbilical hernia acute [facility] Work Phone: Progress note Note Date & Type Note Facility Progress note Note Date/Time March 18, 2025 9:42am [facility] [address] [place] [id number] OFFICE VISIT Date of Service: 03/18/25 MR#: [id number] Acct: [id number] Name: BRANT BASILIO Rep #: [id number] : 1950 Provider: Dr. Samir Padilla MD Age/Sex: 74/M Location: [facility] Status: Signed with Addenda ADDENDUM by Alma [...] Performing Provider: Eugenio Padilla MD Performing Location: [facility] Administered by: Eugenio Padilla MD on 03/18/25 09:54 Dose Route Admin Location Dispensed Lot Number Expiration Date Pack age NDC NDC Fire Manager 80 mg intra-articular left subacromial 2 mL [id number] 06/09/26 28893- 623-10 [id number] [facility] Date _ cc: ~* Signed Intake [...] you fallen in the past year?: No [facility] Medical History Right rotator cuff tear Left shoulder pain Right shoulder pain Type 2 diabetes mellitus Atherosclerotic heart disease of [place] coronary artery without angina pectoris Essential hypertension [...] by me, Dr. Eugenio Padilla MD 03/18/25 0806. Part of today?s visit was documented by [...] strength. Coding Level of Care Code Attention Finance Business Manager Diagnoses Left shoulder pain M25.512 Comment 28491 and CPT inject major joint Assessment and [...] blood flow before exercises. 4. Anti-Inflammatory Medications: Xfby-[id number]-[id number] medications like ibuprofen ornaproxen can help reduce [...] Signature: Date (if applicable) CC: ~ [facility] Work Phone: Reason for referral (narrative) Note Date & Type Note Facility Reason for referral (narrative) No reason for referral information available [facility] Work Phone: Advance Directives Advance Directive Response Recorded Date/ Time Living Will Yes January 21 10:54pm Power of Weed Cutter Yes January 21, 021 10:54pm Advance Directive Response Recorded Date/ Time Living Will Yes January 21 9:54pm Power of Weed Cutter Yes January 21, 021 9:54pm Chief Complaint and Reason for Visit Chief Complaint 1 Y FU EORDER Reason for Visit Atherosclerotic hear t disease of [place] coronary artery without angina pectoris Essential hypertension [...] Admit Date Atherosclerotic heart diseas e of [place] coronary artery without angina pectoris December 15, [...] section and content) DATE CREATED AUTHOR 03/19/2025 [facility] FOR RECORDS PERTAINING TO PATIENTS WHO ARE [...] BE BASED ON THE PRIMARY CLINICAL RECORDS. [employer] provides no warranty or guarantee of the accuracy or completeness of information in this document.
== END | disposition home or self-care (01) ==
LOC: US 07:17
PROVIDERS: PCP Family Medicine; Referring Provider Family Medicine; Visit Provider Family Medicine
DX: R10.11 Right upper quadrant pain (principal)
CPT/HCPCS: 76705

== ENCOUNTER → 2025-06-07 | Outpatient (CLI) | payer MEDICARE, SELFPAY ==
--- NOTE | 2025-06-07 13:02 | RAD_ITS ---
PROCEDURE: CHEST PA AND LATERAL 06/07/2025 REASON FOR EXAM: ABDOMINAL PAIN TECHNIQUE: Procedure Code: RADCXR Modality: DX Procedure: CHEST PA AND LATERAL FINDINGS: No focal consolidation. No pleural effusion or pneumothorax. Cardiac silhouette is within normal limits. No acute fractures. RAD/Chest PA and Lateral IMPRESSION: No focal consolidations Reading Location: [facility]
== END | disposition home or self-care (01) ==
LOC: MTRAD 13:01
PROVIDERS: PCP Family Medicine; Referring Provider Family Medicine; Visit Provider Family Medicine
DX: R10.9 Unspecified abdominal pain (principal)
CPT/HCPCS: 71046

== ENCOUNTER → 2025-06-07 | Outpatient (CLI) | payer MEDICARE, SELFPAY ==
--- NOTE | 2025-06-07 14:16 | CT_ITS ---
PROCEDURE: ABDOMEN WITH IV CONTRAST 06/07/2025 REASON FOR EXAM: Abdominal pain for 7-10 days. Nausea/diarrhea. TECHNIQUE: Procedure Code: CTABDW Modality: CT Procedure: ABDOMEN WITH IV CONTRAST Multiplanar Sagittal and Coronal images were obtained. One or more dose reduction techniques were used (e.g., Automated exposure control, adjustment of the mA and/or kV according to patient size, use of iterative reconstruction technique. CONTRAST: Isovue 370 VOLUME: 94 mL RADIATION DOSE SUMMARY: CTDlvol: 13.30, 19.46 mGy DLP: 843 mGycm COMPARISON: CT Abdomen and Pelvis w/Contrast, 06/01/2024 FINDINGS: LUNG BASES: Moderate persistent right hemidiaphragm elevation. No pleural effusion. Minimal dependent atelectasis bilaterally. Multivessel coronary artery calcification. LIVER: Unremarkable. GALLBLADDER: Prior cholecystectomy. BILE DUCTS: No ductal dilation. PANCREAS: Unremarkable. SPLEEN: Unchanged hypodense 5.8 mm focus. ADRENAL GLANDS: Unremarkable. KIDNEYS: Unremarkable. The kidneys enhance symmetrically. No hydronephrosis or hydroureter. STOMACH AND BOWEL: Large hiatal hernia, unchanged. Oral contrast has progressed to the mid ileum. No obstruction or perforation. No wall thickening. Colonic diverticulosis. No CT evidence of colitis or acute diverticulitis. APPENDIX: Normal-appearing appendix. No CT evidence for appendicitis. RETRO/PERITONEUM: No free fluid. No free air. LYMPH NODES: No lymphadenopathy. VASCULATURE: No aortic aneurysm. Scattered calcified atherosclerosis. ABDOMINAL WALL AND SOFT TISSUES: Small umbilical hernia containing fat and unobstructed loop of small bowel. BONES: No fracture or suspicious osseous abnormality. Degenerative changes of the spine. Grade 1 retrolisthesis of L2 on L3 and anterolisthesis of L4 on L5. CT/Abdomen WITH IV Contrast IMPRESSION: 1. No signs of appendicitis, bowel inflammation, perforation or obstruction. 2. Small umbilical hernia containing fat and unobstructed small bowel loop. 3. Colonic diverticulosis without signs of diverticulitis. Reading Location: [facility]
== END | disposition home or self-care (01) ==
LOC: CT 14:16
PROVIDERS: PCP Family Medicine; Referring Provider Family Medicine; Visit Provider Family Medicine
DX: R10.13 Epigastric pain (principal)
CPT/HCPCS: 74160; Q9967

== ENCOUNTER → 2025-06-08 | Outpatient (CLI) | payer MEDICARE, SELFPAY ==
--- OUTSIDE RECORDS SUMMARY | 2025-06-08 07:21 | XMS RPT_ITS | CCD ---
Author Organization [facility] Care Team Providers Care Inspector Final Assembly Electrical Name Role Phone Dr. Delfino Montgomery Primary Care Provider Dr. Delfino Montgomery Referring Provider Dr. Valentino Hernández Attending Provider [phone] Dr. Delfino Montgomery Primary Care Provider Dr. Delfino Montgomery Referring Provider Dr. Guilherme Pablo Attending Provider Dr. Say Carranza Attending Provider [phone] Dr. Delfino Montgomery MD Primary Care Provider Dr. Delfino Montgomery MD Attending Provider Dr. Delfino Montgomery MD Referring Provider [phone] Fregoso MD Attending Provider Ulises, [...] Provider Dr. 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 Eugenio galvez MD Age/Sex: 74/M Location: [facility] [place] Status: Signed with Addenda ADDENDUM by Alma [...] Performing Provider: Eugenio Padilla MD Performing Location: [facility] Administered by: Eugenio Padilla MD on 03/18/25 09:54 Dose Route Admin Location Dispensed Lot Number Expiration Date Package NDC NDC Online Program Coordinator 80 mg intra-articular left subacromial 2 mL [id number] 06/09/26 [id number] [facility] Date cc: * Signed Intake Vital [...] 2 diabetes mellitus Atherosclerotic heart disease of [place] coronary artery without angina pectoris Essential hypertension [...] by me, Dr. Eugenio Padilla MD 03/18/25 0893. Part of today???s visit was documented by [...] strength. Coding Level of Care Code Attention Obstetrics Teacher Diagnoses Left shoulder pain M25.512 Comment 26621 and CPT inject major joint Assessment and Plan Assessment and Plan ( (more content not included)... Normal [facility] Cardiology Visit Reporton Cardiology Visit Report [facility] [address] [place] [address]. [address] [place] [address] OFFICE VISIT Date of Service: 12/15/24 MR#: [id number] Acct: [id number] Name: BRANT BASILIO Rep #: [id number] : [id number] Provider: Dr. Lane salazar MD Age/Sex: 74/M Location: [facility] [place] Status: Signed HPI HPI History of Present [...] air Intake Visit Reasons: 1 Y FU Rn Urology Required: No Accompanied by: Self Is patient [...] 2 diabetes mellitus Atherosclerotic heart disease of [place] coronary artery without angina pectoris Essential hypertension [...] well groomed (more content not included)... Normal [facility] Absolute lymphocyte countOrd ered By: Delfino Montgomery on 10-20-2024 Lymphocytes Auto (Unsp spec) [#/Vol] 1.74 10*3/uL 0.83-4.51 [facility] Absolute neutrophil countOrd ered By: Delfino Montgomery on 10-20-2024 Neutrophils (Bld) [#/Vol] 2.7 10*3/uL 2.0-7.7 [facility] Anion gap in Serum or Plasma Ordered By: Delfino Montgomery on 10-20-2024 Anion gap [Moles/Vol] 10 mmol/L - [facility] Automated lymphocyte count a s percentage of total leukocytesOrdered By: Delfino Montgomery on 10-20-2024 Lymphocytes/100 WBC Auto (Unsp spec) 31.8 % - [facility] BUN/creatinine ratioOrdered By: Delfino Montgomery on 10-20-2024 Urea nitrogen/Creatinine [Mass ratio] 16.4 mg/mg 10- [facility] Basophil percentageOrdered B y: Delfino Montgomery on 10-20-2024 Basophils/100 WBC (Bld) 0.4 % 0-1 [facility] Bilirubin, totalOrdered By: Delfino Montgomery on 10-20-2024 Bilirubin [Mass/Vol] 0.49 mg/dL 0.00-1.30 [facility] CBC W/Diff, Automatedon 10-07 Absolute Lymph 1.74 X10 3/uL Normal 0.83-4.51 [facility] Comment on above: Order Comment: Order Date: 09/27/24 Order Info: 0184-1 - CBCD Performed By: #### L 500.4050, [id number], L100.0100 #### [facility] [address] [place], [address] Absolute Neut 2.7 X10 3/uL Normal 2.0-7.7 [facility] Comment on above: Order Comment: Order Date: 09/27/24 Order Info: 0184-1 - CBCD Performed By: #### L 500.4050, L501.9985, L100.0100 #### [facility] [address] [place], [address] Basophils/100 WBC (Bld) 0.4 % Normal 0-1 [facility] Comment on above: Order Comment: Order Date: 09/27/24 Order Info: 0184-1 - CBCD Performed By: #### L 500.4050, L501.9985, L100.0100 #### [facility] [address] [place], [address] Eosinophils/100 WBC (Bld) 6.6 % High 0-5 [facility] Comment on above: Order Comment: Order Date: 09/27/24 Order Info: 0184-1 - CBCD Performed By: #### L 500.4050, L501.9985, L100.0100 #### [facility] [address] [place], [address] Erythrocyte distribution width (RBC) [Ratio] 11.9 % Normal 11.6-14.6 [facility] Comment on above: Order Comment: Order Date: 09/27/24 Order Info: 018- - CBCD Performed By: #### L 500.4050, L501.9985, L100.0100 #### [facility] [address] [place], [address] Hematocrit (Bld) [Volume fraction] 46.2 % Normal 40-54 [facility] Comment on above: Order Comment: Order Date: 09/27/24 Order Info: 0184- - CBCD Performed By: #### L 500.4050, L501.9985, L100.0100 #### [facility] [address] [place], [address] Hemoglobin (Bld) [Mass/Vol] 15.8 g/dL Normal 13.0-16.5 [facility] Comment on above: Order Comment: Order Date: 09/27/24 Order Info: 0184-1 - CBCD Performed By: #### L 500.4050, L501.9985, L100.0100 #### [facility] [address] [place], [address] IG% 0.400 Normal 0.0-0.9 [facility] Comment on above: Order Comment: Order Date: 09/27/24 Order Info: 0184- - CBCD Result Comment: IG% - Immature Granulocytes (promyelocytes, myelocytes and metamyelocytes) > 1% indicates that a LEFT SHIFT is Present. Performed By: #### L 500.4050, L501.9985, L100.0100 #### [facility] [address] [place], [address] Lymphocytes/100 WBC (Bld) 31.8 % Normal 19-41 [facility] Comment on above: Order Comment: Order Date: 09/27/24 Order Info: 018- - CBCD Performed By: #### L 500.4050, L501.9985, L100.0100 #### [facility] [address] [place], [address] MCH (RBC) [Entitic mass] 34.4 pg High 27.0-32.0 [facility] Comment on above: Order Comment: Order Date: 09/27/24 Order Info: 018- - CBCD Performed By: #### L 500.4050, L501.9985, L100.0100 #### [facility] [address] [place], [address] MCHC (RBC) [Mass/Vol] 34.2 g/dL Normal 32-36 [facility] Comment on above: Order Comment: Order Date: 09/27/24 Order Info: 0184- - CBCD Performed By: #### L 500.4050, L501.9985, L100.0100 #### [facility] [address] [place], [address] MCV (RBC) [Entitic vol] 100.7 fL High 80-94 [facility] Comment on above: Order Comment: Order Date: 09/27/24 Order Info: 018- - CBCD Performed By: #### L 500.4050, L501.9985, L100.0100 #### [facility] [address] [place], [address] Monocytes/100 WBC (Bld) 12.4 % High 0-10 [facility] Comment on above: Order Comment: Order Date: 09/27/24 Order Info: 0184-1 - CBCD Performed By: #### L 500.4050, L501.9985, L100.0100 #### [facility] [address] [place], [address] Neutrophils/100 WBC (Bld) 48.4 % Normal 47-70 [facility] Comment on above: Order Comment: Order Date: 09/27/24 Order Info: 0184-1 - CBCD Performed By: #### L 500.4050, L501.9985, L100.0100 #### [facility] [address] [place], [address] Nucleated RBC (Bld) [#/Vol] 0 10*3/uL Normal 0-5 [facility] Comment on above: Order Comment: Order Date: 09/27/24 Order Info: 0184-1 - CBCD Performed By: #### L 500.4050, L501.9985, L100.0100 #### [facility] [address] [place], [address] Platelet mean volume (Bld) [Entitic vol] 9.8 fL Normal 6.2-12.0 [facility] Comment on above: Order Comment: Order Date: 09/27/24 Order Info: 0184-1 - CBCD Performed By: #### L 500.4050, L501.9985, L100.0100 #### [facility] [address] [place], [address] Platelets (Bld) [#/Vol] 215 10*3/uL Normal 150-450 [facility] Comment on above: Order Comment: Order Date: 09/27/24 Order Info: 0184-1 - CBCD Performed By: #### L 500.4050, L501.9985, L100.0100 #### [facility] [address] [place], [address] RBC (Bld) [#/Vol] 4.59 10*6/uL Low 4.6-6.2 [facility] Comment on above: Order Comment: Order Date: 09/27/24 Order Info: 0184-1 - CBCD Performed By: #### L 500.4050, L501.9985, L100.0100 #### [facility] [address] [place], [address] RDW SD 45.0 fl High 35.1-43.9 [facility] Comment on above: Order Comment: Order Date: 09/27/24 Order Info: 0184-1 - CBCD Performed By: #### L 500.4050, L501.9985, L100.0100 #### [facility] [address] [place], [address] WBC (Bld) [#/Vol] 5.5 10*3/uL Normal 4.4-11.0 [facility] Comment on above: Order Comment: Order Date: 09/27/24 Order Info: 0184-1 - CBCD Performed By: #### L 500.4050, L501.9985, L100.0100 #### [facility] [address] [place], [address] Carbon dioxide, total [Moles /volume] in Central venous bloodOrdered By: Delfino Montgomery on 10-20-2024 CO2 [Moles/Vol] 24.5 mmol/L 21.0-32.0 [facility] Chloride assayOrdered By: Marshall Montgomery on 10-20-2024 Chloride [Moles/Vol] 102 mmol/L 98-108 [facility] Comprehensive Metabolic Prof ilon 10-20-2024 Albumin [Mass/Vol] 4.3 g/dL Normal 3.4-4.8 [facility] Comment on above: Order Comment: Order Date: 03/21/24 Order Info: 0786-1 - CMP Order Info: 3040-3 - LIPASE Order Info: [id number] - CRP Performed By: #### L 501.5101, L501.6710, L500.4050, L501.2450, L100.0500 #### [facility] [address] [place], [address] Albumin/Globulin [Mass ratio] 1.8 {ratio} Normal 0.9-2.4 [facility] Comment on above: Order Comment: Order Date: 03/21/24 Order Info: 0786-1 - CMP Order Info: 3040-3 - LIPASE Order Info: [id number] - CRP Performed By: #### L 501.5101, L501.6710, L500.4050, L501.2450, L100.0500 #### [facility] [address] [place], [address] ALK PHOS 81 U/L Normal 40-129 [facility] Comment on above: Order Comment: Order Date: 03/21/24 Order Info: 0786-1 - CMP Order Info: 3040-3 - LIPASE Order Info: [id number] - CRP Performed By: #### L 501.5101, L501.6710, L500.4050, L501.2450, L100.0500 #### [facility] [address] [place], [address] ALT [Catalytic activity/Vol] 20 U/L Normal <=46 [facility] Comment on above: Order Comment: Order Date: 03/21/24 Order Info: 0786-1 - CMP Order Info: 3040-3 - LIPASE Order Info: [id number] - CRP Performed By: #### L 501.5101, L501.6710, L500.4050, L501.2450, L100.0500 #### [facility] [address] [place], [address] AST [Catalytic activity/Vol] 25 U/L Normal <=37 [facility] Comment on above: Order Comment: Order Date: 03/21/24 Order Info: 0786-1 - CMP Order Info: 3040-3 - LIPASE Order Info: [id number] - CRP Performed By: #### L 501.5101, L501.6710, L500.4050, L501.2450, L100.0500 #### [facility] [address] [place], [address] Bilirubin [Mass/Vol] 0.49 mg/dL Normal 0.00-1.30 [facility] Comment on above: Order Comment: Order Date: 03/21/24 Order Info: 0786-1 - CMP Order Info: 304-3 - LIPASE Order Info: [id number] - CRP Performed By: #### L 501.5101, L501.6710, L500.4050, L501.2450, L100.0500 #### [facility] [address] [place], [address] BUN/CRE 16.4 RATIO Normal 10-20 [facility] Comment on above: Order Comment: Order Date: 03/21/24 Order Info: 0786-1 - CMP Order Info: 3040-3 - LIPASE Order Info: [id number] - CRP Performed By: #### L 501.5101, L501.6710, L500.4050, L501.2450, L100.0500 #### [facility] [address] [place], [address] Calcium [Mass/Vol] 9.8 mg/dL Normal 7.6-11.0 [facility] Comment on above: Order Comment: Order Date: 03/21/24 Order Info: 0786-1 - CMP Order Info: 3040-3 - LIPASE Order Info: [id number] - CRP Performed By: #### L 501.5101, L501.6710, L500.4050, L501.2450, L100.0500 #### [facility] [address] [place], [address] Chloride [Moles/Vol] 102 mmol/L Normal 98-108 [facility] Comment on above: Order Comment: Order Date: 03/21/24 Order Info: 07-1 - CMP Order Info: 3040-3 - LIPASE Order Info: [id number] - CRP Performed By: #### L 501.5101, L501.6710, L500.4050, L501.2450, L100.0500 #### [facility] [address] [place], [address] CO2 [Moles/Vol] 24.5 mmol/L Normal 21.0-32.0 [facility] Comment on above: Order Comment: Order Date: 03/21/24 Order Info: 785-1 - CMP Order Info: 3040-3 - LIPASE Order Info: [id number] - CRP Performed By: #### L 501.5101, L501.6710, L500.4050, L501.2450, L100.0500 #### [facility] [address] [place], [address] Creatinine [Mass/Vol] 0.95 mg/dL Normal 0.70-1.20 [facility] Comment on above: Order Comment: Order Date: 03/21/24 Order Info: 071 - CMP Order Info: 3040-3 - LIPASE Order Info: [id number] - CRP Performed By: #### L 501.5101, L501.6710, L500.4050, L501.2450, L100.0500 #### [facility] [address] [place], [address] GAP 10 Normal 5-15 [facility] Comment on above: Order Comment: Order Date: 03/21/24 Order Info: 0786-1 - CMP Order Info: 3040-3 - LIPASE Order Info: [id number] - CRP Performed By: #### L 501.5101, L501.6710, L500.4050, L501.2450, L100.0500 #### [facility] [address] [place], [address] GFR/1.73 sq M.predicted among non-blacks MDRD (S/P/Bld) [Vol rate/Area] 84 mL/min/{1.73_m2} Normal >60 [facility] Comment on above: Order Comment: Order Date: 03/21/24 Order Info: 0786-1 - CMP Order Info: 3040-3 - LIPASE Order Info: [id number] - CRP Result Comment: mL/m in/1.73m2 CKD-EPI Creatinine Equation (2020) Performed By: #### L 501.5101, L501.6710, L500.4050, L501.2450, L100.0500 #### [facility] [address] [place], [address] Globulin (S) [Mass/Vol] 2.4 g/dL Normal 2.2-4.2 [facility] Comment on above: Order Comment: Order Date: 03/21/24 Order Info: 07-1 - CMP Order Info: 3040-3 - LIPASE Order Info: [id number] - CRP Performed By: #### L 501.5101, L501.6710, L500.4050, L501.2450, L100.0500 #### [facility] [address] [place], [address] Glucose [Mass/Vol] 136 mg/dL High 70-99 [facility] Comment on above: Order Comment: Order Date: 03/21/24 Order Info: 0786-1 - CMP Order Info: 3040-3 - LIPASE Order Info: [id number] - CRP Performed By: #### L 501.5101, L501.6710, L500.4050, L501.2450, L100.0500 #### [facility] [address] [place], [address] Potassium [Moles/Vol] 3.7 mmol/L Normal 3.3-5.1 [facility] Comment on above: Order Comment: Order Date: 03/21/24 Order Info: 0786-1 - CMP Order Info: 3040-3 - LIPASE Order Info: [id number] - CRP Performed By: #### L 501.5101, L501.6710, L500.4050, L501.2450, L100.0500 #### [facility] [address] [place], [address] Sodium [Moles/Vol] 137 mmol/L Normal 133-145 [facility] Comment on above: Order Comment: Order Date: 03/21/24 Order Info: 0786-1 - CMP Order Info: 3040-3 - LIPASE Order Info: [id number] - CRP Performed By: #### L 501.5101, L501.6710, L500.4050, L501.2450, L100.0500 #### [facility] [address] [place], [address] T PROT 6.7 g/dL Normal 5.9-8.4 [facility] Comment on above: Order Comment: Order Date: 03/21/24 Order Info: 0786-1 - CMP Order Info: 3040-3 - LIPASE Order Info: [id number] - CRP Performed By: #### L 501.5101, L501.6710, L500.4050, L501.2450, L100.0500 #### [facility] [address] [place], [address] Urea nitrogen [Mass/Vol] 16 mg/dL Normal 4-19 [facility] Comment on above: Order Comment: Order Date: 03/21/24 Order Info: 0786-1 - CMP Order Info: 3040-3 - LIPASE Order Info: [id number] - CRP Performed By: #### L 501.5101, L501.6710, L500.4050, L501.2450, L100.0500 #### [facility] [address] [place], [address] Eosinophil percentageOrdered By: Delfino Montgomery on 10-20-2024 Eosinophils/100 WBC (Bld) 6.6 % High 0-5 [facility] Erythrocyte distribution wid th ratioOrdered By: Delfino Montgomery on 10-20-2024 Erythrocyte distribution width (RBC) [Ratio] 11.9 % 11.6-14.6 [facility] Erythrocyte distribution wid th standard deviationOrdered By: Delfino Montgomery on 10-20-2024 Erythrocyte distribution width (RBC) [Ratio] 45.0 fl High 35.1-43.9 [facility] Glomerular filtration rate ( GFR) estimation/1.73 sq m using serum, plasma, or whole bOrdered By: Delfino Montgomery on 10-20-2024 GFR/1.73 sq M.predicted among non-blacks MDRD (S/P/Bld) [Vol rate/Area] 84 mL/min/{1.73_m2} >60 [facility] Comment on above: mL/min/1.73m2 CKD-EP I Creatinine Equation (2020) Hematocrit Auto (Bld) [Volum e fraction]Ordered By: Delfino Montgomery on 10-20-2024 Hematocrit (Bld) [Volume fraction] 46.2 % 40-54 [facility] Hemoglobin A1con 10-20-2024 HbA1c (Bld) [Mass fraction] 6.3 % High <=5.6 [facility] Comment on above: Order Comment: Order Date: 09/27/24 Order Info: [id number] - A1C Result Comment: Norm al < 5.7 % Prediabetic 5.7 - 6.4 % Diabetic >or= 6.5 % Please note range changes. Performed By: #### L 500.4050, L501.9985, L100.0100 #### [facility] [address] [place] [address]. [place], [address] Hemoglobin A1c percentageOrd ered By: Delfino Montgomery on 10-20-2024 HbA1c (Bld) [Mass fraction] 6.3 % High <5.7 [facility] Comment on above: Normal < 5.7 % Predi abetic 5.7 - 6.4 % Diabetic >or= 6.5 % Please note range changes. Hemoglobin measurementOrdere d By: Delfino Montgomery on 10-20-2024 Hemoglobin (Bld) [Mass/Vol] 15.8 g/dL 13.0-16.5 [facility] Immature granulocytes/100 WB C Auto (Bld)Ordered By: Delfino Montgomery on 10-20-2024 Immature granulocytes/100 WBC (Bld) 0.400 % 0.0-0.9 [facility] Comment on above: IG% - Immature Granu locytes (promyelocytes, myelocytes and metamyelocytes) > 1% indicates that a LEFT SHIFT is Present. Laboratory - Chemistry and C hemistry - challengeOrdered By: Delfino Montgomery on 10-20-2024 AST [Catalytic activity/Vol] 25 U/L <38 [facility] MCV (mean corpuscular volume ) determinationOrdered By: Delfino Montgomery on 10-20-2024 MCV (RBC) [Entitic vol] 100.7 fL High 80-94 [facility] Mean corpuscular hemoglobin (MCH) determinationOrdered By: Delfino Montgomery on 10-20-2024 MCH (RBC) [Entitic mass] 34.4 pg High 27.0-32.0 [facility] Mean corpuscular hemoglobin concentration (MCHC) determinationOrdered By: Delfino Montgomery on 10-20-2024 MCHC (RBC) [Mass/Vol] 34.2 g/dL 32-36 [facility] Mean platelet volume determi nationOrdered By: Delfino Montgomery on 10-20-2024 Platelet mean volume (Bld) [Entitic vol] 9.8 fL 6.2-12.0 [facility] Microalb:Creat Ratio,Random URon 10-20-2024 Creatinine [Mass/Vol] 130.00 mg/dL Normal 39.00-259.00 [facility] Comment on above: Order Comment: Order Date: 03/21/24 Order Info: 0786-1 - CMP Order Info: 3040-3 - LIPASE Order Info: [id number] - CRP Performed By: #### L 501.5101, L501.6710, L500.4050, L501.2450, L100.0500 #### [facility] [address] [place], [place], [id number] MALB:CREAT UNABLE TO CALCULATE Normal [facility] Comment on above: Order Comment: Order Date: 03/21/24 Order Info: 0786-1 - CMP Order Info: 3040-3 - LIPASE Order Info: [id number] - CRP Performed By: #### L 501.5101, L501.6710, L500.4050, L501.2450, L100.0500 #### [facility] [address] [place], [address] MICROALBUMIN,UR < 12.0 Normal NO RANGE EST. [facility] Comment on above: Order Comment: Order Date: 03/21/24 Order Info: 0786-1 - CMP Order Info: 3040-3 - LIPASE Order Info: [id number] - CRP Performed By: #### L 501.5101, L501.6710, L500.4050, L501.2450, L100.0500 #### [facility] [address] [place], [address] Microalbumin/creat ratio urO rdered By: Delfino Montgomery on 10-20-2024 Urine microalbumin/creatinine ratio measurement UNABLE TO CALCULATE mg/g CRE [facility] Monocyte percentageOrdered B y: Delfino Montgomery on 10-20-2024 Monocytes/100 WBC (Bld) 12.4 % High 0-10 [facility] Neutrophil percentageOrdered By: Delfino Montgomery on 10-20-2024 Neutrophils/100 WBC (Bld) 48.4 % 47-70 [facility] Nucleated red blood cell per centageOrdered By: Delfino Montgomery on 10-20-2024 Nucleated RBC/100 WBC (Bld) [Ratio] 0 % 0-5 [facility] Platelet countOrdered By: Marshall Montgomery on 10-20-2024 Platelets (Bld) [#/Vol] 215 10*3/uL 150-450 [facility] Potassium measurement (mass/ volume)Ordered By: Delfino Montgomery on 10-20-2024 Potassium (Unsp spec) [Mass/Vol] 3.7 mmol/L 3.3-5.1 [facility] RBC Auto (Bld) [#/Vol]Ordere d By: Delfino Montgomery on 10-20-2024 RBC (Bld) [#/Vol] 4.59 10*6/uL Low 4.6-6.2 [facility] Random urine creatinine kenneth urement (mass/volume)Ordered By: Delfino Montgomery on 10-20-2024 Creatinine Unsp time (U) [Mass/Vol] 130.00 mg/dL 39.00-259.00 [facility] Serum creatinine measurement (mass/volume)Ordered By: Delfino Montgomery on 10-20-2024 Creatinine [Mass/Vol] 0.95 mg/dL 0.70-1.20 [facility] Serum globulin measurementOr dered By: Delfino Montgomery on 10-20-2024 Globulin (S) [Mass/Vol] 2.4 g/dL 2.2-4.2 [facility] Serum glucose measurement (m ass/volume)Ordered By: Delfino Montgomery on 10-20-2024 Glucose [Mass/Vol] 136 mg/dL High 70-99 [facility] Serum or plasma alanine albert otransferase (ALT) measurementOrdered By: Delfino Montgomery on 10-20-2024 ALT [Catalytic activity/Vol] 20 U/L <47 [facility] Serum or plasma albumin kenneth urement (mass/volume)Ordered By: Delfino Montgomery on 10-20-2024 Albumin [Mass/Vol] 4.3 g/dL 3.4-4.8 [facility] Serum or plasma albumin/glob ulin mass ratioOrdered By: Delfino Montgomery on 10-20-2024 Albumin/Globulin [Mass ratio] 1.8 {ratio} 0.9-2.4 [facility] Serum or plasma alkaline kennedy sphatase measurementOrdered By: Delfino Montgomery on 10-20-2024 ALP [Catalytic activity/Vol] 81 U/L 40-129 [facility] Serum or plasma calcium kenneth urement (mass/volume)Ordered By: Delfino Montgomery on 10-20-2024 Calcium [Mass/Vol] 9.8 mg/dL 7.6-11.0 [facility] Serum or plasma urea nitroge n measurement (mass/volume)Ordered By: Delfino Montgomery on 10-20-2024 Urea nitrogen [Mass/Vol] 16 mg/dL 4-19 [facility] Sodium levelOrdered By: Delfino Montgomery on 10-20-2024 Sodium [Moles/Vol] 137 mmol/L 133-145 [facility] Total proteinOrdered By: Debra Montgomery on 10-20-2024 Protein [Mass/Vol] 6.7 g/dL 5.9-8.4 [facility] Urine albumin measurement wi detection limit of 20 mg/L or less (mass/volume)Ordered By: Delfino Montgomery on 10-20-2024 Albumin DL <= 20 mg/L (U) [Mass/Vol] < 12.0 mg/L NO RANGE EST. [facility] White blood cell (WBC) count Ordered By: Delfino Montgomery on 10-20-2024 WBC (Bld) [#/Vol] 5.5 10*3/uL 4.4-11.0 [facility] Abdomen WITH IV Contraston 1 08-02-2023 Abdomen WITH IV Contrast [facility] [address] [place] [address] Abdomen WITH IV Contrast MR#: [id number] Acct: [id number] Name: BRANT BASILIO Rep #: [id number] : 1950 M 73 From: Cristofer Faustin MD PCP: Dr. Delfino Montgomery MD Status: [facility] Study: Abdomen WITH IV Contrast Date of Exam: 4 Exam# [id number] Ordering Dr: Delfino Montgomery MD [id number] STUDY: CT ABDOMEN WITH CONTRAST REASON FOR [...] EST , CC: Dr. Delfino Montgomery MD Cabinetmaker Maintenance: Signed Normal [facility] L501.5101on 05-04-2024 GGTP 33 IU/L Normal 0-65 [facility] Comment on above: Order Comment: Order Date: 03/21/24 Order Info: [id number] - GGTP Result Comment: Perf ormed at: CB - [facility] [address] [id number] Sand Filler: Sathya Rubin PhD, Phone: [phone] Performed By: #### L 501.5101, L501.6710, L500.4050, L501.2450, L100.0500 #### [facility] [address] [place], [address] CBC-Complete Blood Cnt No Di ffon 05-03-2024 Erythrocyte distribution width (RBC) [Ratio] 12.0 % Normal 11.6-14.6 [facility] Comment on above: Order Comment: Order Date: 03/21/24 Order Info: [id number] - CBC Performed By: #### L 501.5101, L501.6710, L500.4050, L501.2450, L100.0500 #### [facility] [address] [place], [address] Hematocrit (Bld) [Volume fraction] 46.3 % Normal 40-54 [facility] Comment on above: Order Comment: Order Date: 03/21/24 Order Info: [id number] - CBC Performed By: #### L 501.5101, L501.6710, L500.4050, L501.2450, L100.0500 #### [facility] [address] [place], [address] Hemoglobin (Bld) [Mass/Vol] 15.6 g/dL Normal 13.0-16.5 [facility] Comment on above: Order Comment: Order Date: 03/21/24 Order Info: [id number] - CBC Performed By: #### L 501.5101, L501.6710, L500.4050, L501.2450, L100.0500 #### [facility] [address] [place], [address] MCH (RBC) [Entitic mass] 33.5 pg High 27.0-32.0 [facility] Comment on above: Order Comment: Order Date: 03/21/24 Order Info: [id number] - CBC Performed By: #### L 501.5101, L501.6710, L500.4050, L501.2450, L100.0500 #### [facility] [address] [place], [address] MCHC (RBC) [Mass/Vol] 33.7 g/dL Normal 32-36 [facility] Comment on above: Order Comment: Order Date: 03/21/24 Order Info: [id number] - CBC Performed By: #### L 501.5101, L501.6710, L500.4050, L501.2450, L100.0500 #### [facility] [address] [place], [address] MCV (RBC) [Entitic vol] 99.6 fL High 80-94 [facility] Comment on above: Order Comment: Order Date: 03/21/24 Order Info: [id number] - CBC Performed By: #### L 501.5101, L501.6710, L500.4050, L501.2450, L100.0500 #### [facility] [address] [place], [address] Platelet mean volume (Bld) [Entitic vol] 10.0 fL Normal 6.2-12.0 [facility] Comment on above: Order Comment: Order Date: 03/21/24 Order Info: [id number] - CBC Performed By: #### L 501.5101, L501.6710, L500.4050, L501.2450, L100.0500 #### [facility] [address] [place], [address] Platelets (Bld) [#/Vol] 241 10*3/uL Normal 150-450 [facility] Comment on above: Order Comment: Order Date: 03/21/24 Order Info: [id number] - CBC Performed By: #### L 501.5101, L501.6710, L500.4050, L501.2450, L100.0500 #### [facility] [address] [place], [address] RBC (Bld) [#/Vol] 4.65 10*6/uL Normal 4.6-6.2 [facility] Comment on above: Order Comment: Order Date: 03/21/24 Order Info: [id number] - CBC Performed By: #### L 501.5101, L501.6710, L500.4050, L501.2450, L100.0500 #### [facility] [address] [place], [address] RDW SD 43.8 fl Normal 35.1-43.9 [facility] Comment on above: Order Comment: Order Date: 03/21/24 Order Info: [id number] - CBC Performed By: #### L 501.5101, L501.6710, L500.4050, L501.2450, L100.0500 #### [facility] [address] [place], [address] WBC (Bld) [#/Vol] 7.5 10*3/uL Normal 4.4-11.0 [facility] Comment on above: Order Comment: Order Date: 03/21/24 Order Info: [id number] - CBC Performed By: #### L 501.5101, L501.6710, L500.4050, L501.2450, L100.0500 #### [facility] [address], [address] CRPon 05-03-2024 C-REACTIVE PROT < 2.90 Normal 0.0-3.0 [facility] Comment on above: Order Comment: Order Date: 03/21/24 Order Info: [id number] - CMP Order Info: 3040-3 - LIPASE Order Info: [id number] - CRP Result Comment: C-Re active Protein (CRP) provides useful information for the diagnosis, therapy and monitoring of inflammatory processes and associated diseases. For the evaluation of Relative Risk for Cardiovascular Disease, a High Sensitivity CRP (HSCRP) should be ordered. Performed By: #### L 501.5101, L501.6710, L500.4050, L501.2450, L100.0500 #### [facility] [address] [place], [address] Comprehensive Metabolic Prof ilon 05-03-2024 Albumin [Mass/Vol] 4.1 g/dL Normal 3.2-5.0 [facility] Comment on above: Order Comment: Order Date: 03/21/24 Order Info: [id number] - CMP Order Info: 3040-3 - LIPASE Order Info: [id number] - CRP Performed By: #### L 501.5101, L501.6710, L500.4050, L501.2450, L100.0500 #### [facility] [address] [place], [address] Albumin/Globulin [Mass ratio] 1.3 {ratio} Normal 0.9-2.4 [facility] Comment on above: Order Comment: Order Date: 03/21/24 Order Info: [id number] - CMP Order Info: 3040-3 - LIPASE Order Info: [id number] - CRP Performed By: #### L 501.5101, L501.6710, L500.4050, L501.2450, L100.0500 #### [facility] [address] [place], [address] ALK P 74 U/L Normal 45-117 [facility] Comment on above: Order Comment: Order Date: 03/21/24 Order Info: 07-1 - CMP Order Info: 3040-3 - LIPASE Order Info: [id number] - CRP Performed By: #### L 501.5101, L501.6710, L500.4050, L501.2450, L100.0500 #### [facility] [address] [place], [address] ALT [Catalytic activity/Vol] 28 U/L Normal 16-61 [facility] Comment on above: Order Comment: Order Date: 03/21/24 Order Info: [id number] - CMP Order Info: 3040-3 - LIPASE Order Info: [id number] - CRP Performed By: #### L 501.5101, L501.6710, L500.4050, L501.2450, L100.0500 #### [facility] [address] [place], [address] AST [Catalytic activity/Vol] 23 U/L Normal 15-37 [facility] Comment on above: Order Comment: Order Date: 03/21/24 Order Info: [id number] - CMP Order Info: 3040-3 - LIPASE Order Info: [id number] - CRP Performed By: #### L 501.5101, L501.6710, L500.4050, L501.2450, L100.0500 #### [facility] [address] [place], [address] Bilirubin [Mass/Vol] 0.80 mg/dL Normal 0.20-1.00 [facility] Comment on above: Order Comment: Order Date: 03/21/24 Order Info: [id number] - CMP Order Info: 3040-3 - LIPASE Order Info: [id number] - CRP Result Comment: For patients on eltrombopag therapy, use of Dimension [place] TBIL is not recommended. Performed By: #### L 501.5101, L501.6710, L500.4050, L501.2450, L100.0500 #### [facility] [address] [place], [address] BUN/CRE 18.8 RATIO Normal 10-20 [facility] Comment on above: Order Comment: Order Date: 03/21/24 Order Info: [id number] - CMP Order Info: 3040-3 - LIPASE Order Info: [id number] - CRP Performed By: #### L 501.5101, L501.6710, L500.4050, L501.2450, L100.0500 #### [facility] [address] [place], [address] CA,Total 9.4 mg/dL Normal 8.5-10.1 [facility] Comment on above: Order Comment: Order Date: 03/21/24 Order Info: [id number] - CMP Order Info: 3040-3 - LIPASE Order Info: [id number] - CRP Performed By: #### L 501.5101, L501.6710, L500.4050, L501.2450, L100.0500 #### [facility] [address] [place], [address] Chloride [Moles/Vol] 104 mmol/L Normal 98-107 [facility] Comment on above: Order Comment: Order Date: 03/21/24 Order Info: [id number] - CMP Order Info: 3040-3 - LIPASE Order Info: [id number] - CRP Performed By: #### L 501.5101, L501.6710, L500.4050, L501.2450, L100.0500 #### [facility] [address] [place], [address] CO2 [Moles/Vol] 26.0 mmol/L Normal 21.0-32.0 [facility] Comment on above: Order Comment: Order Date: 03/21/24 Order Info: 1 - CMP Order Info: 3 - LIPASE Order Info: - CRP Performed By: #### L 501.5101, L501.6710, L500.4050, L501.2450, L100.0500 #### [facility] [address] [place], [address] Creatinine [Mass/Vol] 1.17 mg/dL Normal 0.70-1.30 [facility] Comment on above: Order Comment: Order Date: 03/21/24 Order Info: [id number] - CMP Order Info: 3 - LIPASE Order Info: - CRP Result Comment: The validity of the calculated GFR GFRAA in patients over 70 years has not been determined. Clinical correlation is essential. Performed By: #### L 501.5101, L501.6710, L500.4050, L501.2450, L100.0500 #### [facility] [address] [place], [address] EST GFR - AA 79 mL/min Normal >60 [facility] Comment on above: Order Comment: Order Date: 03/21/24 Order Info: 785-1 - CMP Order Info: 3040-3 - LIPASE Order Info: [id number] - CRP Result Comment: Afri can Georgian GFR Calc Performed By: #### L 501.5101, L501.6710, L500.4050, L501.2450, L100.0500 #### [facility] [address] [place], [address] GAP 7 Normal 5-15 [facility] Comment on above: Order Comment: Order Date: 03/21/24 Order Info: 86-1 - CMP Order Info: 3040-3 - LIPASE Order Info: [id number] - CRP Performed By: #### L 501.5101, L501.6710, L500.4050, L501.2450, L100.0500 #### [facility] [address] [place], [address] GFR/1.73 sq M.predicted among non-blacks MDRD (S/P/Bld) [Vol rate/Area] 65 mL/min/{1.73_m2} Normal >60 [facility] Comment on above: Order Comment: Order Date: 03/21/24 Order Info: 785-1 - CMP Order Info: 3040-3 - LIPASE Order Info: [id number] - CRP Result Comment: Non- GFR Calc Performed By: #### L 501.5101, L501.6710, L500.4050, L501.2450, L100.0500 #### [facility] [address] [place], [address] Globulin (S) [Mass/Vol] 3.1 g/dL Normal 2.2-4.2 [facility] Comment on above: Order Comment: Order Date: 03/21/24 Order Info: 785-1 - CMP Order Info: 3040-3 - LIPASE Order Info: [id number] - CRP Performed By: #### L 501.5101, L501.6710, L500.4050, L501.2450, L100.0500 #### [facility] [address] [place], [address] Glucose [Mass/Vol] 139 mg/dL High 74-106 [facility] Comment on above: Order Comment: Order Date: 03/21/24 Order Info: [id number] - CMP Order Info: 3040-3 - LIPASE Order Info: [id number] - CRP Result Comment: Fast ing Glucose result greater than or equal to 126 mg/dL suggests DIABETES MELLITUS per A.D.A. criteria. Performed By: #### L 501.5101, L501.6710, L500.4050, L501.2450, L100.0500 #### [facility] [address] [place], [address] Potassium [Moles/Vol] 4.0 mmol/L Normal 3.5-5.1 [facility] Comment on above: Order Comment: Order Date: 03/21/24 Order Info: [id number] - CMP Order Info: 3040-3 - LIPASE Order Info: [id number] - CRP Performed By: #### L 501.5101, L501.6710, L500.4050, L501.2450, L100.0500 #### [facility] [address] [place], [address] Sodium [Moles/Vol] 137 mmol/L Normal 136-145 [facility] Comment on above: Order Comment: Order Date: 03/21/24 Order Info: [id number] - CMP Order Info: 3040-3 - LIPASE Order Info: [id number] - CRP Performed By: #### L 501.5101, L501.6710, L500.4050, L501.2450, L100.0500 #### [facility] [address] [place], [address] T PROT 7.2 g/dL Normal 6.4-8.2 [facility] Comment on above: Order Comment: Order Date: 03/21/24 Order Info: [id number] - CMP Order Info: 3040-3 - LIPASE Order Info: [id number] - CRP Performed By: #### L 501.5101, L501.6710, L500.4050, L501.2450, L100.0500 #### [facility] [address] [place], [address] Urea nitrogen [Mass/Vol] 22 mg/dL High 7-18 [facility] Comment on above: Order Comment: Order Date: 03/21/24 Order Info: 0786-1 - CMP Order Info: 3040-3 - LIPASE Order Info: [id number] - CRP Performed By: #### L 501.5101, L501.6710, L500.4050, L501.2450, L100.0500 #### [facility] [address] [place], [address] Lipaseon 05-03-2024 Lipase [Catalytic activity/Vol] 43 U/L Normal 13-75 [facility] Comment on above: Order Comment: Order Date: 03/21/24 Order Info: [id number] - CMP Order Info: 3040-3 - LIPASE Order Info: [id number] - CRP Result Comment: Vitaliy dick note: LIPASE revised reference range effective 22. New Lipase methodology. Expected to produce lower values than the previous assay method. NEW Reference Range: 13 - 75 U/L Performed By: #### L 501.5101, L501.6710, L500.4050, L501.2450, L100.0500 #### [facility] [address] [place], [address] Basophil percentageOrdered B y: Delfino Montgomery on 10-11-2023 Bilirubin [Mass/Vol] 0.60 mg/dL 0.20-1.00 [facility] Comment on above: For patients on eltr ombopag therapy, use of Dimension [place] TBIL is not recommended. Chloride [Moles/Vol] 105 mmol/L 98-107 [facility] Glucose [Mass/Vol] 139 mg/dL 74-106 [facility] Comment on above: Fasting Glucose resu lt greater than or equal to 126 mg/dL suggests DIABETES MELLITUS per A.D.A. criteria. Potassium [Moles/Vol] 4.1 mmol/L 3.5-5.1 [facility] Protein [Mass/Vol] 6.8 g/dL 6.4-8.2 [facility] Sodium [Moles/Vol] 138 mmol/L 136-145 [facility] - Chemistry and C hemistry - challengeOrdered By: Delfino Montgomery on 10-11-2023 Albumin/Globulin [Mass ratio] 1.3 {ratio} 0.9-2.4 [facility] ALP [Catalytic activity/Vol] 59 U/L 45-117 [facility] ALT [Catalytic activity/Vol] 28 U/L 16-61 [facility] CO2 [Moles/Vol] 28.0 mmol/L 21.0-32.0 [facility] Globulin (S) [Mass/Vol] 3.0 g/dL 2.2-4.2 [facility] Urea nitrogen/Creatinine [Mass ratio] 21.9 mg/mg 10-20 [facility] No Panel InformationOrdered By: Delfino Montgomery on 10-11-2023 Estimated GFR (MDRD) Amer 89 mL/min >60 [facility] Comment on above: GFR Calc Estimated GFR (MDRD) Non-Af Amer 74 mL/min >60 [facility] Comment on above: Non- GFR Calc Serum or plasma calcium kenneth urement (mass/volume)Ordered By: Delfino Montgomery on 10-11-2023 Calcium [Mass/Vol] 9.4 mg/dL 8.5-10.1 [facility] Serum or plasma creatinine m easurement (mass/volume)Ordered By: Delfino Montgomery on 10-11-2023 Creatinine [Mass/Vol] 1.05 mg/dL 0.70-1.30 [facility] Comment on above: The validity of the calculated GFR & GFRAA in patients over 70 years has not been determined. Clinical correlation is essential. Serum or plasma urea nitroge n measurement (mass/volume)Ordered By: Delfino Montgomery on 10-11-2023 Urea nitrogen [Mass/Vol] 23 mg/dL 7-18 [facility] Thin prep Papanicolaou smear with manual screeningOrdered By: Delfino Montgomery on 10-11-2023 Thin prep Papanicolaou smear with manual screening 3.8 g/dL 3.2-5.0 [facility] Thin prep Papanicolaou smear with manual screening 25 U/L 15-37 [facility] Thin prep Papanicolaou smear with manual screening 5 5-15 [facility] Whole blood hemoglobin A1c/t otal hemoglobin ratio (mass fraction)Ordered By: Delfino Montgomery on 10-11-2023 HbA1c (Bld) [Mass fraction] 6.1 % 3.8-5.6 [facility] Comment on above: Normal < 5.7 % Predi abetic 5.7 - 6.4 % Diabetic >or= 6.5 % Please note range changes. Absolute lymphocyte countOrd ered By: Delfino Montgomery on 05-28-2023 Lymphocytes Auto (Unsp spec) [#/Vol] 1.59 10*3/uL 0.83-4.51 [facility] Basophil percentageOrdered B y: Delfino Montgomery on 05-28-2023 Basophils/100 WBC (Bld) 0.3 % 0-1 [facility] Bilirubin [Mass/Vol] 0.50 mg/dL 0.20-1.00 [facility] Comment on above: For patients on eltr ombopag therapy, use of Dimension [place] TBIL is not recommended. Chloride [Moles/Vol] 106 mmol/L 98-107 [facility] Cholesterol [Mass/Vol] 146 mg/dL <200 [facility] Comment on above: <200 mg/dL Desirable 200-240 mg/dL Borderline >240 mg/dL High Risk Eosinophils/100 WBC (Bld) 4.1 % 0-5 [facility] Glucose [Mass/Vol] 139 mg/dL 74-106 [facility] Comment on above: Fasting Glucose resu lt greater than or equal to 126 mg/dL suggests DIABETES MELLITUS per A.D.A. criteria. Neutrophils (Bld) [#/Vol] 4.2 10*3/uL 2.0-7.7 [facility] Neutrophils/100 WBC (Bld) 60.6 % 47-70 [facility] Potassium [Moles/Vol] 4.3 mmol/L 3.5-5.1 [facility] Protein [Mass/Vol] 6.9 g/dL 6.4-8.2 [facility] Sodium [Moles/Vol] 139 mmol/L 136-145 [facility] Testosterone [Mass/Vol] 453.02 ng/dL [facility] Comment on above: CENTRAL 90% REFERENC E RANGES MALE AGE <50 197.44 - 669.58 ng/dL MALE AGE > or = 50 187.72 - 684.19 ng/dL FEMALE AGE <50 8.38 - 35.01 ng/dL FEMALE AGE > or = 50 <7.00 - 35.92 ng/dL Effective as of 01/02/21 Triglyceride [Mass/Vol] 140 mg/dL <199 [facility] Comment on above: The drugs N-Acetylcy steine and Metamizole may falsely depress this assay.Serum Triglycerides Reference Interval Normal <150 mg/dL Borderline high 150 - 199 mg/dL High 200 - 499 mg/dL Very High > or = 500 mg/dL WBC (Bld) [#/Vol] 6.9 10*3/uL 4.4-11.0 [facility] Blood erythrocytes count (nu mber/volume)Ordered By: Delfino Montgomery on 05-28-2023 RBC (Bld) [#/Vol] 4.47 10*6/uL 4.6-6.2 [facility] Blood hemoglobin measurement (mass/volume)Ordered By: Delfino Montgomery on 05-28-2023 Hemoglobin (Bld) [Mass/Vol] 14.9 g/dL 13.0-16.5 [facility] Blood lymphocytes/100 leukoc ytesOrdered By: Delfino Montgomery on 05-28-2023 Lymphocytes/100 WBC (Bld) 23.0 % 19-41 [facility] Blood monocytes/100 leukocyt esOrdered By: Delfino Montgomery on 05-28-2023 Monocytes/100 WBC (Bld) 11.4 % 0-10 [facility] Blood platelet mean volumeOr dered By: Delfino Montgomery on 05-28-2023 Platelet mean volume (Bld) [Entitic vol] 9.9 fL 6.2-12.0 [facility] Determination of erythrocyte mean corpuscular volume (MCV)Ordered By: Delfino Montgomery on 05-28-2023 MCV (RBC) [Entitic vol] 100.2 fL 80-94 [facility] Hematocrit Auto (Bld) [Volum e fraction]Ordered By: Delfino Montgomery on 05-28-2023 Hematocrit (Bld) [Volume fraction] 44.8 % 40-54 [facility] - Chemistry and C hemistry - challengeOrdered By: Delfino Montgomery on 05-28-2023 ALP [Catalytic activity/Vol] 58 U/L 45-117 [facility] ALT [Catalytic activity/Vol] 27 U/L 16-61 [facility] CO2 [Moles/Vol] 21.0 mmol/L 21.0-32.0 [facility] Globulin (S) [Mass/Vol] 3.0 g/dL 2.2-4.2 [facility] Urea nitrogen/Creatinine [Mass ratio] 20.9 mg/mg 10-20 [facility] - Hematology and Cell countsOrdered By: Delfino Montgomery on 05-28-2023 Erythrocyte distribution width (RBC) [Entitic vol] 45.1 fL 35.1-43.9 [facility] Erythrocyte distribution width (RBC) [Ratio] 12.1 % 11.6-14.6 [facility] Immature granulocytes/100 WBC (Bld) 0.600 % 0.0-0.9 [facility] Comment on above: IG% - Immature Granu locytes (promyelocytes, myelocytes and metamyelocytes) > 1% indicates that a LEFT SHIFT is Present. MCH (RBC) [Entitic mass] 33.3 pg 27.0-32.0 [facility] Nucleated RBC/100 WBC (Bld) [Ratio] 0 % 0-5 [facility] MCHC Auto (RBC) [Mass/Vol]Or dered By: Delfino Montgomery on 05-28-2023 MCHC (RBC) [Mass/Vol] 33.3 g/dL 32-36 [facility] No Panel InformationOrdered By: Delfino Montgomery on 05-28-2023 Urine Microalbumin/Creatinine Ratio TNP [facility] Comment on above: Test not performed Estimated GFR (MDRD) Amer 80 mL/min >60 [facility] Comment on above: GFR Calc Estimated GFR (MDRD) Non-Af Amer 66 mL/min >60 [facility] Comment on above: Non- GFR Calc Prostate Specific Antigen Screen 0.72 ng/mL 0.00-4.00 [facility] Comment on above: This test was perfor med using the TPSA assay method for the[facility] Center[facility] Biomedical chemistry system. Values obtained with differentassay methods cannot be used interchangably.When changing PSA assays in the course of monitoring apatient, additional sequential testing should be carriedout to confirm baseline values. Platelets bldOrdered By: Debra Montgomery on 05-28-2023 Platelets (Bld) [#/Vol] 239 10*3/uL 150-450 [facility] Serum or plasma albumin kenneth urement (mass/volume)Ordered By: Delfino Montgomery on 05-28-2023 Albumin [Mass/Vol] 3.9 g/dL 3.2-5.0 [facility] Serum or plasma albumin/glob ulin mass ratioOrdered By: Delfino Montgomery on 05-28-2023 Albumin/Globulin [Mass ratio] 1.3 {ratio} 0.9-2.4 [facility] Serum or plasma calcium kenneth urement (mass/volume)Ordered By: Delfino Montgomery on 05-28-2023 Calcium [Mass/Vol] 9.2 mg/dL 8.5-10.1 [facility] Serum or plasma cholesterol in HDL measurement (mass/volume)Ordered By: Delfino Montgomery on 05-28-2023 Cholesterol in HDL [Mass/Vol] 63 mg/dL >40 [facility] Comment on above: The drugs N-Acetylcy steine and Metamizole may falsely depress this assay. Reference Range HDL <40 mg/dL Low HDL Cholesterol HDL >or= 60 mg/dL High HDL Cholesterol Serum or plasma cholesterol in VLDL measurement (mass/volume)Ordered By: Delfino Montgomery on 05-28-2023 Cholesterol in VLDL [Mass/Vol] 28 mg/dL 5-40 [facility] Serum or plasma creatinine m easurement (mass/volume)Ordered By: Delfino Montgomery on 05-28-2023 Creatinine [Mass/Vol] 1.15 mg/dL 0.70-1.30 [facility] Comment on above: The validity of the calculated GFR & GFRAA in patients over 70 years has not been determined. Clinical correlation is essential. Serum or plasma low density lipoprotein (LDL) cholesterol measurement (mass/volume)Ordered By: Delfino Montgomery on 05-28-2023 Cholesterol in LDL [Mass/Vol] 55 mg/dL 0-130 [facility] Serum or plasma urea nitroge n measurement (mass/volume)Ordered By: Delfino Montgomery on 05-28-2023 Urea nitrogen [Mass/Vol] 24 mg/dL 7-18 [facility] Thin prep Papanicolaou smear with manual screeningOrdered By: Delfino Montgomery on 05-28-2023 Thin prep Papanicolaou smear with manual screening < 5.0 mg/L NO RANGE EST. [facility] Thin prep Papanicolaou smear with manual screening 20 U/L 15-37 [facility] Thin prep Papanicolaou smear with manual screening 12 5-15 [facility] Urine creatinine measurement (mass/volume)Ordered By: Delfino Montgomery on 05-28-2023 Creatinine (U) [Mass/Vol] 72.40 mg/dL NO RANGE EST. [facility] Whole blood hemoglobin A1c/t otal hemoglobin ratio (mass fraction)Ordered By: Delfino Montgomery on 05-28-2023 HbA1c (Bld) [Mass fraction] 6.2 % 3.8-5.6 [facility] Comment on above: Normal < 5.7 % Predi abetic 5.7 - 6.4 % Diabetic >or= 6.5 % Please note range changes. Basophil percentageOrdered B y: Delfino Montgomery on 11-11-2022 Bilirubin [Mass/Vol] 0.40 mg/dL 0.20-1.00 [facility] Comment on above: For patients on eltr ombopag therapy, use of Dimension [place] TBIL is not recommended. Chloride [Moles/Vol] 106 mmol/L 98-107 [facility] [facility] Glucose [Mass/Vol] 113 mg/dL 74-106 [facility] Comment on above: Fasting Glucose resu lt from 100 to 125 mg/dL suggests IMPAIRED HOMEOSTASIS per A.D.A. criteria. Potassium [Moles/Vol] 4.2 mmol/L 3.5-5.1 [facility] Protein [Mass/Vol] 7.0 g/dL 6.4-8.2 [facility] Sodium [Moles/Vol] 135 mmol/L 136-145 [facility] Testosterone [Mass/Vol] 412 ng/dL [phone] [facility] Comment on above: Adult male reference interval is based on a population ofhealthy nonobese males (BMI <30) between 19 and 39 yearsold. dennis Mcqueen.al. JCEM 2017,102;[id number]. PMID:[id number]. WBC (Bld) [#/Vol] 6.3 10*3/uL 4.4-11.0 [facility] Blood erythrocytes count (nu mber/volume)Ordered By: Delfino Montgomery on 11-11-2022 RBC (Bld) [#/Vol] 4.61 10*6/uL 4.6-6.2 [facility] Blood hemoglobin measurement (mass/volume)Ordered By: Delfino Montgomery on 11-11-2022 Hemoglobin (Bld) [Mass/Vol] 15.4 g/dL 13.0-16.5 [facility] Blood platelet mean volumeOr dered By: Delfino Montgomery on 11-11-2022 Platelet mean volume (Bld) [Entitic vol] 9.7 fL 6.2-12.0 [facility] Determination of erythrocyte mean corpuscular volume (MCV)Ordered By: Delfino Montgomery on 11-11-2022 MCV (RBC) [Entitic vol] 100.4 fL 80-94 [facility] Free testosterone percentage Ordered By: Delfino Montgomery on 11-11-2022 Testosterone Free/Testosterone.total [Mass fraction] 1.32 % 1.50-4.20 [facility] Comment on above: Performed at: [address] [id number] Director: Sathya Rubin PhD, Phone: [phone] at: [facility] [id number] Director: Joanna Cole MD, Phone: [phone] Hematocrit Auto (Bld) [Volum e fraction]Ordered By: Delfino Montgomery on 11-11-2022 Hematocrit (Bld) [Volume fraction] 46.3 % 40-54 [facility] Laboratory - Chemistry and C hemistry - challengeOrdered By: Delfino Montgomery on 11-11-2022 Albumin [Mass/Vol] 3.8 g/dL 2.9-4.4 [facility] ALP [Catalytic activity/Vol] 64 U/L 45-117 [facility] ALT [Catalytic activity/Vol] 30 U/L 16-61 [facility] CO2 [Moles/Vol] 26.0 mmol/L 21.0-32.0 [facility] Globulin (S) [Mass/Vol] 3.1 g/dL 2.2-4.2 [facility] Urea nitrogen/Creatinine [Mass ratio] 19.8 mg/mg 10-20 [facility] Laboratory - Hematology and Cell countsOrdered By: Delfino Montgomery on 11-11-2022 Erythrocyte distribution width (RBC) [Entitic vol] 42.5 fL 35.1-43.9 [facility] Erythrocyte distribution width (RBC) [Ratio] 11.6 % 11.6-14.6 [facility] MCH (RBC) [Entitic mass] 33.4 pg 27.0-32.0 [facility] MCHC Auto (RBC) [Mass/Vol]Or dered By: Delfino Montgomery on 11-11-2022 MCHC (RBC) [Mass/Vol] 33.3 g/dL 32-36 [facility] No Panel InformationOrdered By: Delfino Montgomery on 11-11-2022 Urine Microalbumin/Creatinine Ratio TNP [facility] Comment on above: Test not performed Addendum Document Comment . [facility] Comment on above: The SPE pattern appe ars unremarkable. Evidence ofmonoclonal protein is not apparent. [id number] 0.2 g/dL 0.0-0.4 [facility] Ldbkf-9-Jrfkfvxjt 0.9 g/dL 0.4-1.0 [facility] Anti-Nuclear Antibody Screen Negative Negative [facility] Comment on above: Performed at: [employer] [address] [id number] Director: Sathya Rubin PhD, Phone: [phone] Estimated GFR (MDRD) Amer 88 mL/min >60 [facility] Comment on above: GFR Calc Estimated GFR (MDRD) Non-Af Amer 73 mL/min >60 [facility] Comment on above: Non- GFR Calc Gamma Globulins 0.6 g/dL 0.4-1.8 [facility] Hepatitis C Antibody Non-Reactive Nonreactive [facility] Comment on above: Non Reactive: < 0.8 Equivocal: >/= 0.8 to < 1.0 Reactive: >/= 1.0The CDC recommends that a reactive/equivocal HCV antibody result be followed up by the HCV Nucleic Acid Amplificationtest ([id number]) Parathyroid Hormone (Intact) 35.3 pg/mL 18.4-80.1 [facility] Thyroid Stimulating Hormone (TSH) 1.00 uIU/mL 0.358-3.74 [facility] Vitamin D 25-Hydroxy 66.0 ng/mL [facility] Comment on above: Vitamin D 25(OH) Sta tus Range Deficiency <20 ng/mL (50nmol/L) Insufficiency 20 - 30 ng/mL (50 - 75 nmol/L) Sufficiency 30 - 100 ng/mL (75 - 250 nmol/L) Toxicity >100 ng/mL (>250 nmol/L) Platelets bldOrdered By: Debra Montgomery on 11-11-2022 Platelets (Bld) [#/Vol] 243 10*3/uL 150-450 [facility] Protein Fractions Elph [Inte rp]Ordered By: Delfino Montgomery on 11-11-2022 Protein Fractions [Interp] Comment . [facility] Comment on above: Protein electrophore sis scan will follow via computer,mail, or brick pointer delivery. Serum albumin to globulin ra roger by protein electrophoresisOrdered By: Delfino Montgomery on 11-11-2022 Albumin/Globulin Elph [Mass ratio] 1.5 0.7-1.7 [facility] Serum globulin measurement ( mass/volume)Ordered By: Delfino Montgomery on 11-11-2022 Globulin (S) [Mass/Vol] 2.6 g/dL 2.2-3.9 [facility] Serum or plasma albumin kenneth urement (mass/volume)Ordered By: Delfino Montgomery on 11-11-2022 Albumin [Mass/Vol] 3.9 g/dL 3.2-5.0 [facility] Serum or plasma albumin/glob ulin mass ratioOrdered By: Delfino Montgomery on 11-11-2022 Albumin/Globulin [Mass ratio] 1.3 {ratio} 0.9-2.4 [facility] Serum or plasma beta globuli n measurement by electrophoresis (mass/volume)Ordered By: Delfino Montgomery on 11-11-2022 Beta globulin Elph [Mass/Vol] 0.8 g/dL 0.7-1.3 [facility] Serum or plasma calcium kenneth urement (mass/volume)Ordered By: Delfino Montgomery on 11-11-2022 Calcium [Mass/Vol] 9.5 mg/dL 8.5-10.1 [facility] Serum or plasma creatinine m easurement (mass/volume)Ordered By: Delfino Montgomery on 11-11-2022 Creatinine [Mass/Vol] 1.06 mg/dL 0.70-1.30 [facility] Comment on above: The validity of the calculated GFR & GFRAA in patients over 70 years has not been determined. Clinical correlation is essential. Serum or plasma testosterone free measurement (mass/volume)Ordered By: Delfino Montgomery on 11-11-2022 Testosterone Free [Mass/Vol] 5.44 ng/dL 5.00-21.00 [facility] Serum or plasma urea nitroge n measurement (mass/volume)Ordered By: Delfino Montgomery on 11-11-2022 Urea nitrogen [Mass/Vol] 21 mg/dL 7-18 [facility] Serum rheumatoid factor dete ctionOrdered By: Delfino Montgomery on 11-11-2022 Rheumatoid factor Ql (S) 10.0 IU/mL <15 [facility] Thin prep Papanicolaou smear with manual screeningOrdered By: Delfino Montgomery on 11-11-2022 Thin prep Papanicolaou smear with manual screening < 5.0 mg/L NO RANGE EST. [facility] Thin prep Papanicolaou smear with manual screening 23 U/L 15-37 [facility] Thin prep Papanicolaou smear with manual screening 3 5-15 [facility] Thin prep Papanicolaou smear with manual screening See comment [facility] Comment on above: Result: Not Observed Total protein bloodOrdered B y: Delfino Montgomery on 11-11-2022 Protein [Mass/Vol] 6.4 g/dL 6.0-8.5 [facility] Urine creatinine measurement (mass/volume)Ordered By: Delfino Montgomery on 11-11-2022 Creatinine (U) [Mass/Vol] 82.60 mg/dL NO RANGE EST. [facility] Absolute lymphocyte counton 05-08-2022 Lymphocytes Auto (Unsp spec) [#/Vol] 2.07 10*3/uL 0.83-4.51 [facility] Work Phone: Basophil percentageon 2021 Basophils/100 WBC (Bld) 0.3 % 0-1 [facility] Work Phone: Bilirubin [Mass/Vol] 0.60 mg/dL 0.20-1.00 [facility] Work Phone: Comment on above: For patients on eltr ombopag therapy, use of Dimension [place] TBIL is not recommended. Chloride [Moles/Vol] 104 mmol/L 98-107 [facility] Work Phone: Cholesterol [Mass/Vol] 151 mg/dL <200 [facility] Work Phone: Comment on above: <200 mg/dL Desirable 200-240 mg/dL Borderline >240 mg/dL High Risk Eosinophils/100 WBC (Bld) 5.7 % 0-5 [facility] Work Phone: Glucose [Mass/Vol] 126 mg/dL 74-106 [facility] Work Phone: Comment on above: Fasting Glucose resu lt greater than or equal to 126 mg/dL suggests DIABETES MELLITUS per A.D.A. criteria. Neutrophils (Bld) [#/Vol] 4.2 10*3/uL 2.0-7.7 [facility] Work Phone: Neutrophils/100 WBC (Bld) 55.2 % 47-70 [facility] Work Phone: Potassium [Moles/Vol] 4.2 mmol/L 3.5-5.1 [facility] Work Phone: Protein [Mass/Vol] 6.8 g/dL 6.4-8.2 [facility] Work Phone: Sodium [Moles/Vol] 137 mmol/L 136-145 [facility] Work Phone: Triglyceride [Mass/Vol] 117 mg/dL <199 [facility] Work Phone: Comment on above: The drugs N-Acetylcy steine and Metamizole may falsely depress this assay.Serum Triglycerides Reference Interval Normal <150 mg/dL Borderline high 150 - 199 mg/dL High 200 - 499 mg/dL Very High > or = 500 mg/dL WBC (Bld) [#/Vol] 7.5 10*3/uL 4.4-11.0 [facility] Work Phone: Blood erythrocytes count (nu mber/volume)on 05-08-2022 RBC (Bld) [#/Vol] 4.73 10*6/uL 4.6-6.2 [facility]: Blood hemoglobin measurement (mass/volume)on 05-08-2022 Hemoglobin (Bld) [Mass/Vol] 16.2 g/dL 13.0-16.5 [facility] Work Phone: Blood lymphocytes/100 leukoc yteson 05-08-2022 Lymphocytes/100 WBC (Bld) 27.5 % 19-41 [facility] Work Phone: Blood monocytes/100 leukocyt eson 05-08-2022 Monocytes/100 WBC (Bld) 10.9 % 0-10 [facility] Work Phone: Blood platelet mean volumeon 05-08-2022 Platelet mean volume (Bld) [Entitic vol] 9.9 fL 6.2-12.0 [facility] Work Phone: Determination of erythrocyte mean corpuscular volume (MCV)on 05-08-2022 MCV (RBC) [Entitic vol] 98.7 fL 80-94 [facility] Work Phone: Hematocrit Auto (Bld) [Volum e fraction]on 05-08-2022 Hematocrit (Bld) [Volume fraction] 46.7 % 40-54 [facility] Work Phone: Laboratory - Chemistry and C hemistry - challengeon 05-08-2022 ALP [Catalytic activity/Vol] 67 U/L 45-117 [facility] Work Phone: ALT [Catalytic activity/Vol] 28 U/L 16-61 [facility] Work Phone: CO2 [Moles/Vol] 26.0 mmol/L 21.0-32.0 [facility] Work Phone: Globulin (S) [Mass/Vol] 2.7 g/dL 2.2-4.2 [facility] Work Phone: Urea nitrogen/Creatinine [Mass ratio] 16.8 mg/mg 10-20 [facility] Work Phone: Laboratory - Hematology and Cell countson 05-08-2022 Erythrocyte distribution width (RBC) [Entitic vol] 43.4 fL 35.1-43.9 [facility] Work Phone: Erythrocyte distribution width (RBC) [Ratio] 11.9 % 11.6-14.6 [facility] Work Phone: Immature granulocytes/100 WBC (Bld) 0.400 % 0.0-0.9 [facility] Work Phone: Comment on above: IG% - Immature Granu locytes (promyelocytes, myelocytes and metamyelocytes) > 1% indicates that a LEFT SHIFT is Present. MCH (RBC) [Entitic mass] 34.2 pg 27.0-32.0 [facility] Work Phone: Nucleated RBC/100 WBC (Bld) [Ratio] 0 % 0-5 [facility] Work Phone: MCHC Auto (RBC) [Mass/Vol]on 05-08-2022 MCHC (RBC) [Mass/Vol] 34.7 g/dL 32-36 [facility] Work Phone: No Panel Informationon 05-08 Estimated GFR (MDRD) Amer 82 mL/min >60 [facility] Work Phone: Comment on above: GFR Calc Estimated GFR (MDRD) Non-Af Amer 68 mL/min >60 [facility] Work Phone: Comment on above: Non- GFR Calc Thyroid Stimulating Hormone (TSH) 1.28 uIU/mL 0.358-3.74 [facility] Work Phone: Platelets bldon 05-08-2022 Platelets (Bld) [#/Vol] 245 10*3/uL 150-450 [facility] Work Phone: Serum or plasma albumin kenneth urement (mass/volume)on 05-08-2022 Albumin [Mass/Vol] 4.1 g/dL 3.2-5.0 [facility] Work Phone: Serum or plasma albumin/glob ulin mass ratioon 05-08-2022 Albumin/Globulin [Mass ratio] 1.5 {ratio} 0.9-2.4 [facility] Work Phone: Serum or plasma calcium kenneth urement (mass/volume)on 05-08-2022 Calcium [Mass/Vol] 9.4 mg/dL 8.5-10.1 [facility] Work Phone: Serum or plasma cholesterol in HDL measurement (mass/volume)on 05-08-2022 Cholesterol in HDL [Mass/Vol] 59 mg/dL >40 [facility] Work Phone: Comment on above: The drugs N-Acetylcy steine and Metamizole may falsely depress this assay. Reference Range HDL <40 mg/dL Low HDL Cholesterol HDL >or= 60 mg/dL High HDL Cholesterol Serum or plasma cholesterol in VLDL measurement (mass/volume)on 05-08-2022 Cholesterol in VLDL [Mass/Vol] 23 mg/dL 5-40 [facility] Work Phone: Serum or plasma creatinine m easurement (mass/volume)on 05-08-2022 Creatinine [Mass/Vol] 1.13 mg/dL 0.70-1.30 [facility] Work Phone: Comment on above: The validity of the calculated GFR & GFRAA in patients over 70 years has not been determined. Clinical correlation is essential. Serum or plasma low density lipoprotein (LDL) cholesterol measurement (mass/volume)on 05-08-2022 Cholesterol in LDL [Mass/Vol] 69 mg/dL 0-130 [facility] Work Phone: Serum or plasma urea nitroge n measurement (mass/volume)on 05-08-2022 Urea nitrogen [Mass/Vol] 19 mg/dL 7-18 [facility] Work Phone: Thin prep Papanicolaou smear with manual screeningon 05-08-2022 Thin prep Papanicolaou smear with manual screening 17 U/L 15-37 [facility] Work Phone: Thin prep Papanicolaou smear with manual screening 7 5-15 [facility] Work Phone: Whole blood hemoglobin A1c/t otal hemoglobin ratio (mass fraction)on 05-08-2022 HbA1c (Bld) [Mass fraction] 6.2 % 3.8-5.6 [facility] Work Phone: Comment on above: Normal < 5.7 % Predi abetic 5.7 - 6.4 % Diabetic >or= 6.5 % Please note range changes. Absolute lymphocyte counton 10-16-2021 Lymphocytes Auto (Unsp spec) [#/Vol] 1.59 10*3/uL 0.83-4.51 [facility] Work Phone: Basophil percentageon 2021 Basophils/100 WBC (Bld) 0.5 % 0-1 [facility] Work Phone: Bilirubin [Mass/Vol] 0.60 mg/dL 0.20-1.00 [facility] Work Phone: Comment on above: For patients on eltr ombopag therapy, use of Dimension [place] TBIL is not recommended. Chloride [Moles/Vol] 102 mmol/L 98-107 [facility] Work Phone: Eosinophils/100 WBC (Bld) 6.5 % 0-5 [facility] Work Phone: Glucose [Mass/Vol] 130 mg/dL 74-106 [facility] Work Phone: Comment on above: Fasting Glucose resu lt greater than or equal to 126 mg/dL suggests DIABETES MELLITUS per A.D.A. criteria. Neutrophils (Bld) [#/Vol] 3.5 10*3/uL 2.0-7.7 [facility] Work Phone: Neutrophils/100 WBC (Bld) 54.6 % 47-70 [facility] Work Phone: [phone] Potassium [Moles/Vol] 3.9 mmol/L 3.5-5.1 [facility]: [phone] Protein [Mass/Vol] 7.1 g/dL 6.4-8.2 [facility]: Sodium [Moles/Vol] 136 mmol/L 136-145 [facility] Work Phone: [phone] WBC (Bld) [#/Vol] 6.3 10*3/uL 4.4-11.0 [facility] Work Phone: Blood erythrocytes count (nu mber/volume)on 10-16-2021 RBC (Bld) [#/Vol] 4.59 10*6/uL 4.6-6.2 [facility] Work Phone: Blood hemoglobin measurement (mass/volume)on 10-16-2021 Hemoglobin (Bld) [Mass/Vol] 15.7 g/dL 13.0-16.5 [facility] Work Phone: Blood lymphocytes/100 leukoc yteson 10-16-2021 Lymphocytes/100 WBC (Bld) 25.2 % 19-41 [facility] Work Phone: [phone] Blood monocytes/100 leukocyt eson 10-16-2021 Monocytes/100 WBC (Bld) 12.7 % 0-10 [facility] Work Phone: Blood platelet mean volumeon 10-16-2021 Platelet mean volume (Bld) [Entitic vol] 9.6 fL 6.2-12.0 [facility] Work Phone: Determination of erythrocyte mean corpuscular volume (MCV)on 10-16-2021 MCV (RBC) [Entitic vol] 97.4 fL 80-94 [facility] Work Phone: Hematocrit Auto (Bld) [Volum e fraction]on 10-16-2021 Hematocrit (Bld) [Volume fraction] 44.7 % 40-54 [facility] Work Phone: Laboratory - Chemistry and C hemistry - challengeon 10-16-2021 ALP [Catalytic activity/Vol] 63 U/L 45-117 [facility] Work Phone: ALT [Catalytic activity/Vol] 28 U/L 16-61 [facility] Work Phone: CO2 [Moles/Vol] 24.0 mmol/L 21.0-32.0 [facility] Work Phone: Cobalamin (Vitamin B12) [Mass/Vol] 867 pg/mL 211-911 [facility] Work Phone: Globulin (S) [Mass/Vol] 3.1 g/dL 2.2-4.2 [facility] Work Phone: Magnesium [Mass/Vol] 1.9 mg/dL 1.6-2.6 [facility] Work Phone: Urea nitrogen/Creatinine [Mass ratio] 23.8 mg/mg 10-20 [facility] Work Phone: Laboratory - Hematology and Cell countson 10-16-2021 Erythrocyte distribution width (RBC) [Entitic vol] 42.5 fL 35.1-43.9 [facility] Work Phone: Erythrocyte distribution width (RBC) [Ratio] 11.8 % 11.6-14.6 [facility] Work Phone: Immature granulocytes/100 WBC (Bld) 0.500 % 0.0-0.9 [facility] Work Phone: [phone] Comment on above: IG% - Immature Granu locytes (promyelocytes, myelocytes and metamyelocytes) > 1% indicates that a LEFT SHIFT is Present. MCH (RBC) [Entitic mass] 34.2 pg 27.0-32.0 [facility] Work Phone: Nucleated RBC/100 WBC (Bld) [Ratio] 0 % 0-5 [facility] Work Phone: [phone] MCHC Auto (RBC) [Mass/Vol]on 10-16-2021 MCHC (RBC) [Mass/Vol] 35.1 g/dL 32-36 [facility] Work Phone: No Panel Informationon 10-16 Urine Microalbumin/Creatinine Ratio 7.2 mg/g CRE <30 [facility] Work Phone: Estimated GFR (MDRD) Amer 90 mL/min >60 [facility] Work Phone: Comment on above: GFR Calc Estimated GFR (MDRD) Non-Af Amer 74 mL/min >60 [facility] Work Phone: Comment on above: Non- GFR Calc Thyroid Stimulating Hormone (TSH) 1.20 uIU/mL 0.358-3.74 [facility] Work Phone: Platelets bldon 10-16-2021 Platelets (Bld) [#/Vol] 238 10*3/uL 150-450 [facility] Work Phone: Serum or plasma albumin kenneth urement (mass/volume)on 10-16-2021 Albumin [Mass/Vol] 4.0 g/dL 3.2-5.0 [facility] Work Phone: Serum or plasma albumin/glob ulin mass ratioon 10-16-2021 Albumin/Globulin [Mass ratio] 1.3 {ratio} 0.9-2.4 [facility] Work Phone: Serum or plasma calcium kenneth urement (mass/volume)on 10-16-2021 Calcium [Mass/Vol] 9.9 mg/dL 8.5-10.1 [facility] Work Phone: Serum or plasma creatinine m easurement (mass/volume)on 10-16-2021 Creatinine [Mass/Vol] 1.05 mg/dL 0.70-1.30 [facility] Work Phone: Comment on above: The validity of the calculated GFR & GFRAA in patients over 70 years has not been determined. Clinical correlation is essential. Serum or plasma urea nitroge n measurement (mass/volume)on 10-16-2021 Urea nitrogen [Mass/Vol] 25 mg/dL 7-18 [facility] Work Phone: Thin prep Papanicolaou smear with manual screeningon 10-16-2021 Thin prep Papanicolaou smear with manual screening 21.0 mg/L NO RANGE EST. [facility] Work Phone: Thin prep Papanicolaou smear with manual screening 22 U/L 15-37 [facility] Work Phone: Thin prep Papanicolaou smear with manual screening 10 5-15 [facility] Work Phone: Urine creatinine measurement (mass/volume)on 10-16-2021 Creatinine (U) [Mass/Vol] 291.00 mg/dL NO RANGE EST. [facility] Work Phone: Vital Signs Date Time Vital Sign Value Performing Clinician Faci lity 03-18-2025 09:26-0400 Body height 175.[address] Delfino Montgomery MD Work Phone: [facility] 03-18-2025 09:26-0400 Body mass index (BMI) [Ratio] 26.6 kg/m2 Dr. Delfino Montgomery MD Work Phone: [facility] 03-18-2025 09:26-0400 Body weight 81.[address] Delfino Montgomery MD Work Phone: [facility] 12-15-2024 08:59-0400 Body height 175.[address] Delfino Montgomery MD Work Phone: [facility] 12-15-2024 08:59-0400 Body mass index (BMI) [Ratio] 26.7 kg/m2 Dr. Delfino Montgomery MD Work Phone: [facility] 12-15-2024 08:59-0400 Body weight 82.[address] Delfino Montgomery MD Work Phone: [facility] 12-15-2024 08:59-0400 Diastolic blood pressure 82 mm[Hg] Dr. Delfino Montgomery MD Work Phone: [facility] 12-15-2024 08:59-0400 Heart rate 62 /min Dr. Delfino Montgomery MD Work Phone: [facility] 12-15-2024 08:59-0400 Respiratory rate 18 /min Dr. Delfino Montgomery MD Work Phone: [facility] 12-15-2024 08:59-0400 SaO2% (BldA) [Mass fraction] 93 % Dr. Delfino Montgomery MD Work Phone: [phone] [place] [address] 12-15-2024 08:59-0400 Systolic blood pressure 146 mm[Hg] Dr. Delfino Montgomery MD Work Phone: [phone] [place] [address] 02-26-2023 08:34-0400 Body height 175.[address] Delfino Montgomery Work Phone: [phone])092-958894 [place] [address] 02-26-2023 08:34-0400 Body mass index (BMI) [Ratio] 28.6 kg/m2 Dr. Delfino Montgomery Work Phone: [phone])506-581300 [address] 02-26-2023 08:34-0400 Body temperature 97.4 [degF] Dr. Delfino Montgomery Work Phone: [phone])484-514794 [place] [address] 02-26-2023 08:34-0400 Body weight 87.[address] Delfino Montgomery Work Phone: [phone] [place] [address] 02-26-2023 08:34-0400 Diastolic blood pressure 80 mm[Hg] Dr. Delfino Montgomery Work Phone: [facility] 02-26-2023 08:34-0400 Heart rate 77 /min Dr. Delfino Montgomery Work Phone: [phone])363-280075 [place] [address] 02-26-2023 08:34-0400 Respiratory rate 17 /min Dr. Delfino Montgomery Work Phone: [facility] 02-26-2023 08:34-0400 SaO2% (BldA) [Mass fraction] 94 % Dr. Delfino Montgomery Work Phone: [phone])616-132275 [place] [address] 02-26-2023 08:34-0400 Systolic blood pressure 145 mm[Hg] Dr. Delfino Montgomery Work Phone: [facility] 04-22-2022 13:51-0500 Body height 175.[address] Delfino Montgomery Work Phone: [facility] Work Phone: 04-22-2022 13:51-0500 Body mass index (BMI) [Ratio] 29.1 kg/m2 Dr. Delfino Montgomery Work Phone: [facility] Work Phone: 04-22-2022 13:51-0500 Body weight 89.[address] Delfino Montgomery Work Phone: [facility] Work Phone: 04-22-2022 13:51-0500 Diastolic blood pressure 62 mm[Hg] Dr. Delfino Montgomery Work Phone: [facility] Work Phone: 04-22-2022 13:51-0500 Heart rate 76 /min Dr. Delfino Montgomery Work Phone: [facility] Work Phone: 04-22-2022 13:51-0500 Respiratory rate 18 /min Dr. Delfino Montgomery Work Phone: [facility] Work Phone: 04-22-2022 13:51-0500 Systolic blood pressure 150 mm[Hg] Dr. Delfino Montgomery Work Phone: [facility] Work Phone: Encounters Encounter Date Encounter Type Care Provider Facility Start: 03-18-2025 End: 03-18-[address] Eugenio Padilla MD -[facility] Work Phone: Start: 03-18-2025 End: 03-18-2025 [facility] Delfino Montgomery Facility:[facility] [place] Start: 12-15-2024 End: 12-15-[address] Fregoso MD -[facility] Work Phone: Start: 12-15-2024 End: 12-15-[address] Delfino Montgomery MD Work Phone: -[facility] Start: 10-20-2024 End: 10-20-[address] Delfino Montgomery MD Work Phone: [facility] Work Phone: Start: 10-20-2024 End: 10-20-[address] Delfino Montgomery MD -[facility] [place] Work Phone: Start: 10-20-2024 End: 10-20-2024 ambulatory Delfino Montgomery Facility:[facility] Start: 06-01-2024 End: 06-01-2024 ambulatory Delfino Montgomery Facility:[facility] Start: 05-12-2024 End: 05-12-2024 ambulatory Delfino Montgomery Facility:[facility] Start: 05-03-2024 End: 05-03-2024 ambulatory Delfino Montgomery Facility:[facility] Start: 10-11-2023 End: 10-11-2023 ambulatory [facility] Work Phone: Start: 10-11-2023 End: 10-11-2023 Patient encounter procedure [facility] Work Phone: Start: 05-28-2023 End: 05-28-[address] Delfino Montgomery Work Phone: [facility] Work Phone: Start: 05-28-2023 End: 05-28-[address] [facility]elfino Montgomery [facility] Start: 05-07-2023 Non-patient / Non-visit Dr. Marshall Montgomery Work Phone: [facility] Start: 05-07-2023 End: 05-07-[address] Delfino Montgomery Work Phone: [facility] Work Phone: Start: 05-07-2023 End: 05-07-[address] Delfino Montgomery Work Phone: [facility] Work Phone: Start: 02-26-2023 End: 02-26-[address] Delfino Montgomery Work Phone: [facility] Work Phone: Start: 12-26-2022 End: 12-26-2022 ambulatory [facility] Work Phone: Start: 12-26-2022 End: 12-26-2022 Discharged Recurring [facility] Work Phone: Start: 11-11-2022 End: 11-11-2022 Patient encounter procedure [facility] Start: 05-08-2022 End: 05-08-[address] Delfino Montgomery Work Phone: [facility] Work Phone: Start: 05-08-2022 End: 05-08-[address] Delfino Montgomery Work Phone: [facility] Start: 04-22-2022 End: 04-22-[address] Delfino Montgomery Work Phone: [facility] Start: 10-16-2021 End: 10-16-2021 Patient encounter procedure [facility] Payers Date Payer Category Payer Self-pay [id number] 2024 Private Health Insurance [id number] 2016 Private Health Insurance [id number] Medicare [id number] Unknown [id number] Unknown [id number] 2.16.8 [id number] Unknown [id number] 2.16.8 [id number] Unknown [id number] 2.16.8 [id number] Unknown [id number] 2.16.8 [id number] Unknown [id number] 2.16.8 [id number] Unknown [id number] 2.16.8 [id number] Social History Date Type Detail Facility Start: 05-16-2021 End: 02-26-2023 Tobacco smoking status ILIS Unknown if ever smoked [facility] Start: 1950 Sex Assigned At Male [facility] Start: 02-26-2023 Tobacco smoking stat us ILIS Ex-smoker (finding) [facility] Sex Male [facility] Progress note 03-18-2025 Note Date & Type Note Facility 03-18-2025 Progress note [facility] Evaluation note 12-15-2024 Note Date & Type Note Facility 12-15-2024 Evaluation note Diagnosis Onset Date Resolution Atherosclerotic heart disease of [place] coronary artery without angina pectoris chronic December 15, 2024 8:56am Essential hypertension chronic Ju 2024 8:56am Hyperlipemia chronic December 15 8:56am Type 2 diabetes mellitus chronic December 15, 2024 8:56am Left shoulder pain acute Octobe r 2024 9:26am [facility] Work Phone: Discharge summary 12-26-2022 Note Date & Type Note Facility 12-26-2022 Discharge summary Note Date/Time December 26, 2022 10:53am [facility] [address] [place] [address] / REHABILITATION SERVICES DISCHARGE SUMMARY MR#: [id number] Acct: [id number] Name: BRANT BASILIO Rep #: [id number] : 1950 72 From: Haider Cardona PT, ATC Referring Dr.: Dr. Delfino Montgomery MD Status: REG RCR Insurance: [facility] SELF PAY INSURANCE Discharge Summary D/C summary: [...] please feel free to call me at [phone]. Thank you for the referral of thispatient. Sincerely, Haider Cardona, PT, ATC Balance/Gait/Functional tests Balance/Special Test Scores Oswestry Neck Score: 4 <Electronically signed by Haider Cardona PT, ATC> 12/26/22 1053 CC: Dr. Delfino Montgomery MD ~ [facility] Signed [facility] Work Phone: Evaluation note Note Date & Type Note Facility Evaluation note No assessment information availa ble [facility] Work Phone: Evaluation note Note Date & Type Note Facility Evaluation note Diagnosis Onset Date Atherosclerotic heart diseas e of [place] coronary artery without angina pectoris chronic Essential hypertension chron ic Hyperlipemia chronic [facility] Work Phone: Evaluation note Note Date & Type Note Facility Evaluation note Diagnosis Onset Date Umbilical hernia acute [facility] Work Phone: Progress note Note Date & Type Note Facility Progress note Note Date/Time March 18, 2025 9:42am [facility] [address] [place] [id number] OFFICE VISIT Date of Service: 03/18/25 MR#: [id number] Acct: [id number] Name: BRANT BASILIO Rep #: [id number] : 1950 Provider: Dr. Samir Padilla MD Age/Sex: 74/M Location: [facility] [place] Status: Signed with Addenda ADDENDUM by Alma [...] Performing Provider: Eugenio Padilla MD Performing Location: [facility] Administered by: Eugenio Padilla MD on 03/18/25 09:54 Dose Route Admin Location Dispensed Lot Number Expiration Date Pack age NDC NDC Online Program Coordinator 80 mg intra-articular left subacromial 2 mL [id number] 06/09/26 19897- 623-10 [id number] [facility] Date _ cc: ~* Signed Intake [...] you fallen in the past year?: No [facility] Medical History Right rotator cuff tear Left shoulder pain Right shoulder pain Type 2 diabetes mellitus Atherosclerotic heart disease of [place] coronary artery without angina pectoris Essential hypertension [...] by me, Dr. Eugenio Padilla MD 03/18/25 0812. Part of today?s visit was documented by [...] strength. Coding Level of Care Code Attention Obstetrics Teacher Diagnoses Left shoulder pain M25.512 Comment 05537 and CPT inject major joint Assessment and [...] blood flow before exercises. 4. Anti-Inflammatory Medications: Neat-ulp-qxanqoz medications like ibuprofen ornaproxen can help reduce [...] Cosigner Signature: Date (if applicable) CC: ~ [facility] Work Phone: Reason for referral (narrative) Note Date & Type Note Facility Reason for referral (narrative) No reason for referral information available [facility] Work Phone: Advance Directives Advance Directive Response Recorded Date/ Time Living Will Yes January 21 10:54pm Power of Brazing Furnace Feeder Yes January 21, 021 10:54pm Advance Directive Response Recorded Date/ Time Living Will Yes January 21 9:54pm Power of Brazing Furnace Feeder Yes January 21, 021 9:54pm Chief Complaint and Reason for Visit Chief Complaint 1 Y FU EORDER Reason for Visit Atherosclerotic hear t disease of [place] coronary artery without angina pectoris Essential hypertension [...] Admit Date Atherosclerotic heart diseas e of [place] coronary artery without angina pectoris December 15, [...] section and content) DATE CREATED AUTHOR 03/19/2025 [facility] FOR RECORDS PERTAINING TO PATIENTS WHO [...] BE BASED ON THE PRIMARY CLINICAL RECORDS. [employer] provides no warranty or guarantee of the accuracy or completeness of information in this document.
== END | disposition home or self-care (01) ==
LOC: MTLAB 07:19
PROVIDERS: PCP Family Medicine; Referring Provider Family Medicine; Visit Provider Family Medicine
DX: E11.22 Type 2 diabetes mellitus with diabetic chronic kidney disease (principal)
CPT/HCPCS: 36415; 83036